=== PATIENT | female | born 1935 | race Caucasian/White ===

== ENCOUNTER → 2016-08-03 | Outpatient (CLI) | payer OTHER ==
[~2016-08-03] MED LIST: ACET-1256 PO; ALLO300T2 PO; ASCA500 PO; ASPI325T45 PO; ASPI81TA28 PO; ASPITAB71 PO; ATOR-22 PO; CALC500C3 PO; DTRSR4 PO; GLUC10007 PO; METO-649 PO; MULT-614 PO; OXYC-57 PO; PEDICHW34 PO; RXC5 PO; VALS160T58 PO; VITA400C15 PO
[2016-08-03 18:18] LABS: ALT/SGPT 23 U/L (12-78); AST/SGOT 13 U/L (15-37); BLOOD UREA NITROGEN 37 mg/dl (7-18); CALCIUM 10.3 mg/dl (8.5-10.1); CARBON DIOXIDE 24 mmol/L (21-32); CHLORIDE 107 mmol/L (98-107); GLUCOSE 139 mg/dl (70-99); POTASSIUM 4.5 mmol/L (3.5-5.1); SODIUM 139 mmol/L (136-145)
[2016-08-03 18:20] LABS: ALB/GLOB RATIO 1.1 (0.9-2); ALKALINE PHOSPHATASE 72 U/L (45-117)
== END ==
LOC: C.LABPVFM 14:33
PROVIDERS: ATTEND Nurse Practitioner
DX: N18.4 Chronic kidney disease, stage 4 (severe) (principal)

== ENCOUNTER → 2016-08-08 | Outpatient (CLI) | payer OTHER ==
[2016-08-08 13:04] LABS: ESTIMATED AVERAGE GLUCOSE 120 mg/dl; HA1C FLAG Normal (Normal)
== END | disposition home or self-care (01) ==
LOC: C.LABPVFM 10:42
PROVIDERS: ATTEND Nurse Practitioner
DX: R73.01 Impaired fasting glucose (principal); E83.52 Hypercalcemia

== ENCOUNTER → 2016-11-05 | Outpatient (CLI) | payer OTHER ==
[~2016-11-05] MED LIST changes: -ASPI325T45 PO; -ASPITAB71 PO; -DTRSR4 PO; -METO-649 PO; +METO1TAB71 PO; -PEDICHW34 PO; -RXC5 PO
[2016-11-05 12:56] LABS: BLOOD UREA NITROGEN 41 mg/dl (7-18); BUN/CREATININE RATIO 23.9 (10-20); CALCIUM 9.8 mg/dl (8.5-10.1); CARBON DIOXIDE 26 mmol/L (21-32); CHLORIDE 105 mmol/L (98-107); GLUCOSE 99 mg/dl (70-99); POTASSIUM 4.4 mmol/L (3.5-5.1); SODIUM 138 mmol/L (136-145)
== END | disposition home or self-care (01) ==
LOC: C.LABPVFM 10:40
PROVIDERS: ATTEND Nurse Practitioner
DX: N18.4 Chronic kidney disease, stage 4 (severe) (principal)

== ENCOUNTER 2016-11-09 08:20 | Day surgery (SDC) | payer OTHER ==
[2016-10-05 10:44] VITALS: BMI 33.0
--- NOTE | 2016-10-05 11:30 | PAT Medication Instructions ---
Service Date Oct 05, 2016. Current Home Medication List Ascorbic Acid (Vitamin C), 1 TAB PO QAM Aspirin (Aspirin Ec), 81 MG PO QAM Atorvastatin (Lipitor), 20 MG PO HS Calcium Carbonate (Tums), 1 TAB PO QAM Glucosamine Sulfate (Glucosamine), 1,000 MG PO AM Metoprolol Succinate (Toprolxl (Toprol-Xl), 200 MG PO QAM Multiple Vitamins W/ Minerals (Centrum Silver Ultra Wome), 1 TAB PO QAM Tocopheryl Acet,Dl-Alpha (Vitamin E), 400 INTER.UNIT PO QAM Valsartan/Hctz (Diovan Hct 160MG/12.5MG), 1 TAB PO QAM Medication Instructions For Your Scheduled Surgery - Check with surgeon/game farm helper for instructions: Aspirin (Aspirin Ec), 81 MG PO QAM - Hold the following medications 2 weeks prior to surgery: Tocopheryl Acet,Dl-Alpha (Vitamin E), 400 INTER.UNIT PO QAM Glucosamine Sulfate (Glucosamine), 1,000 MG PO AM - Hold the following medications the morning of surgery: Valsartan/Hctz (Diovan Hct 160MG/12.5MG), 1 TAB PO QAM Multiple Vitamins W/ Minerals (Centrum Silver Ultra Wome), 1 TAB PO QAM Calcium Carbonate (Tums), 1 TAB PO QAM Ascorbic Acid (Vitamin C), 1 TAB PO QAM - Take the following medications the morning of surgery with a sip of water: Metoprolol Succinate (Toprolxl (Toprol-Xl), 200 MG PO QAM - Take the following medications as scheduled the night before surgery: Atorvastatin (Lipitor), 20 MG PO HS If you have any questions please call us at [phone] or [phone] or [phone]
[2016-10-05 12:14] LABS: BASO % 0.4 %; BASO ABS # 0.03 K/uL (0-0.2); COMPLETE YES; EOS % 4.4 %; HEMATOCRIT 39.3 % (37-47); IG% 0.1 %; LYMPH % 22.7 %; LYMPH ABS # 1.55 K/uL (1.2-3.4); MEAN CELL VOLUME 100.5 fL (80-100); MEAN CORPUSCULAR HGB CONC 33.8 g/dl (32-36); MEAN PLATELET VOLUME 10.8 fL (7.4-10.4); MONO % 8.4 %; PLATELET COUNT 294 K/uL (130-400); RED BLOOD COUNT 3.91 M/uL (4.2-5.4); WHITE BLOOD COUNT 6.82 K/uL (4.8-10.8)
[2016-10-05 12:21] LABS: CREATININE 1.7 mg/dl (0.60-1.20); POTASSIUM 4.6 mmol/L (3.5-5.1)
--- NOTE | 2016-10-05 12:39 | DIAGNOSTIC IMAGING REPORT ---
TWO VIEW CHEST CLINICAL HISTORY: Preoperative examination. FINDINGS: PA and lateral chest radiographs are compared to study dated 09/26/2015. The heart is top normal for projection and there is atherosclerotic calcification of the thoracic aorta. Chronic residual thickening is similar to previous. The lungs and pleural spaces are clear. There is no pneumothorax. The skeletal structures are osteopenic. Advanced degenerative change is noted in the thoracic spine. Fusion hardware is partially visualized in the lumbar spine. IMPRESSION: No active disease in the chest. Electronically signed by: Arnel Arizmendi M.D. 10/05/2016 12:38 PM Dictated Date/Time: 10/05/2016 12:37 PM
[2016-10-08 18:09] LABS: URINE APPEARANCE CLEAR (CLEAR); URINE BILIRUBIN NEG (NEG); URINE COLOR YELLOW; URINE EPITHELIAL CELL AUTO 20-30 /lpf (0-5); URINE NITRITE NEG (NEG); URINE PH 6.5 (4.5-7.5); URINE SPECIFIC GRAVITY 1.011 (1.000-1.030); UROBILINOGEN NEG (NEG); ZZUR CULT IF INDIC CLEAN CATCH NO
[2016-10-08 18:15] LABS: MANUAL MICROSCOPIC REQUIRED? NO; REVIEW REQ? NO
[~2016-11-09] VITALS: Ht 154.9 cm; Wt 79.9 kg
[~2016-11-09 08:20] MED LIST changes: -ACET-1256 PO; -ALLO300T2 PO; +CEFAZOLIN 1000MG/55 ML D5W 55 ML IV SCH; -OXYC-57 PO; +SODIUM CHLORIDE 0.9% 1000ML 1,000 ML IV SCH
[2016-11-09] MEDS ORDERED: ALLO300T2 PO (08:57)
[2016-11-09] MEDS ORDERED: ACET-1256 PO (08:57)
[2016-11-09 09:06] VITALS: BP 197/101; PULSE 60; TEMP 36.4; O2SAT 98; Ht 154.9 cm; Wt 79.9 kg
[2016-11-09 09:43] LABS: BUN/CREATININE RATIO 25.2 (10-20); CREATININE 1.7 mg/dl (0.60-1.20); POTASSIUM 4.3 mmol/L (3.5-5.1)
[2016-11-09] MEDS ORDERED: HYDROmorphone INJ 2 MG/ML SYR/VIAL IV PRN (09:45)
[2016-11-09] MEDS ORDERED: LABETALOL HCL IV 5 MG/ML 20ML IV PRN (09:45)
[2016-11-09] MEDS ORDERED: ATROPINE SULFATE 0.1 MG/ML 5ML SYR IV PRN (09:45)
[2016-11-09] MEDS ORDERED: ONDANSETRON INJ 2 MG/ML 2 ML VIAL IV PRN (09:45)
[2016-11-09] MEDS ORDERED: FENTANYL CITRATE INJ 50 MCG/1 ML 2 ML VIAL ONE ×2 (09:54→11:03)
[2016-11-09] MEDS ORDERED: MIDAZOLAM HCL 1 MG/ML 2ML VIAL ONE (09:54)
--- NOTE | 2016-11-09 09:56 | History & Physical Bridge Note ---
H&P Re-Evaluation Bridge Note: I have examined the patient, reviewed the History & Physical and in the interval since the performance of the History & Physical I have noted the following changes of clinical significance: No changes noted
--- NOTE | 2016-11-09 09:57 | History and Physical ---
History & Physical Date Nov 09, 2016. 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 (6) Lumbar stenosis with neurogenic claudication Surgical Problems: (1) Hip Joint Replacement Status Additional History Hepatic Disease: No Endocrine Disorder: No Kidney Disease: No Hypertension: Yes Heart Disease: No Bleeding Tendencies: No Infectious Diseases: No Allergies Coded Allergies: Clopidogrel (Verified Allergy, Unknown, HIVES , 11/09/16) Adhesives (Verified Adverse Reaction, Unknown, RASH, 11/09/16) Codeine (Verified Adverse Reaction, Unknown, NAUSEA, 11/09/16) Home Medications Scheduled Allopurinol (Zyloprim), 1 TAB PO DAILY Ascorbic Acid (Vitamin C), 1 TAB PO QAM Aspirin (Aspirin Ec), 81 MG PO QAM Atorvastatin (Lipitor), 20 MG PO HS Calcium Carbonate (Tums), 1 TAB PO QAM Glucosamine Sulfate (Glucosamine), 1,000 MG PO AM Metoprolol Succinate (Toprolxl (Toprol-Xl), 200 MG PO QAM Multiple Vitamins W/ Minerals (Centrum Silver Ultra Wome), 1 TAB PO QAM Tocopheryl Acet,Dl-Alpha (Vitamin E), 400 INTER.UNIT PO QAM Valsartan/Hctz (Diovan Hct 160MG/12.5MG), 1 TAB PO QAM Scheduled PRN Acetaminophen (Tylenol), 2 TAB PO Q6 PRN for Pain Physical Examination Skin: warm/dry, no rash Eyes: normal inspection, EOMI, sclerae normal ENT: normal ENT inspection, pharynx normal Head: normocephalic, atraumatic Neck: supple, no adenopathy, trachea midline Respiratory/Chest: lungs clear, normal breath sounds, no respiratory distress Cardiovascular: regular rate, rhythm, no edema, no murmur Abdomen / GI: normal bowel sounds, non tender Back: normal inspection Extremities: normal inspection, normal range of motion Neurologic/Psych: no motor/sensory deficits, alert, normal reflexes, oriented x 3 Diagnosis Left sacroiliitis Plan of Treatment Left SI joint fusion
[2016-11-09] MEDS ORDERED: SODIUM CHL BACTERIOSTATIC 0.9% INJ 30 ML VIAL ONE (10:21)
[2016-11-09] MEDS ORDERED: BUPIVACAINE 0.5 % 5 MG/1 ML MPF 30ML VIAL ONE (10:27)
[2016-11-09] MEDS ORDERED: BACITRACIN 50000 UNIT VIAL ONE (10:27)
[2016-11-09] MEDS ORDERED: BUPIVACAINE/EPINEPHRINE 0.5% MPF 1:200,000 10 ML VIAL ONE (10:29)
[2016-11-09] MEDS ORDERED: HYDROmorphone INJ 2 MG/ML SYR/VIAL ONE (11:00)
[2016-11-09] MEDS ORDERED: OXYC-57 PO (11:40)
--- NOTE | 2016-11-09 11:41 | Discharge Instructions ---
Discharge Instructions Date of Service Nov 09, 2016. Admission Reason for Admission: Si Joint Dysfunction Discharge Discharge Diagnosis / Problem: left sacroiliitis Discharge Goals Goal(s): Improve function Activity Recommendations Activity Limitations: per Instructions/Follow-up section Shower/Bathe: may shower/bathe in 3 days Weightbearing Status: Left toe touch Toe-touch weightbearing left lower extremity. May shower postop day 2. . Current Hospital Diet Patient's current hospital diet: Discharge Diet Recommended Diet: Regular Diet Procedures Procedures Performed: Left Sacroiliac Joint Fusion Pending Studies Studies pending at discharge: no Medical Emergencies . Who to Call and When: Medical Emergencies: If at any time you feel your situation is an emergency, please call 911 immediately. . Non-Emergent Contact Non-Emergency issues call your: Primary Care Provider . "Provider Documentation" section prepared by Mathew Mohamud. . VTE Core Measure Inpt VTE Proph given/why not?: Curtis Kahn, SCD's
--- NOTE | 2016-11-09 11:46 | [facility] Operative Report ---
Operative Report Operative Date Nov 09, 2016. Pre-Operative Diagnosis Left sacroiliitis Post-Operative Diagnosis Left sacroiliitis Procedure(s) Performed Left SI joint fusion with instrumentation Surgeon Dr. Mohamud Manager Skilled Surgeon(s) Kody Mendoza PA-C Estimated Blood Loss 10 ml Findings None Specimens NONE Description of Procedure Patient was met with preoperatively case discussed all questions are dressed. After informed consent patient was taken to the operative suite and underwent intubation placed on the Robi table with chest pads and hip bolsters. Left upper buttock was prepped and draped nostril fashion. With fluoroscopy in AP lateral inlet outlet views we identified the left this SI joint. A 3 cm incision was placed along the posterior slope of the sacrum on the left side. Then placed a guidewire across the proximal portion of the left SI joint verified position and all fluoroscopic planes. He measured cannulas were placed measured a 45 mm screw to be appropriate length. The K wire was overdrilled. A 45 mm slotted DOLAN-coated screw was then placed across the joint. At excellent feel and fixation. Then using outrigger guide a placed second distal SI joint screw. Again it was drilled over guidewire and a 40 mm DOLAN- coated slotted screw filled with locally harvested morcellized autograft and Rae bone graft screwed in position. Again excellent fixation and purchase was noted. There is on the third screw. Subsequently all apparatus was removed. Incision was scoped irrigated. Was closed with subcutaneous pains Vicryl for Monocryl for final skin closure. Steri-Strips and sterile dressings placed. Patient was awakened taken to PACU in stable condition. Please note James flores was present throughout the entire procedure involved in patient positioning complex portions of the procedure and final skin closure. I attest to the content of the Intraoperative Record and any orders documented therein. Any exceptions are noted below.
--- NOTE | 2016-11-09 11:55 | DIAGNOSTIC IMAGING REPORT ---
Radiology PELVIS 1 OR 2 VIEWS ROUTINE CLINICAL HISTORY: 81 years-old Female presenting with LEFT SACROILIAC JOINT FUSION. TECHNIQUE: 3 fluoroscopic spot image(s) obtained as part of an intraoperative procedure. COMPARISON: None. FINDINGS/IMPRESSION: 2 screw fixation across the left sacroiliac joint noted. Posterior fusion of the lower lumbar spine with interbody spacers at L4-5 and L5-S1. Please see surgical report for further details. Fluoroscopy dosage (mGy): Not available. Fluoroscopy time: 1 minute 10 seconds. Number of fluoroscopic spot images: 3. Electronically signed by: Jaison Campos M.D. 11/09/2016 11:54 AM Dictated Date/Time: 11/09/2016 11:53 AM
--- NOTE | 2016-11-09 11:58 | Anesthesiology Progress Note ---
Anesthesia Post Op Note Date & Time Nov 09, 2016 at 11:58 Vital Signs Pain Intensity: 0 Vital Signs Past 12 Hours Date Time Temp Pulse Resp B/P (MAP) Pulse Ox O2 Delivery O2 Flow Rate FiO2 11/09/16 11:55 36.1 63 16 169/80 99 Room Air 11/09/16 11:45 57 16 170/87 100 Oxymask 10 11/09/16 11:35 57 16 168/73 100 Oxymask 10 11/09/16 11:29 36.3 69 16 174/74 99 Oxymask 10 11/09/16 09:06 36.4 60 20 197/101 98 Room Air Notes Mental Status: alert / awake / arousable, participated in evaluation Pt Amnestic to Procedure: Yes Nausea / Vomiting: adequately controlled Pain: adequately controlled Airway Patency, RR, SpO2: stable & adequate BP & HR: stable & adequate Hydration State: stable & adequate Anesthetic Complications: no major complications apparent
[2016-11-09 12:15] VITALS: BP 181/67; PULSE 78; TEMP 36.5; O2SAT 97
[2016-11-09] MEDS ORDERED: ACETAMINOPHEN 325 MG TAB ONE (12:38)
[2016-11-09] MEDS ORDERED: LIDOCAINE HCL 2% 2 ML VIAL (20MG/ML) ONE (12:41)
[2016-11-09] MEDS ORDERED: GLYCOPYRROLATE INJ 0.2 MG/ML VIAL ONE (12:41)
[2016-11-09] MEDS ORDERED: DEXAMETHASONE SOD INJ 4 MG/ML VIAL ONE (12:41)
[2016-11-09] MEDS ORDERED: ROCURONIUM BROMIDE 10 MG/ML 5 ML VIAL IV ONE (12:41)
[2016-11-09] MEDS ORDERED: ONDANSETRON INJ 2 MG/ML 2 ML VIAL ONE (12:41)
[2016-11-09] MEDS ORDERED: PROPOFOL IV EMULSION 10 MG/ML 20 ML VIAL IV ONE (12:41)
[2016-11-09] MEDS ORDERED: NEOSTIGMINE METHYLSULFATE 1 MG/ML 10ML VIAL ONE (12:41)
[2016-11-09] MEDS ORDERED: EpHEDrine SULFATE 50MG/5ML SYR ONE (12:41)
[2016-11-09 12:45] VITALS: BP 178/76; PULSE 80; O2SAT 98
[2016-11-09] MEDS ORDERED: NURSING VERBAL MED ORDER ONE (12:45)
[2016-11-09] MEDS ORDERED: ACETAMINOPHEN 325 MG TAB PO ONE (12:45)
[2016-11-09 13:15] VITALS: BP 170/70; PULSE 75; O2SAT 98
== END 2016-11-09 13:25 | disposition home or self-care (01) ==
LOC: C.ACU 08:20
PROVIDERS: ATTEND Orthopaedic Surgery Orthopaedic Surgery of the Spine
DX: M46.1 Sacroiliitis, not elsewhere classified (principal); I25.2 Old myocardial infarction; I12.9 Hypertensive chronic kidney disease with stage 1 through stage 4 chronic kidney disease, or unspecified chronic kidney disease; N18.9 Chronic kidney disease, unspecified; K21.9 Gastro-esophageal reflux disease without esophagitis; M99.4 Connective tissue stenosis of neural canal; I73.9 Peripheral vascular disease, unspecified; Z79.82 Long term (current) use of aspirin; Z79.899 Other long term (current) drug therapy

== ENCOUNTER 2018-08-15 19:46 | Inpatient (IN) ==
[2018-08-15] MEDS ORDERED: SODIUM CHLORIDE 0.9% 1000ML 1,000 ML IV ONE (20:16)
[2018-08-15 20:48] LABS: Basophils # (auto) 0.03 K/uL (0-0.2); Basophils % (auto) 0.3 %; Eosinophils # (auto) 0.14 K/uL (0-0.5); Eosinophils % (auto) 1.2 %; Hematocrit (blood only) 34.7 % (37-47); Hemoglobin 12.1 g/dL (12.0-16.0); Immature Granulocytes # (auto) 0.06 K/uL (0.00-0.02); Immature Granulocytes % (auto) 0.5 %; Lymphocytes % (auto) 9.5 %; Mean Corpuscular Hgb Conc 34.9 g/dL (32-36); Mean Corpuscular Volume 93.3 fL (80-100); Mean Platelet Volume 10.2 fL (7.4-10.4); Monocytes # (auto) 1.04 K/uL (0.11-0.59); Neutrophils # (auto) 9.25 K/uL (1.4-6.5); Neutrophils % (auto) 79.5 %; Platelet Count 289 K/uL (130-400); RDW Standard Deviation 47.7 fL (36.4-46.3); Red Blood Count 3.72 M/uL (4.2-5.4); White Blood Count 11.62 K/uL (4.8-10.8)
[2018-08-15 21:07] LABS: Albumin Level 2.7 gm/dl (3.4-5.0); BUN Creatinine Ratio 16.8 (10-20); Calcium 9.1 mg/dl (8.5-10.1); Creatinine Clr Calc Pharmacy 19.4 ml/min; Est GFR (African American) 22.8; Est GFR (Non-African American) 19.6
[2018-08-15 21:10] LABS: Albumin Globulin Ratio 0.8 (0.9-2); Bilirubin,Total 0.4 mg/dl (0.2-1); Globulin 3.5 gm/dl (2.5-4.0); Total Protein 6.2 gm/dl (6.4-8.2)
--- NOTE | 2018-08-15 22:58 | History & Physical Report ---
Date of Service August 15, 2018 Assessment & Plan (1) Diarrhea: Patient with profuse, watery diarrhea resulting in mild dehydration. ?infectious etiology. Abdomen flat, soft and nontender -Follow results of C. diff and stool culture -IVF and electrolyte repletion Present on Admission?: Yes (2) Dehydration: NISHI on CKD, Patient reports making adequate urine. -NSS at 80mL/hr x 2 liters -Monitor BUN, Cr, electroltyes and UOP -Repeat Chemistry in AM Present on Admission?: Yes (3) Hyponatremia: Bs=571 from previously normal baseline. Most likely secondary to hypovolemic hyponatremia from GI losses in setting of acute diarrhea. No neurological symptoms present. -IVF as above -Continue to monitor, BMP in AM Present on Admission?: Yes (4) Weakness: Patient with mild dehydration, most likely deconditioning from acute illness. Albumin has decreased from 3.9 to 2.7 since 06/30/18. ?Malnutrition, inflammatory state, protein losing enteropathy -Check Prealbumin with AM -Consider PT/OT evaluation Present on Admission?: Yes (5) Hypertension: Blood pressure presently 154/78 -Continue Clonidine 1 tablet po qHS -Hold Losartan in setting of NISHI -Continue toprol XL 200mg po daily -Hold Triamterene-HCTZ in setting of NISHI Present on Admission?: Yes (6) CAD (coronary artery disease): Chronic. Stable -Continue ASA 81mg po daily -Continue Simvastatin 40mg po daily -Continue Metoprolol Succinate 200mg po q daily Present on Admission?: Yes (7) Overactive bladder: Chronic. -Continue Darifenacin daily F/E/N - NSS at 80mL/hr x 2 liters, hyponatremia as above, BMP in AM, check Mg and PO4 x 1 and correct if needed, clear liquid diet as tolerated - patient states she is not hungry at all Ppx - Low risk for DVT Code - Full Dispo - Med Surge History of Present Illness Chief Complaint: Diarrhea Primary Care Provider: PAWAN Cotter Yokasta Margot is a pleasant 83yo C female with history of HTN, HLP, CKD, CAD s/p stents (last in 2005) presenting with diarrhea. Patient with 7 days of profuse, watery diarrhea, multiple episodes per day. Episodes are preceded by abdominal pain but not relieved by bowel movement. No association with meals. No melena/hematochezia. No nausea/vomiting. No recent travel, sick contacts, medication changes, recent antibiotics or recent hospitalizations. Patient has not been eating or drinking much over the last week. She has had progressive weakness and fatigue. Was unable to lift herself off the commode this evening and required assistance from her family. Family also notes that she has been more confused of late, slower to respond to questioning and slow s peech. No additional complaints at this time. ER Course: NSS 1L Allergies Allergy/AdvReac Type Severity Reaction Status Date / Time clopidogrel Allergy Unknown HIVES Verified 08/15/18 23:25 codeine Allergy Unknown NAUSEA Verified 08/15/18 23:25 adhesive AdvReac Unknown RASH Verified 08/15/18 23:25 Home Medications Home Medications Medication Instructions Recorded Confirmed Type Metoprolol Succinate (Toprolxl 200 mg PO QAM #0 12/27/08 History (Toprol-Xl) VALSARTAN/HCTZ (DIOVAN HCT 1 tab PO QAM #0 tab 09/26/15 History 160MG/12.5MG) ASPIRIN (ASPIRIN EC) 81 mg PO QAM #0 10/05/16 History Ascorbic Acid (Vitamin C) 1 tab PO QAM #0 10/05/16 History MULTIPLE VITAMINS W/ MINERALS 1 tab PO QAM #0 10/05/16 History (CENTRUM SILVER ULTRA WOME) ALLOPURINOL (ZYLOPRIM) 1 tab PO QPM 30 Days #0 tab 11/09/16 History Acetaminophen (Tylenol) 2 tab PO Q6 PRN 2 Days #20 tab 11/09/16 History Calcium/Vitamin D (Os-Gen 500 Plus 1 tab PO QAM #0 tab 06/25/17 History D) GLUCOSAMINE-CHONDROITIN (OSTEO 1 tab PO QAM #0 06/25/17 History BI-FLEX REGULAR STR) LOSARTAN POTASSIUM (COZAAR) 100 mg PO QAM #0 tab 06/25/17 History Simvastatin (Zocor) 40 mg PO QPM #0 tab 06/25/17 History VITAMIN E 1 tab PO QAM #0 06/25/17 History dicyclomine 10 mg capsule 10 mg PO TID PRN #15 cap 08/14/18 Rx Past Med/Surg History Medical History Hypertension CAD (coronary artery disease) s/p stent x 2 to proximal RCA and 1 to mid-LAD CKD (chronic kidney disease) Dyslipidemia Low back pain Surgical History Previous back surgery S/P knee surgery Status post hip surgery Family History Other Family history non-contributory Social History Preferred Language: Thai Feels Safe at Home: Yes Smoking Status: Former smoker Hx Alcohol Use: No Hx Substance Use: No Review of Systems Review of Systems: All systems reviewed & are unremarkable except as noted in HPI & below Physical Exam Physical Exam: General: patient resting comfortably, NAD, non-toxic in appearance, AA&O x 4 Skin: warm, dry, intact, no rashes or lesions HEENT: NC/AT, PERRL, EOMI, anicteric sclera, conjunctiva without injection, external ear normal to inspection and nontender, nares patent, dry mucus membranes, dentition intact, no oropharyngeal lesions, neck supple, trachea midline, no LAD, no thyromegaly, no JVD Heart: +S1/S2, regular, no m/r/g Lungs: equal air entry bilaterally, no rales/rhonchi/wheezes Abd: +BS, soft, NT/ND, no masses/organomegaly/ascites Ext: warm, 2+ pulses in UE/LE bilaterally, no clubbing/cyanosis or edema Neuro: nonfocal, patient AA&O x 4, speech intact, no facial droop, moving all extremities on command with equal strength 5/5 Results & Data Vital Signs (Past 12 Hours) Vital Signs Temp Pulse Resp BP Pulse Ox 08/15/18 21:30 75 23 154/78 H 96 08/15/18 21:00 72 22 95 08/15/18 20:30 72 20 96 08/15/18 20:17 70 20 97 08/15/18 20:00 37.3 C 73 25 H 146/88 H 95 08/15/18 19:52 80 19 98 08/15/18 19:51 76 25 H 146/88 H 97 Laboratory Results Lab Results 08/15/18 08/15/18 Range/Units 20:27 20:27 WBC 11.62 H (4.8-10.8) K/uL RBC 3.72 L (4.2-5.4) M/uL Hgb 12.1 (12.0-16.0) g/dL Hct 34.7 L (37-47) % MCV 93.3 (80-100) fL MCH 32.5 (25-34) pg MCHC 34.9 (32-36) g/dL RDW Std Deviation 47.7 H (36.4-46.3) fL RDW Coeff of Eleazar 14.0 (11.5-14.5) % Plt Count 289 (130-400) K/uL MPV 10.2 (7.4-10.4) fL Immature Gran % (Auto) 0.5 % Neut % (Auto) 79.5 % Lymph % (Auto) 9.5 % [place] % (Auto) 9.0 % Eos % (Auto) 1.2 % Baso % (Auto) 0.3 % Immature Gran # (Auto) 0.06 H (0.00-0.02) K/uL Neut # (Auto) 9.25 H (1.4-6.5) K/uL Lymph # (Auto) 1.10 L (1.2-3.4) K/uL [place] # (Auto) 1.04 H (0.11-0.59) K/uL Eos # (Auto) 0.14 (0-0.5) K/uL Baso # (Auto) 0.03 (0-0.2) K/uL Sodium 133 L (136-145) mmol/L Potassium 4.0 (3.5-5.1) mmol/L Chloride 103 (98-107) mmol/L Carbon Dioxide 21 (21-32) mmol/L Anion Gap 9.0 (3-11) BUN 38 H (7-18) mg/dl Creatinine 2.24 H (0.6-1.2) mg/dl Est Cr Clr Drug Dosing 19.4 ml/min Est GFR ( Amer) 22.8 Est GFR (Non-Af Amer) 19.6 BUN/Creatinine Ratio 16.8 (10-20) Glucose 103 H (70-99) mg/dl Calcium 9.1 (8.5-10.1) mg/dl Total Bilirubin 0.4 (0.2-1) mg/dl AST 18 (15-37) U/L ALT 15 (12-78) U/L Alkaline Phosphatase 68 (45-117) U/L Total Protein 6.2 L (6.4-8.2) gm/dl Albumin 2.7 L (3.4-5.0) gm/dl Globulin 3.5 (2.5-4.0) gm/dl Albumin/Globulin Ratio 0.8 L (0.9-2) Lipase 117 (73-393) U/L Code Status & VTE Plan Code Status FULL (1) Diarrhea Diarrhea type: unspecified type Qualified Code(s): R19.7 - Diarrhea, unspecified (2) Hypertension Hypertension type: essential hypertension Qualified Code(s): I10 - Essential (primary) hypertension (3) CAD (coronary artery disease) Coronary Disease-Associated Artery/Lesion type: [place] artery [place] vs. transplanted heart: [place] heart Associated angina: without angina Qualified Code(s): I25.10 - Atherosclerotic heart disease of [place] coronary artery without angina pectoris
[2018-08-16] MEDS ORDERED: ONDANSETRON INJ 2 MG/ML 2 ML VIAL IV PRN (00:21)
[2018-08-16] MEDS ORDERED: ACETAMINOPHEN 325 MG TAB PO PRN (00:21)
[2018-08-16] MEDS ORDERED: SODIUM CHLORIDE 0.9% 1000ML 1,000 ML IV SCH (00:21)
[2018-08-16 00:34] LABS: Cdiff Antigen Positive
[2018-08-16 00:41] LABS: Magnesium 1.8 mg/dl (1.8-2.4); Phosphorus 3.1 mg/dl (2.5-4.9)
[2018-08-16 00:43] LABS: Cdiff Toxin A+B Positive Cdiff Toxin (Negative)
--- NOTE | 2018-08-16 00:53 | Emergency Department Note ---
Entered by Lory Barrera acting as a scribe for Oswaldo Velasquez MD History of Present Illness General Chief complaint: Diarrhea Stated complaint: ILLNESS, DIARRHEA, WEAKNESS Time Seen by Provider: 08/15/18 20:09 Source: patient Mode of arrival: ambulatory Limitations: no limitations History of Present Illness Onset (ago): week(s) 1 Radiation: non-radiation Pain Consistency: + constant Maximum Pain Intensity: 7 Relieved By: + none Exacerbated By: + none Associated symptoms: + other (-abdominal pain, -hematochezia); no fever/chills and no nausea/vomiting Treatments prior to arrival: other (Doxycycline) The patient is an 83 year old female who presents to the ED with complaints of d iarrhea for the past 1 week. She states she was started on Doxycycline recently but it has provided no relief. There has been no blood in her stool. She denies any recent vomiting. She states she has experienced a low grade fever and chills. She denies any abdominal pain. She admits to a headache but denies any cough or chest pain. Home Medications Home Medications Medication Instructions Recorded Confirmed Type acetaminophen [Tylenol] 650 mg PO Q6H PRN 08/15/18 08/15/18 History allopurinol 300 mg PO QPM 08/15/18 08/15/18 History ascorbic acid (vitamin C) [Vitamin 500 mg PO DAILY 08/15/18 08/15/18 History C] calcium carbonate-vitamin D3 1 tab PO DAILY 08/15/18 08/15/18 History [Calcium 500 + D] dicyclomine 10 mg PO TID PRN 08/15/18 08/15/18 History glucos sul [id number] 1 cap PO QAM 08/15/18 08/15/18 History [Glucosamine Chondroitin] losartan [Cozaar] 100 mg PO DAILY 08/15/18 08/15/18 History metoprolol succinate 200 mg PO DAILY 08/15/18 08/15/18 History multivitamin 1 tab PO DAILY 08/15/18 08/15/18 History simvastatin 40 mg PO PM 08/15/18 08/15/18 History valsartan [Diovan] 160 mg PO DAILY 08/15/18 08/15/18 History vitamin E 400 unit PO DAILY 08/15/18 08/15/18 History Allergies Allergy/AdvReac Type Severity Reaction Status Date / Time clopidogrel Allergy Unknown HIVES Verified 08/15/18 23:29 codeine Allergy Unknown NAUSEA Verified 08/15/18 23:29 adhesive AdvReac Unknown RASH Verified 08/15/18 23:29 Past Med/Surg History Medical History Hypertension CAD (coronary artery disease) s/p stent x 2 to proximal RCA and 1 to mid-LAD CKD (chronic kidney disease) Dyslipidemia Low back pain Surgical History Previous back surgery S/P knee surgery Status post hip surgery Family History Other Family history non-contributory Social History Preferred Language: Mont[place] Feels Safe at Home: Yes Smoking Status: Former smoker Hx Alcohol Use: No Hx Substance Use: No Review of Systems See HPI for pertinent positives & negatives. and A total of 10 systems reviewed and were otherwise negative Physical Exam Vital Signs Vital Signs - 24 hr 08/15/18 19:51 08/15/18 19:52 08/15/18 20:00 Temperature 37.3 C Temperature Source Oral Sepsis Recent Fever Within 48 Hours No Sepsis New/Unexplained Change in Mental Status No Sepsis Action Taken by Nursing No Action Required Pulse Rate 76 80 73 Pulse Rate from SpO2 Sensor 76 80 72 Pulse Rhythm Respiratory Rate 25 H 19 25 H Respiratory Effort / Characteristics Non-Labored Respiratory Depth Normal Respiratory Pattern Regular Blood Pressure 146/88 H 146/88 H Blood Pressure Mean 107 107 Pulse Oximetry 97 98 95 Oxygen Delivery Method Room Air 08/15/18 20:17 08/15/18 20:30 08/15/18 21:00 Temperature Temperature Source Sepsis Recent Fever Within 48 Hours Sepsis New/Unexplained Change in Mental Status Sepsis Action Taken by Nursing Pulse Rate 70 72 72 Pulse Rate from SpO2 Sensor 72 72 Pulse Rhythm Regular Respiratory Rate 20 20 22 Respiratory Effort / Characteristics Respiratory Depth Respiratory Pattern Blood Pressure Blood Pressure Mean Pulse Oximetry 97 96 95 Oxygen Delivery Method Room Air 08/15/18 21:30 08/15/18 21:57 08/15/18 22:00 Temperature Temperature Source Sepsis Recent Fever Within 48 Hours Sepsis New/Unexplained Change in Mental Status Sepsis Action Taken by Nursing Pulse Rate 75 73 75 Pulse Rate from SpO2 Sensor 80 73 77 Pulse Rhythm Respiratory Rate 23 21 17 Respiratory Effort / Characteristics Respiratory Depth Respiratory Pattern Blood Pressure 154/78 H 154/78 H Blood Pressure Mean 103 103 Pulse Oximetry 96 96 96 Oxygen Delivery Method 08/15/18 22:01 08/15/18 22:30 08/15/18 22:31 Temperature Temperature Source Sepsis Recent Fever Within 48 Hours Sepsis New/Unexplained Change in Mental Status Sepsis Action Taken by Nursing Pulse Rate 83 73 75 Pulse Rate from SpO2 Sensor 84 74 74 Pulse Rhythm Respiratory Rate 18 18 22 Respiratory Effort / Characteristics Respiratory Depth Respiratory Pattern Blood Pressure 169/73 H 144/66 H Blood Pressure Mean 105 92 Pulse Oximetry 96 95 95 Oxygen Delivery Method General: Mildly ill-appearing older female, in no acute distress. HEENT: Normal cephalic atraumatic. Pupils are equal round and reactive to light. Extraocular movements are intact. Oropharynx is pink with moist mucous membranes. No swelling of the mouth lips or tongue. Neck: Supple with a midline trachea. No meningeal signs or stiffness, no JVD or bruits. No Stridor. Chest: Clear to auscultation bilaterally. No wheezes or rhonchi. No increased work of breathing. Heart: regular rate and rhythm. Abdomen: Soft nontender, nondistended without rebound guarding or rigidity. Rectal: Large hemorrhoids, skin is excoriated, no evidence of abscess seen. Extremities: No cyanosis clubbing or edema. No calf tenderness or asymmetry Spine/Back. Non tender to palpation. No CVA tenderness Skin: Good turgor without rashes. Neurologic exam: Cranial nerves two through 12 are intact. Motor and sensation are intact and symmetrical throughout. Course 2009: The patient was evaluated in room C7 and a complete history and physical were performed. 2048: I reevaluated the patient. She is resting comfortably. I discussed my recommendation she remain in the hospital for further evaluation and management and her and her family verbalized complete understanding and agreement. 2199: I discussed the patients case with Leyla Awad [facility] Hospitalist. The patient will be further evaluated. Consultations Consultation #1: I discussed the patients case with Leyla Awad [facility] Hospitalist. The patient will be further evaluated. Time: 22:00 Administered Medications Discontinued Medications Sodium Chloride (Nss 1000ml) 1,000 mls @ 999 mls/hr IV .Q1H1M ONE Stop: 08/15/18 21:16 Last Infusion: 08/15/18 21:36 Dose: 0 mls/hr Documented by: [id number] Admin: 08/15/18 20:37 Dose: 999 mls/hr Documented by: [id number] Medical Decision Making Differential Diagnosis The differential diagnoses considered include: diarrhea, C-Diff, dehydration, electrolyte or metabolic abnormality. Medical Records Attestation: I reviewed the patient's medical records. Home Medications Current Medication List: was personally reviewed by me Laboratory Data Attestation: I reviewed the patient's lab results. Result diagrams: 08/15/18 20:27 08/15/18 20:27 Lab Results 08/15/18 08/15/18 08/15/18 Range/Units 20:27 20:27 22:07 WBC 11.62 H (4.8-10.8) K/uL RBC 3.72 L (4.2-5.4) M/uL Hgb 12.1 (12.0-16.0) g/dL Hct 34.7 L (37-47) % MCV 93.3 (80-100) fL MCH 32.5 (25-34) pg MCHC 34.9 (32-36) g/dL RDW Std Deviation 47.7 H (36.4-46.3) fL RDW Coeff of Eleazar 14.0 (11.5-14.5) % Plt Count 289 (130-400) K/uL MPV 10.2 (7.4-10.4) fL Immature Gran % (Auto) 0.5 % Neut % (Auto) 79.5 % Lymph % (Auto) 9.5 % [place] % (Auto) 9.0 % Eos % (Auto) 1.2 % Baso % (Auto) 0.3 % Immature Gran # (Auto) 0.06 H (0.00-0.02) K/uL Neut # (Auto) 9.25 H (1.4-6.5) K/uL Lymph # (Auto) 1.10 L (1.2-3.4) K/uL [place] # (Auto) 1.04 H (0.11-0.59) K/uL Eos # (Auto) 0.14 (0-0.5) K/uL Baso # (Auto) 0.03 (0-0.2) K/uL Sodium 133 L (136-145) mmol/L Potassium 4.0 (3.5-5.1) mmol/L Chloride 103 (98-107) mmol/L Carbon Dioxide 21 (21-32) mmol/L Anion Gap 9.0 (3-11) BUN 38 H (7-18) mg/dl Creatinine 2.24 H (0.6-1.2) mg/dl Est Cr Clr Drug Dosing 19.4 ml/min Est GFR ( Amer) 22.8 Est GFR (Non-Af Amer) 19.6 BUN/Creatinine Ratio 16.8 (10-20) Glucose 103 H (70-99) mg/dl Calcium 9.1 (8.5-10.1) mg/dl Phosphorus 3.1 (2.5-4.9) mg/dl Magnesium 1.8 (1.8-2.4) mg/dl Total Bilirubin 0.4 (0.2-1) mg/dl AST 18 (15-37) U/L ALT 15 (12-78) U/L Alkaline Phosphatase 68 (45-117) U/L Total Protein 6.2 L (6.4-8.2) gm/dl Albumin 2.7 L (3.4-5.0) gm/dl Globulin 3.5 (2.5-4.0) gm/dl Albumin/Globulin Ratio 0.8 L (0.9-2) Lipase 117 (73-393) U/L Stl C. diff Tox B Gene Positive Cdiff Gene H (Neg) Stl C.difficile Tox A&B Positive Cdiff Toxin A* (Negative) Blood Pressure Blood Pressure Findings: Elevated blood pressure Blood Pressure Disposition: further management by hospitalist MDM Narrative This patient comes in as described above. She is had diarrhea for about a week. She has been very weak today that a hard time getting her off the toilet. she is complaining that she has pain in her rectal area from inflammation from the diarrhea. She Benjamin had no fever or vomiting or abdominal pain. IV access established was bolused with 1 L IV normal saline. She was feeling quite a bit better her BUN is elevated chronically however her creatinine is bumped compared to her baseline. Her creatinine is over 2 and her creatinine is up approximately 0.6 compared to her baseline. She has no fever or white count to suggest infection stool studies are pending. Given her weakness, I do think she needs to be admitted/observed overnight to the have IV hydration and further treatment and evaluation. The patient and her family are happy with this plan and she will be admitted/observed. I have consulted the [facility] hospitalist to see her. Impression & Plan Dehydration, Diarrhea, Weakness Discharge Plan Visit Data *Final* Discharge Date/Time: 08/15/18 23:26 Chief Complaint: Diarrhea Stated Complaint: ILLNESS, DIARRHEA, WEAKNESS ED Provider: Oswaldo Velasquez Discharge Problem: Dehydration, Diarrhea, Weakness Patient Disposition: Admitted As Inpatient Discharge Instructions Interventions: ED Discharge Assessment Last Done: 08/15/18 23:26 Discharge Problem: Diarrhea Qualifiers: Diarrhea type: unspecified type Qualified Code(s): R19.7 - Diarrhea, unspecified The scribe's documentation has been prepared under my direction and personally reviewed by me in its entirety. I confirm that the note above accurately reflects all work, treatment, procedures, and medical decision making performed by me.
[2018-08-16] MEDS: VANCOMYCIN HCL 125 MG/2.5ML SOLN PO SCH ×5 (02:00→23:46)
[2018-08-16] MEDS: RASPBERRY SYRUP 5 ML UDP PO SCH ×5 (02:00→23:46)
[2018-08-16 06:30] LABS: Hematocrit (blood only) 33.6 % (37-47); Hemoglobin 11.5 g/dL (12.0-16.0); Mean Corpuscular Hgb Conc 34.2 g/dL (32-36); Mean Corpuscular Volume 93.1 fL (80-100); Mean Platelet Volume 10.3 fL (7.4-10.4); Platelet Count 265 K/uL (130-400); RDW Standard Deviation 47.8 fL (36.4-46.3); Red Blood Count 3.61 M/uL (4.2-5.4); White Blood Count 8.47 K/uL (4.8-10.8)
[2018-08-16 07:15] LABS: BUN Creatinine Ratio 16.4 (10-20); Calcium 8.7 mg/dl (8.5-10.1); Creatinine Clr Calc Pharmacy 22.8 ml/min; Est GFR (African American) 28.3; Est GFR (Non-African American) 24.4; Potassium 3.2 mmol/L (3.5-5.1); Prealbumin 8.9 mg/dl (20-40)
[2018-08-16 07:24] LABS: Basophils # (auto) 0.02 K/uL (0-0.2); Basophils % (auto) 0.2 %; Echinocytes 1+; Eosinophils % (auto) 2.4 %; Immature Granulocytes # (auto) 0.05 K/uL (0.00-0.02); Immature Granulocytes % (auto) 0.6 %; Lymphocytes # (auto) 1.26 K/uL (1.2-3.4); Lymphocytes % (auto) 14.9 %; Monocytes # (auto) 0.84 K/uL (0.11-0.59); Monocytes % (auto) 9.9 %; Toxic Granulation 1+
[2018-08-16] MEDS: ASPIRIN 81 MG ECTAB PO SCH (08:42)
[2018-08-16] MEDS: METOPROLOL SUCC 50MG EXT REL TAB PO SCH (08:42)
[2018-08-16] MEDS: NSS + 20MEQ KCL 20 MEQ/1,000 ML BAG IV SCH ×2 (09:53→22:10)
[2018-08-16] MEDS: COLESTIPOL HCL 1 GM TAB PO SCH (10:05)
[2018-08-16] MEDS: POTASSIUM CHLORIDE 20 MEQ TABCR PO SCH ×3 (10:06→21:31)
[2018-08-16] MEDS: MICONAZOLE NITRATE POWDER 43 GM EXT PRN (15:40)
--- NOTE | 2018-08-16 18:51 | Hospitalist Progress Note ---
Date of Service August 16, 2018 Assessment & Plan (1) C. difficile colitis: Plan 14-day course of PO vancomycin 125mg qid. First episode of c. diff ever. No risk factors for contraction of c.diff except she had been vising her at [facility] in the last 2 weeks. Could have easily contracted this while at the hospital. Either way she has NISHI, dehydration, electrolyte disturbances from this. Cont clear liquids. Cont IVF. Repeat BMP/mag in am. Contact isolation. Add colestipol 1gm daily to bulk the stool. Need to certified credit counselor family about cleaning the home with chlorox, etc. Present on Admission?: Yes (2) Acute kidney injury: 2nd to dehydration from c. diff colitis. Slowly improving. Daily BMP. (3) Hyponatremia: 2nd to dehydration - Na level improved. Cont hydration - repeat BMP am. Present on Admission?: Yes (4) Hypertension: Cont beta brina but HOLD her ARB. Present on Admission?: Yes (5) CAD (coronary artery disease): No ischemic symptoms at this time. Cont asa, statin, and beta brina. Present on Admission?: Yes (6) Dehydration: Improving. Cont IV fluids. Cont clear liquid diet. BMP am. Present on Admission?: Yes (7) Weakness: 2nd to electrolyte disturbances and dehydration in setting of severe c diff infection. PT, OT evals. Replace lytes, Rx c.diff, etc. (8) Hypokalemia: Replace IV/PO - repeat BMP w/ mag in am. Present on Admission?: No (9) Chronic kidney disease, stage 3a: Baseline CrCl < 60. Now with superimposed NISHI. Repeat BMP am. (10) DVT prophylaxis: add heparin SC update family when able Subjective patient feels better today. diarrhea still quite frequent and liquid in calibre but no abd pain. no nausea/emesis. tolerating clears. patient reports her was just hospitalized in the last 2 weeks at [facility] and had coronary artery stents placed. she was visiting him frequently. she has not personally been hospitalized, placed in a SNF, or had antibiotics in the last few months. lives independently at home. Review of Systems Constitutional: + fatigue and + anorexia; no fever and no chills Respiratory: no cough and no dyspnea Cardiovascular: no chest pain Gastrointestinal: as per Subjective / HPI and + cramping Physical Exam Constitutional: no acute distress, + not appropriately hydrated and no altered mental status ENMT: Mouth: + dry oral mucous membranes Respiratory: normal respiratory effort, lungs clear to auscultation Cardiovascular: Rate/Rhythm: regular rate and regular rhythm Heart Sounds: normal S1 and normal S2; no murmur Vessels: posterior tibial pulses present and dorsalis pedis pulses present; no JVD Gastrointestinal (Abdomen): normal bowel sounds, soft, nontender, no hepatosplenomegaly Skin: poor skin turgor Psychiatric: A+Ox3, euthymic affect Results & Data Vital Signs (Past 12 Hours) Vital Signs Temp Pulse Resp BP Pulse Ox 08/16/18 16:11 36.3 C L 75 16 158/69 H 98 08/16/18 07:24 36.7 C 68 16 161/68 H 97 Laboratory Results Cr 1.8 K 3.2 CBC wnl (1) Hypertension Hypertension type: essential hypertension Qualified Code(s): I10 - Essential (primary) hypertension (2) CAD (coronary artery disease) Coronary Disease-Associated Artery/Lesion type: [place] artery [place] vs. transplanted heart: [place] heart Associated angina: without angina Qualified Code(s): I25.10 - Atherosclerotic heart disease of [place] coronary artery without angina pectoris
[2018-08-16] MEDS: SIMVASTATIN 40 MG TAB PO SCH (21:31)
[2018-08-16] MEDS: ALLOPURINOL 300 MG TAB PO SCH (21:31)
[2018-08-17] MEDS: VANCOMYCIN HCL 125 MG/2.5ML SOLN PO SCH ×4 (04:58→23:51)
[2018-08-17] MEDS: RASPBERRY SYRUP 5 ML UDP PO SCH ×4 (04:58→23:51)
[2018-08-17] MEDS: POTASSIUM CHLORIDE 20 MEQ TABCR PO SCH ×3 (07:56→20:23)
[2018-08-17] MEDS: METOPROLOL SUCC 50MG EXT REL TAB PO SCH (07:56)
[2018-08-17] MEDS: ASPIRIN 81 MG ECTAB PO SCH (07:56)
[2018-08-17 08:09] LABS: BUN Creatinine Ratio 14.5 (10-20); Calcium 8.2 mg/dl (8.5-10.1); Creatinine Clr Calc Pharmacy 32.3 ml/min; Est GFR (African American) 43.1; Est GFR (Non-African American) 37.2; Magnesium 1.5 mg/dl (1.8-2.4); Potassium 3.8 mmol/L (3.5-5.1)
[2018-08-17] MEDS: COLESTIPOL HCL 1 GM TAB PO SCH (10:40)
[2018-08-17] MEDS: MAGNESIUM SULFATE / D5W 1 GM/100 ML BAG IV SCH ×2 (11:19→12:45)
[2018-08-17] MEDS ORDERED: D5NSS + 20MEQ KCL 20 MEQ/1,000 ML BAG IV SCH (14:15)
[2018-08-17] MEDS: ALLOPURINOL 300 MG TAB PO SCH (20:22)
[2018-08-17] MEDS: SIMVASTATIN 40 MG TAB PO SCH (20:22)
--- NOTE | 2018-08-17 21:24 | Hospitalist Progress Note ---
Date of Service August 17, 2018 Assessment & Plan (1) C. difficile colitis: IMPROVING. Plan 14-day course of PO vancomycin 125mg qid. First episode of c. diff ever. day #2-3 today of 14. No risk factors for contraction of c.diff except she had been vising her at [facility] in the last 2 weeks. Could have easily contracted this while at the hospital. Advance diet to full liquids. 1 additional liter of IV fluids today then saline lock. Repeat BMP/mag am. Contact isolation. Continue colestipol 1gm daily to bulk the stool. Family EXTENSIVELY updated at bedside today; questions answered. Discussed chlorox bleach to clean her home, prevention practices, etc. (2) Dehydration: Resolving Nicely. 1 additional liter of fluid today then saline lock. Advance diet. (3) Hyponatremia: 2nd to dehydration - resolved. (4) Weakness: 2nd to electrolyte disturbances and dehydration in setting of severe c diff infection. PT, OT evals recommending rehab as of today. (5) Hypertension: Cont to hold Losartan in setting of NISHI. Continue toprol XL 200mg po daily. (6) CAD (coronary artery disease): No ischemic symptoms at this time. Cont asa, statin, and beta brina. (7) Acute kidney injury: resolving nicely with fluids and supportive care. BMP in am. baseline Cr seems to be, at most, 1.7 but suspect it is less. (8) Hypokalemia: Resolved. (9) Chronic kidney disease, stage 3a: Baseline CrCl < 60. Now with superimposed NISHI. Repeat BMP am. (10) Hypomagnesemia: Mag sulfate 2 grams IV x 1. Repeat level am. (11) DVT prophylaxis: heparin SC family extensively updated at bedside today all questions answered prevention of c diff transmission reviewed cont PT and OT may need rehab at discharge Subjective patient feels much better today. asks for advancement in diet. only 4 loose stools today; previously had 12+ each day. no abd pain, nausea, or emesis. no fevers or chills. was recently hosptialized at [facility] in [place] - has NOT contracted any c. diff or diarrhea illness. feels weak despite her improvement; worked with PT and rehab recommended. still thirsty. Review of Systems Constitutional: + fatigue; no fever, no chills and no anorexia Respiratory: no cough and no dyspnea Cardiovascular: no chest pain Gastrointestinal: + diarrhea/loose stools; no abdominal pain, no nausea, no vomiting and no blood in stools Physical Exam Constitutional: well developed and well nourished (hydration status improved today); no acute distress and no altered mental status ENMT: Mouth: + dry oral mucous membranes (but much better than yesterday) Respiratory: normal respiratory effort, lungs clear to auscultation Cardiovascular: Rate/Rhythm: regular rate and regular rhythm Heart Sounds: normal S1 and normal S2; no murmur Vessels: posterior tibial pulses present and dorsalis pedis pulses present; no JVD Gastrointestinal (Abdomen): normal bowel sounds, soft, nontender, no hepatosplenomegaly Skin: turgor still decreased Psychiatric: A+Ox3, euthymic affect Results & Data Vital Signs (Past 12 Hours) Vital Signs Temp Pulse Resp BP Pulse Ox 08/17/18 16:55 36.5 C 60 18 148/65 H 99 08/17/18 11:37 98 Laboratory Results Laboratory Results - last 24 hr 08/17/18 07:06 Sodium 136 Potassium 3.8 D Chloride 111 H Carbon Dioxide 18 L Anion Gap 7.0 BUN 19 H Creatinine 1.32 H D Est Cr Clr Drug Dosing 32.3 Est GFR ( Amer) 43.1 Est GFR (Non-Af Amer) 37.2 BUN/Creatinine Ratio 14.5 Glucose 99 Calcium 8.2 L Magnesium 1.5 L (1) CAD (coronary artery disease) Associated angina: without angina Coronary Disease-Associated Artery/Lesion type: [place] artery [place] vs. transplanted heart: [place] heart Qualified Code(s): I25.10 - Atherosclerotic heart disease of [place] coronary artery without angina pectoris (2) Hypertension Hypertension type: essential hypertension Qualified Code(s): I10 - Essential (primary) hypertension
[2018-08-18 00:26] LABS: INR 1.1 (0.9-1.1); Prothrombin Time 11.4 Seconds (9.0-12.0)
[2018-08-18] MEDS: RASPBERRY SYRUP 5 ML UDP PO SCH ×3 (05:55→17:17)
[2018-08-18] MEDS: VANCOMYCIN HCL 125 MG/2.5ML SOLN PO SCH ×3 (05:55→17:17)
[2018-08-18 08:02] LABS: BUN Creatinine Ratio 10.1 (10-20); Calcium 8.7 mg/dl (8.5-10.1); Creatinine Clr Calc Pharmacy 36.4 ml/min; Est GFR (African American) 49.9; Est GFR (Non-African American) 43.1
[2018-08-18] MEDS: HEPARIN SOD 5,000 UNIT/0.5 ML VIAL SQ SCH ×2 (08:46→20:50)
[2018-08-18] MEDS: METOPROLOL SUCC 50MG EXT REL TAB PO SCH (08:47)
[2018-08-18] MEDS: ASPIRIN 81 MG ECTAB PO SCH (08:47)
[2018-08-18] MEDS: MICONAZOLE NITRATE POWDER 43 GM EXT PRN (08:48)
[2018-08-18] MEDS: COLESTIPOL HCL 1 GM TAB PO SCH (10:44)
[2018-08-18] MEDS: CALCIUM CARBONATE 500 MG CHEWABLE TAB PO PRN ×2 (12:24→21:43)
--- NOTE | 2018-08-18 19:21 | Hospitalist Progress Note ---
Date of Service August 18, 2018 Assessment & Plan (1) C. difficile colitis: IMPROVING. Plan 14-day course of PO vancomycin 125mg qid. First episode of c. diff ever. day #4 today of 14. No risk factors for contraction of c.diff except she had been vising her at [facility] in the last 2 weeks. Could have easily contracted this while at the hospital. Advance diet to low fat diet Contact isolation. Continue colestipol 1gm daily to bulk the stool. (2) Dehydration: Resolved, eating and drinking well (3) Hyponatremia: Resolved (4) Weakness: 2nd to electrolyte disturbances and dehydration in setting of severe c diff infection. PT, OT evals recommending rehab (5) Hypertension: Restart Losartan for tomorrow Continue toprol XL 200mg po daily. (6) CAD (coronary artery disease): No ischemic symptoms at this time. Cont asa, statin, and beta brina. (7) Acute kidney injury: Resolved with IVF (8) Hypokalemia: Resolved. (9) Chronic kidney disease, stage 3a: Baseline CrCl < 60. avoid nephrotoxins where possible (10) Hypomagnesemia: resolved (11) DVT prophylaxis: DC to rehab tomorrow Subjective Ms. Frost is having some heartburn following eating her cream soup but otherwise has no complaints. She denies any sob or other discomforts. Stools have slowed, has had 2 today, no blood, still loose Review of Systems Review of Systems: All systems reviewed & are unremarkable except as noted in HPI & below Physical Exam Physical Exam: General: no distress Eyes: normal inspection, PERLL Respiratory: chest non tender, clear to auscultation, normal breath sounds, no respiratory distress, no accessory muscle use Cardiac: regular rate and rhythm, no rub or gallop, no murmur, no edema, no jvd GI/: active bowel sounds, no abd pain or tenderness, soft, non distended Extremities: normal range of motion, normal strength, non tender Neuro/Psych: alert and oriented x 3, normal mood and affect Skin: normal color, dry Results & Data Vital Signs (Past 12 Hours) Vital Signs Temp Pulse Resp BP Pulse Ox 08/18/18 15:07 36.4 C L 57 L 20 149/69 H 98 (1) Hypertension Hypertension type: essential hypertension Qualified Code(s): I10 - Essential (primary) hypertension (2) CAD (coronary artery disease) Coronary Disease-Associated Artery/Lesion type: [place] artery [place] vs. transplanted heart: [place] heart Associated angina: without angina Qualified Code(s): I25.10 - Atherosclerotic heart disease of [place] coronary artery without angina pectoris
[2018-08-18] MEDS: SIMVASTATIN 40 MG TAB PO SCH (20:52)
[2018-08-18] MEDS ORDERED: ALLOPURINOL 100 MG TAB PO SCH (21:00)
[2018-08-19] MEDS: RASPBERRY SYRUP 5 ML UDP PO SCH ×2 (00:05→06:05)
[2018-08-19] MEDS: VANCOMYCIN HCL 125 MG/2.5ML SOLN PO SCH ×2 (00:05→06:05)
[2018-08-19] MEDS: HEPARIN SOD 5,000 UNIT/0.5 ML VIAL SQ SCH (08:06)
[2018-08-19] MEDS: METOPROLOL SUCC 50MG EXT REL TAB PO SCH (08:08)
[2018-08-19] MEDS: ASPIRIN 81 MG ECTAB PO SCH (08:08)
[2018-08-19] MEDS ORDERED: LOSARTAN POTASSIUM 50 MG TAB PO SCH (09:00)
--- NOTE | 2018-08-19 09:37 | Discharge Summary ---
Date of Service August 19, 2018 Admission HPI Per Admitting Provider Yokasta Frost is a pleasant 83yo C female with history of HTN, HLP, CKD, CAD s/p stents (last in 2005) presenting with diarrhea. Patient with 7 days of profuse, watery diarrhea, multiple episodes per day. Episodes are preceded by abdominal pain but not relieved by bowel movement. No association with meals. No melena/hematochezia. No nausea/vomiting. No recent travel, sick contacts, medication changes, recent antibiotics or recent hospitalizations. Patient has not been eating or drinking much over the last week. She has had progressive weakness and fatigue. Was unable to lift herself off the commode this evening and required assistance from her family. Family also notes that she has been more confused of late, slower to respond to questioning and slow speech. No additional complaints at this time. ER Course: NSS 1L Principal Diagnosis C.diff Discharge Exam Constitutional WD/WN, vitals as above Respiratory normal respiratory effort, lungs clear to auscultation Cardiovascular RRR, no murmur, no edema Gastrointestinal (Abdomen) Inspection/Auscultation: abdomen normal to inspection and normal bowel sounds; abdomen not distended Percussion/Palpation: abdomen nontender Musculoskeletal no cyanosis or clubbing, extremities motor strength 5/5 Skin no rashes, warm and dry Neurologic patellar DTR's 2+ bilat, sensation intact Psychiatric A+Ox3, euthymic affect Discharge Data Allergies Allergy/AdvReac Type Severity Reaction Status Date / Time clopidogrel Allergy Unknown HIVES Verified 08/15/18 23:29 codeine Allergy Unknown NAUSEA Verified 08/15/18 23:29 adhesive AdvReac Unknown RASH Verified 08/15/18 23:29 Consultations 08/15/18 21:57 ED Decision to Admit Stat Hospital Course (1) C. difficile colitis: IMPROVING. Plan 14-day course of PO vancomycin 125mg qid, started 08/16. First episode of c. diff ever. No risk factors for contraction of c.diff except she had been vising her at [facility] in the last 2 weeks. Could have easily contracted this while at the hospital. Advance diet as tolerated Contact isolation. Provided colestipol 1gm daily to bulk the stool, stools now much slower - 2 yesterday, none today (2) Dehydration: Resolved, eating and drinking well (3) Hyponatremia: Resolved (4) Weakness: 2nd to electrolyte disturbances and dehydration in setting of severe c diff infection. PT, OT evals recommending rehab (5) Hypertension: BP elevated today, 200/74 this morning and then 174/90 on recheck. Patient is asymptomatic denying specifically any headache, visual changes, chest pain, sob, or epistaxis. Her Losartan has been on hold and restarted this morning. Would recommend she continue with daily bp checks and discuss with her doctor if she is continuing to be hypertensive but hopefully this will resolve with resuming usual antihypertensive regimen. Continue toprol XL 200mg po daily. (6) CAD (coronary artery disease): No ischemic symptoms at this time. Cont asa, statin, and beta brina. (7) Acute kidney injury: Resolved with IVF, resumed losartan today (8) Hypokalemia: Resolved. (9) Chronic kidney disease, stage 3a: Baseline CrCl < 60. avoid nephrotoxins where possible (10) Hypomagnesemia: resolved (11) DVT prophylaxis: received heparin subq while inpatient Dispo: to [facility] (12) GERD (gastroesophageal reflux disease): Patient reports heartburn yesterday was relieved with TUMs but she had been experiencing indigestion recurring frequently while here at the hospital. She normally takes Shona Ahmeek when this happens at home with relief. Will prescribe ranitidine, advised her to take an hour or so before eating to help relieve reflux. Relieved with antacids and no associated symptoms to indicate cardiac origin of pain. She has not experienced any indigestion or any other chest discomfort today. EKG showed SB Total Time Total Time Spent Total Time Spent (In Minutes): greater than 30 minutes Discharge Plan Discharge Items Patient Disposition: Transfer Inpatient Rehab Fac Reason For Visit: DIARRHEA, NISHI ON CKD Discharge Diagnosis: C. Diff Discharge Goals: Decrease discomfort and Improve disease control Activity: Resume your previous activity Non-emergency contact: Primary Care Provider Call non-emergency contact if: you have any medication questions, your symptoms worsen and you have a fever Follow-up/Referrals: China Limon CRNP [Primary Care Provider] - Diet: Heart Healthy Addtl Provider Instructions: Please monitor blood pressure daily. Your blood pressures were running a bit elevated but some of your antihypertensive medication was on hold due to your kidney function and has now been restarted. Continue taking your vancomycin four times per day for 11 more days. Prescriptions: New vancomycin 1,000 mg Recon Soln 125 mg PO Q6 11 Days Qty: 44 RF: 0 raspberry Syrup 5 ml PO Q6 Qty: 44 RF: 0 aspirin [Ecotrin Low Strength] 81 mg Tablet,Delayed Release (Dr/Ec) 81 mg PO DAILY Qty: 30 RF: 0 ranitidine HCl 150 mg capsule 150 mg PO BID PRN (Reason: heartburn) Qty: 30 RF: 0 Continued acetaminophen [Tylenol] 325 mg Tablet 650 mg PO Q6H PRN (Reason: pain/fever) RF: 0 allopurinol 300 mg Tablet 300 mg PO QPM RF: 0 ascorbic acid (vitamin C) [Vitamin C] 500 mg Tablet 500 mg PO DAILY RF: 0 calcium carbonate-vitamin D3 [Calcium 500 + D] 500 mg(1,250mg) -400 unit Tablet 1 tab PO DAILY RF: 0 dicyclomine 10 mg Capsule 10 mg PO TID PRN (Reason: Diarrhea) RF: 0 Glucosamine Chondroitin 550-30-1 mg Capsule 1 cap PO QAM RF: 0 losartan [Cozaar] 100 mg Tablet 100 mg PO DAILY RF: 0 metoprolol succinate 200 mg Tablet Extended Release 24 Hr 200 mg PO DAILY RF: 0 multivitamin Tablet 1 tab PO DAILY RF: 0 simvastatin 40 mg Tablet 40 mg PO PM RF: 0 vitamin E 400 unit Capsule 400 unit PO DAILY RF: 0 Discontinued valsartan [Diovan] 160 mg Tablet 160 mg PO DAILY RF: 0 Stand-Alone Forms: [facility] Discharge Orders: Discharge Order (Routine); Ordered 08/19/18 Ordered By: Taryn Schultz Skilled Items Patient informed of condition?: Yes DNR: No Discharge Level of Care: Acute rehab Communicable Disease: Yes Discharge Prognosis: Improving Admission Data Admit Date/Time: 08/15/18 22:48 Attending Provider: Luis Lofton Admit Provider: Dionne Lentz Primary Care Provider: China Limon. Other Providers: Dionne Lentz ; Juan Rose ; [facility] Service: Medical Other Interventions: Discharge Summary Assessment (RN) Last Done: 08/19/18 10:14
--- NOTE | 2018-08-19 10:59 | Ultrasound Report ---
US venous doppler LE RT CLINICAL HISTORY: 83 years-old Female presenting with right leg edema. TECHNIQUE: Real-time grayscale and color and spectral Doppler ultrasound imaging of the veins of the right lower extremity was performed. Compression and augmentation were also utilized. COMPARISON: None. FINDINGS: RIGHT: Common femoral vein: Patent. Greater saphenous vein (superficial): Patent. Deep femoral vein: Patent. Femoral vein: Patent. Popliteal vein: Patent. Calf veins: Patent. Other: None. IMPRESSION: No evidence of deep venous thrombosis. Electronically signed by: Jaison Campos M.D. 08/19/2018 10:58 AM
== END 2018-08-19 13:09 | DRG 372 ==
LOC: ED 19:46 → SUATTDRO 22:48 → 4W 22:48

== ENCOUNTER 2020-08-18 16:03 | Observation (INO) ==
[2020-08-18] MEDS ORDERED: SODIUM CHLORIDE 0.9% 1000ML 1,000 ML IV ONE (16:56)
--- NOTE | 2020-08-18 17:02 | Emergency Department Note ---
Impression & Plan NISHI (acute kidney injury), Hypercalcemia, Weakness ED Provider Note NAME: Ozzy BOYLE AGE: 85 SEX: F : 1935 ARRIVES VIA: Walk-In INFORMANT: Patient ED PROVIDER(S): Chay Dorsey DO CHIEF COMPLAINT: NISHI HPI: Patient is an 85-year-old female with a past medical history of GERD, stage IV kidney disease, hypertension and CAD that presents the ER for weakness and some dizziness yesterday. Daughter in law notes that she has been more confused over the past week. She denies any headache or change in vision. No chest pain or shortness of breath. She has some intermittent diarrhea. No nausea or vomiting. Denies any dysuria urgency or frequency. She notes that she has not been eating and drinking as she normally does. She denies all other complaints. She was sent in by PCP for further evaluation. ROS: See above HPI for pertinent positives & negatives. A total of 10 systems reviewed and were otherwise negative. PAST MEDICAL HISTORY:See Below PAST SURGICAL HISTORY:See Below FAMILY HISTORY:See Below SOCIAL HISTORY:See Below HOME MEDICATIONS:See Below ALLERGIES:See Below VITALS:See Below PHYSICAL EXAMINATION: GENERAL: Sitting up in bed, alert, well appearing, well nourished, no distress, non-toxic, extremely hard of hearing EYE EXAM: normal conjunctiva. PERRL and EOM's intact. OROPHARYNX: no exudate, no erythema, lips, buccal mucosa, and tongue normal and mucous membranes are moist NECK: supple, no nuchal rigidity, no adenopathy, non-tender LUNGS: Clear to auscultation. Normal chest wall mechanics HEART: no murmurs, S1 normal and S2 normal ABDOMEN: abdomen soft, non-tender, normo-active bowel sounds, no masses, no rebound or guarding. UPPER EXTREMITIES: upper extremities are grossly normal. LOWER EXTREMITIES: No pitting edema. NEURO EXAM: Normal sensorium, cranial nerves II-XII intact, normal speech, no weakness of arms, no weakness of legs. No drift. Finger to nose intact. Gross sensation intact. MEDICAL DECISION MAKING: Patient is an 85-year-old female who presents ER referred in for abnormal blood work. IV was established blood work was obtained. Labs show leukocytosis 12,000. Mild anemia 10. BMP with a creatinine of 4 up from baseline 1.7. Patient was given IV fluids. Calcium was elevated at 12. LFTs bilirubin and troponin was negative. CT head was unremarkable. Discussed with hospitalist patient was admitted for further work-up. Discussed with Pt concerning signs and symptoms to watch out for. Pt was instructed to follow up with their PCP and discussed with the patient their option to return to the ED at anytime for persistent or worsening symptoms. The appropriate anticipatory guidance and out- patient management, including indications for return to the emergency department, were explained at length to the patient and understood. Triage Nursing notes reviewed. Limited review of prior medical records performed Vital Signs: reviewed and remarkable for no significant abnormalities Differential diagnosis: Infection, dehydration, metabolic abnormality, hypo/hyperglycemia, electrolyte disturbance, anemia, hypoxia, cardiac sources, intracerebral event, toxicologic, neurologic, as well as other pathologies. ER treatment provided: See below Diagnostics interpreted by me: ECG: Suspect a cardiac rate of 58 Normal axis No PVCs QTC 408 Cardiac Monitoring: An order was placed for continuous cardiac monitoring. The monitor shows a rate of 60 with sinus rhythm. Laboratory studies: As stated above and show below. Imaging studies: CT head was unremarkable Consultation(s): Discussed with the hospitalist for further evaluation Procedures: none Critical Care: None Past Med/Surg History Medical History CAD (coronary artery disease) s/p stent x 2 to proximal RCA and 1 to mid-LAD Chronic low back pain CKD (chronic kidney disease) Dyslipidemia Dyslipidemia Impaired fasting glucose Incomplete emptying of bladder Low back pain Renal insufficiency, mild Stage 4 chronic kidney disease Vitamin D deficiency Surgical History History of fusion of lumbar spine History of hip replacement History of total knee arthroplasty Previous back surgery S/P knee surgery Status post hip surgery Family History Other Family history non-contributory Social History Smoking Status: Never smoker Second Hand Exposure: No; Hx Alcohol Use: No Hx Substance Use: No Preferred Language: Sudanese Communication Ability: Effective Circulation Sales Representative Required: No Beliefs That Will Affect Care: None marital status: Current Living Situation: Spouse current occupational status: retired Other Information That Helps Us Care for You: No Feels Safe at Home: Yes Dental Care, Regularly: No Seatbelt Use: always Sunscreen Use: No Assistive Devices: Denture - Upper, Denture - Lower, Glasses, Hearing Aid - Bilateral and Walker Allergies Allergies Allergy/AdvReac Type Severity Reaction Status Date / Time clopidogrel Allergy Unknown HIVES Verified 08/18/20 17:06 codeine Allergy Unknown NAUSEA Verified 08/18/20 17:06 adhesive AdvReac Unknown RASH Verified 08/18/20 17:06 amoxicillin AdvReac Unknown Unknown Verified 08/18/20 17:06 Home Meds Home Medications Medication Instructions Recorded Confirmed Glucosamine Chondroitin 1 cap PO QAM 08/15/18 08/18/20 multivitamin 1 tab PO DAILY 08/15/18 08/18/20 calcium carbonate 600 mg (1,500 1 tab PO BID tab 08/25/18 08/18/20 mg)-vitamin D3 400 unit tablet gabapentin 300 mg PO TID PRN 08/18/20 08/18/20 losartan 100 mg PO DAILY 08/18/20 08/18/20 metoprolol succinate 200 mg PO DAILY 08/18/20 08/18/20 simvastatin 40 mg PO QPM 08/18/20 08/18/20 tizanidine 4 mg PO UD 08/18/20 08/18/20 triamterene-hydrochlorothiazid 1 cap PO DAILY 08/18/20 08/18/20 Previous Rx's Medication Instructions Recorded aspirin [Ecotrin Low Strength] 81 mg PO DAILY #30 tab 08/19/18 acetaminophen 500 mg capsule 500 mg PO Q4H PRN #30 cap 08/26/18 allopurinol 300 mg tablet 300 mg PO DAILY #30 tab 08/26/18 ascorbic acid (vitamin C) 500 mg 500 mg PO DAILY #30 cap 08/26/18 capsule famotidine 20 mg tablet 20 mg PO DAILY #30 tab 08/11/20 Results & Data (ED) Vital Signs Vital Signs - 24 hr 08/18/20 16:16 08/18/20 16:42 08/18/20 16:45 Temperature 36.6 C Temperature Source Temporal Artery Scan Pulse Rate 61 59 L 55 L Pulse Rate from SpO2 Sensor 56 L Respiratory Rate 21 19 13 Respiratory Effort / Characteristics Non-Labored Respiratory Depth Normal Blood Pressure 100/48 L 128/48 L Blood Pressure Mean 65 74 Pulse Oximetry 97 98 Oxygen Delivery Method Room Air Sepsis Recent Fever Within 48 Hours No Sepsis New/Unexplained Change in Mental Status No Sepsis Action Taken by Nursing No Action Required 08/18/20 17:00 08/18/20 17:30 08/18/20 17:31 Temperature Temperature Source Pulse Rate 58 L 62 60 Pulse Rate from SpO2 Sensor 61 59 L Respiratory Rate 15 20 19 Respiratory Effort / Characteristics Respiratory Depth Blood Pressure 149/73 H Blood Pressure Mean 98 Pulse Oximetry 97 99 Oxygen Delivery Method Sepsis Recent Fever Within 48 Hours Sepsis New/Unexplained Change in Mental Status Sepsis Action Taken by Nursing 08/18/20 18:07 08/18/20 18:30 08/18/20 18:31 Temperature Temperature Source Pulse Rate 63 61 61 Pulse Rate from SpO2 Sensor 63 62 Respiratory Rate 14 19 20 Respiratory Effort / Characteristics Respiratory Depth Blood Pressure 153/71 H Blood Pressure Mean 98 Pulse Oximetry 100 100 Oxygen Delivery Method Sepsis Recent Fever Within 48 Hours Sepsis New/Unexplained Change in Mental Status Sepsis Action Taken by Nursing Laboratory Data Result diagrams: 08/18/20 17:19 08/18/20 17:19 Lab Results 08/18/20 08/18/20 08/18/20 Range/Units 17:18 17:18 17:19 WBC 12.17 H (4.8-10.8) K/uL RBC 3.31 L (4.2-5.4) M/uL Hgb 10.9 L (12.0-16.0) g/dL Hct 32.8 L (37-47) % MCV 99.1 (80-100) fL MCH 32.9 (25-34) pg MCHC 33.2 (32-36) g/dL RDW Std Deviation 51.5 H (36.4-46.3) fL RDW Coeff of Eleazar 14.5 (11.5-14.5) % Plt Count 311 (130-400) K/uL MPV 11.0 H (7.4-10.4) fL Immature Gran % (Auto) 0.2 % Neut % (Auto) 82.3 % Lymph % (Auto) 12.2 % [place] % (Auto) 4.4 % Eos % (Auto) 0.7 % Baso % (Auto) 0.2 % Neut # (Auto) 10.03 H (1.4-6.5) K/uL Lymph # (Auto) 1.48 (1.2-3.4) K/uL [place] # (Auto) 0.53 (0.11-0.59) K/uL Eos # (Auto) 0.09 (0-0.5) K/uL Baso # (Auto) 0.02 (0-0.2) K/uL Immature Gran # (Auto) 0.02 (0.00-0.02) K/uL Sodium (136-145) mmol/L Potassium (3.5-5.1) mmol/L Chloride (98-107) mmol/L Carbon Dioxide (21-32) mmol/L Anion Gap (3-11) BUN (7-18) mg/dl Creatinine (0.6-1.2) mg/dl Est Cr Clr Drug Dosing Est GFR ( Amer) ml/min Est GFR (Non-Af Amer) ml/min BUN/Creatinine Ratio (10-20) Glucose (70-99) mg/dl Calcium (8.5-10.1) mg/dl Magnesium (1.8-2.4) mg/dl Total Bilirubin (0.2-1) mg/dl AST (15-37) U/L ALT (12-78) U/L Alkaline Phosphatase (45-117) U/L Troponin I (0-0.045) ng/ml Total Protein (6.4-8.2) gm/dl Albumin (3.4-5.0) gm/dl Globulin (2.5-4.0) gm/dl Albumin/Globulin Ratio (0.9-2) Lipase (73-393) U/L COVID-19 Eval Order Covid19 at [facility] SARS-CoV-2 (PCR) NEGATIVE (Negative) 08/18/20 Range/Units 17:19 WBC (4.8-10.8) K/uL RBC (4.2-5.4) M/uL Hgb (12.0-16.0) g/dL Hct (37-47) % MCV (80-100) fL MCH (25-34) pg MCHC (32-36) g/dL RDW Std Deviation (36.4-46.3) fL RDW Coeff of Eleazar (11.5-14.5) % Plt Count (130-400) K/uL MPV (7.4-10.4) fL Immature Gran % (Auto) % Neut % (Auto) % Lymph % (Auto) % [place] % (Auto) % Eos % (Auto) % Baso % (Auto) % Neut # (Auto) (1.4-6.5) K/uL Lymph # (Auto) (1.2-3.4) K/uL [place] # (Auto) (0.11-0.59) K/uL Eos # (Auto) (0-0.5) K/uL Baso # (Auto) (0-0.2) K/uL Immature Gran # (Auto) (0.00-0.02) K/uL Sodium 136 (136-145) mmol/L Potassium 4.3 (3.5-5.1) mmol/L Chloride 104 (98-107) mmol/L Carbon Dioxide 24 (21-32) mmol/L Anion Gap 8.0 (3-11) BUN 73 H (7-18) mg/dl Creatinine 4.05 H (0.6-1.2) mg/dl Est Cr Clr Drug Dosing Not Reportable Est GFR ( Amer) 11.0 ml/min Est GFR (Non-Af Amer) 9.5 ml/min BUN/Creatinine Ratio 18.0 (10-20) Glucose 124 H (70-99) mg/dl Calcium 12.8 H* (8.5-10.1) mg/dl Magnesium 2.4 (1.8-2.4) mg/dl Total Bilirubin 0.4 (0.2-1) mg/dl AST 23 (15-37) U/L ALT 20 (12-78) U/L Alkaline Phosphatase 50 (45-117) U/L Troponin I < 0.015 (0-0.045) ng/ml Total Protein 7.6 (6.4-8.2) gm/dl Albumin 3.9 (3.4-5.0) gm/dl Globulin 3.7 (2.5-4.0) gm/dl Albumin/Globulin Ratio 1.1 (0.9-2) Lipase 166 (73-393) U/L COVID-19 Eval Order SARS-CoV-2 (PCR) (Negative) Administered Medications Heparin Sodium (Porcine) (Heparin Sod 5,000 Unit/0.5 Ml Vial) 5,000 units SQ Q12 PAT Stop: 09/17/20 21:05 Last Admin: 08/18/20 21:57 Dose: 5,000 units Documented by: [id number] Sodium Chloride (Nss 1000ml) 1,000 mls @ 125 mls/hr IV .Q8H PAT Stop: 09/17/20 21:05 Last Admin: 08/18/20 21:58 Dose: 125 mls/hr Documented by: [id number] Simvastatin (Simvastatin 40 Mg Tab) 40 mg PO QPM PAT Stop: 09/17/20 21:05 Last Admin: 08/18/20 21:56 Dose: 40 mg Documented by: [id number] Discontinued Medications Sodium Chloride (Nss 1000ml) 1,000 mls @ 999 mls/hr IV .Q1H1M ONE Stop: 08/18/20 17:56 Last Infusion: 08/18/20 18:24 Dose: 0 mls/hr Documented by: [id number] Admin: 08/18/20 17:22 Dose: 999 mls/hr Documented by: [id number] Imaging Data Radiologist's Impression: Head CT 08/18/20 16:56 CT head/brain wo con CLINICAL HISTORY: Dizziness COMPARISON STUDY: No previous studies for comparison. TECHNIQUE: Axial CT of the brain is performed from the vertex to the skull base. IV contrast was not administered for this examination. A dose lowering technique was utilized adhering to the principles of ALARA. CT DOSE: 729.78 mGycm FINDINGS: No intra or extra-axial mass lesions are visualized. There is no CT evidence of acute cortical infarction. There is no evidence of midline shift. There is no acute hemorrhage. No calvarial fractures are visualized. There are patchy white matter hypodensities likely on a small vessel basis. There is mild ventricular prominence, likely secondary to volume loss. There are distal vertebral artery calcifications. There are calcifications within the cavernous carotids. There is no evidence of acute sinusitis IMPRESSION: No acute intracranial findings ACT 112: Negative or not required by law. Electronically signed by: Sal Preston M.D. 08/18/2020 6:00 PM Discharge Plan Visit Data Chief Complaint: Abnormal Labs/Diagnostic Testing Stated Complaint: PCP SENT HER/ HIGH CALCIUM, DEHYDRATED ED Provider: Chay Dorsey Discharge Problem: NISHI (acute kidney injury), Hypercalcemia, Weakness Patient Disposition: Admitted As Inpatient Discharge Instructions Interventions: ED Discharge Assessment Last Done: 08/18/20 20:33
[2020-08-18 17:29] LABS: Basophils # (auto) 0.02 K/uL (0-0.2); Basophils % (auto) 0.2 %; Eosinophils # (auto) 0.09 K/uL (0-0.5); Eosinophils % (auto) 0.7 %; Hematocrit (blood only) 32.8 % (37-47); Hemoglobin 10.9 g/dL (12.0-16.0); Immature Granulocytes # (auto) 0.02 K/uL (0.00-0.02); Immature Granulocytes % (auto) 0.2 %; Lymphocytes # (auto) 1.48 K/uL (1.2-3.4); Lymphocytes % (auto) 12.2 %; Mean Corpuscular Hemoglobin 32.9 pg (25-34); Mean Corpuscular Hgb Conc 33.2 g/dL (32-36); Mean Corpuscular Volume 99.1 fL (80-100); Monocytes # (auto) 0.53 K/uL (0.11-0.59); Monocytes % (auto) 4.4 %; Neutrophils # (auto) 10.03 K/uL (1.4-6.5); Neutrophils % (auto) 82.3 %; Platelet Count 311 K/uL (130-400); RDW Coefficient of Variation 14.5 % (11.5-14.5); RDW Standard Deviation 51.5 fL (36.4-46.3); Red Blood Count 3.31 M/uL (4.2-5.4); White Blood Count 12.17 K/uL (4.8-10.8)
[2020-08-18 17:52] LABS: Alanine Aminotransferase 20 U/L (12-78); Albumin Level 3.9 gm/dl (3.4-5.0); Aspartate Aminotransferase 23 U/L (15-37); Blood Urea Nitrogen 73 mg/dl (7-18); Calcium 12.8 mg/dl (8.5-10.1); Carbon Dioxide 24 mmol/L (21-32); Chloride 104 mmol/L (98-107); Est GFR (Non-African American) 9.5 ml/min; Glucose 124 mg/dl (70-99); Lipase 166 U/L (73-393); Magnesium 2.4 mg/dl (1.8-2.4); Potassium 4.3 mmol/L (3.5-5.1); Sodium 136 mmol/L (136-145)
[2020-08-18 17:53] LABS: Albumin Globulin Ratio 1.1 (0.9-2); Alkaline Phosphatase 50 U/L (45-117); Bilirubin,Total 0.4 mg/dl (0.2-1); Globulin 3.7 gm/dl (2.5-4.0); Total Protein 7.6 gm/dl (6.4-8.2); Troponin I < 0.015 ng/ml (0-0.045)
--- NOTE | 2020-08-18 18:01 | CT Scan Report ---
CT head/brain wo con CLINICAL HISTORY: Dizziness COMPARISON STUDY: No previous studies for comparison. TECHNIQUE: Axial CT of the brain is performed from the vertex to the skull base. IV contrast was not administered for this examination. A dose lowering technique was utilized adhering to the principles of ALARA. CT DOSE: 729.78 mGycm FINDINGS: No intra or extra-axial mass lesions are visualized. There is no CT evidence of acute cortical infarc tion. There is no evidence of midline shift. There is no acute hemorrhage. No calvarial fractures ar e visualized. There are patchy white matter hypodensities likely on a small vessel basis. There is mild ventricular prominence, likely secondary to volume loss. There are distal vertebral artery calcifications. There are calcifications within the cavernous carot ids. There is no evidence of acute sinusitis IMPRESSION: No acute intracranial findings ACT 112: Negative or not required by law. Electronically signed by: Sal Preston M.D. 08/18/2020 6:00 PM
--- NOTE | 2020-08-18 18:35 | History & Physical Report ---
Date of Service August 18, 2020 Assessment & Plan (1) NISHI (acute kidney injury): Unclear etiology of acute renal failure, consider dehydration. Patient is asymptomatic Will hydrate aggressively with normal saline Hold losartan and hydrochlorothiazide Check renal ultrasound Recheck labs in 24 hours We will ask nephrology to evaluate for further recommendations (2) Hypercalcemia: May be secondary to acute renal failure from dehydration, consider milk- alkali syndrome versus possible occult neoplasm Check PTH Discontinue calcium supplementation Continue hydration as noted above Discontinue hydrochlorothiazide as noted Depending on results, may need further work-up including imaging and cancer screening (3) CAD (coronary artery disease): Continue low-dose aspirin (4) Hypertension: Triamterene/hydrochlorothiazide and losartan held Okay to continue Toprol-XL 200 mg daily with hold parameters Blood pressure currently only 100/40 with a pulse of 61 (5) Dyslipidemia: Continue simvastatin 40 mg or inpatient pharmacy equivalent History of Present Illness Chief Complaint: Abnormal lab work Primary Care Provider: PAWAN Cotter This is an 85-year-old female with past medical history of CAD, hypertension, lumbar stenosis that presents today with abnormal lab work. Patient is accompanied by her and son. She is a limited historian. Apparently both she and her just returned from [place]. They have family not helping them out at home. Patient went to her primary care provider for routine lab work. At that time she had no complaints. They were contacted today and told that the patient's lab work was grossly abnormal. They were concerned mostly about her calcium and told her to present to the emergency room for evaluation and treatment. Patient's BUN was 73 and creatinine was 4.05, both represent a significant elevation from her usual baseline with a BUN in the 20s and a creatinine of 1.82. Calcium with 13 with normal LFTs and albumin. Patient essentially denies all symptoms, does not want to stay in the hospital. Specifically, she denied any chest pain, shortness of breath, worsening back pain, dysuria or other urinary complaints, headaches, weakness, or cramping. She does not feel particularly dehydrated. The son did note that the patient takes a calcium/D3 supplement daily. Allergies Allergy/AdvReac Type Severity Reaction Status Date / Time clopidogrel Allergy Unknown HIVES Verified 08/18/20 17:06 codeine Allergy Unknown NAUSEA Verified 08/18/20 17:06 adhesive AdvReac Unknown RASH Verified 08/18/20 17:06 amoxicillin AdvReac Unknown Unknown Verified 08/18/20 17:06 Home Medications Medication Instructions Recorded Confirmed Type Glucosamine Chondroitin 1 cap PO QAM 08/15/18 08/18/20 History multivitamin 1 tab PO DAILY 08/15/18 08/18/20 History aspirin [Ecotrin Low Strength] 81 mg PO DAILY #30 tab 08/19/18 08/18/20 Rx calcium carbonate 600 mg (1,500 1 tab PO BID tab 08/25/18 08/18/20 History mg)-vitamin D3 400 unit tablet acetaminophen 500 mg capsule 500 mg PO Q4H PRN #30 cap 08/26/18 08/18/20 Rx allopurinol 300 mg tablet 300 mg PO DAILY #30 tab 08/26/18 08/18/20 Rx ascorbic acid (vitamin C) 500 mg 500 mg PO DAILY #30 cap 08/26/18 08/18/20 Rx capsule famotidine 20 mg tablet 20 mg PO DAILY #30 tab 08/11/20 08/18/20 Rx gabapentin 300 mg PO TID PRN 08/18/20 08/18/20 History losartan 100 mg PO DAILY 08/18/20 08/18/20 History metoprolol succinate 200 mg PO DAILY 08/18/20 08/18/20 History simvastatin 40 mg PO QPM 08/18/20 08/18/20 History tizanidine 4 mg PO UD 08/18/20 08/18/20 History triamterene-hydrochlorothiazid 1 cap PO DAILY 08/18/20 08/18/20 History Past Med/Surg History Medical History CAD (coronary artery disease) s/p stent x 2 to proximal RCA and 1 to mid-LAD Chronic low back pain CKD (chronic kidney disease) Dyslipidemia Dyslipidemia Impaired fasting glucose Incomplete emptying of bladder Low back pain Renal insufficiency, mild Stage 4 chronic kidney disease Vitamin D deficiency Surgical History History of fusion of lumbar spine History of hip replacement History of total knee arthroplasty Previous back surgery S/P knee surgery Status post hip surgery Family History Other Family history non-contributory Social History Smoking Status: Never smoker Second Hand Exposure: No; Hx Alcohol Use: No Hx Substance Use: No Preferred Language: French Communication Ability: Effective Immigration Consultant Required: No Beliefs That Will Affect Care: None marital status: Current Living Situation: Spouse current occupational status: retired Feels Safe at Home: Yes Dental Care, Regularly: No Seatbelt Use: always Sunscreen Use: No Assistive Devices: Denture - Upper, Glasses, Hearing Aid - Bilateral and Walker Review of Systems Constitutional: no fever, no chills, no weakness, no weight loss and no weight gain Eyes: as per Subjective / HPI Respiratory: no cough, no chest congestion, no dyspnea and no dyspnea on exertion Cardiovascular: no chest pain, no orthopnea, no palpitations, no lightheadedness and no edema Gastrointestinal: no abdominal pain, no nausea, no vomiting, no constipation and no diarrhea/loose stools Genitourinary: no dysuria, no difficulty urinating, no urinary frequency, no urinary hesitancy, no urinary urgency and no flank pain Musculoskeletal: no back pain, no neck pain, no joint pain, no stiffness and no myalgia Integumentary: no rash Neurologic: no gait abnormality, no unsteadiness, no falls and no generalized weakness Physical Exam Constitutional: cooperative; no acute distress Neck: trachea midline, no thyromegaly Respiratory: normal respiratory effort Auscultation: lungs clear to auscultation bilaterally; no crackles, no rales, no rhonchi and no wheezes Cardiovascular: Rate/Rhythm: regular rate and regular rhythm Heart Sounds: normal S1 and normal S2; no murmur Gastrointestinal (Abdomen): Inspection/Auscultation: abdomen normal to inspection Percussion/Palpation: abdomen soft; abdomen nontender, no guarding, abdomen not rigid and no hepatosplenomegaly Musculoskeletal: no cyanosis or clubbing, extremities motor strength 5/5 Skin: no rashes, warm and dry Results & Data Results & Data ([facility]) Vital Signs (Past 12 Hours) Vital Signs Temp Pulse Resp BP Pulse Ox 08/18/20 16:16 36.6 C 61 21 100/[address] head/brain wo con CLINICAL HISTORY: Dizziness COMPARISON STUDY: No previous studies for comparison. TECHNIQUE: Axial CT of the brain is performed from the vertex to the skull base. IV contrast was not administered for this examination. A dose lowering technique was utilized adhering to the principles of ALARA. CT DOSE: 729.78 mGycm FINDINGS: No intra or extra-axial mass lesions are visualized. There is no CT evidence of acute cortical infarction. There is no evidence of midline shift. There is no acute hemorrhage. No calvarial fractures are visualized. There are patchy white matter hypodensities likely on a small vessel basis. There is mild ventricular prominence, likely secondary to volume loss. There are distal vertebral artery calcifications. There are calcifications within the cavernous carotids. There is no evidence of acute sinusitis IMPRESSION: No acute intracranial findings PG Care Time/CCT Total # of Minutes Spent Total Time Spent with Patient: Total time spent is greater than 50% in coordination of care (as documented) at patient's floor/unit and/or counseling patient: Coding Level of Care Code 83673 OBS Care - Level 3 Diagnoses NISHI (acute kidney injury) N17.9 Hypercalcemia E83.52 CAD (coronary artery disease) I25.10 Coronary Disease-Associated Artery/Lesion type: [place] artery [place] vs. transplanted heart: [place] heart Associated angina: without angina Hypertension I10 Hypertension type: essential hypertension Dyslipidemia E78.5 (1) CAD (coronary artery disease) Coronary Disease-Associated Artery/Lesion type: [place] artery [place] vs. transplanted heart: [place] heart Associated angina: without angina Qualified Code(s): I25.10 - Atherosclerotic heart disease of [place] coronary artery without angina pectoris (2) Hypertension Hypertension type: essential hypertension Qualified Code(s): I10 - Essential (primary) hypertension
[2020-08-18] MEDS ORDERED: tiZANidine HCL 4 MG TABLET PO SCH (21:06)
[2020-08-18] MEDS ORDERED: ONDANSETRON INJ 2 MG/ML 2 ML VIAL IV PRN (21:06)
[2020-08-18] MEDS ORDERED: GABAPENTIN 300 MG CAP PO PRN (21:06)
[2020-08-18] MEDS ORDERED: ACETAMINOPHEN 325 MG TAB PO PRN (21:06)
[2020-08-18] MEDS ORDERED: GABAPENTIN 100 MG CAP PO PRN (21:41)
[2020-08-18] MEDS: SIMVASTATIN 40 MG TAB PO SCH (21:56)
[2020-08-18] MEDS: HEPARIN SOD 5,000 UNIT/0.5 ML VIAL SQ SCH (21:57)
[2020-08-18] MEDS: SODIUM CHLORIDE 0.9% 1000ML 1,000 ML IV SCH (21:58)
[2020-08-18 22:13] LABS: Appearance Urine Cloudy (Clear); Bilirubin Urine Negative (Negative); Blood Urine 1+ (Negative); Color Urine Yellow; Epithelial Cell Urine Auto >30 /lpf (0-5); Glucose Urine UA Negative (Negative); Ketones Urine Negative (Negative); Leukocyte Esterase Urine 3+ (Negative); Nitrite Urine Negative (Negative); Protein Urine Negative (Negative); Specific Gravity Urine 1.014 (1.000-1.030); Urobilinogen Urine Negative (Negative); WBC Urine Automated >30 /hpf (0-5)
[2020-08-18 22:31] LABS: Bacteria Urine Automated 1+ (Negative); RBC Urine Automated 0-4 /hpf (0-4)
[2020-08-19] MEDS: SODIUM CHLORIDE 0.9% 1000ML 1,000 ML IV SCH ×2 (05:55→15:34)
[2020-08-19 07:37] LABS: Basophils # (auto) 0.02 K/uL (0-0.2); Basophils % (auto) 0.2 %; Eosinophils # (auto) 0.49 K/uL (0-0.5); Eosinophils % (auto) 5.3 %; Hematocrit (blood only) 27.1 % (37-47); Hemoglobin 8.9 g/dL (12.0-16.0); Immature Granulocytes # (auto) 0.01 K/uL (0.00-0.02); Immature Granulocytes % (auto) 0.1 %; Lymphocytes # (auto) 2.08 K/uL (1.2-3.4); Lymphocytes % (auto) 22.6 %; Mean Corpuscular Hemoglobin 33.2 pg (25-34); Mean Corpuscular Hgb Conc 32.8 g/dL (32-36); Mean Corpuscular Volume 101.1 fL (80-100); Mean Platelet Volume 10.9 fL (7.4-10.4); Monocytes # (auto) 0.61 K/uL (0.11-0.59); Monocytes % (auto) 6.6 %; Neutrophils % (auto) 65.2 %; Platelet Count 277 K/uL (130-400); RDW Coefficient of Variation 14.4 % (11.5-14.5); RDW Standard Deviation 52.7 fL (36.4-46.3); Red Blood Count 2.68 M/uL (4.2-5.4); White Blood Count 9.21 K/uL (4.8-10.8)
[2020-08-19 07:56] LABS: BUN Creatinine Ratio 25.2 (10-20); Calcium 11.7 mg/dl (8.5-10.1); Creatinine Clr Calc Pharmacy 12.6 ml/min; Est GFR (Non-African American) 13.8 ml/min; Magnesium 1.9 mg/dl (1.8-2.4); Potassium 3.7 mmol/L (3.5-5.1)
[2020-08-19] MEDS: PANTOprazole 40 MG TAB PO SCH (08:01)
[2020-08-19] MEDS: HEPARIN SOD 5,000 UNIT/0.5 ML VIAL SQ SCH ×2 (08:01→20:54)
[2020-08-19] MEDS: ASCORBIC ACID 500 MG TAB PO SCH (08:01)
[2020-08-19] MEDS: ASPIRIN 81 MG ECTAB PO SCH (08:01)
[2020-08-19] MEDS: tiZANidine HCL 4 MG TABLET PO SCH (08:02)
--- NOTE | 2020-08-19 08:32 | Ultrasound Report ---
RENAL ULTRASOUND HISTORY: Acute renal failure. Chronic kidney disease. COMPARISON: Renal ultrasound 10/11/2014. FINDINGS: Right kidney: 8.8 cm. No hydronephrosis. Mild cortical thinning, likely age-related. There is increas ed cortical echogenicity. Left kidney: 9.4 cm. No hydronephrosis. Mild scarring within the lower pole of the left kidney, uncha nged. There is mild increased cortical echogenicity. Bladder: No bladder wall thickening. The ureteral jets are not identified. IMPRESSION: 1. No hydronephrosis. 2. Increased cortical echogenicity bilaterally suggestive of medical renal disease. ACT 112: Negative or not required by law. Electronically signed by: Junior Moore M.D. 08/19/2020 8:31 AM
[2020-08-19] MEDS ORDERED: NON-FORMULARY MEDICATION (Glucos Sul 2kcl-Msm-Chond-C-Mn [Glucosamine Chondroitin] 550-30- PO SCH (09:00)
[2020-08-19] MEDS ORDERED: allopurinoL 300 MG TAB PO SCH (09:00)
[2020-08-19] MEDS ORDERED: FAMOTIDINE 20 MG TAB PO SCH (09:00)
[2020-08-19] MEDS ORDERED: METOPROLOL SUCC 50MG EXT REL TAB PO SCH (09:00)
--- NOTE | 2020-08-19 11:17 | Nephrology Consultation ---
Date of Consultation August 19, 2020 Assessment & Plan (1) NISHI (acute kidney injury): * Suspect NISHI/CKD on the basis of hypercalcemia and clinical dehydration * Hold Losartan and Dyazide * Agree w/ hydration (0.9NS at 125 cc/hr) * 08/18/20 Renal US: R 8.8 cm w/ mild cortical thinning, L 9.4 cm w/ mild cortical scarring. No hydronephrosis * Urine microscopy negative for cellular casts * Monitor PRP (2) Stage 4 chronic kidney disease: * Baseline Cr 1.7. Renal US reveals bilateral cortical thinning/scarring and mild asymmetry (3) Hypercalcemia: * Will order PTH, PTHrp, vitamin D level, serum AI level, SEP and 24 hour UIEP * Stop Ca+vitamin D supplement History of Present Illness Reason for Consultation: NISHI/CKD, hypercalcemia Attending Physician: Augustine Sargent MD History of Present Illness Mrs. Frost is an 85 year old white female who is seen at the request of Dr. Sargent for evaluation of NISHI/CKD, hypercalcemia. Medical records in the EMR were reviewed today and are summarized as follows: Mrs. Frost has CKD w/ baseline Cr 1.7, ASCVD, HTN, and lumbar stenosis. She takes Ca+vitamin D on a regular basis. Recently Mrs. Frost was evaluated by her PCP. Laboratory studies revealed Cr 4.0, Ca 13. Admission was advised for IV hydration and evaluation of hypercalcemia. Mrs. Frost denies a h/o parathyroid d/o, granulomatous disease or malignancy. Allergies Allergy/AdvReac Type Severity Reaction Status Date / Time clopidogrel Allergy Unknown HIVES Verified 08/18/20 17:06 codeine Allergy Unknown NAUSEA Verified 08/18/20 17:06 adhesive AdvReac Unknown RASH Verified 08/18/20 17:06 amoxicillin AdvReac Unknown Unknown Verified 08/18/20 17:06 Home Medications Medication Instructions Recorded Confirmed Type Glucosamine Chondroitin 1 cap PO QAM 08/15/18 08/18/20 History multivitamin 1 tab PO DAILY 08/15/18 08/18/20 History aspirin [Ecotrin Low Strength] 81 mg PO DAILY #30 tab 08/19/18 08/18/20 Rx calcium carbonate 600 mg (1,500 1 tab PO BID tab 08/25/18 08/18/20 History mg)-vitamin D3 400 unit tablet acetaminophen 500 mg capsule 500 mg PO Q4H PRN #30 cap 08/26/18 08/18/20 Rx allopurinol 300 mg tablet 300 mg PO DAILY #30 tab 08/26/18 08/18/20 Rx ascorbic acid (vitamin C) 500 mg 500 mg PO DAILY #30 cap 08/26/18 08/18/20 Rx capsule famotidine 20 mg tablet 20 mg PO DAILY #30 tab 08/11/20 08/18/20 Rx gabapentin 300 mg PO TID PRN 08/18/20 08/18/20 History losartan 100 mg PO DAILY 08/18/20 08/18/20 History metoprolol succinate 200 mg PO DAILY 08/18/20 08/18/20 History simvastatin 40 mg PO QPM 08/18/20 08/18/20 History tizanidine 4 mg PO UD 08/18/20 08/18/20 History triamterene-hydrochlorothiazid 1 cap PO DAILY 08/18/20 08/18/20 History Patient History Medical History CAD (coronary artery disease) s/p stent x 2 to proximal RCA and 1 to mid-LAD Chronic low back pain CKD (chronic kidney disease) Dyslipidemia Dyslipidemia Impaired fasting glucose Incomplete emptying of bladder Low back pain Renal insufficiency, mild Stage 4 chronic kidney disease Vitamin D deficiency Surgical History History of fusion of lumbar spine History of hip replacement History of total knee arthroplasty Previous back surgery S/P knee surgery Status post hip surgery Family History Other Family history non-contributory Social History Smoking Status: Never smoker Second Hand Exposure: No; Hx Alcohol Use: No Hx Substance Use: No Preferred Language: Arabic Communication Ability: Effective [place] Gilder Required: No Beliefs That Will Affect Care: None marital status: Current Living Situation: Spouse current occupational status: retired Other Information That Helps Us Care for You: No Feels Safe at Home: Yes Dental Care, Regularly: No Seatbelt Use: always Sunscreen Use: No Assistive Devices: Denture - Upper, Denture - Lower, Glasses, Hearing Aid - Bilateral and Walker Review of Systems Constitutional: + weakness; no fever Eyes: no problem reported Ear, Nose, Mouth, Throat: no problem reported Respiratory: no dyspnea Cardiovascular: no chest pain, no palpitations and no edema Gastrointestinal: no abdominal pain, no nausea and no diarrhea/loose stools Genitourinary: no dysuria and no hematuria Musculoskeletal: no back pain Integumentary: no rash Neurologic: no confusion Physical Exam Constitutional: + frail appearing; not in distress Eyes: PERRL, conjunctivae normal, anicteric sclerae ENMT: external ear and nose normal, oropharynx normal Neck: trachea midline, no thyromegaly Respiratory: normal respiratory effort, lungs clear to auscultation Cardiovascular: RRR, no murmur, no edema Gastrointestinal (Abdomen): normal bowel sounds, soft, nontender, no hepatosplenomegaly Musculoskeletal: Extremities: no cyanosis Skin: no rashes, warm and dry Neurologic: awake; not confused Results & Data ([facility]) Vital Signs (Past 12 Hours) Vital Signs Temp Pulse Resp BP Pulse Ox 08/19/20 07:33 36.4 C L 61 16 147/65 H 97 08/19/20 04:00 36.3 C L 53 L 16 159/70 H 98 08/19/20 00:24 36.4 C L 52 L 18 143/60 H 99 Laboratory Tests 08/18/20 08/19/20 08/19/20 17:19 07:07 07:07 WBC 9.21 Hgb 8.9 L Hct 27.1 L Plt Count 277 Sodium 140 Potassium 3.7 Chloride 112 H Carbon Dioxide 20 L BUN 75 H Creatinine 2.96 H D Calcium 12.8 H* 11.7 H Albumin 3.9 Laboratory Tests 08/18/20 21:05 Urine Color Yellow Urine Appearance Cloudy A Urine pH 5.0 Ur Specific [place] 1.014 Urine Protein Negative Urine Glucose (UA) Negative Urine Blood 1+ H Urine Nitrite Negative Urine WBC (Auto) >30 H U Hyaline Cast (Auto) 10-30 H Urine Bacteria (Auto) 1+ H PG Care Time/CCT Total # of Minutes Spent Total Time Spent with Patient: Total time spent is greater than 50% in coordination of care (as documented) at patient's floor/unit and/or counseling patient: Coding Level of Care Code 74180 Inpt Consult Level 5 Diagnoses NISHI (acute kidney injury) N17.9 Stage 4 chronic kidney disease N18.4 Hypercalcemia E83.52
--- NOTE | 2020-08-19 13:43 | Hospitalist Progress Note ---
Date of Service August 19, 2020 Assessment & Plan (1) NISHI (acute kidney injury): Cr. up to 4.0 on admission. Baseline Cr appears to be ~1.8, though last lab was in 10/2019. Unclear etiology of acute renal failure, consider dehydration. Patient is asymptomatic. Renal u/s on 08/18 showed no hydro nephrosis and only medical renal disease. - Hold losartan and hydrochlorothiazide - Continue IV fluids - Nephrology consulted -> Ordering labs for hypercalcemia. - Improving today: Cr down to 2.96 today. (2) Hypercalcemia: May be secondary to acute renal failure from dehydration, consider milk- alkali syndrome versus possible occult neoplasm. - PTH was 13.5 (appropriately suppressed). Vit D 25-OH was 37. - Discontinue calcium supplementation - AI level and PTHrp both pending. (3) CAD (coronary artery disease): No chest pain; no indication of acute ischemia. Per prior notes, 2 stents to RCA and one to LAD. - Continue low-dose aspirin, beta-brina (see below), & statin (4) Hypertension: BP today is 100/55. - Hold HTN meds as above - Give Toprol-XL 200 mg on 08/19 with resulting HR down to the 30s. - Lowered dose to 50 mg PO daily (5) DVT prophylaxis: Admission and Anticipated Discharge Date Admission Date: August 18, 2020 Subjective Doing well today. Reports a loss of appetite about 1 month ago. Otherwise, normal PO intake. Reports no fevers/chills, chest pain, shortness of breath, abdominal pain, nausea, or vomiting. Physical Exam Constitutional: WD/WN, vitals as above Eyes: EOM intact bilaterally; no conjunctival abnormality ENMT: external ear and nose normal, oropharynx normal Neck: trachea midline, no thyromegaly normal visual inspection Respiratory: normal respiratory effort, lungs clear to auscultation no respiratory distress Cardiovascular: RRR, no murmur, no edema Gastrointestinal (Abdomen): Inspection/Auscultation: abdomen normal to inspection; abdomen not distended Musculoskeletal: no cyanosis or clubbing, extremities motor strength 5/5 Skin: no rashes, warm and dry Neurologic: moves all extremities and awake Psychiatric: Orientation: alert, oriented to person and cooperative Results & Data Results & Data ([facility]) Vital Signs (Past 12 Hours) Vital Signs Temp Pulse Pulse Resp BP Pulse Ox 08/19/20 11:35 36.6 C 50 L 17 100/55 L 97 08/19/20 08:00 51 L 08/19/20 07:33 36.4 C L 61 16 147/65 H 97 08/19/20 04:00 36.3 C L 53 L 16 159/70 H 98 PG Care Time/CCT Total # of Minutes Spent Total Time Spent with Patient: Total time spent is greater than 50% in coordination of care (as documented) at patient's floor/unit and/or counseling patient: Coding Level of Care Code 93780 Subseq Hosp Care Lvl 3 Diagnoses NISHI (acute kidney injury) N17.9 Hypercalcemia E83.52 CAD (coronary artery disease) I25.10 Coronary Disease-Associated Artery/Lesion type: [place] artery [place] vs. transplanted heart: [place] heart Associated angina: without angina Hypertension I10 Hypertension type: essential hypertension DVT prophylaxis Z29.9 (1) CAD (coronary artery disease) Coronary Disease-Associated Artery/Lesion type: [place] artery [place] vs. transplanted heart: [place] heart Associated angina: without angina Qualified Code(s): I25.10 - Atherosclerotic heart disease of [place] coronary artery without angina pectoris (2) Hypertension Hypertension type: essential hypertension Qualified Code(s): I10 - Essential (primary) hypertension
[2020-08-19 15:09] LABS: BUN Creatinine Ratio 26.3 (10-20); Calcium 10.7 mg/dl (8.5-10.1); Creatinine Clr Calc Pharmacy 14.1 ml/min; Est GFR (African American) 18.3 ml/min; Est GFR (Non-African American) 15.8 ml/min; Potassium 3.7 mmol/L (3.5-5.1)
[2020-08-19] MEDS ORDERED: LIDOCAINE 5% 1 PATCH TD SCH (18:45)
[2020-08-19] MEDS: SIMVASTATIN 40 MG TAB PO SCH (20:54)
[2020-08-20] MEDS: SODIUM CHLORIDE 0.9% 1000ML 1,000 ML IV SCH ×2 (00:12→08:58)
[2020-08-20 06:50] LABS: Hematocrit (blood only) 26.1 % (37-47); Hemoglobin 8.5 g/dL (12.0-16.0); Mean Corpuscular Hemoglobin 32.8 pg (25-34); Mean Corpuscular Hgb Conc 32.6 g/dL (32-36); Mean Corpuscular Volume 100.8 fL (80-100); Mean Platelet Volume 10.6 fL (7.4-10.4); Platelet Count 267 K/uL (130-400); RDW Coefficient of Variation 14.5 % (11.5-14.5); RDW Standard Deviation 52.9 fL (36.4-46.3); Red Blood Count 2.59 M/uL (4.2-5.4); White Blood Count 8.61 K/uL (4.8-10.8)
[2020-08-20 07:06] LABS: BUN Creatinine Ratio 22.8 (10-20); Calcium 10.1 mg/dl (8.5-10.1); Creatinine Clr Calc Pharmacy 17.2 ml/min; Est GFR (African American) 23.3 ml/min; Est GFR (Non-African American) 20.1 ml/min; Potassium 3.9 mmol/L (3.5-5.1)
--- NOTE | 2020-08-20 07:36 | Electrocardiogram Report ---
Test Reason : Blood Pressure : / mmHG Vent. Rate : 058 BPM Atrial Rate : 058 BPM P-R Int : 184 ms QRS Dur : 088 ms QT Int : 416 ms P-R-T Axes : 035 -02 015 degrees QTc Int : 408 ms Sinus bradycardia Cannot rule out Anterior infarct , age undetermined Abnormal ECG When compared with ECG of 19-AUG-2018 10:14, No significant change was found Confirmed by Stuart Ruff ([id number]) on 08/20/2020 7:36:16 AM Referred By: Kera Haro Confirmed By:Stuart Ruff
[2020-08-20] MEDS: PANTOprazole 40 MG TAB PO SCH (09:00)
[2020-08-20] MEDS: tiZANidine HCL 4 MG TABLET PO SCH (09:00)
[2020-08-20] MEDS: ASPIRIN 81 MG ECTAB PO SCH (09:00)
[2020-08-20] MEDS ORDERED: METOPROLOL SUCC 50MG EXT REL TAB PO SCH (09:00)
[2020-08-20] MEDS: ASCORBIC ACID 500 MG TAB PO SCH (09:00)
[2020-08-20] MEDS: HEPARIN SOD 5,000 UNIT/0.5 ML VIAL SQ SCH (09:01)
--- NOTE | 2020-08-20 10:47 | Nephrology Progress Note ---
Date of Service August 20, 2020 Assessment & Plan (1) Hypercalcemia: 85-year-old female with a past medical history of GERD, stage IV kidney disease, hypertension and CAD that presents the ER for weakness and some dizziness yesterday. Daughter in law notes that she has been more confused over the past week. She denies any headache or change in vision. No chest pain or shortness of breath. She has some intermittent diarrhea. No nausea or vomiting. Denies any dysuria urgency or frequency. She notes that she has not been eating and drinking as she normally does. She denies all other complaints. She was sent in by PCP for further evaluation. (2) NISHI (acute kidney injury): (3) Hypertension: (4) Stage 4 chronic kidney disease: Admission and Anticipated Discharge Date Admission Date: August 18, 2020 Zander Templeton was seen and evaluated this morning. Overall she has been feeling better, denies shortness of breath or chest pain. Decent po inatke. Has been having decent urine output. Renal function continues to improve creatinine down to 2.1, hypercalcemia resolving, truong 10.3. Volume status acceptable, blood pressure mildly elevated. Review of Systems Review of Systems: All systems reviewed & are unremarkable except as noted in Subjective Physical Exam Constitutional: well developed and well nourished; no acute distress Respiratory: normal respiratory effort, lungs clear to auscultation Cardiovascular: RRR, no murmur, no edema Neurologic: moves all extremities and awake; not confused Psychiatric: A+Ox3, euthymic affect Results & Data ([facility]) Vital Signs (Past 12 Hours) Vital Signs Temp Pulse Pulse Resp BP Pulse Ox 08/20/20 07:06 36.7 C 52 L 18 156/66 H 99 08/20/20 05:30 36.8 C 55 L 21 160/63 H 97 08/20/20 00:09 54 L 08/19/20 23:09 36.8 C 56 L 18 122/72 99 PG Care Time/CCT Total # of Minutes Spent Total Time Spent with Patient: Total time spent is greater than 50% in coordination of care (as documented) at patient's floor/unit and/or counseling patient: Coding Diagnoses Hypercalcemia E83.52 NISHI (acute kidney injury) N17.9 Hypertension I10 Hypertension type: essential hypertension Stage 4 chronic kidney disease N18.4 (1) Hypertension Hypertension type: essential hypertension Qualified Code(s): I10 - Essential (primary) hypertension
--- NOTE | 2020-08-20 10:54 | Nephrology Progress Note ---
Date of Service August 20, 2020 Assessment & Plan (1) Hypercalcemia: 85-year-old female with PMH of stage 4 CKD b/l cr 1.7,GERD, HTN and CAD admitted with NISHI and hypercalcemia after she had outpt lab done by PCP for some weakness and dizziness showing cr 4.1 and ca 13. She was treated with IV hydration with rapid improvement of Cr and ca. Overall she has been feeling better, po intake adequate. Cr down to 2.1 and ca 10.3. PTH low, vit D normal, other w/u pending. --OK to DC with close outpt lab monitor and f/u --suggest lab on Saturday, schedule f/u with Dr. Diaz. --avoid all ca/vit d, Thiazide diuretics Will follow while inpatient (2) NISHI (acute kidney injury): (3) Hypertension: (4) Stage 4 chronic kidney disease: Admission and Anticipated Discharge Date Admission Date: August 18, 2020 Results & Data ([facility]) Vital Signs (Past 12 Hours) Vital Signs Temp Pulse Pulse Resp BP Pulse Ox 08/20/20 07:06 36.7 C 52 L 18 156/66 H 99 08/20/20 05:30 36.8 C 55 L 21 160/63 H 97 08/20/20 00:09 54 L 08/19/20 23:09 36.8 C 56 L 18 122/72 99 PG Care Time/CCT Total # of Minutes Spent Total Time Spent with Patient: Total time spent is greater than 50% in coordination of care (as documented) at patient's floor/unit and/or counseling patient: Coding Level of Care Code 99111 Subseq Hosp Care Lvl 3 Diagnoses Hypercalcemia E83.52 NISHI (acute kidney injury) N17.9 Hypertension I10 Hypertension type: essential hypertension Stage 4 chronic kidney disease N18.4 (1) Hypertension Hypertension type: essential hypertension Qualified Code(s): I10 - Essential (primary) hypertension
--- NOTE | 2020-08-20 22:18 | Discharge Summary ---
Date of Service August 20, 2020 Admission HPI Per Admitting Provider This is an 85-year-old female with past medical history of CAD, hypertension, lumbar stenosis that presents today with abnormal lab work. Patient is accompanied by her and son. She is a limited historian. Apparently both she and her just returned from [place]. They have family not helping them out at home. Patient went to her primary care provider for routine lab work. At that time she had no complaints. They were contacted today and told that the patient's lab work was grossly abnormal. They were concerned mostly about her calcium and told her to present to the emergency room for evaluation and treatment. Patient's BUN was 73 and creatinine was 4.05, both represent a significant elevation from her usual baseline with a BUN in the 20s and a creatinine of 1.82. Calcium with 13 with normal LFTs and albumin. Patient essentially denies all symptoms, does not want to stay in the hospital. Specifically, she denied any chest pain, shortness of breath, worsening back pain, dysuria or other urinary complaints, headaches, weakness, or cramping. She does not feel particularly dehydrated. The son did note that the patient takes a calcium/D3 supplement daily. Principal Diagnosis Acute kidney injury Hypercalcemia Anemia Discharge Exam Constitutional WD/WN, vitals as above Eyes EOM intact bilaterally; no conjunctival abnormality ENMT external ear and nose normal, oropharynx normal Neck trachea midline, no thyromegaly normal visual inspection Respiratory normal respiratory effort, lungs clear to auscultation no respiratory distress Cardiovascular RRR, no murmur, no edema Gastrointestinal (Abdomen) Inspection/Auscultation: abdomen normal to inspection; abdomen not distended Musculoskeletal no cyanosis or clubbing, extremities motor strength 5/5 Skin no rashes, warm and dry Neurologic moves all extremities and awake Psychiatric Orientation: alert, oriented to person and cooperative Discharge Data Allergies Allergy/AdvReac Type Severity Reaction Status Date / Time clopidogrel Allergy Unknown HIVES Verified 08/18/20 17:06 codeine Allergy Unknown NAUSEA Verified 08/18/20 17:06 adhesive AdvReac Unknown RASH Verified 08/18/20 17:06 amoxicillin AdvReac Unknown Unknown Verified 08/18/20 17:06 Consultations 08/18/20 16:58 ED Decision to Admit Stat 08/18/20 21:06 Consult Nephrology Routine Ordered Studies 08/18/20 16:56 CT head/brain wo con Stat 08/18/20 21:06 US renal/blad retro comp Urgent Hospital Course (1) NISHI (acute kidney injury): Cr. up to 4.0 on admission. Baseline Cr appears to be ~1.8, though last lab was in 10/2019. Unclear etiology of acute renal failure, consider dehydration vs iatrogenic. Patient is asymptomatic. Renal u/s on 08/18 showed no hydronephrosis and only medical renal disease. - Held losartan and hydrochlorothiazide while inpatient. - Nephrology consulted -> Ordering labs for hypercalcemia. Pending: urine immunofixation, AI level, and PTHrp. - Improved today: Cr down to 2.17 today. - Discussed with nephrology. Cr and calcium both trending in the right direction and near normal/baseline. Presumably, a combination of de hydration/iatrogenic from HCTZ & losartan. Stopped HCTZ on discharge. Encouraged to take in good PO intake. She very much wanted to go home as her has dementia and was confused and agitated without her at home. Encouraged close follow up with nephrology and PCP. (2) Hypercalcemia: May be secondary to acute renal failure from dehydration, consider milk- alkali syndrome versus possible occult neoplasm. - PTH was 13.5 (appropriately suppressed). Vit D 25-OH was 37. - Discontinue calcium supplementation on discharge. - As above, urine immunofixation, AI level, and PTHrp pending. Also some concern for a multiple myeloma or other cancer cancer hypercalcemia. Will be sure to follow up with good cancer screenings with PCP if this doesn't resolve off her calcium supplement and HCTZ. (3) Bradycardia: Noted to be bradycardic to the 50s with dips to the 30s after getting Toprol 200 mg on 08/19 and even just getting Toprol XL 50 mg on 08/20. She was asymptomatic, and her HR came up with activity. - STOPPED beta-brina on discharge. - She will track her HR and blood pressure over the next few days and discuss with her PCP. May need eventual consideration of pacemaker if continues to run low or has any symptoms. (4) Anemia: Noted hgb fall from 10.5 on admission to 8.5 on discharge. No melena, hematochezia, hematemesis, or other signs/symptoms of bleeding. She did receive a lot of fluids for her NISHI, so dilutional might be the culprit. - Ordered CBC & anemia labs for Saturday and also asked her to watch for any of the bleeding issues. (5) CAD (coronary artery disease): No chest pain; no indication of acute ischemia. Per prior notes, 2 stents to RCA and one to LAD. - Continue low-dose aspirin, beta-brina (see below), & statin (6) Hypertension: BP today is 100/55. - Hold HTN meds as above - Give Toprol-XL 200 mg on 08/19 with resulting HR down to the 30s. - Lowered dose to 50 mg PO daily (7) DVT prophylaxis: Heparin 5,000 units SQ Q12h All-in-all, a complex discharge with several significant issues that will need to be followed up. As above, patient was very interested in discharge as she fe lt strongly she needed to be with her . I went back to the room at least 3 times on the day of discharge and discussed all the issues. These were all also outlined in her discharge paperwork. In the end, the patient was relieved to be going home. Total Time Total Time Spent Total Time Spent (In Minutes): 50 Discharge Plan Discharge Items Patient Disposition: Home - Self-Care Reason For Visit: HYPERCALCEMIA Discharge Diagnosis: Kidney injury, high calcium Activity: Resume your previous activity Non-emergency contact: Primary Care Provider and Food Runner Call non-emergency contact if: your symptoms worsen Follow-up/Referrals: China Limon CRNP [Primary Care Provider] - Pascual Diaz MD [Physician] - (Please call Dr. Diaz's office on Saturday to arrange a follow-up appointment.) Diet: Heart Healthy Ambulatory Orders: Basic Metabolic Panel (Routine) Timeframe: 3 Days Location: Determined by Patient Ordered By: Augustine Sargent Complete Blood Count no Diff (Routine) Timeframe: 3 Days Location: Determined by Patient Ordered By: Augustine Sargent Addtl Attending Provider Instructions: Ms. Frost, You were admitted to the hospital with high calcium and a kidney issue. Both of these got better with some fluids and holding some of your home medications. We are stopping one of your blood pressure medications and you should stop your vitamin D & calcium supplement. It is possible this was all some dehydration from traveling from [place], but that would seem pretty extreme for that. We have some other testing pending, but it won't be back for another few days (probably middle of next week). Please get your blood drawn on Saturday to be sure your kidney function and calcium are still returning to normal. The results will be sent to Dr. Diaz and Ms. Kaye. The order is in the computer, so you just have to come to the Main Entrance of the hospital on Saturday and tell them you have a lab order. Your heart rate was slow here. We stopped your metoprolol as it can slow your heart rate. Please check your blood pressure and heart rate at home with your home blood pressure cuff and take those results to your next doctor's appointment. Please call Dr. Diaz's office on Saturday to arrange a follow-up appointment to review the other lab tests and to talk about the next steps for your care. Please continue to stay hydrated. Your urine should be light-yellow to indicate you are hydrated appropriately. If your urine darkens, if you stop urinating, or if you have any other issues, please call your PCP or Dr. Diaz's office right away or come back to the hospital. Pending Studies at Discharge: Yes Studies:: Kidney tests Stand-Alone Forms: My LVL6, Smoking Cessation Medications and DC Order Prescriptions: Continued famotidine 20 mg tablet 20 mg PO DAILY Qty: 30 RF: 2 allopurinol 300 mg tablet 300 mg PO DAILY Qty: 30 RF: 2 ascorbic acid (vitamin C) 500 mg capsule 500 mg PO DAILY Qty: 30 RF: 0 acetaminophen 500 mg capsule 500 mg PO Q4H PRN (Reason: pain) Qty: 30 RF: 0 Glucosamine Chondroitin 550-30-1 mg Capsule 1 cap PO QAM RF: 0 aspirin [Ecotrin Low Strength] 81 mg Tablet,Delayed Release (Dr/Ec) 81 mg PO DAILY Qty: 30 RF: 0 gabapentin 300 mg capsule 300 mg PO TID PRN (Reason: Pain) RF: 0 simvastatin 40 mg tablet 40 mg PO QPM RF: 0 losartan 100 mg tablet 100 mg PO DAILY RF: 0 tizanidine 4 mg tablet 4 mg PO UD RF: 0 Discontinued calcium carbonate-vitamin D3 600 mg(1,500mg) -400 unit tablet 1 tab PO BID RF: 0 multivitamin Tablet 1 tab PO DAILY RF: 0 triamterene-hydrochlorothiazid 37.5-25 mg capsule 1 cap PO DAILY RF: 0 metoprolol succinate 200 mg tablet extended release 24 hr 200 mg PO DAILY RF: 0 Discharge Orders: Discharge Order (Routine); Ordered 08/20/20 Ordered By: Augustine Sargent Admission Data Admit Date/Time: 08/18/20 18:44 Attending Provider: Augustine Sargent Admit Provider: Brain Newell Primary Care Provider: China Limon Other Providers: Pascual Diaz ; Augustine Sargent Other Interventions: Discharge Summary Assessment (RN) Last Done: 08/20/20 11:52 Coding Level of Care Code 21351 OBS Care - Discharge Diagnoses NISHI (acute kidney injury) N17.9 Hypercalcemia E83.52 Bradycardia R00.1 Anemia D64.9 CAD (coronary artery disease) I25.10 Coronary Disease-Associated Artery/Lesion type: [place] artery [place] vs. transplanted heart: pam[place]key heart Associated angina: without angina Hypertension I10 Hypertension type: essential hypertension DVT prophylaxis Z29.9
[2020-08-23 23:07] LABS: Angiotensin Converting Enzyme 18 U/L (9-67); PTH Related Protein 13 pg/mL (14-27)
[2020-08-24 09:51] LABS: Abnormal Protein Band 1 DNR mg/24 h (NONE DETECTED); Abnormal Protein Band 2 DNR mg/24 h (NONE DETECTED); Abnormal Protein Band 3 DNR mg/24 h (NONE DETECTED); Creatinine, 24 hr Urine 0.83 g/24 h (0.50-2.15); Protein, Urine 24 Hour 188 mg/24 h (<150); Ur Protein/Creatinine Rat mg/g 227 mg/g creat (< OR = 114); Urine Protein/Creatinine Ratio 0.227 (< OR = 0.114)
== END 2020-08-20 12:26 | disposition home or self-care (01) ==
LOC: 2E 16:03 → ED 16:03 → SUATTDRO 18:44

== ENCOUNTER 2024-07-03 16:28 | Observation (INO) ==
[2024-07-03 17:16] LABS: Basophils # (auto) 0.05 K/uL (0.00-0.20); Basophils % (auto) 0.6 %; Eosinophils # (auto) 0.26 K/uL (0.00-0.50); Hematocrit (blood only) 37.2 % (37.0-47.0); Hemoglobin 12.4 g/dl (12.0-16.0); Immature Granulocytes # (auto) 0.01 K/uL (0.01-0.20); Immature Granulocytes % (auto) 0.1 %; Lymphocytes # (auto) 2.42 K/uL (1.20-3.40); Lymphocytes % (auto) 27.7 %; Mean Corpuscular Hemoglobin 32.8 pg (25.0-34.0); Mean Corpuscular Hgb Conc 33.3 g/dL (32.0-36.0); Mean Corpuscular Volume 98.4 fL (80.0-100.0); Mean Platelet Volume 10.1 fL (9.4-12.4); Monocytes # (auto) 0.63 K/uL (0.11-0.59); Monocytes % (auto) 7.2 %; Neutrophils # (auto) 5.36 K/uL (1.40-6.50); Neutrophils % (auto) 61.4 %; Platelet Count 301 K/uL (130-400); RDW Standard Deviation 51.3 fL (36.4-46.3); Red Blood Count 3.78 M/uL (4.20-5.40); White Blood Count 8.73 K/ul (4.8-10.8)
[2024-07-03 17:34] LABS: Alanine Aminotransferase 9 U/L (7-52); Albumin Globulin Ratio 1.5 (0.9-2); Albumin Level 4.3 gm/dl (3.4-5.0); Alkaline Phosphatase 58 U/L (34-104); Anion Gap 9 (3-11); Aspartate Aminotransferase 17 U/L (13-39); BUN Creatinine Ratio 20.4 (10-20); Bilirubin,Total 0.3 mg/dl (0.2-1.0); Blood Urea Nitrogen 32 mg/dl (6-23); Calcium 9.7 mg/dl (8.6-10.3); Carbon Dioxide 22 mmol/L (21-32); Chloride 108 mmol/L (98-107); Globulin 2.8 gm/dl (2.5-4.0); Glucose 84 mg/dl (70-99(Fasting)); Lipase 47 U/L (11-82); Potassium 4.3 mmol/L (3.5-5.1); Sodium 139 mmol/L (136-145); Total Protein 7.1 gm/dl (6.0-8.3)
[2024-07-03 17:43] LABS: Troponin I High Sensitivity 67.7 pg/ml (0-14)
[2024-07-03 18:18] LABS: Magnesium 1.9 mg/dl (1.7-2.4)
[2024-07-03 18:22] LABS: INR 0.9 (0.9-1.1); Prothrombin Time 10.1 Seconds (9.0-12.0)
--- NOTE | 2024-07-03 18:23 | Emergency Department Note ---
Impression & Plan Chest pain, Non-ST elevation ME (NSTEMI), Acute dyspnea, Acute exacerbation of CHF (congestive heart failure) ED Provider Note HISTORY OF PRESENT ILLNESS: Patient is an 89-year-old female presenting with chest pain and shortness of breath. Patient reports for the last week she has been having intermittent episodes in which she feels very short of breath and like her heart is racing. She states that she is also had intermittent episodes of substernal chest pain. She describes the chest pain as a tightness sensation. Reports the pain lasts anywhere from a few minutes to 30 minutes. Reports pain goes away on its own. She does not associate the pain with any sort of exertion, and states that she will get chest pain while she is sitting at the kitchen table. She denies any recent cough or fevers. Denies any sick contact exposures. She is on a baby aspirin daily. Denies any history of DVT or PE. She does report a history of 3 stents, but her last was in 2021. ROS: as above PHYSICAL EXAM: Constitutional: Patient appears in no acute distress. HENT: Head: Normocephalic and atraumatic. Eyes: EOMI, PERRL Mouth/Throat: Mucous membranes moist. Neck: Trachea midline. Neck supple. Cardiovascular: RRR, No murmurs, rubs or gallops. Intact distal pulses. Pulmonary/Chest: No respiratory distress. Breath sounds clear and equal bilaterally. No wheezes or rales. Abdominal: Abdomen soft, no tenderness, rebound or guarding. Musculoskeletal: No edema, tenderness or deformity noted. Skin: Warm and dry. No rash, erythema, pallor or cyanosis Psychiatric: Appropriate mood and affect for situation. Neurological: Alert and keenly responsive. CN II-XII grossly intact, moving all extremities equally and fully. MDM: - Vitals signs showed hypertension - History obtained via patient. History as above. - Chronic conditions affecting care: CAD (s/p PCI); HLD; GERD; CKD; HTN - Differential diagnoses include, but are not limited to: Acute coronary syndrome; pulmonary embolism; dissection; tension pneumothorax; esophageal rupture; pneumonia - Order placed for continuous cardiac monitoring. At this time, monitor showed rate of 67 bpm with normal sinus rhythm, per my interpretation. - External medical records reviewed. Wellness visit note dated 06/19/2024 was reviewed. Patient was seen for a wellness exam and plans for follow-up in 4 months for repeat laboratory workup. - EKG image interpreted by myself showed normal sinus rhythm. Rate 72 bpm. QT 384. No acute ischemic changes. - Laboratory workup interpreted by myself showed normal WBC; normal PT/INR; stable electrolytes; CKD (Cr 1.57 - about patient's baseline); elevated troponin (67.7); normal lipase; elevated BNP (484) - BNP added to workup - CXR image reviewed by myself negative for pneumonia, per my interpretation. Radiologist notes mild congestive changes similar to previous x-ray. - COVID/flu/RSV negative - Discussion was had with returned case inspector about patient's case and need for admission - Hospitalist, Dr. Lentz, consulted for admission - Patient admitted to [facility] service for further evaluation and management. ASSESSMENT AND PLAN: Diagnosis: Chest pain; NSTEMI; acute dyspnea; CHF exacerbation Plan: Admit Past Med/Surg History Problem List (Updated 07/03/24 @ 19:49 by Raysa Rosenberg MD) Acute exacerbation of CHF (congestive heart failure) (Acute) Acute dyspnea (Acute) Non-ST elevation ME (NSTEMI) (Acute) Chest pain (Acute) Hearing loss Unsteady gait when walking Peripheral edema Anemia (Acute) GERD (gastroesophageal reflux disease) (Acute) Stage 4 chronic kidney disease (Chronic) Incomplete emptying of bladder (Chronic) Dyslipidemia (Chronic) Chronic low back pain (Chronic) Impaired fasting glucose (Chronic) Hypertension (Chronic) CAD (coronary artery disease) (Chronic) Lumbar stenosis with neurogenic claudication (Chronic) Medical History Dislocation, hip Vitamin D deficiency Low back pain CAD (coronary artery disease) Surgical History History of fusion of lumbar spine History of total knee arthroplasty History of hip replacement Previous back surgery Status post hip surgery S/P knee surgery Family History Mother Myocardial infarction Brother Myocardial infarction Other Family history non-contributory Denies family history of Ovarian cancer Prostate cancer Breast cancer Colorectal cancer Social History (Updated 06/19/24 @ 14:09 by Monika Taylor LPN) Smoking Status: Never smoker Tobacco Type: Cigarettes Age Started Using Tobacco: 15; Age Quit Using Tobacco: 43; packs per day: 0.5; Second Hand Exposure: No; Do You Dip or Chew Tobacco: No; Hx Alcohol Use: No Hx Substance Use: No Preferred Language: Azerbaijani Communication Ability: Effective Visual Impairment: Limited Hearing Ability: Hard of Hearing Marketing Analytics Analyst Required: No Beliefs That Will Affect Care: None marital status: / Current Living Situation: Alone current occupational status: retired How many Children do You have: 4 Feels Safe at Home: Yes Childhood Exposure to Second-Hand Smoke: Yes Diet: regular caffeine: Yes during the past year weight has: remained stable Dental Care, Regularly: Yes Physical Activity Frequency: Does not Exercise Seatbelt Use: always Sunscreen Use: No Do you think of yourself as: straight/heterosexual Sexual Activity: has been sexually active, but not for at least 12 months Gender Identity: Female Assistive Devices: Cane, Denture - Upper, Denture - Lower, Glasses, Hearing Aid - Bilateral, Scooter/Electric Scooter and Walker Allergies Allergies Allergy/AdvReac Type Severity Reaction Status Date / Time clopidogrel Allergy Intermediate HIVES Verified 07/03/24 19:10 adhesive AdvReac Mild RASH Verified 07/03/24 19:10 codeine AdvReac Mild NAUSEA Verified 07/03/24 19:10 amoxicillin AdvReac Unknown CAN'T Verified 07/03/24 19:10 REMEMBER antihistamines Allergy Unknown CAN'T Uncoded 07/03/24 19:10 REMEMBER Home Meds Home Medications Medication Instructions Recorded Confirmed glucosamine sulf dipot 1 cap PO QAM 08/15/18 07/03/24 chlr,msm,chond 550 mg-C 30 mg-almaz 1 mg capsule (Glucosamine Chondroitin) omeprazole 20 mg capsule,delayed 20 mg PO QAM 08/26/20 07/03/24 release ascorbic acid (vitamin C) 500 mg 500 mg PO QAM 08/28/20 07/03/24 capsule aspirin 81 mg tablet,delayed 81 mg PO QAM 08/28/20 07/03/24 release (Ecotrin Low Strength) cholecalciferol (vitamin D3) 10 10 mcg PO DAILY 06/21/22 07/03/24 mcg (400 unit) capsule calcium 600 mg (as 1 cap PO DAILY 12/11/22 07/03/24 carbonate)-vitamin D3 12.5 mcg (500 unit) capsule (Calcium with Vit D3) furosemide 20 mg tablet 20 mg PO DAILY PRN FLUID 07/03/24 07/03/24 RETENTION/SWELLING gabapentin 300 mg capsule 300 mg PO DAILY PRN NEEDED PER 07/03/24 07/03/24 PT'S MED LIST ibuprofen 125 mg-acetaminophen 250 1 tab PO DIRECTED PRN Pain 07/03/24 07/03/24 mg tablet (Advil Dual Action) nystatin 100,000 unit/gram topical 1 applic topical BID PRN SKIN 07/03/24 07/03/24 powder IRRITATIONS vitamin E 268 mg (400 unit) capsule 268 mg PO DAILY 07/03/24 07/03/24 Previous Rx's Medication Instructions Recorded simvastatin 40 mg tablet 40 mg PO QPM #90 tabs 04/01/23 losartan 100 mg tablet 100 mg PO QAM #100 tabs 09/11/23 allopurinol 300 mg tablet 300 mg PO PM #90 tabs 12/13/23 Results & Data (ED) Vital Signs Vital Signs - 24 hr 07/03/24 16:44 07/03/24 17:59 07/03/24 18:00 Temperature 36.6 C Temperature Source Temporal Artery Scan Pulse Rate 76 76 66 Pulse Rate [Apical] Pulse Rate from SpO2 Sensor 66 Respiratory Rate 18 18 Respiratory Effort / Characteristics Non-Labored Spontaneous Respiratory Depth Normal Respiratory Pattern Regular Blood Pressure 156/86 H 174/90 H Blood Pressure [Left Arm] Blood Pressure Mean 109 118 Blood Pressure Mean [Left Arm] Pulse Oximetry 98 98 Oxygen Delivery Method Room Air Sepsis Recent Fever Within 48 Hours No Sepsis New/Unexplained Change in Mental Status N/A Sepsis Action Taken by Nursing No Action Required 07/03/24 18:02 07/03/24 18:02 07/03/24 18:30 Temperature Temperature Source Pulse Rate 66 Pulse Rate [Apical] Pulse Rate from SpO2 Sensor 66 Respiratory Rate 17 Respiratory Effort / Characteristics Respiratory Depth Respiratory Pattern Blood Pressure 132/72 Blood Pressure [Left Arm] Blood Pressure Mean 92 Blood Pressure Mean [Left Arm] Pulse Oximetry 94 100 Oxygen Delivery Method Room Air Room Air Sepsis Recent Fever Within 48 Hours Sepsis New/Unexplained Change in Mental Status Sepsis Action Taken by Nursing 07/03/24 19:07 Temperature Temperature Source Pulse Rate Pulse Rate [Apical] 68 Pulse Rate from SpO2 Sensor Respiratory Rate 17 Respiratory Effort / Characteristics Respiratory Depth Respiratory Pattern Blood Pressure Blood Pressure [Left Arm] 177/82 H Blood Pressure Mean Blood Pressure Mean [Left Arm] 113 Pulse Oximetry 96 Oxygen Delivery Method Sepsis Recent Fever Within 48 Hours Sepsis New/Unexplained Change in Mental Status Sepsis Action Taken by Nursing Laboratory Data 07/03/24 17:04 07/03/24 17:04 Lab Results 07/03/24 07/03/24 07/03/24 Range/Units 17:04 18:58 Unknown WBC 8.73 (4.8-10.8) K/ul RBC 3.78 L (4.20-5.40) M/uL Hgb 12.4 (12.0-16.0) g/dl Hct 37.2 (37.0-47.0) % MCV 98.4 (80.0-100.0) fL MCH 32.8 (25.0-34.0) pg MCHC 33.3 (32.0-36.0) g/dL RDW Std Deviation 51.3 H (36.4-46.3) fL RDW Coeff of Eleazar 14.0 (11.5-14.5) % Plt Count 301 (130-400) K/uL MPV 10.1 (9.4-12.4) fL Immature Gran % (Auto) 0.1 % Neut % (Auto) 61.4 % Lymph % (Auto) 27.7 % Rogers % (Auto) 7.2 % Eos % (Auto) 3.0 % Baso % (Auto) 0.6 % Neut # (Auto) 5.36 (1.40-6.50) K/uL Lymph # (Auto) 2.42 (1.20-3.40) K/uL Rogers # (Auto) 0.63 H (0.11-0.59) K/uL Eos # (Auto) 0.26 (0.00-0.50) K/uL Baso # (Auto) 0.05 (0.00-0.20) K/uL Immature Gran # (Auto) 0.01 (0.01-0.20) K/uL PT 10.1 (9.0-12.0) Seconds INR 0.9 (0.9-1.1) Sodium 139 (136-145) mmol/L Potassium 4.3 (3.5-5.1) mmol/L Chloride 108 H (98-107) mmol/L Carbon Dioxide 22 (21-32) mmol/L Anion Gap 9 (3-11) BUN 32 H (6-23) mg/dl Creatinine 1.57 H (0.6-1.2) mg/dl Est Cr Clr Drug Dosing Not Reportable eGFR 31.34 BUN/Creatinine Ratio 20.4 H (10-20) Glucose 84 (70-99(Fasting)) mg/dl Calcium 9.7 (8.6-10.3) mg/dl Magnesium 1.9 (1.7-2.4) mg/dl Total Bilirubin 0.3 (0.2-1.0) mg/dl AST 17 (13-39) U/L ALT 9 (7-52) U/L Alkaline Phosphatase 58 (34-104) U/L Troponin I High Sens 67.7 H* (0-14) pg/ml B-Natriuretic Peptide 482 H (0-100) pg/ml Total Protein 7.1 (6.0-8.3) gm/dl Albumin 4.3 (3.4-5.0) gm/dl Globulin 2.8 (2.5-4.0) gm/dl Albumin/Globulin Ratio 1.5 (0.9-2) Lipase 47 (11-82) U/L SARS-CoV-2 (PCR) NEGATIVE (Negative) Influenza Type A (PCR) Negative (Neg) Influenza Type B (PCR) Negative (Neg) RSV (RT-PCR) Negative (Neg) Imaging Data Radiologist's Impression: Chest X-Ray 07/03/24 16:48 EXAM: Portable AP chest radiograph TECHNIQUE: AP portable radiograph of the chest was obtained. INDICATION: Shortness of breath Comparison: Chest radiograph August 28, 2020. FINDINGS: LINES and TUBES: None CARDIOVASCULAR: Cardiac silhouette is stably and mildly enlarged. Small hiatal hernia suggested LUNGS/PLEURA: Mild pulmonary vascular congestion is similar to previous radiograph. No focal consolidation identified. No significant pleural fluid. No discernible pneumothorax. OSSEOUS/OTHER: No displaced acute osseous process identified. Lumbar spine hardware. Chronic appearing deformity in the left humeral head/surgical neck region IMPRESSION: Mild congestive changes of the cardiovascular system that are similar to the previous radiograph. Electronically signed by Nghia Saenz 07-03-2024 6:30 PM Discharge Plan Visit Data Chief Complaint: Shortness of Breath/Dyspnea Stated Complaint: SOB, HEART HX ED Provider: Raysa Rosenberg Discharge Problem: Chest pain, Non-ST elevation ME (NSTEMI), Acute dyspnea, Acute exacerbation of CHF (congestive heart failure) Forms Stand Alone Forms: My [facility] [employer] Prescriptions Prescriptions: No Action simvastatin 40 mg tablet 40 mg PO QPM Qty: 90 3RF losartan 100 mg tablet 100 mg PO QAM Qty: 100 3RF allopurinol 300 mg tablet 300 mg PO PM Qty: 90 3RF calcium carbonate-vitamin D3 [Calcium 600 with Vitamin D3] 600 mg-12.5 mcg (500 unit) capsule 1 cap PO DAILY omeprazole 20 mg capsule,delayed release(DR/EC) 20 mg PO QAM cholecalciferol (vitamin D3) 10 mcg (400 unit) capsule 10 mcg PO DAILY Glucosamine Chondroitin 550-30-1 mg Capsule 1 cap PO QAM aspirin [Ecotrin Low Strength] 81 mg tablet,delayed release (DR/EC) 81 mg PO QAM ascorbic acid (vitamin C) 500 mg capsule 500 mg PO QAM gabapentin 300 mg Capsule 300 mg PO DAILY PRN (Reason: NEEDED PER PT'S MED LIST) vitamin E 268 mg (400 unit) Capsule 268 mg PO DAILY ibuprofen-acetaminophen [Advil Dual Action] 125-250 mg Tablet 1 tab PO DIRECTED PRN (Reason: Pain) furosemide 20 mg tablet 20 mg PO DAILY PRN (Reason: FLUID RETENTION/SWELLING) Rx Instructions: 1 tab for no more than 3 days in a row PO daily; nystatin 100,000 unit/gram powder 1 applic topical BID PRN (Reason: SKIN IRRITATIONS) Referrals Referrals: China Limon CRNP [Primary Care Provider] -
--- NOTE | 2024-07-03 18:31 | XRay Report ---
EXAM: Portable AP chest radiograph TECHNIQUE: AP portable radiograph of the chest was obtained. INDICATION: Shortness of breath Comparison: Chest radiograph August 28, 2020. FINDINGS: LINES and TUBES: None CARDIOVASCULAR: Cardiac silhouette is stably and mildly enlarged. Small hiatal hernia suggested LUNGS/PLEURA: Mild pulmonary vascular congestion is similar to previous radiograph. No focal consolidation identified. No significant pleural fluid. No discernible pneumothorax. OSSEOUS/OTHER: No displaced acute osseous process identified. Lumbar spine hardware. Chronic appearing deformity in the left humeral head/surgical neck region IMPRESSION: Mild congestive changes of the cardiovascular system that are similar to the previous radiograph. Electronically signed by Nghia Saenz 07-03-2024 6:30 PM
--- NOTE | 2024-07-03 19:15 | History & Physical Report ---
Date of Service July 03, 2024 Assessment & Plan (1) Non-ST elevation CA (NSTEMI): (2) Hypertension: (3) CAD (coronary artery disease): Plan Patient is an 89-year-old female with past medical history of CAD s/p reportedly 3 stents most recently 2001, stage IV CKD, GERD, HLD, HTN. Patient presented due to intermittent achy chest pain/tightness that occurred at rest and dyspnea x 1 week. Episodes last a few minutes to 30 minutes and go away on their own. EKG showed no ischemic changes, NSR. Troponin elevated 67.7 -> 87.6 She is being admitted for cardiac workup. #NSTEMI - Currently chest pain free. RICHA risk score 4. EKG showed NSR, no ischemic changes. Troponin 67.7 -> 87.6. BNP elevated to 482, noted 1+ pitting edema to bilateral lower extremities. CXR showed mild congestive changes. Differential includes but not limited to NSTEMI, new onset CHF, demand ischemia in setting of stage 4 CKD. - ASA chew 325 mg ordered on admission; continue 81mg po daily - continue home simvastatin 40mg daily - SL NTG 0.4mg prn - Troponin q6hr x 3 - lipid panel and A1C with AM labs - monitor on telemetry - EKG with chest pain as needed - mag 1.9 - 1 g IV ordered for goal of > 2.0; trend mag - TEDs for LE edema #HTN - mildly elevated on admission - Continue losartan #GERD - stable, chest pain feels different than acid reflux. - Continue PPI #CKD stage IV Renal function at baseline. Stable. VTE ppx: SCDs + TEDs, low risk Dispo: Med/tele; obs - possible dc 07/04 after stress echo Admission and Anticipated Discharge Date Admission Date: 07/03/24 History of Present Illness Chief Complaint: dyspnea/cp Primary Care Provider: PAWAN Cotter Patient is an 89-year-old female with past medical history of CAD s/p reportedly 3 stents most recently 2001, stage IV CKD, GERD, HLD, HTN. Patient presented due to intermittent achy chest pain/tightness that occurred at rest and dyspnea x 1 week. Episodes last a few minutes to 30 minutes and go away on their own. EKG showed no ischemic changes, NSR. Original troponin 67.7, 2-hour repeat pending. She is being admitted for cardiac workup including stress echocardiogram. Patient seen at bedside with her son and [id number] present. She stated she has had intermittent chest pain and shortness of breath for the past week and the episodes are different every time. She stated the chest pain does feel similar to the past when she needed stents placed. The episodes occur both at rest and on exertion and occur for approximately a few minutes to 30 minutes and go away on their own. She has approximately 1 a day however did have 2 episodes yesterday. Most recent episode at lunchtime today. With episode today she did have radiation of pain into bilateral arms. The chest pain is substernal. She denies any other significant ROS, denies fevers, chills, lightheadedness, dizziness, sore throat, cough, congestion, abdominal pain, nausea, vomiting, diarrhea. She does have a history of GERD however this feels different. She denies nicotine or alcohol use. She got her morning medications including a daily baby aspirin. She has Lasix as needed however has not taken it since last summer. She has written DNR/DNI status. Allergies Allergy/AdvReac Type Severity Reaction Status Date / Time clopidogrel Allergy Intermediate HIVES Verified 07/03/24 19:10 adhesive AdvReac Mild RASH Verified 07/03/24 19:10 codeine AdvReac Mild NAUSEA Verified 07/03/24 19:10 amoxicillin AdvReac Unknown CAN'T Verified 07/03/24 19:10 REMEMBER antihistamines Allergy Unknown CAN'T Uncoded 07/03/24 19:10 REMEMBER Home Medications Medication Instructions Recorded Confirmed Type glucosamine sulf dipot 1 cap PO QAM 08/15/18 07/03/24 History chlr,msm,chond 550 mg-C 30 mg-almaz 1 mg capsule (Glucosamine Chondroitin) omeprazole 20 mg capsule,delayed 20 mg PO QAM 08/26/20 07/03/24 History release ascorbic acid (vitamin C) 500 mg 500 mg PO QAM 08/28/20 07/03/24 History capsule aspirin 81 mg tablet,delayed 81 mg PO QAM 08/28/20 07/03/24 History release (Ecotrin Low Strength) cholecalciferol (vitamin D3) 10 10 mcg PO DAILY 06/21/22 07/03/24 History mcg (400 unit) capsule calcium 600 mg (as 1 cap PO DAILY 12/11/22 07/03/24 History carbonate)-vitamin D3 12.5 mcg (500 unit) capsule (Calcium with Vit D3) simvastatin 40 mg tablet 40 mg PO QPM #90 tabs 04/01/23 07/03/24 Rx losartan 100 mg tablet 100 mg PO QAM #100 tabs 09/11/23 07/03/24 Rx allopurinol 300 mg tablet 300 mg PO PM #90 tabs 12/13/23 07/03/24 Rx furosemide 20 mg tablet 20 mg PO DAILY PRN FLUID 07/03/24 07/03/24 History RETENTION/SWELLING gabapentin 300 mg capsule 300 mg PO DAILY PRN NEEDED PER 07/03/24 07/03/24 History PT'S MED LIST ibuprofen 125 mg-acetaminophen 250 1 tab PO DIRECTED PRN Pain 07/03/24 07/03/24 History mg tablet (Advil Dual Action) nystatin 100,000 unit/gram topical 1 applic topical BID PRN SKIN 07/03/24 07/03/24 History powder IRRITATIONS vitamin E 268 mg (400 unit) capsule 268 mg PO DAILY 07/03/24 07/03/24 History Past Med/Surg History Problem List Acute exacerbation of CHF (congestive heart failure) (Acute) Acute dyspnea (Acute) Non-ST elevation CA (NSTEMI) (Acute) Chest pain (Acute) Hearing loss Unsteady gait when walking Peripheral edema Anemia (Acute) GERD (gastroesophageal reflux disease) (Acute) Stage 4 chronic kidney disease (Chronic) Incomplete emptying of bladder (Chronic) Dyslipidemia (Chronic) Chronic low back pain (Chronic) Impaired fasting glucose (Chronic) Hypertension (Chronic) CAD (coronary artery disease) (Chronic) Lumbar stenosis with neurogenic claudication (Chronic) Medical History Dislocation, hip Vitamin D deficiency Low back pain CAD (coronary artery disease) s/p stent x 2 to proximal RCA and 1 to mid-LAD Surgical History History of fusion of lumbar spine History of total knee arthroplasty History of hip replacement Previous back surgery Status post hip surgery S/P knee surgery Family History Mother Myocardial infarction Brother Myocardial infarction Other Family history non-contributory Denies family history of Ovarian cancer Prostate cancer Breast cancer Colorectal cancer Social History Smoking Status: Never smoker Tobacco Type: Cigarettes Age Started Using Tobacco: 15; Age Quit Using Tobacco: 43; packs per day: 0.5; Second Hand Exposure: No; Do You Dip or Chew Tobacco: No; Hx Alcohol Use: No Hx Substance Use: No Preferred Language: Albanian Communication Ability: Effective Visual Impairment: Limited Hearing Ability: Hard of Hearing After School Tutor Required: No Beliefs That Will Affect Care: None marital status: / Current Living Situation: Alone current occupational status: retired How many Children do You have: 4 Feels Safe at Home: Yes Childhood Exposure to Second-Hand Smoke: Yes Diet: regular caffeine: Yes during the past year weight has: remained stable Dental Care, Regularly: Yes Physical Activity Frequency: Does not Exercise Seatbelt Use: always Sunscreen Use: No Do you think of yourself as: straight/heterosexual Sexual Activity: has been sexually active, but not for at least 12 months Gender Identity: Female Assistive Devices: Cane, Denture - Upper, Denture - Lower, Glasses, Hearing Aid - Bilateral, Scooter/Electric Scooter and Walker Review of Systems Review of Systems: See HPI Physical Exam Physical Exam: The patient is awake, alert and oriented 3, well developed and well nourished, normocephalic and atraumatic, in no acute distress. Non-toxic appearing. HEENT- EOMI, mucous membranes dry. Hearing grossly intact. Heart-normal S1 and S2. No murmurs, rubs or gallops. Chest pain not reproducible by palpation. Lungs-clear bilaterally, no respiratory distress, no accessory muscle use. Abdomen-normal bowel sounds and soft. No ascites noted. Non-tender. Extremities- no clubbing, cyanosis. +1 pitting edema BL LE. Rheumatologic-normal range of motion. Psychiatric-normal affect. Results & Data Results & Data Vital Signs (Past 12 Hours) Vital Signs Temp Pulse Pulse Resp BP BP Pulse Ox 07/03/24 19:07 68 17 177/82 H 96 07/03/24 18:30 66 17 132/72 100 07/03/24 18:02 94 07/03/24 18:02 07/03/24 18:00 66 18 174/90 H 98 07/03/24 17:59 76 07/03/24 16:44 36.6 C 76 18 156/86 H 98 O2 Del Method 07/03/24 19:07 07/03/24 18:30 07/03/24 18:02 Room Air 07/03/24 18:02 Room Air 07/03/24 18:00 07/03/24 17:59 07/03/24 16:44 Room Air Laboratory Results Reviewed CBC, CMP, troponin, BNP, magnesium, COVID/flu/RSV swab Diagnostic Findings reviewed CXR Medications Administered EDnone [id number] IV magnesium ECG Additional Comments: NSR, no ischemic changes Rate 72 QTc 420 Code Status & VTE Plan Code Status full code VTE Prophylaxis Plan VTE Prophylaxis will be ordered: Yes Supervising Physician Co-Signing Physician Notes Patient seen and examined, chart reviewed, case discussed with RANJEET Ni and I agree with the assessment and plan as above. In brief, patient is an 89yo female with history of CAD s/p stent placement presenting with episodic chest pain. Patient reports pain occurs at rest, intermittently, radiates into her arms bilaterally. She denies exertional pain. Her episode today was at 14:00 lasting appx 20 minutes then stopped on its own. On exam she is resting comfortablyl, NAD Skin- no rash HEENT - MMM, Neck supple Heart - +S1/S2, regular, no m/r/g, no CW tenderness Lungs - CTA Abd - soft, NT/ND Ext - warm, well perfused, +edema Troponin=67.7b --> 87.6 ZTQ=901 EKG with some inferior TW abnormalities Assessment/Plan - 89yo female with history of CAD with stents in place presenting with episodic chest pain, elevated troponin, non-specific EKG findings NSTEMI -Admit to medical with telemetry -Trend troponin -Check 2D echo -If troponin continues to increase would consider heparin gtt -Keep NPO after midnight -Cardiology consultation appreciated -Continue ASA, Simvastatin, Losartan -Will give 20mg IV Lasix x 1 dose now -Remainder as above PG Care Time/CCT Total # of Minutes Spent Total Time Spent with Patient: Total time spent is greater than 50% in coordination of care (as documented) at patient's floor/unit and/or counseling patient: Coding Level of Care Code 42666 INT INP/OBS CARE MIN Diagnoses Non-ST elevation CA (NSTEMI) I21.4 Essential hypertension I10 Hypertension type: essential hypertension Coronary artery disease involving [place] coronary artery of [place] heart without angina pectoris I25.10 Associated angina: unspecified whether angina present Coronary Disease-Associated Artery/Lesion type: unspecified vessel or lesion type [place] vs. transplanted heart: unspecified whether [place] or transplanted heart (2) Hypertension Hypertension type: essential hypertension Qualified Code(s): I10 - Essential (primary) hypertension (3) CAD (coronary artery disease) Associated angina: unspecified whether angina present Coronary Disease- Associated Artery/Lesion type: unspecified vessel or lesion type [place] vs. transplanted heart: unspecified whether [place] or transplanted heart Qualified Code(s): I25.10 - Atherosclerotic heart disease of [place] coronary artery without angina pectoris
[2024-07-03 19:24] LABS: Influenza A virus by PCR Negative (Neg); Influenza B virus by PCR Negative (Neg); RSV by PCR Negative (Neg); SARS CoV2 RNA(COVID-19) Ceph NEGATIVE (Negative)
[2024-07-03] MEDS: MAGNESIUM SULFATE / D5W 1 GM/100 ML BAG IV ONE (20:00)
[2024-07-03] MEDS: ACETAMINOPHEN 1,000 MG/100 ML VIAL IV STA (20:01)
[2024-07-03] MEDS: ASPIRIN CHEW 324 MG PO STA (20:34)
[2024-07-03] MEDS ORDERED: ONDANSETRON INJ 2 MG/ML 2 ML VIAL IV PRN (21:53)
[2024-07-03] MEDS ORDERED: MELATONIN 3 MG TAB PO PRN (21:53)
[2024-07-03] MEDS ORDERED: NITROGLYCERIN SL 0.4 MG/TAB TAB SL PRN (21:53)
[2024-07-03] MEDS ORDERED: DOCUSATE SODIUM 100 MG CAP PO PRN (21:53)
[2024-07-03] MEDS ORDERED: GABAPENTIN 300 MG CAP PO PRN (21:53)
[2024-07-03] MEDS: FUROSEMIDE INJ 20 MG/2 ML VIAL IV ONE (22:12)
[2024-07-03] MEDS: SIMVASTATIN 40 MG TAB PO SCH (23:37)
[2024-07-03] MEDS: ACETAMINOPHEN 325 MG TAB PO PRN (23:38)
[2024-07-03] MEDS: allopurinoL 300 MG TAB PO SCH (23:38)
[2024-07-03] MEDS: hydrALAZINE HCL 20 MG/ML VIAL IV STA (23:38)
[2024-07-04 08:08] LABS: Basophils # (auto) 0.06 K/uL (0.00-0.20); Basophils % (auto) 0.7 %; Eosinophils # (auto) 0.27 K/uL (0.00-0.50); Eosinophils % (auto) 3.3 %; Hematocrit (blood only) 37.7 % (37.0-47.0); Hemoglobin 12.5 g/dl (12.0-16.0); Immature Granulocytes # (auto) 0.02 K/uL (0.01-0.20); Immature Granulocytes % (auto) 0.2 %; Lymphocytes % (auto) 22.9 %; Mean Corpuscular Hemoglobin 32.4 pg (25.0-34.0); Mean Corpuscular Hgb Conc 33.2 g/dL (32.0-36.0); Mean Corpuscular Volume 97.7 fL (80.0-100.0); Mean Platelet Volume 10.1 fL (9.4-12.4); Monocytes # (auto) 0.58 K/uL (0.11-0.59); Neutrophils # (auto) 5.47 K/uL (1.40-6.50); Neutrophils % (auto) 65.9 %; Platelet Count 310 K/uL (130-400); RDW Coefficient of Variation 13.9 % (11.5-14.5); RDW Standard Deviation 49.7 fL (36.4-46.3); Red Blood Count 3.86 M/uL (4.20-5.40)
[2024-07-04 08:31] LABS: BUN Creatinine Ratio 21.4 (10-20); Chol HDL Ratio 2.8 (0-5); Creatinine Clr Calc Pharmacy 22.6 ml/min; Potassium 3.8 mmol/L (3.5-5.1)
[2024-07-04] MEDS: ASPIRIN 81 MG ECTAB PO SCH (09:42)
[2024-07-04] MEDS: PANTOprazole 40 MG TAB PO SCH (09:42)
[2024-07-04] MEDS: LOSARTAN POTASSIUM 50 MG TAB PO SCH (09:42)
--- NOTE | 2024-07-04 09:45 | Cardiology Consultation ---
Date of Consultation July 04, 2024 Assessment & Plan (1) Acute dyspnea: (2) Chest pain: (3) CAD (coronary artery disease): Plan 1. Shortness of breath: Her intermittent shortness of breath is worrisome, it certainly could be "flash pulmonary edema" or symptoms related to sudden increases in pulmonary pressures due to ischemia. We do not have much evidence for it, her left ventricular function is good at rest and we can see how her shortness of breath responds to medical therapy for ischemia. Mild diuresis might be in order. 2. Chest pain: Given her known history of coronary artery disease the chest pain is worrisome and I suspect due to ischemia. Her cardiac enzyme trend does not suggest an acute coronary event but rather demand ischemia. She is not on much for ischemia, I agree with adding a beta-brina despite her history of bradycardia which we can watch for. I am going to add a nitrate preparation, hopefully she will not get a headache, but if we can treat her symptoms medically she would prefer that. I did not specifically discuss an invasive st rategy based on her wishes, however if conservative medical therapy does not work we should discuss it with her. 3. Coronary disease: She has known coronary disease with intervention in the past but it has been quite a few years since she had any evaluation or treatment. I am a little reluctant to consider invasive evaluation but we may be forced to do that. I agree with adding dual platelet inhibitors as she may have unstable angina due to platelet activity, if her symptoms continue and we are planning invasive evaluation I would start heparin. Since she is hoping that we do not have to do that I think continuing without anticoagulation is reasonable at this time. History of Present Illness Reason for Consultation: Shortness of breath, chest pain Attending Physician: Jaison Cardona MD History of Present Illness This is an 89-year-old woman who has a history of hypertension, dyslipidemia, chronic kidney disease and impaired glucose tolerance. We have not seen her since 2017, but she has coronary artery disease, reported to have had "3 heart attacks" with stent placement. When last seen in our office she was reported to have had 2 stents in the proximal right coronary artery and 1 stent in the mid LAD, that visit was for preop clearance. There is reference to a catheterization October 16, 2002 where she had a 90% LAD, stents in the right coronary artery and a distal right coronary artery stenosis which was not felt to be severe and she had PCI of the mid LAD. She had normal ejection fraction at that time. She did have a dobutamine stress echo September 20, 2015 showing no ischemia at 84% of her maximal predicted heart rate. I do not see record of an echocardiogram since. She also has a history of bradycardia in the past identified when she was on a beta-brina which prompted discontinuation of that. She presents to the emergency room on July 03, 2024 with acute shortness of breath, chest discomfort and elevated cardiac enzymes. She reports having episodes of shortness of breath and tachycardia over the last week as well as intermittent chest discomfort which is described as a chest tightness. The discomfort lasts from several minutes to 30 minutes and goes away on its own. It is probably exertional, resolving with rest. Her initial electrocardiogram shows sinus rhythm at 72 bpm, she does have T wave inversion in 3 and aVF but that looks consistent with her axis. No ST jai vation. Cardiac enzymes done 4 times between 1704 on July 03, 2024 and 741 on July 04, 2024 ranged from 67-90.7 with minimal trend. Her creatinine is moderately elevated at 1.45 this morning which is a little bit lower than prior recent measurements. Her chest x-ray done on presentation shows mild congestive changes but similar to prior chest x-rays. An echocardiogram done this morning shows normal left ventricular size and systolic function with an ejection fraction of 60 to 65% and slight inferoseptal and apical hypokinesis. Moderate concentric left ventricular hypertrophy and mild aortic stenosis with mild to moderate mitral regurgitation. Mild pulmonary hypertension. At the time of my evaluation she denies having any discomfort since presenting to the hospital. She has not been active, but does not have shortness of breath either. She is actually satisfied with the way she feels, she is probably not interested in invasive evaluation given her age and if she puts it she has placed her future "in God's hands". She is however willing to be treated here. Allergies Allergy/AdvReac Type Severity Reaction Status Date / Time clopidogrel Allergy Intermediate HIVES Verified 07/03/24 19:10 adhesive AdvReac Mild RASH Verified 07/03/24 19:10 codeine AdvReac Mild NAUSEA Verified 07/03/24 19:10 amoxicillin AdvReac Unknown CAN'T Verified 07/03/24 19:10 REMEMBER antihistamines Allergy Unknown CAN'T Uncoded 07/03/24 19:10 REMEMBER Home Medications Medication Instructions Recorded Confirmed Type glucosamine sulf dipot 1 cap PO QAM 08/15/18 07/03/24 History chlr,msm,chond 550 mg-C 30 mg-almaz 1 mg capsule (Glucosamine Chondroitin) omeprazole 20 mg capsule,delayed 20 mg PO QAM 08/26/20 07/03/24 History release ascorbic acid (vitamin C) 500 mg 500 mg PO QAM 08/28/20 07/03/24 History capsule aspirin 81 mg tablet,delayed 81 mg PO QAM 08/28/20 07/03/24 History release (Ecotrin Low Strength) cholecalciferol (vitamin D3) 10 10 mcg PO DAILY 06/21/22 07/03/24 History mcg (400 unit) capsule calcium 600 mg (as 1 cap PO DAILY 12/11/22 07/03/24 History carbonate)-vitamin D3 12.5 mcg (500 unit) capsule (Calcium with Vit D3) simvastatin 40 mg tablet 40 mg PO QPM #90 tabs 04/01/23 07/03/24 Rx losartan 100 mg tablet 100 mg PO QAM #100 tabs 09/11/23 07/03/24 Rx allopurinol 300 mg tablet 300 mg PO PM #90 tabs 12/13/23 07/03/24 Rx furosemide 20 mg tablet 20 mg PO DAILY PRN FLUID 07/03/24 07/03/24 History RETENTION/SWELLING gabapentin 300 mg capsule 300 mg PO DAILY PRN NEEDED PER 07/03/24 07/03/24 History PT'S MED LIST ibuprofen 125 mg-acetaminophen 250 1 tab PO DIRECTED PRN Pain 07/03/24 07/03/24 History mg tablet (Advil Dual Action) nystatin 100,000 unit/gram topical 1 applic topical BID PRN SKIN 07/03/24 07/03/24 History powder IRRITATIONS vitamin E 268 mg (400 unit) capsule 268 mg PO DAILY 07/03/24 07/03/24 History Patient History Medical History Dislocation, hip Vitamin D deficiency Low back pain CAD (coronary artery disease) s/p stent x 2 to proximal RCA and 1 to mid-LAD Surgical History History of fusion of lumbar spine History of total knee arthroplasty History of hip replacement Previous back surgery Status post hip surgery S/P knee surgery Family History Mother Myocardial infarction Brother Myocardial infarction Other Family history non-contributory Denies family history of Ovarian cancer Prostate cancer Breast cancer Colorectal cancer Social History Smoking Status: Former smoker Tobacco Type: Cigarettes Age Started Using Tobacco: 15; Age Quit Using Tobacco: 43; packs per day: 0.5; Second Hand Exposure: No; Do You Dip or Chew Tobacco: No; Hx Alcohol Use: No Hx Substance Use: No Preferred Language: Czech Communication Ability: Effective Visual Impairment: Limited Hearing Ability: Hard of Hearing Varnishing Unit Tool Setter Required: No Beliefs That Will Affect Care: Anglican Anglican Beliefs: Muslim marital status: / Current Living Situation: Alone current occupational status: retired How many Children do You have: 4 Feels Safe at Home: Yes Safety Concerns: Feels Safe At This Time Childhood Exposure to Second-Hand Smoke: Yes Diet: regular caffeine: Yes during the past year weight has: remained stable Dental Care, Regularly: Yes Physical Activity Frequency: Does not Exercise Seatbelt Use: always Sunscreen Use: No Do you think of yourself as: straight/heterosexual Sexual Activity: has been sexually active, but not for at least 12 months Gender Identity: Female Assistive Devices: Cane, Scooter/Electric Scooter and Walker Review of Systems Review of Systems: All systems reviewed & are unremarkable except as noted in HPI & below She did have a severe headache on presentation, that has resolved and she attributes that to her high blood pressure. She tells me that the blood pressure of 160-170 systolic is "normal" for her. Physical Exam Physical Exam: Constitutional: Alert, cooperative and in no distress. She is resting in bed. HEENT: Unremarkable Neck: No jugular venous distention, carotid pulses are normal and equal bilaterally without bruits. Pulmonary: Clear to auscultation bilaterally. Cardiac: Regular rhythm with a soft holosystolic murmur at the apex, no gallop or rub. Abdomen: Soft, nontender with normal bowel sounds. Extremities: No edema. Neurologic: No focal findings. Gait was not tested. Skin: No rash, ecchymoses or petechiae. Results & Data Vital Signs (Past 12 Hours) Vital Signs Temp Pulse Pulse Resp BP BP BP 07/04/24 08:17 36.4 C L 69 19 149/77 H 07/04/24 03:00 36.7 C 93 H 17 138/69 07/04/24 00:30 63 07/04/24 00:09 07/04/24 00:09 170/78 H 07/03/24 23:16 36.2 C L 71 16 207/104 H 07/03/24 22:41 62 16 185/95 H 07/03/24 22:13 61 07/03/24 21:55 36.7 C 62 18 171/84 H Pulse Ox O2 Del Method 07/04/24 08:17 96 Room Air 07/04/24 03:00 98 Room Air 07/04/24 00:30 07/04/24 00:09 Room Air 07/04/24 00:09 07/03/24 23:16 98 Room Air 07/03/24 22:41 98 Room Air 07/03/24 22:13 07/03/24 21:55 99 Room Air Laboratory Results Cardiac Enzymes 07/03/24 07/03/24 07/04/24 Range/Units 17:04 18:58 01:49 AST 17 (13-39) U/L Troponin I High Sens 67.7 H* 87.6 H* D 92.2 H* (0-14) pg/ml B-Natriuretic Peptide 482 H (0-100) pg/ml 07/04/24 Range/Units 07:41 AST (13-39) U/L Troponin I High Sens 90.7 H* (0-14) pg/ml B-Natriuretic Peptide (0-100) pg/ml Coagulation 07/03/24 07/03/24 Range/Units 17:04 18:58 PT 10.1 (9.0-12.0) Seconds B-Natriuretic Peptide 482 H (0-100) pg/ml Lipids 07/04/24 Range/Units 07:41 Triglycerides 161 H (0-150) mg/dl Cholesterol 150 (0-200) mg/dl HDL Cholesterol 53 mg/dl Cholesterol/HDL Ratio 2.8 (0-5) CBC 07/03/24 07/04/24 Range/Units 17:04 07:41 WBC 8.73 8.30 (4.8-10.8) K/ul RBC 3.78 L 3.86 L (4.20-5.40) M/uL Hgb 12.4 12.5 (12.0-16.0) g/dl Hct 37.2 37.7 (37.0-47.0) % Plt Count 301 310 (130-400) K/uL Neut # (Auto) 5.36 5.47 (1.40-6.50) K/uL Lymph # (Auto) 2.42 1.90 (1.20-3.40) K/uL Dupage # (Auto) 0.63 H 0.58 (0.11-0.59) K/uL Eos # (Auto) 0.26 0.27 (0.00-0.50) K/uL Baso # (Auto) 0.05 0.06 (0.00-0.20) K/uL Comprehensive Metabolic Panel 07/03/24 07/04/24 Range/Units 17:04 07:41 Sodium 139 137 (136-145) mmol/L Potassium 4.3 3.8 (3.5-5.1) mmol/L Chloride 108 H 106 (98-107) mmol/L Carbon Dioxide 22 22 (21-32) mmol/L BUN 32 H 31 H (6-23) mg/dl Creatinine 1.57 H 1.45 H (0.6-1.2) mg/dl Glucose 84 107 H (70-99(Fasting)) mg/dl Calcium 9.7 10.0 (8.6-10.3) mg/dl AST 17 (13-39) U/L ALT 9 (7-52) U/L Alkaline Phosphatase 58 (34-104) U/L Total Protein 7.1 (6.0-8.3) gm/dl Albumin 4.3 (3.4-5.0) gm/dl Intake and Output 07/03/24 07/04/24 07/04/24 22:59 06:59 14:59 Intake Total 100 / 400 300 / 400 Balance 100 / 400 300 / 400 Intake: IV 100 / 200 100 / 200 Acetaminophen 1,000 mg In 100 100 / 100 ml @ 400 mls/hr IV NOW STA Rx#: [id number] Magnesium Sulfate / D5w 1 gm In 100 / 100 100 ml @ 50 mls/hr IV ONE ONE Rx#:[id number] Oral 200 / 200 Other: # Unmeasured Voids 1 # Urine Diapers 1 Weight 71 kg 71 kg Weight [facility] PG Care Time/CCT Total # of Minutes Spent Total Time Spent with Patient: Total time spent is greater than 50% in coordination of care (as documented) at patient's floor/unit and/or counseling patient: Coding Level of Care Code 34672 INT INP/OBS CARE 3/75MIN Diagnoses Acute dyspnea R06.00 Chest pain R07.9 Coronary artery disease involving [place] coronary artery of [place] heart without angina pectoris I25.10 Associated angina: unspecified whether angina present Coronary Disease-Associated Artery/Lesion type: unspecified vessel or lesion type [place] vs. transplanted heart: unspecified whether [place] or transplanted heart (3) CAD (coronary artery disease) Associated angina: unspecified whether angina present Coronary Disease- Associated Artery/Lesion type: unspecified vessel or lesion type [place] vs. transplanted heart: unspecified whether [place] or transplanted heart Qualified Code(s): I25.10 - Atherosclerotic heart disease of [place] coronary artery without angina pectoris
[2024-07-04 10:00] LABS: Estimated Average Glucose 114 mg/dl; Hemoglobin A1C 5.6 % (4.5-5.6)
--- NOTE | 2024-07-04 11:10 | XCELERA ---
[id number] \\[email or web address]\[id number]
[2024-07-04] MEDS: CLOPIDOGREL BISULFATE 75 MG TAB PO SCH (11:41)
--- NOTE | 2024-07-04 12:12 | Hospitalist Progress Note ---
Date of Service July 04, 2024 Assessment & Plan (1) Non-ST elevation MT (NSTEMI): (2) Hypertension: (3) CAD (coronary artery disease): Plan Patient is an 89-year-old female with past medical history of CAD s/p reportedly 3 stents most recently 2001, stage IV CKD, GERD, HLD, HTN. Patient presented due to intermittent achy chest pain/tightness that occurred at rest and dyspnea x 1 week. Episodes last a few minutes to 30 minutes and go away on their own. EKG showed no ischemic changes, NSR. Troponin elevated 67.7 -> 87.6 She is admitted for cardiac workup. #NSTEMI, HFpEF, hypertension Patient with 2 episodes of chest pain on exertion lasting about 30 minutes and some episodes of chest pain while at rest in the preceding week EKG sinus rhythm without ischemic changes. Troponin peaked at 92, downtrending. Patient does not have any chest pain overnight following admission, or at time of next morning assessment Mildly hypertensive. Lipid panel with LDL 65/cholesterol 150. A1c normal. Switched from simvastatin to atorvastatin. Echo with EF 60 to 65%, small area of distal inferior septal/apical hypokinesis and moderate concentric LVH. RVSP 42. Mild . Normal RVSP. Patient is allergic to Plavix. Ticagrelor added. Continued on aspirin/Brilinta DAPT Cardiology consulted. If any further/recurrent chest pain heparinize low-dose normal gram with bolus. Currently CP free with downtrending trop Losartan continued, metoprolol added. If BP tolerating can add isosorbide Mild ankle edema, no oxygen requirement, BNP elevated at 482 with mild stable congestion on x-ray and without overt edema or oxygen requirement. Received 20 mg Lasix on admission with brisk diuresis, continue Lasix as needed. Healthy diet strict ins and outs #GERD - stable, chest pain feels different than acid reflux. - Continue PPI #CKD stage IV Renal function at baseline. Stable. BMP daily Dispo: M/T. Pending cath evaluation Admission and Anticipated Discharge Date Admission Date: July 03, 2024 Zander Templeton seen at the bedside with family present She reports that she has distant history of 3 coronary stents.She is to follow- up with cardiology but has not in several years. No longer takes a beta-brina due to her history of low heart rate She reports in the last week she has had several episodes of chest pain. Her typical max level of exertion is going up and down 5 steps to her mobile home and sometimes walking around stores. She had 2 episodes this week of chest pain with shortness of breath, palpitations and radiation to both shoulders. Did have a little bit of sweating with these episodes. These lasted approximately 30 minutes and resolved. Initially reported that her chest pain episode was at rest however on further history does report that this was actually pain that was worst after she sat down once after walking around [employer] and once after walking into her mobile home. She denies leg swelling, orthopnea. She has not had chest pain overnight, denies chest pain at time bedside visit. Does think she has had some episodes of her heart racing and a little bit of chest discomfort which passed after a short amount of time, denies any chest pain at rest in the last day Physical Exam Physical Exam: General: A&Ox3. NAD. Cooperative. HEENT: Atraumatic, normocephalic. Vision/hearing grossly intact. Pulm: CTAB A&P. -wheezes, -rales, -rhonchi. Symmetrical chest rise. No increase in work of breathing. No respiratory distress. Cardiac: RRR, systolic murmurs present radial pulses intact and symmetrical. Abdominal: Nontender, nondistended, soft. BS present. Extremities: Warm, dry. Mild/1+ bilateral lower extremity pitting edema. Results & Data Results & Data Vital Signs (Past 12 Hours) Vital Signs Temp Pulse Pulse Resp BP BP Pulse Ox 07/04/24 10:54 36.4 C L 75 19 169/75 H 96 07/04/24 08:17 36.4 C L 69 19 149/77 H 96 07/04/24 07:00 67 07/04/24 03:00 36.7 C 93 H 17 138/69 98 07/04/24 00:30 63 07/04/24 00:09 07/04/24 00:09 170/78 H O2 Del Method 07/04/24 10:54 Room Air 07/04/24 08:17 Room Air 07/04/24 07:00 07/04/24 03:00 Room Air 07/04/24 00:30 07/04/24 00:09 Room Air 07/04/24 00:09 PG Care Time/CCT Total # of Minutes Spent Total Time Spent with Patient: Total time spent is greater than 50% in coordination of care (as documented) at patient's floor/unit and/or counseling patient: Coding Level of Care Code 54378 SUB INP/OBS CARE 3/50MIN Diagnoses Non-ST elevation MT (NSTEMI) I21.4 Essential hypertension I10 Hypertension type: essential hypertension Coronary artery disease involving [place] coronary artery of [place] heart without angina pectoris I25.10 Coronary Disease-Associated Artery/Lesion type: unspecified vessel or lesion type [place] vs. transplanted heart: unspecified whether [place] or transplanted heart Associated angina: unspecified whether angina present (2) Hypertension Hypertension type: essential hypertension Qualified Code(s): I10 - Essential (primary) hypertension (3) CAD (coronary artery disease) Coronary Disease-Associated Artery/Lesion type: unspecified vessel or lesion type [place] vs. transplanted heart: unspecified whether [place] or transplanted heart Associated angina: unspecified whether angina present Qualified Code(s): I25.10 - Atherosclerotic heart disease of [place] coronary artery without angina pectoris
[2024-07-04] MEDS: TICAGRELOR 90 MG TAB PO SCH (12:34)
[2024-07-04] MEDS: METOPROLOL TARTRATE 25 MG TAB PO SCH (12:35)
[2024-07-04] MEDS: ISOSORBIDE MONO EXTENDED REL 30 MG TABCR PO ONE (14:58)
[2024-07-04] MEDS: ATORVASTATIN 40 MG TAB PO SCH (20:37)
[2024-07-04 23:01] LABS: BUN Creatinine Ratio 19.6 (10-20); Calcium 9.4 mg/dl (8.6-10.3); Creatinine Clr Calc Pharmacy 22.9 ml/min; Potassium 3.7 mmol/L (3.5-5.1)
[2024-07-05 06:48] LABS: Basophils # (auto) 0.05 K/uL (0.00-0.20); Basophils % (auto) 0.7 %; Eosinophils # (auto) 0.41 K/uL (0.00-0.50); Hematocrit (blood only) 34.2 % (37.0-47.0); Hemoglobin 11.4 g/dl (12.0-16.0); Immature Granulocytes # (auto) 0.02 K/uL (0.01-0.20); Immature Granulocytes % (auto) 0.3 %; Lymphocytes # (auto) 0.73 K/uL (1.20-3.40); Lymphocytes % (auto) 10.8 %; Mean Corpuscular Hemoglobin 33.3 pg (25.0-34.0); Mean Corpuscular Hgb Conc 33.3 g/dL (32.0-36.0); Mean Platelet Volume 10.5 fL (9.4-12.4); Monocytes # (auto) 0.47 K/uL (0.11-0.59); Monocytes % (auto) 6.9 %; Neutrophils % (auto) 75.3 %; Platelet Count 253 K/uL (130-400); RDW Standard Deviation 51.6 fL (36.4-46.3); Red Blood Count 3.42 M/uL (4.20-5.40); White Blood Count 6.78 K/ul (4.8-10.8)
[2024-07-05 07:13] LABS: BUN Creatinine Ratio 20.4 (10-20); Calcium 9.5 mg/dl (8.6-10.3); Creatinine Clr Calc Pharmacy 23.9 ml/min; Potassium 3.8 mmol/L (3.5-5.1)
--- NOTE | 2024-07-05 08:55 | Cardiology Progress Note ---
Date of Service July 05, 2024 Assessment & Plan (1) Acute dyspnea: (2) Chest pain: (3) CAD (coronary artery disease): Plan 1. Shortness of breath: Her intermittent shortness of breath is worrisome, it certainly could be "flash pulmonary edema" or symptoms related to sudden i ncreases in pulmonary pressures due to ischemia. We do not have much evidence for it, her left ventricular function is good at rest and we can see how her shortness of breath responds to medical therapy for ischemia. So far medical therapy has been working. 2. Chest pain: Given her known history of coronary artery disease the chest pain is worrisome and I suspect due to ischemia. Her cardiac enzyme trend does not suggest an acute coronary event but rather demand ischemia. She was not on much for ischemia at home, adding a beta-brina and a nitrate preparation has helped so far but she has only walked in the room. I have advised her to walk around the hallway today and we can see if she has exertional angina. If so we will probably need invasive evaluation. I would like to add amlodipine and low- dose for its anginal effect and for blood pressure. 3. Coronary disease: She has known coronary disease with intervention in the past but it has been quite a few years since she had any evaluation or treatment. I am a little reluctant to consider invasive evaluation but we may be forced to do that. She is now on dual platelet inhibitors with aspirin and Brilinta, she is also on atorvastatin for long-term treatment. She did tolerate low-dose beta-blockade (metoprolol tartrate 25 mg twice daily) and isosorbide mononitrate at low-dose. Her heart rate is lower than it was, it is acceptable but I am reluctant to go up on the beta-blockade. Her blood pressure however is quite labile, often fairly high, so I am going to add a low-dose of amlodipine which will help with and her blood pressure. If her symptoms continue and we are planning invasive evaluation I would start heparin. Since she is hoping that we do not have to do that I think continuing without anticoagulation is reasonable at this time. Her son has seen Dr. Campos and would like him to be involved, I will ask Dr. Campos to see her tomorrow and keep her n.p.o. in case we have to do invasive evaluation. Admission and Anticipated Discharge Date Admission Date: July 03, 2024 Physical Exam Physical Exam: Constitutional: Alert, cooperative and in no distress. She is resting in bed. HEENT: Unremarkable Neck: No jugular venous distention, carotid pulses are normal and equal bilaterally without bruits. Pulmonary: Clear to auscultation bilaterally. Cardiac: Regular rhythm with a soft holosystolic murmur at the apex, no gallop or rub. Abdomen: Soft, nontender with normal bowel sounds. Extremities: No edema. Neurologic: No focal findings. Gait was not tested. Skin: No rash, ecchymoses or petechiae. Results & Data Vital Signs (Past 12 Hours) Vital Signs Temp Pulse Pulse Resp BP Pulse Ox Pulse Ox 07/05/24 07:31 36.3 C L 63 19 167/69 H 98 07/05/24 05:45 59 L 07/05/24 03:07 36.7 C 63 17 168/77 H 96 07/05/24 01:53 58 L 07/04/24 22:56 36.7 C 53 L 16 106/79 96 07/04/24 22:34 07/04/24 21:53 96 O2 Del Method O2 Del Method 07/05/24 07:31 Room Air 07/05/24 05:45 07/05/24 03:07 Room Air 07/05/24 01:53 07/04/24 22:56 Room Air 07/04/24 22:34 Room Air 07/04/24 21:53 Room Air Laboratory Results Cardiac Enzymes 07/04/24 Range/Units 14:30 Troponin I High Sens 85.5 H* (0-14) pg/ml CBC 07/05/24 Range/Units 06:08 WBC 6.78 (4.8-10.8) K/ul RBC 3.42 L (4.20-5.40) M/uL Hgb 11.4 L (12.0-16.0) g/dl Hct 34.2 L (37.0-47.0) % Plt Count 253 (130-400) K/uL Neut # (Auto) 5.10 (1.40-6.50) K/uL Lymph # (Auto) 0.73 L (1.20-3.40) K/uL [place] # (Auto) 0.47 (0.11-0.59) K/uL Eos # (Auto) 0.41 (0.00-0.50) K/uL Baso # (Auto) 0.05 (0.00-0.20) K/uL Comprehensive Metabolic Panel 07/04/24 07/05/24 Range/Units 22:28 06:08 Sodium 137 139 (136-145) mmol/L Potassium 3.7 3.8 (3.5-5.1) mmol/L Chloride 108 H 108 H (98-107) mmol/L Carbon Dioxide 23 24 (21-32) mmol/L BUN 28 H 28 H (6-23) mg/dl Creatinine 1.43 H 1.37 H (0.6-1.2) mg/dl Glucose 102 H 102 H (70-99(Fasting)) mg/dl Calcium 9.4 9.5 (8.6-10.3) mg/dl Intake and Output 07/04/24 07/05/24 07/05/24 22:59 06:59 14:59 Intake Total 200 / 860 300 / 860 Output Total Balance 199 / 859 300 / 859 Intake: Oral 200 / 860 300 / 860 Output: # Bowel Movements Other: # Unmeasured Voids 1 2 Weight 71.4 kg Weight Measurement Method Built in [facility] PG Care Time/CCT Total # of Minutes Spent Total Time Spent with Patient: Total time spent is greater than 50% in coordination of care (as documented) at patient's floor/unit and/or counseling patient: Coding Level of Care Code 25191 SUB INP/OBS CARE 3/50MIN Diagnoses Acute dyspnea R06.00 Chest pain R07.9 Coronary artery disease involving [place] coronary artery of [place] heart without angina pectoris I25.10 Associated angina: unspecified whether angina present Coronary Disease-Associated Artery/Lesion type: unspecified vessel or lesion type [place] vs. transplanted heart: unspecified whether [place] or transplanted heart (3) CAD (coronary artery disease) Associated angina: unspecified whether angina present Coronary Disease- Associated Artery/Lesion type: unspecified vessel or lesion type [place] vs. transplanted heart: unspecified whether [place] or transplanted heart Qualified Code(s): I25.10 - Atherosclerotic heart disease of [place] coronary artery without angina pectoris
[2024-07-05] MEDS: ISOSORBIDE MONO EXTENDED REL 30 MG TABCR PO SCH (11:03)
[2024-07-05] MEDS: amLODIPine BESYLATE 5 MG TAB PO SCH (12:47)
--- NOTE | 2024-07-05 12:55 | Electrocardiogram Report ---
Test Reason : Blood Pressure : */* mmHG Vent. Rate : 72 BPM Atrial Rate : 72 BPM P-R Int : 162 ms QRS Dur : 76 ms QT Int : 384 ms P-R-T Axes : 57 -8 -4 degrees QTcB Int : 420 ms Normal sinus rhythm Normal ECG When compared with ECG of 28-Aug-2020 11:57, Questionable change in QRS axis ST no longer depressed in Anterior leads Inverted T waves have replaced nonspecific T wave abnormality in Inferior leads Confirmed by Obed Hines ([id number]) on 07/05/2024 12:55:28 PM Referred By: REFERRED SELF Confirmed By: Obed Hines
--- NOTE | 2024-07-05 15:32 | Hospitalist Progress Note ---
Date of Service July 05, 2024 Assessment & Plan (1) Non-ST elevation MA (NSTEMI): (2) Hypertension: (3) CAD (coronary artery disease): Plan Patient is an 89-year-old female with past medical history of CAD s/p reportedly 3 stents most recently 2001, stage IV CKD, GERD, HLD, HTN. Patient presented due to intermittent achy chest pain/tightness that occurred at rest and dyspnea x 1 week. Episodes last a few minutes to 30 minutes and go away on their own. EKG showed no ischemic changes, NSR. Troponin peaked at less than 100 and began downtrending. She has not had recurrent chest pain since admission and with the initiation of antihypertensive/antianginals. She was able to ambulate without recurrent chest pain however given high risk history is pending evaluation by interventional cardiology. She did have some septal abnormalities on her echo. #NSTEMI, HFpEF, hypertension Patient with 2 episodes of chest pain on exertion lasting about 30 minutes and some episodes of chest pain while at rest in the preceding week EKG sinus rhythm without ischemic changes. Troponin peaked at 92, downtrending. No recurrent chest pain following admission. Lipid panel with LDL 65/cholesterol 150. A1c normal. Switched from simvastatin to atorvastatin. Echo with EF 60 to 65%, small area of distal inferior septal/apical hypokinesis and moderate concentric LVH. RVSP 42. Mild . Normal RVSP. Patient is allergic to Plavix. Ticagrelor added. Continued on aspirin/Brilinta DAPT Cardiology consulted. If any further/recurrent chest pain heparinize low-dose normal gram with bolus. Currently CP free, troponins down trended Continue losartan, metoprolol, isosorbide. Suboptimal control with ARB/beta-brina/isosorbide. Beta-brina up titration limited by bradycardia. Amlodipine added. Normotensive on subsequent recheck No overt volume overload, Lasix as needed as needed Pending evaluation by interventional cardiology 07/06. She was able to ambulate 07/05 without recurrent anginal symptoms. N.p.o. midnight #GERD - Continue PPI #CKD stage IV Renal function at baseline. Stable. BMP daily Dispo: M/T. Pending cath evaluation Admission and Anticipated Discharge Date Admission Date: July 03, 2024 Subjective Seen at the bedside. Doing well continues to have no pain. She is doing well and has no chest pain after initiation of antianginals and improved blood pressure control. Despite this she also has had chest pain at rest in the past, elevated troponins and a concerning history. She is open to a cath if this is recommendedShe is open to a cath if this is recommended. Her son had a catheterization by DR. Campos passed to they would prefer to evaluate her if possible. She was able to ambulate around the unit without recurrent chest pain today Physical Exam Physical Exam: General: A&Ox3. NAD. Cooperative. HEENT: Atraumatic, normocephalic. Vision/hearing grossly intact. Pulm: CTAB A&P. -wheezes, -rales, -rhonchi. Symmetrical chest rise. No increase in work of breathing. No respiratory distress. Cardiac: RRR, +systolic murmur. present radial pulses intact and symmetrical. Abdominal: Nontender, nondistended, soft. BS present. Extremities: Warm, dry. Results & Data Results & Data Vital Signs (Past 12 Hours) Vital Signs Temp Pulse Pulse Resp BP Pulse Ox O2 Del Method 07/05/24 12:02 36.4 C L 68 19 133/75 95 Room Air 07/05/24 07:31 36.3 C L 63 19 167/69 H 98 Room Air 07/05/24 05:45 59 L PG Care Time/CCT Total # of Minutes Spent Total Time Spent with Patient: Total time spent is greater than 50% in coordination of care (as documented) at patient's floor/unit and/or counseling patient: Coding Level of Care Code 46148 SUB INP/OBS CARE 3/50MIN Diagnoses Non-ST elevation MA (NSTEMI) I21.4 Essential hypertension I10 Hypertension type: essential hypertension Coronary artery disease involving [place] coronary artery of [place] heart without angina pectoris I25.10 Coronary Disease-Associated Artery/Lesion type: unspecified vessel or lesion type [place] vs. transplanted heart: unspecified whether [place] or transplanted heart Associated angina: unspecified whether angina present (2) Hypertension Hypertension type: essential hypertension Qualified Code(s): I10 - Essential (primary) hypertension (3) CAD (coronary artery disease) Coronary Disease-Associated Artery/Lesion type: unspecified vessel or lesion type [place] vs. transplanted heart: unspecified whether [place] or transplanted heart Associated angina: unspecified whether angina present Qualified Code(s): I25.10 - Atherosclerotic heart disease of [place] coronary artery without angina pectoris
[2024-07-05] MEDS ORDERED: POLYETHYLENE (MIRALAX) 17 GM PACK PO PRN (16:15)
[2024-07-06 07:10] LABS: Basophils # (auto) 0.05 K/uL (0.00-0.20); Basophils % (auto) 0.8 %; Eosinophils # (auto) 0.36 K/uL (0.00-0.50); Eosinophils % (auto) 5.6 %; Hematocrit (blood only) 34.1 % (37.0-47.0); Hemoglobin 11.4 g/dl (12.0-16.0); Immature Granulocytes # (auto) 0.01 K/uL (0.01-0.20); Immature Granulocytes % (auto) 0.2 %; Lymphocytes % (auto) 17.1 %; Mean Corpuscular Hgb Conc 33.4 g/dL (32.0-36.0); Mean Corpuscular Volume 98.8 fL (80.0-100.0); Mean Platelet Volume 10.2 fL (9.4-12.4); Monocytes # (auto) 0.74 K/uL (0.11-0.59); Monocytes % (auto) 11.5 %; Neutrophils # (auto) 4.16 K/uL (1.40-6.50); Neutrophils % (auto) 64.8 %; Platelet Count 238 K/uL (130-400); RDW Coefficient of Variation 13.7 % (11.5-14.5); RDW Standard Deviation 49.6 fL (36.4-46.3); Red Blood Count 3.45 M/uL (4.20-5.40); White Blood Count 6.42 K/ul (4.8-10.8)
[2024-07-06 07:34] LABS: BUN Creatinine Ratio 15.8 (10-20); Calcium 9.6 mg/dl (8.6-10.3); Creatinine Clr Calc Pharmacy 19.2 ml/min
[2024-07-06 07:38] VITALS: RESP 19; TEMP 97.5
[2024-07-06] MEDS: LACTATED RINGER'S 1,000 ML IV SCH (08:41)
--- NOTE | 2024-07-06 09:36 | Cardiology Progress Note ---
Date of Service July 06, 2024 Assessment & Plan (1) Chest pain: (2) CAD (coronary artery disease): Plan Mrs. Frost offers no complaints today. She remains asymptomatic from a cardiac standpoint. She has been ambulating in the hallways and has not had any further chest pain of dyspnea. She is no longer experiencing exertional chest pain/angina pectoris with intensification of her anti-anginal regimen. Additionally her blood pressure has improved overall. Her troponin I levels are consistent with demand ischemia. Considering that she has been walking in the hallways without angina pectoris or limiting dyspnea, no further ischemic work-up is required. She has known CAD and appears to have benefitted by titrating her anti-anginal regimen. She is stable for discharge to home on her current regimen. Recommend the followin. Continue Lopressor 25 mg b.i.d.. 2. Continue Imdur ER 30 mg daily. 3. Continue Losartan 100 mg daily. 4. Continue Amlodipine 5 mg daily. 5. Continue Aspirin 81 mg daily. 6. Continue Atorvastatin 40 mg daily. 7. Continue Brilinta 90 mg b.i.d.. 8. Continue Lasix 20 mg daily as needed. 9. Continue physical activities as tolerated, report any changes in exertional tolerance or any limiting symptoms. Hospital Follow-up appt in coming weeks. Admission and Anticipated Discharge Date Admission Date: July 03, 2024 [address]ive Mrs. Frost offers no complaints today. She remains asymptomatic from a cardiac standpoint. She has been ambulating in the hallways and has not had any further chest pain of dyspnea. She specifically denies any exertional chest pain, heaviness, tightness, pressure, or discomfort. She denies any exertional neck, jaw, back, or arm pain. She denies shortness of breath at rest, unusual dyspnea on exertion, orthopnea, or PND. No palpitations, syncope, or near syncope. Blood pressure has improved overall. Review of Systems Review of Systems: -- As per HPI. Physical Exam Physical Exam: Blood pressure is 152/95, pulse 60 and regular. GENERAL: Patient in no acute distress. HEENT: Head is atraumatic, normocephalic. EOM's intact. Facies symmetric. No perioral cyanosis. NECK: No JVD. JVP is not elevated. Carotid upstrokes are + 2 bilaterally without bruits. CHEST/LUNGS: Clear to auscultation throughout all lung pat[place]. No wheezes, rales, or crackles. CVS: S1 and S2 are regular with a grade 2/6 basal systolic murmur. No diastolic murmurs. No gallops or rubs. PMI is nonpalpable. No lifts, heaves, or thrills. No abdominal aortic or renal bruits. ABDOMINAL EXAM: Bowel sounds are present. EXTREMITIES: No clubbing or cyanosis. No edema. NEUROLOGIC EXAM: Patient is awake, alert, and oriented. Pleasant and cooperative. Answers questions appropriately. Speech is clear. TELEMETRY: -- Sinus rhythm in the 60's. Results & Data Vital Signs (Past 12 Hours) Vital Signs Temp Pulse Pulse Resp BP Pulse Ox O2 Del Method 07/06/24 07:37 36.4 C L 66 19 152/95 H 98 Room Air 07/06/24 02:29 36.8 C 57 L 18 136/59 L 92 Room Air 07/06/24 02:03 64 07/05/24 22:51 36.6 C 57 L 16 131/74 93 Room Air Laboratory Results Laboratory Results - last 24 hr 07/06/24 06:36 WBC 6.42 RBC 3.45 L Hgb 11.4 L Hct 34.1 L MCV 98.8 MCH 33.0 MCHC 33.4 RDW Std Deviation 49.6 H RDW Coeff of Eleazar 13.7 Plt Count 238 MPV 10.2 Immature Gran % (Auto) 0.2 Neut % (Auto) 64.8 Lymph % (Auto) 17.1 [place] % (Auto) 11.5 Eos % (Auto) 5.6 Baso % (Auto) 0.8 Neut # (Auto) 4.16 Lymph # (Auto) 1.10 L [place] # (Auto) 0.74 H Eos # (Auto) 0.36 Baso # (Auto) 0.05 Immature Gran # (Auto) 0.01 Sodium 139 Potassium 4.0 Chloride 108 H Carbon Dioxide 24 Anion Gap 7 BUN 26 H Creatinine 1.65 H Est Cr Clr Drug Dosing 19.2 eGFR 29.53 BUN/Creatinine Ratio 15.8 Glucose 108 H Calcium 9.6 Medications Administered Medication List Acetaminophen (Acetaminophen 325 Mg Tab) 650 mg PO Q4H PRN PRN Reason: Pain or Fever Stop: 08/02/24 21:52 Last Admin: 07/05/24 08:42 Dose: 650 mg Documented By: Admin: 07/03/24 23:38 Dose: 650 mg Documented By: SMITH Allopurinol (Allopurinol 300 Mg Tab) 300 mg PO PM PAT Stop: 08/02/24 21:52 Last Admin: 07/05/24 20:57 Dose: 300 mg Documented By: Admin: 07/04/24 20:37 Dose: 300 mg Documented By: Admin: 07/03/24 23:38 Dose: 300 mg Documented By: SMITH Amlodipine Besylate (A[facility]ipine Besylate 5 Mg Tab) [facility]: 08/04/24 11:29 Last Admin: 07/06/24 08:17 Dose: 5 mg Documented By: Admin: 07/05/24 12:47 Dose: 5 mg Documented By: PRATIMA Aspirin (Aspirin 81 Mg Ectab) [facility] Stop: 08/03/24 08:59 Last Admin: 07/06/24 08:18 Dose: 81 mg Documented By: Admin: 07/05/24 08:42 Dose: 81 mg Documented By: Admin: 07/04/24 09:42 Dose: 81 mg Documented By: PRATIMA Atorvastatin Calcium (Atorvastatin 40 Mg Tab) 40 mg PO HS [facility] Stop: 08/03/24 20:59 Last Admin: 07/05/24 20:57 Dose: 40 mg Documented By: Admin: 07/04/24 20:37 Dose: 40 mg Documented By: SMITH Lactated Ringer's (Lr) 1,000 mls @ 80 mls/hr IV .[id number] [facility] Stop: 07/07/24 08:14 Last Admin: 07/06/24 08:41 Dose: 80 mls/hr Documented By: PRATMIA Isosorbide Mononitrate (Isosorbide [place] Extended Rel 30 Mg Tabcr) [facility] Stop: 08/04/24 08:59 Last Admin: 07/06/24 08:17 Dose: 30 mg Documented By: Admin: 07/05/24 11:03 Dose: 30 mg Documented By: PRATIMA Losartan Potassium (Losartan Potassium 50 Mg Tab) [facility] Stop: 08/03/24 08:59 Last Admin: 07/05/24 08:43 Dose: 100 mg Documented By: Admin: 07/04/24 09:42 Dose: 100 mg Documented By: PRATIMA Metoprolol Tartrate (Metoprolol Tartrate 25 Mg Tab) 25 mg PO BID PAT Stop: 08/03/24 11:29 Last Admin: 07/06/24 08:16 Dose: 25 mg Documented By: Admin: 07/05/24 20:57 Dose: 25 mg Documented By: Admin: 07/05/24 08:43 Dose: 25 mg Documented By: Admin: 07/04/24 20:37 Dose: 25 mg Documented By: Admin: 07/04/24 12:35 Dose: 25 mg Documented By: PRATIMA Pantoprazole Sodium (Pantoprazole 40 Mg Tab) 40 mg PO QAM [facility] Stop: 08/03/24 08:59 Last Admin: 07/06/24 08:16 Dose: 40 mg Documented By: Admin: 07/05/24 08:43 Dose: 40 mg Documented By: Admin: 07/04/24 09:42 Dose: 40 mg Documented By: PRATIMA Ticagrelor (Ticagrelor 90 Mg Tab) 90 mg PO BID PAT Stop: 08/03/24 11:59 Last Admin: 07/06/24 08:16 Dose: 90 mg Documented By: Admin: 07/05/24 20:57 Dose: 90 mg Documented By: Admin: 07/05/24 08:43 Dose: 90 mg Documented By: Admin: 07/04/24 20:37 Dose: 90 mg Documented By: Admin: 07/04/24 12:34 Dose: 90 mg Documented By: PRATIMA Discontinued Medications Aspirin (Aspirin Chew 324 Mg) 324 mg PO NOW STA Stop: 07/03/24 20:22 Last Admin: 07/03/24 20:34 Dose: 324 mg Documented By: BART Clopidogrel Bisulfate (Clopidogrel Bisulfate 75 Mg Tab) 75 mg PO QAM PAT Stop: 08/03/24 11:29 Last Admin: 07/04/24 11:41 Dose: Not Given Documented By: PRATIMA Furosemide (Furosemide Inj 20 Mg/2 Ml Vial) 20 mg IV ONE ONE Stop: 07/03/24 21:54 Last Admin: 07/03/24 22:12 Dose: 20 mg Documented By: TAHIRA Hydralazine HCl (Hydralazine Hcl 20 Mg/Ml Vial) 10 mg IV NOW STA Stop: 07/03/24 23:27 Last Admin: 07/03/24 23:38 Dose: 10 mg Documented By: SMITH Magnesium Sulfate/Dextrose (Magnesium Sulfate / D5w) 1 gm in 100 mls @ 50 mls/hr IV ONE ONE Stop: 07/03/24 21:37 Last Infusion: 07/03/24 23:14 Dose: Infused Documented By: Admin: 07/03/24 20:00 Dose: 50 mls/hr Documented By: BART Acetaminophen (Ofirmev) 1,000 mg in 100 mls @ 400 mls/hr IV NOW STA Stop: 07/03/24 20:06 Last Infusion: 07/03/24 20:37 Dose: Infused Documented By: leadership coach: 07/03/24 20:01 Dose: 400 mls/hr Documented By: MED Isosorbide Mononitrate (Isosorbide [place] Extended Rel 30 Mg Tabcr) 30 mg PO NOW ONE Stop: 07/04/24 13:56 Last Admin: 07/04/24 14:58 Dose: 30 mg Documented By: PRATIMA Simvastatin (Simvastatin 40 Mg Tab) 40 mg PO QPM PAT Stop: 08/02/24 21:52 Last Admin: 07/03/24 23:37 Dose: 40 mg Documented By: SMITH PG Care Time/CCT Total # of Minutes Spent Total Time Spent with Patient: Total time spent is greater than 50% in coordination of care (as documented) at patient's floor/unit and/or counseling patient:48 Coding [place] [address] SUB INP/OBS CARE 3/50MIN Patient Type Established History Detailed Exam Detailed Medical Decision Making High Complexity Diagnoses Chest pain, unspecified type R07.9 Chest pain type: unspecified Coronary artery disease involving [place] coronary artery of [place] heart without angina pectoris I25.10 Associated angina: unspecified whether angina present Coronary Disease-Associated Artery/Lesion type: unspecified vessel or lesion type [place] vs. transplanted heart: unspecified whether [place] or transplanted heart Time Spent (min) 54 (1) Chest pain Chest pain type: unspecified Qualified Code(s): R07.9 - Chest pain, unspecified (2) CAD (coronary artery disease) Associated angina: unspecified whether angina present Coronary Disease- Associated Artery/Lesion type: unspecified vessel or lesion type [place] vs. transplanted heart: unspecified whether [place] or transplanted heart Qualified Code(s): I25.10 - Atherosclerotic heart disease of [place] coronary artery without angina pectoris
[2024-07-06 11:38] VITALS: PULSE 54; O2SAT 97
--- NOTE | 2024-07-06 11:56 | Discharge Summary ---
Discharge Summary Date of Service July 06, 2024 Principal Dx & Hospital Course #1 = Principal Diagnosis (1) Non-ST elevation ME (NSTEMI): (2) Hypertension: (3) CAD (coronary artery disease): Plan Patient is an 89-year-old female with past medical history of CAD s/p reportedly 3 stents most recently 2001, stage IV CKD, GERD, HLD, HTN. Patient presented due to intermittent achy chest pain/tightness that occurred at rest and dyspnea x 1 week. Episodes last a few minutes to 30 minutes and go away on their own. EKG showed no ischemic changes, NSR. Troponin peaked at less than 100 and began downtrending. She has not had recurrent chest pain since admission and with the initiation of antihypertensive/antianginals. She was able to ambulate without recurrent chest pain however given high risk history is pending evaluation by interventional cardiology. She did have some septal abnormalities on her echo, unclear chronicity of these To do as outpatient: Continue metoprolol tartrate 25 mg p.o. twice daily. Adjust as needed based on blood pressure/heart rate trend and consolidate to succinate once stable Continue ticagrelor 90 mg p.o. twice daily, aspirin 81 mg daily DAPT Continue amlodipine 5 mg daily Continue losartan 100 mg every morning Continue isosorbide 30 mg p.o. every morning Follow-up with PCP for blood pressure check Routine follow-up with cardiology Continue atorvastatin 40 mg daily. This was substituted for her prior simvastatin which has been discontinued. Recommend repeat BMP follow-up due to multiple medication changes and upper limit of her normal creatinine at time of discharge Return precautions for any recurrent chest pain discussed with patient at time of discharge to which she is agreeable #NSTEMI, HFpEF, hypertension Patient with 2 episodes of chest pain on exertion lasting about 30 minutes. Initially reported episodes at rest later clarifies that she thinks most of these were resting after periods of exertion EKG sinus rhythm without ischemic changes. Troponin peaked at 92, downtrending. No recurrent chest pain following admission. Lipid panel with LDL 65/cholesterol 150. A1c normal. Switched from simvastatin to atorvastatin. Echo with EF 60 to 65%, small area of distal inferior septal/apical hypokinesis and moderate concentric LVH. RVSP 42. Mild . Normal RVSP. Patient is allergic to Plavix. Ticagrelor added. Continued on aspirin/Brilinta DAPT Cardiology consulted. Remain chest pain-free following addition of antihypertensive/antianginals Continue losartan, metoprolol, isosorbide. Suboptimal control with ARB/beta-brina/isosorbide. Beta-brina up titration limited by bradycardia. Amlodipine added. Normotensive on subsequent recheck No overt volume overload, Lasix as needed as needed Was able to ambulate independently around the unit with no worsened chest pain prior to admission Case was reviewed by cardiology at discharge, recommended ongoing medical management and continuing medication adjustments as noted. Cath was not recommended. Outpatient follow-up. #GERD - Continue PPI #CKD stage IV Baseline creatinine around 1.41.7 Patient renal function at baseline day of discharge Renal function at baseline. Stable. Admission HPI Per Admitting Provider Patient is an 89-year-old female with past medical history of CAD s/p reportedly 3 stents most recently 2001, stage IV CKD, GERD, HLD, HTN. Patient presented due to intermittent achy chest pain/tightness that occurred at rest and dyspnea x 1 week. Episodes last a few minutes to 30 minutes and go away on their own. EKG showed no ischemic changes, NSR. Original troponin 67.7, 2-hour repeat pending. She is being admitted for cardiac workup including stress echocardiogram. Patient seen at bedside with her son and [id number] present. She stated she has had intermittent chest pain and shortness of breath for the past week and the episodes are different every time. She stated the chest pain does feel similar to the past when she needed stents placed. The episodes occur both at rest and on exertion and occur for approximately a few minutes to 30 minutes and go away on their own. She has approximately 1 a day however did have 2 episodes yesterday. Most recent episode at lunchtime today. With episode today she did have radiation of pain into bilateral arms. The chest pain is substernal. She denies any other significant ROS, denies fevers, chills, lightheadedness, dizziness, sore throat, cough, congestion, abdominal pain, nausea, vomiting, diarrhea. She does have a history of GERD however this feels different. She denies nicotine or alcohol use. She got her morning medications including a daily baby aspirin. She has Lasix as needed however has not taken it since last summer. She has written DNR/DNI status. Discharge Exam General: A&Ox3. NAD. Cooperative. HEENT: Atraumatic, normocephalic. Vision/hearing grossly intact. Pulm: CTAB A&P. -wheezes, -rales, -rhonchi. Symmetrical chest rise. No increase in work of breathing. No respiratory distress. Cardiac: RRR, +systolic murmur. present radial pulses intact and symmetrical. Abdominal: Nontender, nondistended, soft. BS present. Extremities: Warm, dry. Discharge Plan Discharge Items Patient Disposition: Home - Self-Care Reason For Visit: NSTEMI Discharge Diagnosis: NSTEMI Activity: Resume your previous activity Non-emergency contact: Primary Care Provider and Customer Service Advocate Call non-emergency contact if: you have any medication questions and your symptoms worsen Follow-up/Referrals: China Limon CRNP [Primary Care Provider] - Diet: Heart Healthy Addtl Attending Provider Instructions: You are seen in the hospital for chest pain. You had very slightly elevated heart markers that downtrended and improved prior to discharge. You were hypertensive during admission. You had multiple medications for blood pressure control and control of chest pain added to your regimen as noted below. You did not have any recurrent chest pain, and were able to ambulate independently around the unit without exacerbation of chest pain. You were seen by cardiology and you were followed over the weekend. You did not have recurrent chest pain, cardiac catheterization was not recommended at this time. You have had several medications added for blood pressure and chest pain control. Please take cardiac medications as followed: Aspirin 81 mg by mouth once daily, this is an antiplatelet agent to help prevent heart attacks Take ticagrelor 90 mg by mouth twice daily. This is an antiplatelet agent to help prevent heart attacks Take losartan 100 mg by mouth once daily. This is a blood pressure medicine Please take isosorbide mononitrate 30 mg by mouth once daily in the morning. This is a blood pressure medicine that also helps prevent chest pain Please take atorvastatin 40 mg by mouth in the evening. This is a cholesterol medicine that helps prevent heart attacks Please take amlodipine 5 mg by mouth once daily. This is a blood pressure medicine to help control blood pressure. Some patients develop some lower extremity swelling while on this medication. If you notice lower extremity swelling please discuss this further with your health care aide. You have been prescribed metoprolol tartrate 25 mg by mouth twice daily. This is both a heart and a blood pressure medication that helps lower blood pressure, improve heart function, and reduce heart stress. If you tolerate this dose well this medication can be switched to a long-acting formulation called metoprolol succinate once daily at your follow-up appointment. If your blood pressure is low or your heart rate is low at follow-up adjustments to this medication may need to be made prior to switching to a once a day formulation. Your simvastatin has been discontinued. This is replaced by atorvastatin. Please stop taking simvastatin at this time. Your other home medications have been continued as noted below. A follow-up appointment with your primary care provider and cardiology are being scheduled for you. If you develop any new or worsening symptoms including fever, chills, sweats, chest pain, chest pressure, difficulty breathing, uncontrolled nausea/vomiting, rash, wheezing, passing out or nearly passing out, bleeding, black/bloody bowel movements, or other new or concerning symptoms please call your primary care physician, or call 911 for re-evaluation in the emergency department if you are very concerned. Pending Studies at Discharge: No Stand-Alone Forms: My [facility], Smoking Cessation Medications and DC Order Prescriptions: New atorvastatin 40 mg Tablet 40 mg PO HS Qty: 30 0RF isosorbide mononitrate 30 mg Tablet Extended Release 24 Hr 30 mg PO QAM Qty: 30 0RF amlodipine [Norvasc] 5 mg Tablet 5 mg PO QAM Qty: 30 0RF nitroglycerin [Nitrostat] 0.4 mg Tablet, Sublingual 0.4 mg sublingual Q5M PRN (Reason: chest pain) Qty: 30 0RF metoprolol tartrate 25 mg Tablet 25 mg PO BID Qty: 30 0RF Brilinta 90 mg Tablet 90 mg PO BID Qty: 60 0RF Continued losartan 100 mg tablet 100 mg PO QAM Qty: 100 3RF allopurinol 300 mg tablet 300 mg PO PM Qty: 90 3RF calcium carbonate-vitamin D3 [Calcium 600 with Vitamin D3] 600 mg-12.5 mcg (500 unit) capsule 1 cap PO DAILY omeprazole 20 mg capsule,delayed release(DR/EC) 20 mg PO QAM cholecalciferol (vitamin D3) 10 mcg (400 unit) capsule 10 mcg PO DAILY Glucosamine Chondroitin 550-30-1 mg Capsule 1 cap PO QAM aspirin [Ecotrin Low Strength] 81 mg tablet,delayed release (DR/EC) 81 mg PO QAM ascorbic acid (vitamin C) 500 mg capsule 500 mg PO QAM gabapentin 300 mg Capsule 300 mg PO DAILY PRN (Reason: NEEDED PER PT'S MED LIST) vitamin E 268 mg (400 unit) Capsule 268 mg PO DAILY ibuprofen-acetaminophen [Advil Dual Action] 125-250 mg Tablet 1 tab PO DIRECTED PRN (Reason: Pain) furosemide 20 mg tablet 20 mg PO DAILY PRN (Reason: FLUID RETENTION/SWELLING) Rx Instructions: 1 tab for no more than 3 days in a row PO daily; nystatin 100,000 unit/gram powder 1 applic topical BID PRN (Reason: SKIN IRRITATIONS) Discontinued simvastatin 40 mg tablet 40 mg PO QPM Qty: 90 3RF Discharge Orders: Discharge Order (Routine); Ordered 07/06/24 Ordered By: Jaison Cardona Admission Data Admit Date/Time: 07/03/24 19:42 Attending Provider: Jaison Cardona Admit Provider: Dionne Lentz Primary Care Provider: China Limon Other Providers: Obed Hines; Dionne Lentz Hospital Stay Data Consultations 07/03/24 19:09 ED Decision to Admit Stat 07/03/24 20:40 Consult Cardiology Routine Discharge Instructions Given to Patient (Per Discharging Provider) You are seen in the hospital for chest pain. You had very slightly elevated heart markers that downtrended and improved prior to discharge. You were hypertensive during admission. You had multiple medications for blood pressure control and control of chest pain added to your regimen as noted below. You did not have any recurrent chest pain, and were able to ambulate independently around the unit without exacerbation of chest pain. You were seen by cardiology and you were followed over the weekend. You did not have recurrent chest pain, cardiac catheterization was not recommended at this time. You have had several medications added for blood pressure and chest pain control. Please take cardiac medications as followed: Aspirin 81 mg by mouth once daily, this is an antiplatelet agent to help prevent heart attacks Take ticagrelor 90 mg by mouth twice daily. This is an antiplatelet agent to help prevent heart attacks Take losartan 100 mg by mouth once daily. This is a blood pressure medicine Please take isosorbide mononitrate 30 mg by mouth once daily in the morning. This is a blood pressure medicine that also helps prevent chest pain Please take atorvastatin 40 mg by mouth in the evening. This is a cholesterol medicine that helps prevent heart attacks Please take amlodipine 5 mg by mouth once daily. This is a blood pressure medicine to help control blood pressure. Some patients develop some lower extremity swelling while on this medication. If you notice lower extremity swelling please discuss this further with your health care aide. You have been prescribed metoprolol tartrate 25 mg by mouth twice daily. This is both a heart and a blood pressure medication that helps lower blood pressure, improve heart function, and reduce heart stress. If you tolerate this dose well this medication can be switched to a long-acting formulation called metoprolol succinate once daily at your follow-up appointment. If your blood pressure is low or your heart rate is low at follow-up adjustments to this medication may need to be made prior to switching to a once a day formulation. Your simvastatin has been discontinued. This is replaced by atorvastatin. Please stop taking simvastatin at this time. Your other home medications have been continued as noted below. A follow-up appointment with your primary care provider and cardiology are being scheduled for you. If you develop any new or worsening symptoms including fever, chills, sweats, chest pain, chest pressure, difficulty breathing, uncontrolled nausea/vomiting, rash, wheezing, passing out or nearly passing out, bleeding, black/bloody bowel movements, or other new or concerning symptoms please call your primary care physician, or call 911 for re-evaluation in the emergency department if you are very concerned. Total Time Total Time Spent Total Time Spent (In Minutes): Time spend day of discharge 35 minutes including direct patient care, documentation, review of labs and images, and coordination of care. Coding Level of Care Code 32442 INP/OBS DISCH >30 MIN Diagnoses Non-ST elevation ME (NSTEMI) I21.4 Essential hypertension I10 Hypertension type: essential hypertension Coronary artery disease involving [place] coronary artery of [place] heart without angina pectoris I25.10 Associated angina: unspecified whether angina present Coronary Disease-Associated Artery/Lesion type: unspecified vessel or lesion type [place] vs. transplanted heart: unspecified whether [place] or transplanted heart
[2024-07-06 12:15] VITALS: BP 170/78
== END 2024-07-06 13:08 | disposition home or self-care (01) ==
LOC: ED 16:28 → EDINP 16:28 → SUATTDRO 19:42 → 2E 22:41

== ENCOUNTER 2024-12-23 11:08 | Inpatient (IN) ==
--- NOTE | 2024-12-23 11:59 | XRay Report ---
XR chest 1V portable CLINICAL HISTORY: Chest pain, nonspecific COMPARISON STUDY: 11/08/2024 FINDINGS: There is stable cardiomegaly with pulmonary vascular congestion. There is interval hazy [place] in the lung bases with partial obscuration of the diaphragm. No pneumothorax. IMPRESSION: 1. CHF. 2. Mild hazy opacity in the lung bases could represent atelectasis, early pneumonia, or small pleural effusions. ACT 112: Negative or not required by law. Electronically signed by: Harsha Salter M.D. 12/23/2024 11:58 AM
[2024-12-23 12:03] LABS: Hematocrit (blood only) 22.3 % (37.0-47.0); Hemoglobin 7.0 g/dl (12.0-16.0); Immature Granulocytes # (auto) 0.05 K/uL (0.01-0.20); Immature Granulocytes % (auto) 0.5 %; Mean Corpuscular Hemoglobin 30.2 pg (25.0-34.0); Mean Corpuscular Volume 96.1 fL (80.0-100.0); Platelet Count 390 K/uL (130-400); RDW Standard Deviation 55.5 fL (36.4-46.3); Red Blood Count 2.32 M/uL (4.20-5.40); White Blood Count 10.82 K/ul (4.8-10.8)
[2024-12-23 12:19] LABS: Alanine Aminotransferase 16.0 U/L (7-52); Albumin Globulin Ratio 1.4 (0.9-2); Albumin Level 3.6 gm/dl (3.4-5.0); Alkaline Phosphatase 47.0 U/L (34-104); Anion Gap 12.0 (3-11); Bilirubin,Total 0.4 mg/dl (0.2-1.0); Blood Urea Nitrogen 71.0 mg/dl (6-23); Calcium 9.8 mg/dl (8.6-10.3); Carbon Dioxide 15.0 mmol/L (21-32); Chloride 106.0 mmol/L (98-107); Creatinine Clr Calc Pharmacy 15.1 ml/min; Globulin 2.6 gm/dl (2.5-4.0); Glucose 131.0 mg/dl (70-99(Fasting)); Potassium 4.7 mmol/L (3.5-5.1); Sodium 133.0 mmol/L (136-145); Total Protein 6.2 gm/dl (6.0-8.3)
[2024-12-23 12:28] LABS: INR 1.1 (0.9-1.1); Partial Thromboplastin Time 24 Seconds (21-31); Prothrombin Time 11.9 Seconds (9.0-12.0)
[2024-12-23 12:31] LABS: Hypochromasia Present; Ovalocytes 1+; Polychromasia 1+
[2024-12-23] MEDS ORDERED: SODIUM CHLORIDE 0.9% 100 ML IV PRN (14:46)
--- NOTE | 2024-12-23 15:15 | Emergency Department Note ---
Impression & Plan Symptomatic anemia, Elevated troponin, Upper gastrointestinal bleed, Iron deficiency, Acute on chronic renal insufficiency ED Provider Note NAME: Ozzy BOYLE AGE: 89 SEX: F : 1935 ARRIVES VIA: Ambulance INFORMANT: Patient ED PROVIDER(S): Paul Edwards MD CHIEF COMPLAINT: Shortness of breath PLAN: Disposition: Admit MEDICAL DECISION MAKING: The patient is a pleasant 89-year-old woman with a past medical history of CAD with history of NSTEMI with admission to this facility from 11/08-11/11, CHF, aortic stenosis, atrial fibrillation on Eliquis, hypertension, hyperlipidemia who presents to the emergency department via EMS and accompanied by family for evaluation of ongoing shortness of breath minimal exertion. Patient ports she had had increased swelling and had increase in her Lasix for weight gain. They feel the swelling in her legs has improved. Patient does report that she has had black stool for many weeks but denies red blood in her stool. Patient reports she did have episode of dry heaves a couple of days ago but otherwise denies vomiting. She denies fevers, chills, cough, congestion, urinary symptoms. She denies chest pain though reports shoulder pain. On evaluation the patient is no distress, afebrile with stable vital signs. O2 saturation is normal however she does appear to have dyspnea with minimal exertion. She appears euvolemic. EKG without overt acute ischemia. Chest x-ray demonstrates vascular congestion and likely atelectasis per my preliminary independent interpretation. WBC 10.8 K with neutrophilia but no left shift, nonspecific. H/H 7.0/22.3 decreased from 10.4/32.1 beginning of November. Platelets within normal limits. Chemistry chemistry with bicarbonate of 15, similar to prior values without significant anion gap elevation. Creatinine is 2.4, increased from patient's baseline range of 1.6-1.8. LFTs are unremarkable. Positivity troponin is 375, nonspecific and decreased from patient's recent admission last month for NSTEMI. BNP is 1900 in setting of the patient's known CHF but also in the setting of her worsening renal sufficiency. Procalcitonin is not elevated. Iron was low at 16. Given the patient's decline in her H/H over the past month with reported ongoing black stools suspect likely upper GI bleed contributing to the patient's anemia which is in turn is contributing to the patient's dyspnea with minimal exertion. Patient did consent for blood transfusion. 2 Units PRBCs ordered. IV Protonix ordered. Case was discussed with GERARDO West hospitalist, who will evaluate the patient for admission. Further management per admitting team. Triage Nursing notes reviewed and agree them. Prior/external medical records reviewed Vital Signs: reviewed Differential diagnosis: Reactive airway disease, pneumonia, pneumothorax, COPD, CHF, infections, cardiac ischemia, pulmonary embolism, musculoskeletal, gastrointestinal, as well as other pathologies. ER treatment provided: See below. Diagnostics interpreted by me: Cardiac Monitoring: An order for continuous cardiac monitoring was placed and demonstrated normal sinus rhythm, 85 bpm, no ectopy. Laboratory studies: See below Imaging studies: See below Consultation(s): Case was discussed with GERARDO [facility] hospitalist, who will evaluate the patient for admission. HPI: Per MDM. ROS: See above HPI for pertinent positives & negatives. A total of 10 systems reviewed and were otherwise negative. VITALS:See Below PHYSICAL EXAMINATION: GENERAL: Awake, alert, fatigued-appearing, in no distress HENT: Normocephalic, atraumatic. Oropharynx unremarkable. EYES: Normal conjunctiva. Sclera non-icteric. NECK: Supple. No nuchal rigidity. FROM. No JVD. RESPIRATORY: Clear to auscultation. Dyspneic with minimal exertion. CARDIAC: Regular rate, normal rhythm. Extremities warm and well perfused. Pulses equal. ABDOMEN: Soft, non-distended. No tenderness to palpation. No rebound or guarding. No masses. MUSCULOSKELETAL: Chest examination reveals no tenderness. The back is symmetrical on inspection without obvious abnormality. There is no CVA tenderness to palpation. No joint edema. LOWER EXTREMITIES: Calves are equal size bilaterally and non-tender. No edema. No discoloration. NEURO: Normal sensorium. No sensory or motor deficits noted. SKIN: Moderate pallor. No rash or jaundice noted. ED COURSE: Critical Care: I have personally spent greater than 35 minutes of critical care time in the direct management of this patient. This includes bedside care, interpretation of diagnostic studies, and testing, discussion with consultants, patient, and family members, and other required patient management activities. This 35 minutes is in excess of all separately billable procedures. Pual Edwards MD Past Med/Surg History Problem List Acute on chronic renal insufficiency (Acute) Iron deficiency (Acute) Upper gastrointestinal bleed (Acute) Elevated troponin (Acute) Symptomatic anemia (Acute) Anticoagulant long-term use Iron deficiency anemia Upper GI bleed Dyspnea on exertion CHF (congestive heart failure) Vitamin B12 deficiency Mitral regurgitation Pulmonary HTN Macrocytosis Aortic stenosis mod per echo Elevated troponin (Acute) New onset a-fib (Acute) Acute heart failure with preserved ejection fraction (HFpEF) Atrial fibrillation with RVR (Acute) Generalized weakness (Acute) Non-ST elevation VT (NSTEMI) (Acute) Chest pain (Acute) Hearing loss Unsteady gait when walking Peripheral edema Anemia (Acute) GERD (gastroesophageal reflux disease) (Acute) Stage 4 chronic kidney disease (Chronic) Incomplete emptying of bladder (Chronic) Dyslipidemia (Chronic) Chronic low back pain (Chronic) Impaired fasting glucose (Chronic) Hypertension (Chronic) CAD (coronary artery disease) (Chronic) Lumbar stenosis with neurogenic claudication (Chronic) Medical History Acute exacerbation of CHF (congestive heart failure) Dislocation, hip Vitamin D deficiency Low back pain CAD (coronary artery disease) s/p stent x 2 to proximal RCA and 1 to mid-LAD Surgical History History of fusion of lumbar spine History of total knee arthroplasty History of hip replacement Previous back surgery Status post hip surgery S/P knee surgery Family History Mother Myocardial infarction Brother Myocardial infarction Other Family history non-contributory Denies family history of Ovarian cancer Prostate cancer Breast cancer Colorectal cancer Social History Smoking Status: Former smoker Tobacco Type: Cigarettes Age Started Using Tobacco: 15; Age Quit Using Tobacco: 43; packs per day: 0.5; Cigarettes Per Day: 5-10; Second Hand Exposure: No; Do You Dip or Chew Tobacco: No; Hx Alcohol Use: No Hx Substance Use: No Preferred Language: Palauan Communication Ability: Effective Visual Impairment: Limited Hearing Ability: Use of Hearing Aid Trust Clerk Required: No Beliefs That Will Affect Care: None marital status: / Current Living Situation: Alone Current Living Situation Comment: pt lives in mobile home current occupational status: retired How many Children do You have: 4 Feels Safe at Home: Yes Safety Concerns: Feels Safe At This Time Childhood Exposure to Second-Hand Smoke: Yes Diet: regular caffeine: Yes during the past year weight has: remained stable Dental Care, Regularly: Yes Physical Activity Frequency: Does not Exercise Seatbelt Use: always Sunscreen Use: No Do you think of yourself as: straight/heterosexual Sexual Activity: has been sexually active, but not for at least 12 months Gender Identity: Female Assistive Devices: Cane and Walker Allergies Allergies Allergy/AdvReac Type Severity Reaction Status Date / Time clopidogrel Allergy Intermediate HIVES Verified 12/18/24 13:54 adhesive AdvReac Mild RASH Verified 12/18/24 13:54 codeine AdvReac Mild NAUSEA Verified 12/18/24 13:54 amoxicillin AdvReac Unknown CAN'T Verified 12/18/24 13:54 REMEMBER antihistamines Allergy Unknown CAN'T Uncoded 12/18/24 13:54 REMEMBER Home Meds Home Medications Medication Instructions Recorded Confirmed glucosamine sulf dipot 1 cap PO QAM 08/15/18 12/23/24 chlr,msm,chond 550 mg-C 30 mg-almaz 1 mg capsule (Glucosamine Chondroitin) omeprazole 20 mg capsule,delayed 20 mg PO QAM 08/26/20 12/23/24 release ascorbic acid (vitamin C) 500 mg 500 mg PO QAM 08/28/20 12/23/24 capsule aspirin 81 mg tablet,delayed 81 mg PO QAM 08/28/20 12/23/24 release (Ecotrin Low Strength) cholecalciferol (vitamin D3) 10 10 mcg PO DAILY 06/21/22 12/23/24 mcg (400 unit) capsule calcium 600 mg (as 1 cap PO DAILY 12/11/22 12/23/24 carbonate)-vitamin D3 12.5 mcg (500 unit) capsule (Calcium with Vit D3) gabapentin 300 mg capsule 300 mg PO DAILY PRN NEEDED PER 07/03/24 12/23/24 PT'S MED LIST nystatin 100,000 unit/gram topical 1 applic topical BID PRN SKIN 07/03/24 12/23/24 powder IRRITATIONS vitamin E 268 mg (400 unit) capsule 268 mg PO DAILY 07/03/24 12/23/24 acetaminophen 325 mg tablet 325 mg PO QID PRN PAIN/FEVER 07/13/24 12/23/24 (Tylenol) mecobalamin (vitamin B12) 1,000 1,000 mcg PO DAILY 12/02/24 12/23/24 mcg chewable tablet vitamin B complex 1 cap PO DAILY 12/02/24 12/23/24 Previous Rx's Medication Instructions Recorded allopurinol 300 mg tablet 300 mg PO PM #90 tabs 12/13/23 nitroglycerin 0.4 mg sublingual 0.4 mg sublingual Q5M PRN chest 07/06/24 tablet (Nitrostat) pain #30 tabs losartan 100 mg tablet 100 mg PO QAM #100 tabs 07/13/24 isosorbide mononitrate 30 mg 30 mg PO QAM #90 tabs 07/30/24 tablet,extended release 24 hr amlodipine 5 mg tablet (Norvasc) 5 mg PO QAM #100 tabs 08/10/24 atorvastatin 40 mg tablet 40 mg PO HS #100 tabs 08/10/24 metoprolol tartrate 25 mg tablet 25 mg PO BID 90 days #200 tabs 08/10/24 apixaban 2.5 mg tablet (Eliquis) 2.5 mg PO BID #60 tabs 11/10/24 cyanocobalamin (vitamin B-12) 500 1,000 mcg (2 x 500 mcg) PO QAM #30 11/11/24 mcg tablet tabs furosemide 20 mg tablet 10 mg (1/2 x 20 mg) PO DAILY PRN 12/18/24 FLUID RETENTION/SWELLING #30 tabs Results & Data (ED) Vital Signs Vital Signs - 24 hr 12/23/24 11:10 12/23/24 11:30 12/23/24 11:39 Temperature 36.4 C Temperature Source Axillary Pulse Rate 76 77 Pulse Rate from SpO2 Sensor Respiratory Rate 24 14 Respiratory Effort / Characteristics Non-Labored Spontaneous Respiratory Depth Normal Respiratory Pattern Regular Blood Pressure 113/79 113/79 Blood Pressure Mean 90 90 Pulse Oximetry 99 Oxygen Delivery Method Room Air Room Air Sepsis Recent Fever Within 48 Hours No Sepsis New/Unexplained Change in Mental Status No Sepsis Action Taken by Nursing No Action Required 12/23/24 11:39 12/23/24 11:42 12/23/24 12:00 Temperature Temperature Source Pulse Rate 75 Pulse Rate from SpO2 Sensor Respiratory Rate Respiratory Effort / Characteristics Respiratory Depth Respiratory Pattern Blood Pressure Blood Pressure Mean Pulse Oximetry Oxygen Delivery Method Room Air Room Air Sepsis Recent Fever Within 48 Hours Sepsis New/Unexplained Change in Mental Status Sepsis Action Taken by Nursing 12/23/24 12:00 12/23/24 12:35 12/23/24 13:30 Temperature Temperature Source Pulse Rate 70 72 Pulse Rate from SpO2 Sensor 72 71 Respiratory Rate 19 Respiratory Effort / Characteristics Non-Labored Spontaneous Respiratory Depth Respiratory Pattern Regular Blood Pressure 118/74 112/78 Blood Pressure Mean 95 89 Pulse Oximetry 97 92 Oxygen Delivery Method Room Air Room Air Room Air Sepsis Recent Fever Within 48 Hours Sepsis New/Unexplained Change in Mental Status Sepsis Action Taken by Nursing 12/23/24 14:00 12/23/24 14:30 12/23/24 15:06 Temperature Temperature Source Pulse Rate 75 82 81 Pulse Rate from SpO2 Sensor 80 77 80 Respiratory Rate 23 17 20 Respiratory Effort / Characteristics Respiratory Depth Respiratory Pattern Blood Pressure 113/82 112/73 97/71 L Blood Pressure Mean 92 97 79 Pulse Oximetry 91 96 93 Oxygen Delivery Method Room Air Room Air Sepsis Recent Fever Within 48 Hours Sepsis New/Unexplained Change in Mental Status Sepsis Action Taken by Nursing 12/23/24 15:30 12/23/24 15:50 12/23/24 16:00 Temperature Temperature Source Pulse Rate 70 85 87 Pulse Rate from SpO2 Sensor 76 Respiratory Rate 19 20 Respiratory Effort / Characteristics Respiratory Depth Respiratory Pattern Blood Pressure 104/71 104/75 Blood Pressure Mean 83 82 Pulse Oximetry 98 97 Oxygen Delivery Method Room Air Sepsis Recent Fever Within 48 Hours Sepsis New/Unexplained Change in Mental Status Sepsis Action Taken by Nursing Laboratory Data Attestation: I reviewed the patient's lab results. 12/24/24 06:36 12/24/24 08:06 Lab Results 12/23/24 12/23/24 Range/Units 11:25 15:15 WBC 10.82 H (4.8-10.8) K/ul RBC 2.32 L (4.20-5.40) M/uL Hgb 7.0 L (12.0-16.0) g/dl Hct 22.3 L (37.0-47.0) % MCV 96.1 (80.0-100.0) fL MCH 30.2 (25.0-34.0) pg MCHC 31.4 L (32.0-36.0) g/dL RDW Std Deviation 55.5 H (36.4-46.3) fL RDW Coeff of Eleazar 15.8 H (11.5-14.5) % Plt Count 390 (130-400) K/uL MPV 10.8 (9.4-12.4) fL Immature Gran % (Auto) 0.5 % Neut % (Auto) 81.8 % Lymph % (Auto) 12.3 % Imperial % (Auto) 4.7 % Eos % (Auto) 0.4 % Baso % (Auto) 0.3 % Reticulocyte % (Auto) 3.04 H (0.50-2.00) % Neut # (Auto) 8.86 H (1.40-6.50) K/uL Lymph # (Auto) 1.33 (1.20-3.40) K/uL Imperial # (Auto) 0.51 (0.11-0.59) K/uL Eos # (Auto) 0.04 (0.00-0.50) K/uL Baso # (Auto) 0.03 (0.00-0.20) K/uL Reticulocyte # 0.070 (0.020-0.100) 10^6/uL Immature Gran # (Auto) 0.05 (0.01-0.20) K/uL Absolute Nucleated RBC 0.07 (0.00-0.12) K/uL Nucleated RBC % (auto) 0.6 % Polychromasia 1+ Hypochromasia Present Ovalocytes 1+ PT 11.9 (9.0-12.0) Seconds INR 1.1 (0.9-1.1) APTT 24 (21-31) Seconds PTT Ratio 0.9 Sodium 133 L (136-145) mmol/L Potassium 4.7 (3.5-5.1) mmol/L Chloride 106 (98-107) mmol/L Carbon Dioxide 15 L (21-32) mmol/L Anion Gap 12 H (3-11) BUN 71 H (6-23) mg/dl Creatinine 2.40 H (0.6-1.2) mg/dl Est Cr Clr Drug Dosing 15.1 ml/min eGFR 18.83 BUN/Creatinine Ratio 29.6 H (10-20) Glucose 131 H (70-99(Fasting)) mg/dl Calcium 9.8 (8.6-10.3) mg/dl Iron 16 L (35-150) mcg/dl Transferrin 245 (200-360) mg/dl Ferritin 13.2 (8-388) ng/ml Total Bilirubin 0.4 (0.2-1.0) mg/dl AST 24 (13-39) U/L ALT 16 (7-52) U/L Alkaline Phosphatase 47 (34-104) U/L Troponin I High Sens 375.7 H* (0-14) pg/ml B-Natriuretic Peptide 1964 H (0-100) pg/ml Total Protein 6.2 (6.0-8.3) gm/dl Albumin 3.6 (3.4-5.0) gm/dl Globulin 2.6 (2.5-4.0) gm/dl Albumin/Globulin Ratio 1.4 (0.9-2) Vitamin B12 > 1500 H (180-914) pg/ml Folate 10.40 (>5.38) ng/ml Procalcitonin 0.10 (0-0.5) ng/ml Blood Type B Negative Antibody Screen NEGATIVE Crossmatch See Detail Administered Medications Lactated Ringer's (Lr) 1,000 mls @ 80 mls/hr IV .[id number] PAT Stop: 12/26/24 18:02 Last Admin: 12/24/24 08:57 Dose: 80 mls/hr Documented By: Infusion: 12/24/24 08:45 Dose: Infused Documented By: Admin: 12/23/24 20:15 Dose: 80 mls/hr Documented By: IRASEMA Pantoprazole Sodium 40 mg/ (Dextrose) 100 mls @ 20 mls/hr IV Q5H PAT Stop: 01/22/25 18:29 Last Admin: 12/24/24 08:57 Dose: 8 mg/hr, 20 mls/hr Documented By: Infusion: 12/24/24 08:57 Dose: Infused Documented By: Admin: 12/24/24 04:47 Dose: 8 mg/hr, 20 mls/hr Documented By: Infusion: 12/24/24 04:47 Dose: Infused Documented By: Admin: 12/24/24 01:12 Dose: 8 mg/hr, 20 mls/hr Documented By: Infusion: 12/24/24 01:12 Dose: Infused Documented By: Admin: 12/23/24 20:12 Dose: 8 mg/hr, 20 mls/hr Documented By: IRASEMA Discontinued Medications Pantoprazole Sodium (Protonix) 40 mg in 10 mls @ 5 mls/min IV NOW ONE Stop: 12/23/24 14:57 Last Admin: 12/23/24 16:38 Dose: 5 mls/min Documented By: RADHA Pantoprazole Sodium 80 mg/ (Dextrose) 120 mls @ 480 mls/hr IV NOW STA Stop: 12/23/24 18:20 Last Infusion: 12/23/24 20:13 Dose: Infused Documented By: Admin: 12/23/24 19:53 Dose: 480 mls/hr Documented By: IRASEMA Imaging Data Radiologist's Impression: Chest X-Ray 12/23/24 11:39 XR chest 1V portable CLINICAL HISTORY: Chest pain, nonspecific COMPARISON STUDY: 11/08/2024 FINDINGS: There is stable cardiomegaly with pulmonary vascular congestion. There is interval hazy [place] in the lung bases with partial obscuration of the diaphragm. No pneumothorax. IMPRESSION: 1. CHF. 2. Mild hazy opacity in the lung bases could represent atelectasis, early pneumonia, or small pleural effusions. ACT 112: Negative or not required by law. Electronically signed by: Harsha Salter M.D. 12/23/2024 11:58 AM Discharge Plan Visit Data Chief Complaint: Shortness of Breath/Dyspnea Stated Complaint: WEAKNESS, DIZZINESS, SOB ED Provider: Paul Edwards Discharge Problem: Symptomatic anemia, Elevated troponin, Upper gastrointestinal bleed, Iron deficiency, Acute on chronic renal insufficiency Patient Disposition: Admitted As Inpatient Condition: Serious Discharge Instructions Interventions: ED Discharge Assessment Last Done: 12/23/24 17:36
[2024-12-23 16:00] LABS: Reticulocytes # 0.070 10^6/uL (0.020-0.100)
--- NOTE | 2024-12-23 16:04 | History & Physical Report ---
Date of Service December 23, 2024 History of Present Illness Primary Care Provider: PAWAN Cotter Allergies Allergy/AdvReac Type Severity Reaction Status Date / Time clopidogrel Allergy Intermediate HIVES Verified 12/18/24 13:54 adhesive AdvReac Mild RASH Verified 12/18/24 13:54 codeine AdvReac Mild NAUSEA Verified 12/18/24 13:54 amoxicillin AdvReac Unknown CAN'T Verified 12/18/24 13:54 REMEMBER antihistamines Allergy Unknown CAN'T Uncoded 12/18/24 13:54 REMEMBER Home Medications Medication Instructions Recorded Confirmed Type glucosamine sulf dipot 1 cap PO QAM 08/15/18 12/23/24 History chlr,msm,chond 550 mg-C 30 mg-almaz 1 mg capsule (Glucosamine Chondroitin) omeprazole 20 mg capsule,delayed 20 mg PO QAM 08/26/20 12/23/24 History release ascorbic acid (vitamin C) 500 mg 500 mg PO QAM 08/28/20 12/23/24 History capsule aspirin 81 mg tablet,delayed 81 mg PO QAM 08/28/20 12/23/24 History release (Ecotrin Low Strength) cholecalciferol (vitamin D3) 10 10 mcg PO DAILY 06/21/22 12/23/24 History mcg (400 unit) capsule calcium 600 mg (as 1 cap PO DAILY 12/11/22 12/23/24 History carbonate)-vitamin D3 12.5 mcg (500 unit) capsule (Calcium with Vit D3) allopurinol 300 mg tablet 300 mg PO PM #90 tabs 12/13/23 12/23/24 Rx gabapentin 300 mg capsule 300 mg PO DAILY PRN NEEDED PER 07/03/24 12/23/24 History PT'S MED LIST nystatin 100,000 unit/gram topical 1 applic topical BID PRN SKIN 07/03/24 12/23/24 History powder IRRITATIONS vitamin E 268 mg (400 unit) capsule 268 mg PO DAILY 07/03/24 12/23/24 History nitroglycerin 0.4 mg sublingual 0.4 mg sublingual Q5M PRN chest 07/06/24 12/23/24 Rx tablet (Nitrostat) pain #30 tabs acetaminophen 325 mg tablet 325 mg PO QID PRN PAIN/FEVER 07/13/24 12/23/24 History (Tylenol) losartan 100 mg tablet 100 mg PO QAM #100 tabs 07/13/24 12/23/24 Rx isosorbide mononitrate 30 mg 30 mg PO QAM #90 tabs 07/30/24 12/23/24 Rx tablet,extended release 24 hr amlodipine 5 mg tablet (Norvasc) 5 mg PO QAM #100 tabs 08/10/24 12/23/24 Rx atorvastatin 40 mg tablet 40 mg PO HS #100 tabs 08/10/24 12/23/24 Rx metoprolol tartrate 25 mg tablet 25 mg PO BID 90 days #200 tabs 08/10/24 12/23/24 Rx apixaban 2.5 mg tablet (Eliquis) 2.5 mg PO BID #60 tabs 11/10/24 12/23/24 Rx cyanocobalamin (vitamin B-12) 500 1,000 mcg (2 x 500 mcg) PO QAM #30 11/11/24 12/23/24 Rx mcg tablet tabs mecobalamin (vitamin B12) 1,000 1,000 mcg PO DAILY 12/02/24 12/23/24 History mcg chewable tablet vitamin B complex 1 cap PO DAILY 12/02/24 12/23/24 History furosemide 20 mg tablet 10 mg (1/2 x 20 mg) PO DAILY PRN 12/18/24 12/23/24 Rx FLUID RETENTION/SWELLING #30 tabs Past Med/Surg History Problem List Dyspnea on exertion CHF (congestive heart failure) Vitamin B12 deficiency Mitral regurgitation Pulmonary HTN Macrocytosis Aortic stenosis mod per echo Elevated troponin (Acute) New onset a-fib (Acute) Acute heart failure with preserved ejection fraction (HFpEF) Atrial fibrillation with RVR (Acute) Generalized weakness (Acute) Non-ST elevation SC (NSTEMI) (Acute) Chest pain (Acute) Hearing loss Unsteady gait when walking Peripheral edema Anemia (Acute) GERD (gastroesophageal reflux disease) (Acute) Stage 4 chronic kidney disease (Chronic) Incomplete emptying of bladder (Chronic) Dyslipidemia (Chronic) Chronic low back pain (Chronic) Impaired fasting glucose (Chronic) Hypertension (Chronic) CAD (coronary artery disease) (Chronic) Lumbar stenosis with neurogenic claudication (Chronic) Medical History Acute exacerbation of CHF (congestive heart failure) Dislocation, hip Vitamin D deficiency Low back pain CAD (coronary artery disease) Surgical History History of fusion of lumbar spine History of total knee arthroplasty History of hip replacement Previous back surgery Status post hip surgery S/P knee surgery Family History Mother Myocardial infarction Brother Myocardial infarction Other Family history non-contributory Denies family history of Ovarian cancer Prostate cancer Breast cancer Colorectal cancer Social History Smoking Status: Never smoker Tobacco Type: Cigarettes Age Started Using Tobacco: 15; Age Quit Using Tobacco: 43; packs per day: 0.5; Cigarettes Per Day: 5-10; Second Hand Exposure: No; Do You Dip or Chew Tobacco: No; Hx Alcohol Use: No Hx Substance Use: No Preferred Language: Gibraltarian Communication Ability: Effective Visual Impairment: Limited Hearing Ability: Use of Hearing Aid Applications Project Manager Required: No Beliefs That Will Affect Care: None marital status: / Current Living Situation: Alone Current Living Situation Comment: pt lives in mobile home current occupational status: retired How many Children do You have: 4 Feels Safe at Home: Yes Childhood Exposure to Second-Hand Smoke: Yes Diet: regular caffeine: Yes during the past year weight has: remained stable Dental Care, Regularly: Yes Physical Activity Frequency: Does not Exercise Seatbelt Use: always Sunscreen Use: No Do you think of yourself as: straight/heterosexual Sexual Activity: has been sexually active, but not for at least 12 months Gender Identity: Female Assistive Devices: Cane and Walker Results & Data Results & Data Vital Signs (Past 12 Hours) Vital Signs Temp Pulse Resp BP Pulse Ox O2 Del Method 12/23/24 15:50 85 12/23/24 15:06 81 20 97/71 L 93 Room Air 12/23/24 14:30 82 17 112/73 96 12/23/24 14:00 75 23 113/82 91 Room Air 12/23/24 13:30 72 19 112/78 92 Room Air 12/23/24 12:35 Room Air 12/23/24 12:00 70 118/74 97 Room Air 12/23/24 12:00 Room Air 12/23/24 11:42 75 12/23/24 11:39 Room Air 12/23/24 11:39 Room Air 12/23/24 11:30 77 14 113/79 12/23/24 11:10 36.4 C 76 24 113/79 99 Room Air PG Care Time/CCT Total # of Minutes Spent Total Time Spent with Patient: Total time spent is greater than 50% in coordination of care (as documented) at patient's floor/unit and/or counseling patient: Coding
--- NOTE | 2024-12-23 16:05 | History & Physical Report ---
Date of Service December 23, 2024 Assessment & Plan (1) Upper GI bleed: (2) Dyspnea on exertion: (3) CHF (congestive heart failure): (4) Mitral regurgitation: (5) Aortic stenosis: (6) Elevated troponin: (7) Atrial fibrillation with RVR: (8) Non-ST elevation CO (NSTEMI): (9) GERD (gastroesophageal reflux disease): (10) Dyslipidemia: (11) Hypertension: Plan #upper GI bleed #blood loss anemia - subacute, progressive, on Eliquis and aspirin for coronary disease as below. Recent NSTEMI - vitally stable at this time, Protonix loading dose given in the ER, 2 units packed red blood cells with type and screen ordered - hold aspirin and Plavix, reviewed with cardiology no indication for heparin at this time given increased risk - admit telemetry, hemoglobin every 6 hours once transfusion is complete, orthostatics at the time of admission - IV team for ultrasound-guided PIV as access has been difficult - consulted gastroenterology through the emergency department, evaluate for possible endoscopy if she decompensates in any way #NSTEMI #underlying coronary disease #elevated troponin - hold aspirin and Plavix as above, aspirin likely to be in her system several days - supportive measures with transfusion, target transfusion greater than 9/10 - trend troponin every 6 hours #high output Failure # HFpEF/ischemic cardiomyopathy #history of aortic scleosis/mitral regurg - Lasix as needed, at this time no outward signs of failure, elevated BNP in the setting of bleed as above - minimal edema at this time, Lasix after transfusion on an as-needed basis - monitor telemetry #hypertension - borderline blood pressures, holding antihypertensives at this time, resume as vitals allow #atrial fibrillation - hold metoprolol in the short-term, resume soon as possible, IV doses of metoprolol on as-needed basis for significant tachycardia - again hold Eliquis as above #CKD 4 - stable at this time, BMP in the morning #prediabetes/ elevated blood sugar - we will continue to monitor, not on any antihyperglycemic #GERD - Protonix load and post load drip as above #FEN - n.p.o. at this time, LR at 80 cc/h after the transfusion is complete #CODE STATUS - DNR/DNI per her wishes at this time discussed with patient and family at the bedside at time of admission History of Present Illness Chief Complaint: Shortness of breath Primary Care Provider: PAWAN Cotter 89-year-old female history of aortic stenosis, recent NSTEMI with conservative management in November 2024 stage IV chronic kidney disease hyperlipidemia hypertension presents with a 2-3-week history of dark and melanotic stools, increasing shortness of breath. No dizziness or orthostasis. He came into the emergency department with progressive shortness of breath. Initial evaluation there indicated hemoglobin of 7 on a baseline of 10. Dark melanotic stools consistent with upper GI bleed. her NSTEMI was managed conservatively without catheterization on the echocardiogram. She has been on aspirin and Plavix since then. Denies any chest pain at this time. No specific shortness of breath. Has been on Lasix for the last couple days through the primary clinic for the initial shortness of breath. She was given Protonix loading dose in the emergency department, ordered for 2 units of transfusion. Referred for admission for close telemetry monitoring, serial hemoglobin, GI and cardiology consultation Allergies Allergy/AdvReac Type Severity Reaction Status Date / Time clopidogrel Allergy Intermediate HIVES Verified 12/18/24 13:54 adhesive AdvReac Mild RASH Verified 12/18/24 13:54 codeine AdvReac Mild NAUSEA Verified 12/18/24 13:54 amoxicillin AdvReac Unknown CAN'T Verified 12/18/24 13:54 REMEMBER antihistamines Allergy Unknown CAN'T Uncoded 12/18/24 13:54 REMEMBER Home Medications Medication Instructions Recorded Confirmed Type glucosamine sulf dipot 1 cap PO QAM 08/15/18 12/23/24 History chlr,msm,chond 550 mg-C 30 mg-almaz 1 mg capsule (Glucosamine Chondroitin) omeprazole 20 mg capsule,delayed 20 mg PO QAM 08/26/20 12/23/24 History release ascorbic acid (vitamin C) 500 mg 500 mg PO QAM 08/28/20 12/23/24 History capsule aspirin 81 mg tablet,delayed 81 mg PO QAM 08/28/20 12/23/24 History release (Ecotrin Low Strength) cholecalciferol (vitamin D3) 10 10 mcg PO DAILY 06/21/22 12/23/24 History mcg (400 unit) capsule calcium 600 mg (as 1 cap PO DAILY 12/11/22 12/23/24 History carbonate)-vitamin D3 12.5 mcg (500 unit) capsule (Calcium with Vit D3) allopurinol 300 mg tablet 300 mg PO PM #90 tabs 12/13/23 12/23/24 Rx gabapentin 300 mg capsule 300 mg PO DAILY PRN NEEDED PER 07/03/24 12/23/24 History PT'S MED LIST nystatin 100,000 unit/gram topical 1 applic topical BID PRN SKIN 07/03/24 12/23/24 History powder IRRITATIONS vitamin E 268 mg (400 unit) capsule 268 mg PO DAILY 07/03/24 12/23/24 History nitroglycerin 0.4 mg sublingual 0.4 mg sublingual Q5M PRN chest 07/06/24 12/23/24 Rx tablet (Nitrostat) pain #30 tabs acetaminophen 325 mg tablet 325 mg PO QID PRN PAIN/FEVER 07/13/24 12/23/24 History (Tylenol) losartan 100 mg tablet 100 mg PO QAM #100 tabs 07/13/24 12/23/24 Rx isosorbide mononitrate 30 mg 30 mg PO QAM #90 tabs 07/30/24 12/23/24 Rx tablet,extended release 24 hr amlodipine 5 mg tablet (Norvasc) 5 mg PO QAM #100 tabs 08/10/24 12/23/24 Rx atorvastatin 40 mg tablet 40 mg PO HS #100 tabs 08/10/24 12/23/24 Rx metoprolol tartrate 25 mg tablet 25 mg PO BID 90 days #200 tabs 08/10/24 12/23/24 Rx apixaban 2.5 mg tablet (Eliquis) 2.5 mg PO BID #60 tabs 11/10/24 12/23/24 Rx cyanocobalamin (vitamin B-12) 500 1,000 mcg (2 x 500 mcg) PO QAM #30 11/11/24 12/23/24 Rx mcg tablet tabs mecobalamin (vitamin B12) 1,000 1,000 mcg PO DAILY 12/02/24 12/23/24 History mcg chewable tablet vitamin B complex 1 cap PO DAILY 12/02/24 12/23/24 History furosemide 20 mg tablet 10 mg (1/2 x 20 mg) PO DAILY PRN 12/18/24 12/23/24 Rx FLUID RETENTION/SWELLING #30 tabs Past Med/Surg History Problem List (Updated 12/23/24 @ 16:38 by Dami Capone MD) Upper GI bleed Dyspnea on exertion CHF (congestive heart failure) Vitamin B12 deficiency Mitral regurgitation Pulmonary HTN Macrocytosis Aortic stenosis mod per echo Elevated troponin (Acute) New onset a-fib (Acute) Acute heart failure with preserved ejection fraction (HFpEF) Atrial fibrillation with RVR (Acute) Generalized weakness (Acute) Non-ST elevation CO (NSTEMI) (Acute) Chest pain (Acute) Hearing loss Unsteady gait when walking Peripheral edema Anemia (Acute) GERD (gastroesophageal reflux disease) (Acute) Stage 4 chronic kidney disease (Chronic) Incomplete emptying of bladder (Chronic) Dyslipidemia (Chronic) Chronic low back pain (Chronic) Impaired fasting glucose (Chronic) Hypertension (Chronic) CAD (coronary artery disease) (Chronic) Lumbar stenosis with neurogenic claudication (Chronic) Medical History Acute exacerbation of CHF (congestive heart failure) Dislocation, hip Vitamin D deficiency Low back pain CAD (coronary artery disease) Surgical History History of fusion of lumbar spine History of total knee arthroplasty History of hip replacement Previous back surgery Status post hip surgery S/P knee surgery Family History Mother Myocardial infarction Brother Myocardial infarction Other Family history non-contributory Denies family history of Ovarian cancer Prostate cancer Breast cancer Colorectal cancer Social History Smoking Status: Never smoker Tobacco Type: Cigarettes Age Started Using Tobacco: 15; Age Quit Using Tobacco: 43; packs per day: 0.5; Cigarettes Per Day: 5-10; Second Hand Exposure: No; Do You Dip or Chew Tobacco: No; Hx Alcohol Use: No Hx Substance Use: No Preferred Language: Tanzanian Communication Ability: Effective Visual Impairment: Limited Hearing Ability: Use of Hearing Aid Stave Block Roller Required: No Beliefs That Will Affect Care: None marital status: / Current Living Situation: Alone Current Living Situation Comment: pt lives in mobile home current occupational status: retired How many Children do You have: 4 Feels Safe at Home: Yes Childhood Exposure to Second-Hand Smoke: Yes Diet: regular caffeine: Yes during the past year weight has: remained stable Dental Care, Regularly: Yes Physical Activity Frequency: Does not Exercise Seatbelt Use: always Sunscreen Use: No Do you think of yourself as: straight/heterosexual Sexual Activity: has been sexually active, but not for at least 12 months Gender Identity: Female Assistive Devices: Cane and Walker Review of Systems Review of Systems: see HPI otherwise full 10 point review of systems negative Physical Exam Constitutional: WD/WN, vitals as above Eyes: PERRL, conjunctivae normal, anicteric sclerae ENMT: mucous membranes are dry Neck: no jugular venous pulse distention Respiratory: fine crackles at the bases otherwise clear with good air movement Cardiovascular: 2/6 systolic ejection murmur heard loudest at the left sternal border, no peripheral edema Gastrointestinal (Abdomen): mild dyspepsia but no localized tenderness distention or mass Skin: marked pallor on presentation per family however this is improved, no other rash or discoloration Neurologic: alert and oriented x 3, no focal deficits Results & Data Results & Data Vital Signs (Past 12 Hours) Vital Signs Temp Pulse Resp BP Pulse Ox O2 Del Method 12/23/24 15:50 85 12/23/24 15:06 81 20 97/71 L 93 Room Air 12/23/24 14:30 82 17 112/73 96 12/23/24 14:00 75 23 113/82 91 Room Air 12/23/24 13:30 72 19 112/78 92 Room Air 12/23/24 12:35 Room Air 12/23/24 12:00 70 118/74 97 Room Air 12/23/24 12:00 Room Air 12/23/24 11:42 75 12/23/24 11:39 Room Air 12/23/24 11:39 Room Air 12/23/24 11:30 77 14 113/79 12/23/24 11:10 36.4 C 76 24 113/79 99 Room Air Laboratory Results 12/23/24 12/23/24 12/23/24 Unknown 15:15 11:25 WBC 10.82 H RBC 2.32 L Hgb 7.0 L Hct 22.3 L MCV 96.1 MCH 30.2 MCHC 31.4 L RDW Std Deviation 55.5 H RDW Coeff of Eleazar 15.8 H Plt Count 390 MPV 10.8 Immature Gran % (Auto) 0.5 Neut % (Auto) 81.8 Lymph % (Auto) 12.3 [place] % (Auto) 4.7 Eos % (Auto) 0.4 Baso % (Auto) 0.3 Reticulocyte % (Auto) 3.04 H Neut # (Auto) 8.86 H Lymph # (Auto) 1.33 [place] # (Auto) 0.51 Eos # (Auto) 0.04 Baso # (Auto) 0.03 Reticulocyte # 0.070 Immature Gran # (Auto) 0.05 Absolute Nucleated RBC 0.07 Nucleated RBC % (auto) 0.6 Polychromasia 1+ Hypochromasia Present Ovalocytes 1+ PT 11.9 INR 1.1 APTT 24 PTT Ratio 0.9 Sodium 133 L Potassium 4.7 Chloride 106 Carbon Dioxide 15 L Anion Gap 12 H BUN 71 H Creatinine 2.40 H Est Cr Clr Drug Dosing 15.1 eGFR 18.83 BUN/Creatinine Ratio 29.6 H Glucose 131 H Calcium 9.8 Total Bilirubin 0.4 AST 24 ALT 16 Alkaline Phosphatase 47 Troponin I High Sens 356.8 H* 375.7 H* B-Natriuretic Peptide 1964 H Total Protein 6.2 Albumin 3.6 Globulin 2.6 Albumin/Globulin Ratio 1.4 Procalcitonin 0.10 Crossmatch See Detail Diagnostic Findings Chest X-Ray 12/23/24 11:39 XR chest 1V portable CLINICAL HISTORY: Chest pain, nonspecific COMPARISON STUDY: 11/08/2024 FINDINGS: There is stable cardiomegaly with pulmonary vascular congestion. There is interval hazy [place] in the lung bases with partial obscuration of the diaphragm. No pneumothorax. IMPRESSION: 1. CHF. 2. Mild hazy opacity in the lung bases could represent atelectasis, early pneumonia, or small pleural effusions. ACT 112: Negative or not required by law. Electronically signed by: Harsha Salter M.D. 12/23/2024 11:58 AM PG Care Time/CCT Total # of Minutes Spent Total Time Spent with Patient: Total time spent is greater than 50% in coordination of care (as documented) at patient's floor/unit and/or counseling patient: Coding Level of Care Code 32113 INT INP/OBS CARE 3/75MIN Diagnoses Upper GI bleed K92.2 Dyspnea on exertion R06.09 Chronic congestive heart failure, unspecified heart failure type I50.9 Heart failure type: unspecified Heart failure chronicity: chronic Mitral regurgitation I34.0 Aortic stenosis I35.0 Elevated troponin R79.89 Atrial fibrillation with RVR I48.91 Non-ST elevation CO (NSTEMI) I21.4 GERD (gastroesophageal reflux disease) K21.9 Esophagitis presence: esophagitis presence not specified Dyslipidemia E78.5 Essential hypertension I10 Hypertension type: essential hypertension (3) CHF (congestive heart failure) Heart failure type: unspecified Heart failure chronicity: chronic Qualified Code(s): I50.9 - Heart failure, unspecified (9) GERD (gastroesophageal reflux disease) Esophagitis presence: esophagitis presence not specified Qualified Code(s): K21.9 - Gastro-esophageal reflux disease without esophagitis (11) Hypertension Hypertension type: essential hypertension Qualified Code(s): I10 - Essential (primary) hypertension
[2024-12-23 16:38] LABS: Ferritin 13.2 ng/ml (8-388); Transferrin 245.0 mg/dl (200-360)
[2024-12-23] MEDS: PANTOprazole 40 MG/10 ML SYR IV ONE (16:38)
[2024-12-23 16:48] LABS: Folate (Folic Acid),Ser orPlas 10.40 ng/ml (>5.38)
[2024-12-23 17:12] LABS: Iron 16.0 mcg/dl (35-150)
[2024-12-23] MEDS ORDERED: PANTOPRAZOLE BOLUS/DRIP IV STA (18:03)
[2024-12-23] MEDS ORDERED: MELATONIN 3 MG TAB PO PRN (18:03)
--- NOTE | 2024-12-23 18:55 | Gastrointestinal Consultation ---
Date of Consultation December 23, 2024 Assessment & Plan (1) Upper GI bleed: Dark stools potentially aggravated by iron use. Gradual decrease in hemoglobin over months. Iron indices are consistent with iron deficiency anemia. Dark stools seem to occurred after introduction of Eliquis. At 89 I suspect this patient probably has AVMs of the upper GI tract. Peptic ulcer disease not excluded with the use of aspirin though she is on a PPI. Transfuse may benefit some from IV iron. Discussed symptomatic treatment versus endoscopy. Patient sounds like she wishes to go ahead with her endoscopy daughter was at the bedside. Patient is a DNR she would temporarily need suspend this for upper endoscopy they are aware. EGD tomorrow. Hold Eliquis and aspirin. PPI at this time (2) Dyspnea on exertion: (3) Iron deficiency anemia: (4) Anticoagulant long-term use: History of Present Illness Reason for Consultation: Melena anemia Attending Physician: Dami Capone MD History of Present Illness 89-year-old female admitted through the emergency room with dark stools. Patient states she has had dark stools since her heart attack at which time she was placed on Eliquis. She is also on aspirin 81 mg/day. Do note she is also on omeprazole 20 mg/day. Daughter states she takes acetaminophen for pain. Has heartburn indigestion or dyspepsia. States she came in because of weakness dizziness and shortness of breath. Hemoglobin 7. Review of chart shows steady decline in her hemoglobin dating back to June. Iron consistent with iron deficiency. Allergies Allergy/AdvReac Type Severity Reaction Status Date / Time clopidogrel Allergy Intermediate HIVES Verified 12/18/24 13:54 adhesive AdvReac Mild RASH Verified 12/18/24 13:54 codeine AdvReac Mild NAUSEA Verified 12/18/24 13:54 amoxicillin AdvReac Unknown CAN'T Verified 12/18/24 13:54 REMEMBER antihistamines Allergy Unknown CAN'T Uncoded 12/18/24 13:54 REMEMBER Home Medications Medication Instructions Recorded Confirmed Type glucosamine sulf dipot 1 cap PO QAM 08/15/18 12/23/24 History chlr,msm,chond 550 mg-C 30 mg-almaz 1 mg capsule (Glucosamine Chondroitin) omeprazole 20 mg capsule,delayed 20 mg PO QAM 08/26/20 12/23/24 History release ascorbic acid (vitamin C) 500 mg 500 mg PO QAM 08/28/20 12/23/24 History capsule aspirin 81 mg tablet,delayed 81 mg PO QAM 08/28/20 12/23/24 History release (Ecotrin Low Strength) cholecalciferol (vitamin D3) 10 10 mcg PO DAILY 06/21/22 12/23/24 History mcg (400 unit) capsule calcium 600 mg (as 1 cap PO DAILY 12/11/22 12/23/24 History carbonate)-vitamin D3 12.5 mcg (500 unit) capsule (Calcium with Vit D3) allopurinol 300 mg tablet 300 mg PO PM #90 tabs 12/13/23 12/23/24 Rx gabapentin 300 mg capsule 300 mg PO DAILY PRN NEEDED PER 07/03/24 12/23/24 History PT'S MED LIST nystatin 100,000 unit/gram topical 1 applic topical BID PRN SKIN 07/03/24 12/23/24 History powder IRRITATIONS vitamin E 268 mg (400 unit) capsule 268 mg PO DAILY 07/03/24 12/23/24 History nitroglycerin 0.4 mg sublingual 0.4 mg sublingual Q5M PRN chest 07/06/24 12/23/24 Rx tablet (Nitrostat) pain #30 tabs acetaminophen 325 mg tablet 325 mg PO QID PRN PAIN/FEVER 07/13/24 12/23/24 History (Tylenol) losartan 100 mg tablet 100 mg PO QAM #100 tabs 07/13/24 12/23/24 Rx isosorbide mononitrate 30 mg 30 mg PO QAM #90 tabs 07/30/24 12/23/24 Rx tablet,extended release 24 hr amlodipine 5 mg tablet (Norvasc) 5 mg PO QAM #100 tabs 08/10/24 12/23/24 Rx atorvastatin 40 mg tablet 40 mg PO HS #100 tabs 08/10/24 12/23/24 Rx metoprolol tartrate 25 mg tablet 25 mg PO BID 90 days #200 tabs 08/10/24 12/23/24 Rx apixaban 2.5 mg tablet (Eliquis) 2.5 mg PO BID #60 tabs 11/10/24 12/23/24 Rx cyanocobalamin (vitamin B-12) 500 1,000 mcg (2 x 500 mcg) PO QAM #30 11/11/24 12/23/24 Rx mcg tablet tabs mecobalamin (vitamin B12) 1,000 1,000 mcg PO DAILY 12/02/24 12/23/24 History mcg chewable tablet vitamin B complex 1 cap PO DAILY 12/02/24 12/23/24 History furosemide 20 mg tablet 10 mg (1/2 x 20 mg) PO DAILY PRN 12/18/24 12/23/24 Rx FLUID RETENTION/SWELLING #30 tabs Patient History Medical History Acute exacerbation of CHF (congestive heart failure) Dislocation, hip Vitamin D deficiency Low back pain CAD (coronary artery disease) Surgical History History of fusion of lumbar spine History of total knee arthroplasty History of hip replacement Previous back surgery Status post hip surgery S/P knee surgery Family History Mother Myocardial infarction Brother Myocardial infarction Other Family history non-contributory Denies family history of Ovarian cancer Prostate cancer Breast cancer Colorectal cancer Social History Smoking Status: Never smoker Tobacco Type: Cigarettes Age Started Using Tobacco: 15; Age Quit Using Tobacco: 43; packs per day: 0.5; Cigarettes Per Day: 5-10; Second Hand Exposure: No; Do You Dip or Chew Tobacco: No; Hx Alcohol Use: No Hx Substance Use: No Preferred Language: Slovak Communication Ability: Effective Visual Impairment: Limited Hearing Ability: Use of Hearing Aid Medical Imaging Technologist Required: No Beliefs That Will Affect Care: None marital status: / Current Living Situation: Alone Current Living Situation Comment: pt lives in mobile home current occupational status: retired How many Children do You have: 4 Feels Safe at Home: Yes Childhood Exposure to Second-Hand Smoke: Yes Diet: regular caffeine: Yes during the past year weight has: remained stable Dental Care, Regularly: Yes Physical Activity Frequency: Does not Exercise Seatbelt Use: always Sunscreen Use: No Do you think of yourself as: straight/heterosexual Sexual Activity: has been sexually active, but not for at least 12 months Gender Identity: Female Assistive Devices: Cane and Walker Review of Systems Review of Systems: Complains of weakness dizziness, orthostasis. Abdominal pain. Review systems otherwise as per emergency records without change. Physical Exam Physical Exam: Pale lady examined at the bedside. Blood not yet hanging. Patient hard of hearing. Vital stable afebrile Abdomen benign. Physical examination otherwise physical examination otherwise is per admitting H&P without change Results & Data Vital Signs (Past 12 Hours) Vital Signs Temp Pulse Resp BP Pulse Ox O2 Del Method 12/23/24 17:15 75 18 114/71 94 Room Air 12/23/24 16:30 77 20 105/68 97 Room Air 12/23/24 16:00 87 20 104/75 97 Room Air 12/23/24 15:50 85 12/23/24 15:30 70 19 104/71 98 12/23/24 15:06 81 20 97/71 L 93 Room Air 12/23/24 14:30 82 17 112/73 96 12/23/24 14:00 75 23 113/82 91 Room Air 12/23/24 13:30 72 19 112/78 92 Room Air 12/23/24 12:35 Room Air 12/23/24 12:00 70 118/74 97 Room Air 12/23/24 12:00 Room Air 12/23/24 11:42 75 12/23/24 11:39 Room Air 12/23/24 11:39 Room Air 12/23/24 11:30 77 14 113/79 12/23/24 11:10 36.4 C 76 24 113/79 99 Room Air PG Care Time/CCT Total # of Minutes Spent Total Time Spent with Patient: Total time spent is greater than 50% in coordination of care (as documented) at patient's floor/unit and/or counseling patient: Coding Level of Care Code 69094 INT INP/OBS CARE 1/40MIN Diagnoses Upper GI bleed K92.2 Dyspnea on exertion R06.09 Iron deficiency anemia D50.9 Anticoagulant long-term use Z79.01
[2024-12-23 19:00] LABS: Vitamin B12 > 1500 pg/ml (180-914)
[2024-12-23] MEDS: PANTOprazole 40 MG in DEXTROSE 5% MINI-B 100 ML IV SCH (20:12)
[2024-12-23] MEDS: LACTATED RINGER'S 1,000 ML IV SCH (20:15)
[2024-12-23 20:35] LABS: Hematocrit (blood only) 21.2 % (37.0-47.0); Hemoglobin 6.7 g/dl (12.0-16.0)
[2024-12-24 00:54] LABS: Hematocrit (blood only) 23.9 % (37.0-47.0); Hemoglobin 7.8 g/dl (12.0-16.0)
[2024-12-24 06:58] LABS: Hematocrit (blood only) 26.6 % (37.0-47.0); Hemoglobin 8.7 g/dl (12.0-16.0)
[2024-12-24 07:28] LABS: INR 1.1 (0.9-1.1); Partial Thromboplastin Time 25 Seconds (21-31); Prothrombin Time 12.0 Seconds (9.0-12.0)
[2024-12-24 08:46] LABS: Alanine Aminotransferase 15.0 U/L (7-52); Albumin Globulin Ratio 1.4 (0.9-2); Albumin Level 3.4 gm/dl (3.4-5.0); Alkaline Phosphatase 43.0 U/L (34-104); Anion Gap 13.0 (3-11); Bilirubin,Total 1.0 mg/dl (0.2-1.0); Blood Urea Nitrogen 65.0 mg/dl (6-23); Calcium 9.7 mg/dl (8.6-10.3); Carbon Dioxide 16.0 mmol/L (21-32); Chloride 107.0 mmol/L (98-107); Creatinine Clr Calc Pharmacy 16.6 ml/min; Globulin 2.4 gm/dl (2.5-4.0); Glucose 117.0 mg/dl (70-99(Fasting)); Potassium 4.0 mmol/L (3.5-5.1); Sodium 136.0 mmol/L (136-145); Total Protein 5.8 gm/dl (6.0-8.3)
--- NOTE | 2024-12-24 10:07 | Gastroenterology Progress Note ---
Date of Service December 24, 2024 Assessment & Plan (1) Symptomatic anemia: Plan: 89 year old female w/ history of aortic stenosis, recent NSTEMI with conservative management in October/November 2024, CKD stage IV, hyperlipidemia, HTN and others below admitted through the ED w/ report of dark stools for 2-3-weeks Appreciate cardiology consultation. Appears ASA and Eliquis are on hold. Maintain NPO status for tentative EGD today. Trend HGB. Monitor and document GI output. Transfuse PRN per primary service. We appreciate assistance in the management of any serological abnormality and corrections to include: hemoglobin >7, INR <2, platelets >50,000, potassium levels >3.5 but <5.3, and sodium levels within 5 points of the reference range prior to endoscopic evaluation. Thank you for allowing us to participate in the care of this patient. Please call with any acute changes, questions or concerns. Please see addendum below with additional recommendation from my supervising physician. Admission and Anticipated Discharge Date Admission Date: December 23, 2024 Supervising Physician Co-Signing Physician Notes Patient with gastrointestinal bleeding dark stools. Reviewed with cardiology and anesthesia as patient probably has acute coronary syndrome. Elevated troponins. Previous history. High risk for endoscopic evaluation. Recommend conservative management PPI transfuse as needed. Hold anticoagulation. Decision re: anticoagulation will depend on need. If remains stable for 48 to 72 hours and anticoagulation felt to be essential i.e. Eliquis trial of reintroduction at that time. Subjective NPO for EGD this AM. Offers no concerns this AM. Denies black/bloody stools overnight. Review of Systems Review of Systems: All other findings negative except as noted in HPI. Physical Exam Constitutional: WD/WN, vitals as above Respiratory: normal respiratory effort, lungs clear to auscultation Cardiovascular: Rate/Rhythm: regular rate Gastrointestinal (Abdomen): normal bowel sounds, soft, nontender, no hepatosplenomegaly Skin: no rashes, warm and dry Results & Data Results & Data Vital Signs (Past 12 Hours) Vital Signs Temp Pulse Pulse Resp BP BP Pulse Ox 12/24/24 07:49 97.5 F L 82 18 137/80 97 12/24/24 04:41 97.5 F L 73 18 112/77 96 12/24/24 04:33 97.3 F L 76 18 103/67 96 12/24/24 03:33 97.3 F L 81 20 114/66 95 12/24/24 03:03 97.5 F L 75 20 127/77 95 12/24/24 02:48 96.8 F L 73 20 101/60 96 12/24/24 02:27 97.2 F L 73 18 115/81 96 12/24/24 02:25 97.5 F L 78 18 113/69 95 12/23/24 22:52 85 12/23/24 22:41 97.2 F L 85 20 111/77 93 12/23/24 22:11 97.5 F L 75 20 98/63 L 95 O2 Del Method O2 Flow Rate 12/24/24 07:49 Room Air 12/24/24 04:41 0 12/24/24 04:33 0 12/24/24 03:33 0 12/24/24 03:03 0 12/24/24 02:48 0 12/24/24 02:27 0 12/24/24 02:25 Room Air 12/23/24 22:52 12/23/24 22:41 0 12/23/24 22:11 0 Laboratory Results 12/24/24 12/24/24 12/24/24 Range/Units 08:06 06:36 00:21 WBC (4.8-10.8) K/ul RBC (4.20-5.40) M/uL Hgb 8.7 L 7.8 L (12.0-16.0) g/dl Hct 26.6 L 23.9 L (37.0-47.0) % MCV (80.0-100.0) fL MCH (25.0-34.0) pg MCHC (32.0-36.0) g/dL RDW Std Deviation (36.4-46.3) fL RDW Coeff of Eleazar (11.5-14.5) % Plt Count (130-400) K/uL MPV (9.4-12.4) fL Immature Gran % (Auto) % Neut % (Auto) % Lymph % (Auto) % [place] % (Auto) % Eos % (Auto) % Baso % (Auto) % Reticulocyte % (Auto) (0.50-2.00) % Neut # (Auto) (1.40-6.50) K/uL Lymph # (Auto) (1.20-3.40) K/uL [place] # (Auto) (0.11-0.59) K/uL Eos # (Auto) (0.00-0.50) K/uL Baso # (Auto) (0.00-0.20) K/uL Reticulocyte # (0.020-0.100) 10^6/uL Immature Gran # (Auto) (0.01-0.20) K/uL Absolute Nucleated RBC (0.00-0.12) K/uL Nucleated RBC % (auto) % Polychromasia Hypochromasia Ovalocytes PT 12.0 (9.0-12.0) Seconds INR 1.1 (0.9-1.1) APTT 25 (21-31) Seconds PTT Ratio 0.9 Sodium 136 (136-145) mmol/L Potassium 4.0 (3.5-5.1) mmol/L Chloride 107 (98-107) mmol/L Carbon Dioxide 16 L (21-32) mmol/L Anion Gap 13 H (3-11) BUN 65 H (6-23) mg/dl Creatinine 2.19 H (0.6-1.2) mg/dl Est Cr Clr Drug Dosing 16.6 ml/min eGFR 21.02 BUN/Creatinine Ratio 29.7 H (10-20) Glucose 117 H (70-99(Fasting)) mg/dl Calcium 9.7 (8.6-10.3) mg/dl Iron (35-150) mcg/dl Transferrin (200-360) mg/dl Ferritin (8-388) ng/ml Total Bilirubin 1.0 D (0.2-1.0) mg/dl AST 21 (13-39) U/L ALT 15 (7-52) U/L Alkaline Phosphatase 43 (34-104) U/L Troponin I High Sens 1830.7 H* D (0-14) pg/ml B-Natriuretic Peptide (0-100) pg/ml Total Protein 5.8 L (6.0-8.3) gm/dl Albumin 3.4 (3.4-5.0) gm/dl Globulin 2.4 L (2.5-4.0) gm/dl Albumin/Globulin Ratio 1.4 (0.9-2) Vitamin B12 (180-914) pg/ml Folate (>5.38) ng/ml Procalcitonin (0-0.5) ng/ml Blood Type Antibody Screen Crossmatch 12/23/24 12/23/24 12/23/24 Range/Units Unknown 21:41 18:46 WBC (4.8-10.8) K/ul RBC (4.20-5.40) M/uL Hgb 6.7 L* (12.0-16.0) g/dl Hct 21.2 L (37.0-47.0) % MCV (80.0-100.0) fL MCH (25.0-34.0) pg MCHC (32.0-36.0) g/dL RDW Std Deviation (36.4-46.3) fL RDW Coeff of Eleazar (11.5-14.5) % Plt Count (130-400) K/uL MPV (9.4-12.4) fL Immature Gran % (Auto) % Neut % (Auto) % Lymph % (Auto) % [place] % (Auto) % Eos % (Auto) % Baso % (Auto) % Reticulocyte % (Auto) (0.50-2.00) % Neut # (Auto) (1.40-6.50) K/uL Lymph # (Auto) (1.20-3.40) K/uL [place] # (Auto) (0.11-0.59) K/uL Eos # (Auto) (0.00-0.50) K/uL Baso # (Auto) (0.00-0.20) K/uL Reticulocyte # (0.020-0.100) 10^6/uL Immature Gran # (Auto) (0.01-0.20) K/uL Absolute Nucleated RBC (0.00-0.12) K/uL Nucleated RBC % (auto) % Polychromasia Hypochromasia Ovalocytes PT (9.0-12.0) Seconds INR (0.9-1.1) APTT (21-31) Seconds PTT Ratio Sodium (136-145) mmol/L Potassium (3.5-5.1) mmol/L Chloride (98-107) mmol/L Carbon Dioxide (21-32) mmol/L Anion Gap (3-11) BUN (6-23) mg/dl Creatinine (0.6-1.2) mg/dl Est Cr Clr Drug Dosing ml/min eGFR BUN/Creatinine Ratio (10-20) Glucose (70-99(Fasting)) mg/dl Calcium (8.6-10.3) mg/dl Iron (35-150) mcg/dl Transferrin (200-360) mg/dl Ferritin (8-388) ng/ml Total Bilirubin (0.2-1.0) mg/dl AST (13-39) U/L ALT (7-52) U/L Alkaline Phosphatase (34-104) U/L Troponin I High Sens 356.8 H* 456.3 H* D (0-14) pg/ml B-Natriuretic Peptide (0-100) pg/ml Total Protein (6.0-8.3) gm/dl Albumin (3.4-5.0) gm/dl Globulin (2.5-4.0) gm/dl Albumin/Globulin Ratio (0.9-2) Vitamin B12 (180-914) pg/ml Folate (>5.38) ng/ml Procalcitonin (0-0.5) ng/ml Blood Type Antibody Screen Crossmatch 12/23/24 12/23/24 Range/Units 15:15 11:25 WBC 10.82 H (4.8-10.8) K/ul RBC 2.32 L (4.20-5.40) M/uL Hgb 7.0 L (12.0-16.0) g/dl Hct 22.3 L (37.0-47.0) % MCV 96.1 (80.0-100.0) fL MCH 30.2 (25.0-34.0) pg MCHC 31.4 L (32.0-36.0) g/dL RDW Std Deviation 55.5 H (36.4-46.3) fL RDW Coeff of Eleazar 15.8 H (11.5-14.5) % Plt Count 390 (130-400) K/uL MPV 10.8 (9.4-12.4) fL Immature Gran % (Auto) 0.5 % Neut % (Auto) 81.8 % Lymph % (Auto) 12.3 % [place] % (Auto) 4.7 % Eos % (Auto) 0.4 % Baso % (Auto) 0.3 % Reticulocyte % (Auto) 3.04 H (0.50-2.00) % Neut # (Auto) 8.86 H (1.40-6.50) K/uL Lymph # (Auto) 1.33 (1.20-3.40) K/uL [place] # (Auto) 0.51 (0.11-0.59) K/uL Eos # (Auto) 0.04 (0.00-0.50) K/uL Baso # (Auto) 0.03 (0.00-0.20) K/uL Reticulocyte # 0.070 (0.020-0.100) 10^6/uL Immature Gran # (Auto) 0.05 (0.01-0.20) K/uL Absolute Nucleated RBC 0.07 (0.00-0.12) K/uL Nucleated RBC % (auto) 0.6 % Polychromasia 1+ Hypochromasia Present Ovalocytes 1+ PT 11.9 (9.0-12.0) Seconds INR 1.1 (0.9-1.1) APTT 24 (21-31) Seconds PTT Ratio 0.9 Sodium 133 L (136-145) mmol/L Potassium 4.7 (3.5-5.1) mmol/L Chloride 106 (98-107) mmol/L Carbon Dioxide 15 L (21-32) mmol/L Anion Gap 12 H (3-11) BUN 71 H (6-23) mg/dl Creatinine 2.40 H (0.6-1.2) mg/dl Est Cr Clr Drug Dosing 15.1 ml/min eGFR 18.83 BUN/Creatinine Ratio 29.6 H (10-20) Glucose 131 H (70-99(Fasting)) mg/dl Calcium 9.8 (8.6-10.3) mg/dl Iron 16 L (35-150) mcg/dl Transferrin 245 (200-360) mg/dl Ferritin 13.2 (8-388) ng/ml Total Bilirubin 0.4 (0.2-1.0) mg/dl AST 24 (13-39) U/L ALT 16 (7-52) U/L Alkaline Phosphatase 47 (34-104) U/L Troponin I High Sens 375.7 H* (0-14) pg/ml B-Natriuretic Peptide 1964 H (0-100) pg/ml Total Protein 6.2 (6.0-8.3) gm/dl Albumin 3.6 (3.4-5.0) gm/dl Globulin 2.6 (2.5-4.0) gm/dl Albumin/Globulin Ratio 1.4 (0.9-2) Vitamin B12 > 1500 H (180-914) pg/ml Folate 10.40 (>5.38) ng/ml Procalcitonin 0.10 (0-0.5) ng/ml Blood Type B Negative Antibody Screen NEGATIVE Crossmatch See Detail PG Care Time/CCT Total # of Minutes Spent Total Time Spent with Patient: Total time spent is greater than 50% in coordination of care (as documented) at patient's floor/unit and/or counseling patient: Coding Level of Care Code None Diagnoses Symptomatic anemia D64.9
--- NOTE | 2024-12-24 12:28 | Cardiology Consultation ---
Date of Consultation December 24, 2024 Assessment & Plan (1) Non-ST elevation SD (NSTEMI): (2) Elevated troponin: (3) Paroxysmal atrial fibrillation: (4) CAD (coronary artery disease): (5) Aortic stenosis: Plan NSTEMI Elevated troponin - There is marked elevation in her cardiac biomarkers. Given her reported symptoms and suspicion for ACS during her last hospitalization, it is likely that ACS again is a component. This topic was reviewed with the patient along with risk vs benefit of invasive strategy. Currently, the patient wishes to continue with conservative and not under a cardiac catheterization. Medical therapy will be further discussed after her EGD is completed. Paroxysmal A-fib - She has remained in NSR so far throughout this hospitalization. Eliquis is on hold given underlying GI bleed. She is not on any antiarrhythmic or rate control medications. Her atrial fibrillation burden is unknown. It may be reasonable to monitor her cardiac rhythm after this hospitalization to assess her afib burden to aide in medical management. A WATCHMAN could be a possibility, though the patient would need to remain on anticogulation for so long prior to having this procedure completed. HFpEF - Slight exacerbation possible, though patient does not appear to be overloaded. Would monitor I/O along with daily weight. Diuretic may be used on a prn basis with regard to renal function CAD - Known to have significant coronary artery disease. Previous percutaneous intervention to the RCA and LAD quite remotely. LDL at goal (65) when measured earlier this year. Aortic stenosis - Mostly sclerosis on her most recent echocardiogram. No significant gradient. Mitral regurgitation - Moderate to severe in nature. Preserved LV systolic function. Not currently a candidate for intervention. Supervising Physician Co-Signing Physician Notes Patient was seen along with Sully Vinson, the case was discussed and recommendations were formulated together. I discussed options with the patient in detail, she is opposed to having invasive procedures and I am in agreement. She recognizes that her age is a contributing factor and does not want any heroic measures. I do not know her atrial fibrillation burden, but we need to stop her anticoagulation now and she is in sinus rhythm. We could assess her burden with a loop recorder, if she has recurrent atrial fibrillation we could potentially treat it with antiarrhythmic therapy and minimize the risk of stroke that way rather than with an anticoagulant. At this point I would simply stop the anticoagulation and watch for recurrent atrial fibrillation during this hospitalization. Before discharge we will have to make further determinations. She has known coronary artery disease and does have significant troponin elevation, we are going to get an echocardiogram to look for wall motion abnormalities. Certainly some of the troponin elevation would be due to her significant anemia, it is not clear that she has had significant myocardial damage. She prefers not to have a catheterization and I am in agreement, there is little that we could do with intervention during the presence of an acute GI bleed and the inability to use platelet inhibitors or anticoagulants. She is not having clear symptoms related to ischemia and this could all be due to demand ischemia from the anemia. I will review the echocardiogram to see if there has been observable damage to her left ventricular function. History of Present Illness Attending Physician: Dami Capone MD History of Present Illness Yokasta is an 89 year old woman with a pmh of CAD s/p PCI to RCA and LAD , HTN, HLD, paroxysmal afib on Eliquis, HFpEF, , recent hospitalization for NSTEMI with decision to proceed with conservative management who was admitted on 12/23/24 for shortness of breath and GI bleed. On the morning of admission, the patient was attempting to get out of bed when she began to develop significant neck pain described as, "squeezing." This was accompanied by pain in between her shoulder blades that radiated to both arms along with shortness of breath and dizziness. This episode lasted for 10-15 minutes on their own while sitting. After these symptoms resolved, she called her family and then proceeded to the ER. In the ER, in addition to above, she admitted to several weeks of dark melanotic stools. Her hemoglobin was 7 and she received 2 rounds of PRBCs. Her HS troponin was elevated at 376, followed by 456. This did trend down to 357, but has since increased with the most recent value being 2351. Renal function was somewhat worse than her baseline though this has since improved. Her vital signs have been stable. CXR reflected mild CHF with possible effusions. I am unable to locate a EKG from this hospitalization at this time. Per review of telemetry, she remains in NSR with rates ranging from 70s- 90s. Today, the patient reports no complaints. She denies any dizziness, chest, back or arm discomfort. She denies palpitations or shortness of breath. Shared decision making was had with the patient in regards to her afib and anticoagulation. She is already on the lower dose of Eliquis at 2.5mg BID. Her [id number] is 6 giving her a 9.7% risk of CVA per year. HAS-BLED score is 5. She is to under go an EGD today to determine the source of bleeding. Risk versus benefits were reviewed. For now, the patient will remain off her Eliquis. We will review this topic again after the EGD is completed. Further shared decision making was had in regards to her elevated cardiac enzymes and known CAD, the patient wishes to continue with conservative management rather than undergo a cardiac catheterization at this time. Allergies Allergy/AdvReac Type Severity Reaction Status Date / Time clopidogrel Allergy Intermediate HIVES Verified 12/18/24 13:54 adhesive AdvReac Mild RASH Verified 12/18/24 13:54 codeine AdvReac Mild NAUSEA Verified 12/18/24 13:54 amoxicillin AdvReac Unknown CAN'T Verified 12/18/24 13:54 REMEMBER antihistamines Allergy Unknown CAN'T Uncoded 12/18/24 13:54 REMEMBER Home Medications Medication Instructions Recorded Confirmed Type glucosamine sulf dipot 1 cap PO QAM 08/15/18 12/23/24 History chlr,msm,chond 550 mg-C 30 mg-almaz 1 mg capsule (Glucosamine Chondroitin) omeprazole 20 mg capsule,delayed 20 mg PO QAM 08/26/20 12/23/24 History release ascorbic acid (vitamin C) 500 mg 500 mg PO QAM 08/28/20 12/23/24 History capsule aspirin 81 mg tablet,delayed 81 mg PO QAM 08/28/20 12/23/24 History release (Ecotrin Low Strength) cholecalciferol (vitamin D3) 10 10 mcg PO DAILY 06/21/22 12/23/24 History mcg (400 unit) capsule calcium 600 mg (as 1 cap PO DAILY 12/11/22 12/23/24 History carbonate)-vitamin D3 12.5 mcg (500 unit) capsule (Calcium with Vit D3) allopurinol 300 mg tablet 300 mg PO PM #90 tabs 12/13/23 12/23/24 Rx gabapentin 300 mg capsule 300 mg PO DAILY PRN NEEDED PER 07/03/24 12/23/24 History PT'S MED LIST nystatin 100,000 unit/gram topical 1 applic topical BID PRN SKIN 07/03/24 12/23/24 History powder IRRITATIONS vitamin E 268 mg (400 unit) capsule 268 mg PO DAILY 07/03/24 12/23/24 History nitroglycerin 0.4 mg sublingual 0.4 mg sublingual Q5M PRN chest 07/06/24 12/23/24 Rx tablet (Nitrostat) pain #30 tabs acetaminophen 325 mg tablet 325 mg PO QID PRN PAIN/FEVER 07/13/24 12/23/24 History (Tylenol) losartan 100 mg tablet 100 mg PO QAM #100 tabs 07/13/24 12/23/24 Rx isosorbide mononitrate 30 mg 30 mg PO QAM #90 tabs 07/30/24 12/23/24 Rx tablet,extended release 24 hr amlodipine 5 mg tablet (Norvasc) 5 mg PO QAM #100 tabs 08/10/24 12/23/24 Rx atorvastatin 40 mg tablet 40 mg PO HS #100 tabs 08/10/24 12/23/24 Rx metoprolol tartrate 25 mg tablet 25 mg PO BID 90 days #200 tabs 08/10/24 12/23/24 Rx apixaban 2.5 mg tablet (Eliquis) 2.5 mg PO BID #60 tabs 11/10/24 12/23/24 Rx cyanocobalamin (vitamin B-12) 500 1,000 mcg (2 x 500 mcg) PO QAM #30 11/11/24 12/23/24 Rx mcg tablet tabs mecobalamin (vitamin B12) 1,000 1,000 mcg PO DAILY 12/02/24 12/23/24 History mcg chewable tablet vitamin B complex 1 cap PO DAILY 12/02/24 12/23/24 History furosemide 20 mg tablet 10 mg (1/2 x 20 mg) PO DAILY PRN 12/18/24 12/23/24 Rx FLUID RETENTION/SWELLING #30 tabs Patient History Medical History Acute exacerbation of CHF (congestive heart failure) Dislocation, hip Vitamin D deficiency Low back pain CAD (coronary artery disease) s/p stent x 2 to proximal RCA and 1 to mid-LAD Surgical History History of fusion of lumbar spine History of total knee arthroplasty History of hip replacement Previous back surgery Status post hip surgery S/P knee surgery Family History Mother Myocardial infarction Brother Myocardial infarction Other Family history non-contributory Denies family history of Ovarian cancer Prostate cancer Breast cancer Colorectal cancer Social History Smoking Status: Former smoker Tobacco Type: Cigarettes Age Started Using Tobacco: 15; Age Quit Using Tobacco: 43; packs per day: 0.5; Cigarettes Per Day: 5-10; Second Hand Exposure: No; Do You Dip or Chew Tobacco: No; Hx Alcohol Use: No Hx Substance Use: No Preferred Language: Italian Communication Ability: Impaired Visual Impairment: Limited Hearing Ability: Use of Hearing Aid Mud Worker Required: No Beliefs That Will Affect Care: None marital status: / Current Living Situation: Alone Current Living Situation Comment: pt lives in mobile home current occupational status: retired How many Children do You have: 4 Feels Safe at Home: Yes Safety Concerns: Feels Safe At This Time Childhood Exposure to Second-Hand Smoke: Yes Diet: regular caffeine: Yes during the past year weight has: remained stable Dental Care, Regularly: Yes Physical Activity Frequency: Does not Exercise Seatbelt Use: always Sunscreen Use: No Do you think of yourself as: straight/heterosexual Sexual Activity: has been sexually active, but not for at least 12 months Gender Identity: Female Assistive Devices: Cane and Walker Review of Systems Review of Systems: per hpi Physical Exam Physical Exam: Physical Exam: AOx3. Mood affect appear normal. All questions appropriately. HEENT: Sclerae are anicteric. Pupils are equal and reactive to light and accommodation. Extraocular movements were intact. Neuro: Cranial nerves intact Lungs: Lungs are clear to auscultation bilaterally. There are no rales wheezes or rhonchi. Normal respiratory effort without use of accessory muscles. Cardiac: The rhythm was regular. S1 and S2 were normal. There are no murmurs on examination. The PMI was not markedly displaced on palpation. Extremities: Patient has bilateral radial pulses that are equal in intensity. There is no evidence cyanosis or clubbing. Trace edema present to the bilateral ankles Skin: There are no rashes noted on examination today. Results & Data Vital Signs (Past 12 Hours) Vital Signs Temp Pulse Pulse Resp BP BP Pulse Ox 12/24/24 07:49 36.4 C L 82 18 137/80 97 12/24/24 04:41 36.4 C L 73 18 112/77 96 12/24/24 04:33 36.3 C L 76 18 103/67 96 12/24/24 03:33 36.3 C L 81 20 114/66 95 12/24/24 03:03 36.4 C L 75 20 127/77 95 12/24/24 02:48 36.0 C L 73 20 101/60 96 12/24/24 02:27 36.2 C L 73 18 115/81 96 12/24/24 02:25 36.4 C L 78 18 113/69 95 O2 Del Method O2 Flow Rate 12/24/24 07:49 Room Air 12/24/24 04:41 0 12/24/24 04:33 0 12/24/24 03:33 0 12/24/24 03:03 0 12/24/24 02:48 0 12/24/24 02:27 0 12/24/24 02:25 Room Air PG Care Time/CCT Total # of Minutes Spent Total Time Spent with Patient: Total time spent is greater than 50% in coordination of care (as documented) at patient's floor/unit and/or counseling patient: [place] [address] IN/OBS CONSULT LVL 3,45M Patient Type Established Diagnoses Non-ST elevation SD (NSTEMI) I21.4 Elevated troponin R79.89 Paroxysmal atrial fibrillation I48.0 Coronary artery disease involving [place] coronary artery of [place] heart without angina pectoris I25.10 Associated angina: unspecified whether angina present Coronary Disease-Associated Artery/Lesion type: unspecified vessel or lesion type [place] vs. transplanted heart: unspecified whether [place] or transplanted heart Aortic valve stenosis, etiology of cardiac valve disease unspecified I35.0 Cardiac valve disease etiology: etiology unspecified (4) CAD (coronary artery disease) Associated angina: unspecified whether angina present Coronary Disease- Associated Artery/Lesion type: unspecified vessel or lesion type [place] vs. transplanted heart: unspecified whether [place] or transplanted heart Qualified Code(s): I25.10 - Atherosclerotic heart disease of [place] coronary artery with out angina pectoris (5) Aortic stenosis Cardiac valve disease etiology: etiology unspecified Qualified Code(s): I35.0 - Nonrheumatic aortic (valve) stenosis
[2024-12-24 12:55] LABS: Hematocrit (blood only) 28.0 % (37.0-47.0); Hemoglobin 9.0 g/dl (12.0-16.0)
--- NOTE | 2024-12-24 13:35 | Hospitalist Progress Note ---
Date of Service December 24, 2024 Assessment & Plan (1) Upper GI bleed: (2) Dyspnea on exertion: (3) CHF (congestive heart failure): (4) Mitral regurgitation: (5) Aortic stenosis: (6) Elevated troponin: (7) Atrial fibrillation with RVR: (8) Non-ST elevation MN (NSTEMI): (9) GERD (gastroesophageal reflux disease): (10) Dyslipidemia: (11) Hypertension: Plan #upper GI bleed #blood loss anemia - subacute, progressive, on Eliquis and aspirin for coronary disease as below. Recent NSTEMI - vitally stable at this time, Protonix loading dose given in the ER, 2 units packed red blood cells with type and screen ordered - hold aspirin and Plavix, reviewed with cardiology no indication for heparin at this time given increased risk - continue to trend hemoglobin this evening and then likely tomorrow morning after endoscopy - appreciate gastroenterology recommendations, likely endoscopy later today, stable hemoglobin over this morning #NSTEMI #underlying coronary disease #elevated troponin - hold aspirin and Plavix as above, aspirin likely to be in her system several days - supportive measures with transfusion, target transfusion greater than 9/10 - marked increase in troponin this morning continues to trend upward. No signs of angina. See cardiology notes, appreciate recommendation and additional management. Ongoing medical management, target transfusion to minimize symptoms #high output Failure # HFpEF/ischemic cardiomyopathy #history of aortic scleosis/mitral regurg - Lasix as needed, at this time no outward signs of failure, elevated BNP in the setting of bleed as above - minimal edema at this time, Lasix after transfusion on an as-needed basis - monitor telemetry, no signs of high-output failure at this time, see cardiology notes #hypertension - borderline blood pressures, holding antihypertensives at this time, resume as vitals allow - Stable, resume BP meds after endoscopy #atrial fibrillation - hold metoprolol in the short-term, resume soon as possible, IV doses of metoprolol on as-needed basis for significant tachycardia - again hold Eliquis as above #CKD 4 - stable at this time, BMP in the morning #prediabetes/ elevated blood sugar - we will continue to monitor, not on any antihyperglycemic #GERD - Protonix load and post load drip as above #FEN - n.p.o. at this time, LR at 80 cc/h after the transfusion is complete #CODE STATUS - DNR/DNI per her wishes at this time discussed with patient and family at the bedside at time of admission Admission and Anticipated Discharge Date Admission Date: December 23, 2024 Subjective Feeling much better this morning. No shortness of breath, no lower extremity edema. No chest pain or palpitations. Troponin has trended up with this morning. Will continue with checks for the day until we see a decline. Hemoglobin has been stable. Her color and constitutional symptoms have improved. Current plan is endoscopy likely this afternoon. no new concerns per patient or nursing staff. No problem with bowel or bladder function. denies nausea vomiting or hematochezia Physical Exam Constitutional: WD/WN, vitals as above Eyes: PERRL, conjunctivae normal, anicteric sclerae ENMT: mucous membranes are dry Neck: no jugular venous pulse distention Respiratory: fine crackles at the bases otherwise clear with good air movement Cardiovascular: 2/6 systolic ejection murmur heard loudest at the left sternal border, no peripheral edema Gastrointestinal (Abdomen): mild dyspepsia but no localized tenderness distention or mass Skin: marked pallor on presentation per family however this is improved, no other rash or discoloration Neurologic: alert and oriented x 3, no focal deficits Results & Data Results & Data Vital Signs (Past 12 Hours) Vital Signs Temp Pulse Pulse Resp BP BP Pulse Ox 12/24/24 07:49 36.4 C L 82 18 137/80 97 12/24/24 04:41 36.4 C L 73 18 112/77 96 12/24/24 04:33 36.3 C L 76 18 103/67 96 12/24/24 03:33 36.3 C L 81 20 114/66 95 12/24/24 03:03 36.4 C L 75 20 127/77 95 12/24/24 02:48 36.0 C L 73 20 101/60 96 12/24/24 02:27 36.2 C L 73 18 115/81 96 12/24/24 02:25 36.4 C L 78 18 113/69 95 O2 Del Method O2 Flow Rate 12/24/24 07:49 Room Air 12/24/24 04:41 0 12/24/24 04:33 0 12/24/24 03:33 0 12/24/24 03:03 0 12/24/24 02:48 0 12/24/24 02:27 0 12/24/24 02:25 Room Air Laboratory Results 12/24/24 12/24/24 12/24/24 12:18 10:42 08:06 Hgb 9.0 L Hct 28.0 L Reticulocyte % (Auto) Reticulocyte # PT INR APTT PTT Ratio Sodium 136 Potassium 4.0 Chloride 107 Carbon Dioxide 16 L Anion Gap 13 H BUN 65 H Creatinine 2.19 H Est Cr Clr Drug Dosing 16.6 eGFR 21.02 BUN/Creatinine Ratio 29.7 H Glucose 117 H Calcium 9.7 Iron Transferrin Ferritin Total Bilirubin 1.0 D AST 21 ALT 15 Alkaline Phosphatase 43 Troponin I High Sens 2351.3 H* D B-Natriuretic Peptide Total Protein 5.8 L Albumin 3.4 Globulin 2.4 L Albumin/Globulin Ratio 1.4 Vitamin B12 Folate Procalcitonin Blood Type Antibody Screen Crossmatch 12/24/24 12/24/24 12/23/24 06:36 00:21 Unknown Hgb 8.7 L 7.8 L Hct 26.6 L 23.9 L Reticulocyte % (Auto) Reticulocyte # PT 12.0 INR 1.1 APTT 25 PTT Ratio 0.9 Sodium Potassium Chloride Carbon Dioxide Anion Gap BUN Creatinine Est Cr Clr Drug Dosing eGFR BUN/Creatinine Ratio Glucose Calcium Iron Transferrin Ferritin Total Bilirubin AST ALT Alkaline Phosphatase Troponin I High Sens 1830.7 H* D 356.8 H* B-Natriuretic Peptide Total Protein Albumin Globulin Albumin/Globulin Ratio Vitamin B12 Folate Procalcitonin Blood Type Antibody Screen Crossmatch 12/23/24 12/23/24 12/23/24 21:41 18:46 15:15 Hgb 6.7 L* Hct 21.2 L Reticulocyte % (Auto) 3.04 H Reticulocyte # 0.070 PT INR APTT PTT Ratio Sodium Potassium Chloride Carbon Dioxide Anion Gap BUN Creatinine Est Cr Clr Drug Dosing eGFR BUN/Creatinine Ratio Glucose Calcium Iron 16 L Transferrin 245 Ferritin 13.2 Total Bilirubin AST ALT Alkaline Phosphatase Troponin I High Sens 456.3 H* D B-Natriuretic Peptide Total Protein Albumin Globulin Albumin/Globulin Ratio Vitamin B12 > 1500 H Folate 10.40 Procalcitonin Blood Type B Negative Antibody Screen NEGATIVE Crossmatch See Detail 12/23/24 11:25 Hgb Hct Reticulocyte % (Auto) Reticulocyte # PT INR APTT PTT Ratio Sodium Potassium Chloride Carbon Dioxide Anion Gap BUN Creatinine Est Cr Clr Drug Dosing eGFR BUN/Creatinine Ratio Glucose Calcium Iron Transferrin Ferritin Total Bilirubin AST ALT Alkaline Phosphatase Troponin I High Sens B-Natriuretic Peptide 1964 H Total Protein Albumin Globulin Albumin/Globulin Ratio Vitamin B12 Folate Procalcitonin 0.10 Blood Type Antibody Screen Crossmatch PG Care Time/CCT Total # of Minutes Spent Total Time Spent with Patient: Total time spent is greater than 50% in coordination of care (as documented) at patient's floor/unit and/or counseling patient: Coding Level of Care Code 50727 SUB INP/OBS CARE 3/50MIN Diagnoses Upper GI bleed K92.2 Dyspnea on exertion R06.09 Chronic congestive heart failure, unspecified heart failure type I50.9 Heart failure type: unspecified Heart failure chronicity: chronic Mitral regurgitation I34.0 Aortic stenosis I35.0 Elevated troponin R79.89 Atrial fibrillation with RVR I48.91 Non-ST elevation MN (NSTEMI) I21.4 GERD (gastroesophageal reflux disease) K21.9 Esophagitis presence: esophagitis presence not specified Dyslipidemia E78.5 Essential hypertension I10 Hypertension type: essential hypertension (3) CHF (congestive heart failure) Heart failure type: unspecified Heart failure chronicity: chronic Qualified Code(s): I50.9 - Heart failure, unspecified (9) GERD (gastroesophageal reflux disease) Esophagitis presence: esophagitis presence not specified Qualified Code(s): K21.9 - Gastro-esophageal reflux disease without esophagitis (11) Hypertension Hypertension type: essential hypertension Qualified Code(s): I10 - Essential (primary) hypertension
--- NOTE | 2024-12-24 15:20 | Anesthesiology Consultation ---
Date of Service December 24, 2024 Assessment & Plan Chart Review Chart Review: Pending: Refer to Additional Notes / Consult section and Patient NOT seen in Pre Admission Testing Consults Requested cardiac Given that patient has elevated trop and concern for ACS recommned further cardiology workup before proceeding with EGD. W/u can include LHC, case discussed with cardiology team ASA ASA4 History Surgery Operation Date: 12/24/24 17:10 Proposed Procedures p Esophagogastroduodenoscopy Dr. Valentin Hanson MD Height/Weight Height: 5 ft 3 in Weight: 72.3 kg Allergies Allergy/AdvReac Type Severity Reaction Status Date / Time clopidogrel Allergy Intermediate HIVES Verified 12/18/24 13:54 adhesive AdvReac Mild RASH Verified 12/18/24 13:54 codeine AdvReac Mild NAUSEA Verified 12/18/24 13:54 amoxicillin AdvReac Unknown CAN'T Verified 12/18/24 13:54 REMEMBER antihistamines Allergy Unknown CAN'T Uncoded 12/18/24 13:54 REMEMBER Medications Home Medications Medication Instructions Recorded Confirmed Last Taken glucosamine sulf dipot 1 cap PO QAM 08/15/18 12/23/24 11/08/24 chlr,msm,chond 550 mg-C 30 mg-almaz 1 mg capsule (Glucosamine Chondroitin) omeprazole 20 mg capsule,delayed 20 mg PO QAM 08/26/20 12/23/24 11/08/24 release ascorbic acid (vitamin C) 500 mg 500 mg PO QAM 08/28/20 12/23/24 11/08/24 capsule aspirin 81 mg tablet,delayed 81 mg PO QAM 08/28/20 12/23/24 11/08/24 release (Ecotrin Low Strength) cholecalciferol (vitamin D3) 10 10 mcg PO DAILY 06/21/22 12/23/24 11/08/24 mcg (400 unit) capsule calcium 600 mg (as 1 cap PO DAILY 12/11/22 12/23/24 11/08/24 carbonate)-vitamin D3 12.5 mcg (500 unit) capsule (Calcium with Vit D3) allopurinol 300 mg tablet 300 mg PO PM #90 tabs 12/13/23 12/23/24 11/07/24 gabapentin 300 mg capsule 300 mg PO DAILY PRN NEEDED PER 07/03/24 12/23/24 Unknown PT'S MED LIST nystatin 100,000 unit/gram topical 1 applic topical BID PRN SKIN 07/03/24 12/23/24 Unknown powder IRRITATIONS vitamin E 268 mg (400 unit) capsule 268 mg PO DAILY 07/03/24 12/23/24 11/08/24 nitroglycerin 0.4 mg sublingual 0.4 mg sublingual Q5M PRN chest 07/06/24 12/23/24 Unknown tablet (Nitrostat) pain #30 tabs acetaminophen 325 mg tablet 325 mg PO QID PRN PAIN/FEVER 07/13/24 12/23/24 Unknown (Tylenol) losartan 100 mg tablet 100 mg PO QAM #100 tabs 07/13/24 12/23/24 11/08/24 isosorbide mononitrate 30 mg 30 mg PO QAM #90 tabs 07/30/24 12/23/24 11/08/24 tablet,extended release 24 hr amlodipine 5 mg tablet (Norvasc) 5 mg PO QAM #100 tabs 08/10/24 12/23/24 11/08/24 atorvastatin 40 mg tablet 40 mg PO HS #100 tabs 08/10/24 12/23/24 11/07/24 metoprolol tartrate 25 mg tablet 25 mg PO BID 90 days #200 tabs 08/10/24 12/23/24 11/08/24 08:00 apixaban 2.5 mg tablet (Eliquis) 2.5 mg PO BID #60 tabs 11/10/24 12/23/24 Unknown cyanocobalamin (vitamin B-12) 500 1,000 mcg (2 x 500 mcg) PO QAM #30 11/11/24 12/23/24 Unknown mcg tablet tabs mecobalamin (vitamin B12) 1,000 1,000 mcg PO DAILY 12/02/24 12/23/24 Unknown mcg chewable tablet vitamin B complex 1 cap PO DAILY 12/02/24 12/23/24 Unknown furosemide 20 mg tablet 10 mg (1/2 x 20 mg) PO DAILY PRN 12/18/24 12/23/24 Unknown FLUID RETENTION/SWELLING #30 tabs Active Medications Generic Name Dose Route Start Last Admin Trade Name Freq PRN Reason Stop Dose Admin Lactated Ringer's 1,000 mls @ 80 mls/hr 12/23/24 18:03 12/24/24 08:57 Lr IV 12/26/24 18:02 80 mls/hr .[id number] PAT Administration Pantoprazole Sodium 40 mg/ 100 mls @ 20 mls/hr 12/23/24 18:30 12/24/24 14:30 Dextrose IV 01/22/25 18:29 Infused Q5H PAT Infusion 8 MG/HR Past Medical History Medical History Acute exacerbation of CHF (congestive heart failure) Dislocation, hip Vitamin D deficiency Low back pain CAD (coronary artery disease) s/p stent x 2 to proximal RCA and 1 to mid-LAD Past Family History Family History Mother Myocardial infarction Brother Myocardial infarction Other Family history non-contributory Denies family history of Ovarian cancer Prostate cancer Breast cancer Colorectal cancer Past Surgical History Surgical History History of fusion of lumbar spine History of total knee arthroplasty History of hip replacement Previous back surgery Status post hip surgery S/P knee surgery Social History Smoking Status: Former smoker Smoking cigarettes per day: 5-10 Do You Dip or Chew Tobacco: No Hx Alcohol Use: No Hx Substance Use: No substance use type: does not use Physical Exam Vital Signs Last Vital Signs Temp 36.4 C L 12/24/24 07:49 Pulse 82 12/24/24 07:49 Resp 18 12/24/24 07:49 BP 137/80 12/24/24 07:49 Pulse Ox 97 12/24/24 07:49 O2 Del Method Room Air 12/24/24 07:49 O2 Flow Rate 0 12/24/24 04:41 Testing Laboratory Results 12/24/24 12:18 12/24/24 08:06 PT 12.0 Seconds (9.0-12.0) 12/24/24 06:36 INR 1.1 (0.9-1.1) 12/24/24 06:36 APTT 25 Seconds (21-31) 12/24/24 06:36 Blood Type B Negative 12/23/24 15:15 Antibody Screen NEGATIVE 12/23/24 15:15
--- NOTE | 2024-12-24 17:56 | XCELERA ---
[id number]
[2024-12-24 18:51] LABS: Hematocrit (blood only) 28.4 % (37.0-47.0); Hemoglobin 9.3 g/dl (12.0-16.0)
[2024-12-25] MEDS: MAGNESIUM SULFATE / D5W 1 GM/100 ML BAG IV ONE (04:15)
[2024-12-25] MEDS ORDERED: STAT IV Infusion **Titration per Protocol STA (05:38)
[2024-12-25] MEDS ORDERED: AMIODARONE IV BOLUS & DRIP IV STA (05:38)
[2024-12-25] MEDS ORDERED: 0.2 MICRON FILTER SET 1 EACH IV STA (05:38)
[2024-12-25] MEDS: AMIODARONE / D5W 150 MG/100 ML BAG IV STA (05:54)
[2024-12-25] MEDS: AMIODARONE / D5W 360 MG/200 ML BAG IV ONE (06:09)
[2024-12-25 07:00] LABS: Hematocrit (blood only) 27.5 % (37.0-47.0); Hemoglobin 9.0 g/dl (12.0-16.0); Immature Granulocytes # (auto) 0.05 K/uL (0.01-0.20); Immature Granulocytes % (auto) 0.5 %; Mean Corpuscular Hemoglobin 30.0 pg (25.0-34.0); Mean Corpuscular Volume 91.7 fL (80.0-100.0); Platelet Count 329 K/uL (130-400); RDW Standard Deviation 56.5 fL (36.4-46.3); Red Blood Count 3.00 M/uL (4.20-5.40); White Blood Count 10.32 K/ul (4.8-10.8)
[2024-12-25 07:25] LABS: Alanine Aminotransferase 17.0 U/L (7-52); Albumin Globulin Ratio 1.4 (0.9-2); Albumin Level 3.3 gm/dl (3.4-5.0); Alkaline Phosphatase 46.0 U/L (34-104); Anion Gap 14.0 (3-11); Bilirubin,Total 0.9 mg/dl (0.2-1.0); Blood Urea Nitrogen 52.0 mg/dl (6-23); Calcium 9.6 mg/dl (8.6-10.3); Carbon Dioxide 14.0 mmol/L (21-32); Chloride 107.0 mmol/L (98-107); Creatinine Clr Calc Pharmacy 18.7 ml/min; Globulin 2.4 gm/dl (2.5-4.0); Glucose 169.0 mg/dl (70-99(Fasting)); Magnesium 2.3 mg/dl (1.7-2.4); Potassium 3.8 mmol/L (3.5-5.1); Sodium 135.0 mmol/L (136-145); Total Protein 5.7 gm/dl (6.0-8.3)
--- NOTE | 2024-12-25 08:47 | Gastroenterology Progress Note ---
Date of Service December 25, 2024 Assessment & Plan (1) Symptomatic anemia: Plan: 89 year old female w/ history of aortic stenosis, recent NSTEMI with conservative management in November 2024, CKD stage IV, hyperlipidemia, HTN and others below admitted through the ED w/ report of dark stools for 2-3-weeks EGD on 12/24 canceled due to ACS. Follow cardiology recommendations. No acute indication for EGD. Appears ASA and Eliquis are on hold. Trend HGB. Monitor and document GI output. Transfuse PRN per primary service. I spent a total of 40 minutes on the date of service in review of patient's record, and previously obtained information in person and appropriate medical visit, discussion and education of plan, with patient and/or caregiver, placing orders for tests/referral/procedures as medically necessary and documentation of pertinent clinical information in patient's medical records for their visit today. Admission and Anticipated Discharge Date Admission Date: December 23, 2024 Subjective EGD canceled given concern for ACS. HGB remained stable overnight at 9.0. No bowel movement overnight. She notes some shortness of breath overnight, improving w/ oxygen. Review of Systems Review of Systems: All other findings negative except as noted in HPI. Physical Exam Constitutional: WD/WN, vitals as above Respiratory: normal respiratory effort, lungs clear to auscultation Cardiovascular: Rate/Rhythm: regular rate Gastrointestinal (Abdomen): normal bowel sounds, soft, nontender, no hepatosplenomegaly Skin: no rashes, warm and dry Results & Data Results & Data Vital Signs (Past 12 Hours) Vital Signs Temp Pulse Pulse Resp BP Pulse Ox O2 Del Method 12/25/24 07:22 97.9 F 100 H 19 110/71 95 Oxymask 12/25/24 03:49 97.3 F L 113 H 20 105/65 92 Room Air 12/24/24 23:09 97.5 F L 83 17 107/62 93 Room Air 12/24/24 22:00 69 O2 Flow Rate 12/25/24 07:22 2 12/25/24 03:49 12/24/24 23:09 12/24/24 22:00 Laboratory Results 12/25/24 12/24/24 12/24/24 Range/Units 06:28 18:27 12:18 WBC 10.32 (4.8-10.8) K/ul RBC 3.00 L (4.20-5.40) M/uL Hgb 9.0 L 9.3 L 9.0 L (12.0-16.0) g/dl Hct 27.5 L 28.4 L 28.0 L (37.0-47.0) % MCV 91.7 (80.0-100.0) fL MCH 30.0 (25.0-34.0) pg MCHC 32.7 (32.0-36.0) g/dL RDW Std Deviation 56.5 H (36.4-46.3) fL RDW Coeff of Eleazar 16.9 H (11.5-14.5) % Plt Count 329 (130-400) K/uL MPV 10.3 (9.4-12.4) fL Immature Gran % (Auto) 0.5 % Neut % (Auto) 85.9 % Lymph % (Auto) 7.3 % [place] % (Auto) 5.0 % Eos % (Auto) 1.1 % Baso % (Auto) 0.2 % Neut # (Auto) 8.87 H (1.40-6.50) K/uL Lymph # (Auto) 0.75 L (1.20-3.40) K/uL [place] # (Auto) 0.52 (0.11-0.59) K/uL Eos # (Auto) 0.11 (0.00-0.50) K/uL Baso # (Auto) 0.02 (0.00-0.20) K/uL Immature Gran # (Auto) 0.05 (0.01-0.20) K/uL Absolute Nucleated RBC 0.08 (0.00-0.12) K/uL Nucleated RBC % (auto) 0.8 % Sodium 135 L (136-145) mmol/L Potassium 3.8 (3.5-5.1) mmol/L Chloride 107 (98-107) mmol/L Carbon Dioxide 14 L (21-32) mmol/L Anion Gap 14 H (3-11) BUN 52 H (6-23) mg/dl Creatinine 1.91 H (0.6-1.2) mg/dl Est Cr Clr Drug Dosing 18.7 ml/min eGFR 24.77 BUN/Creatinine Ratio 27.2 H (10-20) Glucose 169 H (70-99(Fasting)) mg/dl Calcium 9.6 (8.6-10.3) mg/dl Magnesium 2.3 (1.7-2.4) mg/dl Total Bilirubin 0.9 (0.2-1.0) mg/dl AST 21 (13-39) U/L ALT 17 (7-52) U/L Alkaline Phosphatase 46 (34-104) U/L Troponin I High Sens Pending (0-14) pg/ml C-Reactive Protein Pending Total Protein 5.7 L (6.0-8.3) gm/dl Albumin 3.3 L (3.4-5.0) gm/dl Globulin 2.4 L (2.5-4.0) gm/dl Albumin/Globulin Ratio 1.4 (0.9-2) 10/16/ Range/Units 10:42 WBC (4.8-10.8) K/ul RBC (4.20-5.40) M/uL Hgb (12.0-16.0) g/dl Hct (37.0-47.0) % MCV (80.0-100.0) fL MCH (25.0-34.0) pg MCHC (32.0-36.0) g/dL RDW Std Deviation (36.4-46.3) fL RDW Coeff of Eleazar (11.5-14.5) % Plt Count (130-400) K/uL MPV (9.4-12.4) fL Immature Gran % (Auto) % Neut % (Auto) % Lymph % (Auto) % [place] % (Auto) % Eos % (Auto) % Baso % (Auto) % Neut # (Auto) (1.40-6.50) K/uL Lymph # (Auto) (1.20-3.40) K/uL [place] # (Auto) (0.11-0.59) K/uL Eos # (Auto) (0.00-0.50) K/uL Baso # (Auto) (0.00-0.20) K/uL Immature Gran # (Auto) (0.01-0.20) K/uL Absolute Nucleated RBC (0.00-0.12) K/uL Nucleated RBC % (auto) % Sodium (136-145) mmol/L Potassium (3.5-5.1) mmol/L Chloride (98-107) mmol/L Carbon Dioxide (21-32) mmol/L Anion Gap (3-11) BUN (6-23) mg/dl Creatinine (0.6-1.2) mg/dl Est Cr Clr Drug Dosing ml/min eGFR BUN/Creatinine Ratio (10-20) Glucose (70-99(Fasting)) mg/dl Calcium (8.6-10.3) mg/dl Magnesium (1.7-2.4) mg/dl Total Bilirubin (0.2-1.0) mg/dl AST (13-39) U/L ALT (7-52) U/L Alkaline Phosphatase (34-104) U/L Troponin I High Sens 2351.3 H* D (0-14) pg/ml C-Reactive Protein Total Protein (6.0-8.3) gm/dl Albumin (3.4-5.0) gm/dl Globulin (2.5-4.0) gm/dl Albumin/Globulin Ratio (0.9-2) PG Care Time/CCT Total # of Minutes Spent Total Time Spent with Patient: Total time spent is greater than 50% in coordination of care (as documented) at patient's floor/unit and/or counseling patient: Coding Level of Care Code 42345 SUB INP/OBS CARE 2/35MIN Diagnoses Symptomatic anemia D64.9
[2024-12-25 10:15] LABS: Hematocrit (blood only) 28.0 % (37.0-47.0); Hemoglobin 9.5 g/dl (12.0-16.0); Immature Granulocytes # (auto) 0.04 K/uL (0.01-0.20); Immature Granulocytes % (auto) 0.4 %; Mean Corpuscular Hemoglobin 30.9 pg (25.0-34.0); Mean Corpuscular Volume 91.2 fL (80.0-100.0); Platelet Count 354 K/uL (130-400); RDW Standard Deviation 55.0 fL (36.4-46.3); Red Blood Count 3.07 M/uL (4.20-5.40); White Blood Count 10.65 K/ul (4.8-10.8)
--- NOTE | 2024-12-25 10:17 | XRay Report ---
XR chest 1V portable CLINICAL HISTORY: Shortness of breath/CHF/Transfusion COMPARISON STUDY: 12/23/2024 FINDINGS: Stable cardiomegaly with increased pulmonary vascular congestion. There is hazy opacity in the lung bases with blunting of the costophrenic angles. No pneumothorax. IMPRESSION: 1. CHF. 2. Mild lung base opacity could represent atelectasis, consolidation, or small pleural effusions. ACT 112: Negative or not required by law. Electronically signed by: Harsha Salter M.D. 12/25/2024 10:16 AM
--- NOTE | 2024-12-25 11:00 | Hospitalist Progress Note ---
Date of Service December 25, 2024 Assessment & Plan (1) Upper GI bleed: (2) Dyspnea on exertion: (3) CHF (congestive heart failure): (4) Mitral regurgitation: (5) Aortic stenosis: (6) Elevated troponin: (7) Atrial fibrillation with RVR: (8) Non-ST elevation MD (NSTEMI): (9) GERD (gastroesophageal reflux disease): (10) Dyslipidemia: (11) Hypertension: Plan #upper GI bleed #blood loss anemia - subacute, progressive, on Eliquis and aspirin for coronary disease as below. Recent NSTEMI - vitally stable at this time, Protonix loading dose given in the ER, 2 units packed red blood cells with type and screen ordered - hold aspirin and Plavix, reviewed with cardiology no indication for heparin at this time given increased risk - continue to trend hemoglobin this evening and then likely tomorrow morning after endoscopy - appreciate gastroenterology recommendations, Hemoglobin has stabilized, defer EGD at this time given stability of the bleed. Underlying cardiac risks. - Continue to monitor clinically #atrial fibrillation with RVR #clinical decompensation/hypoxemia - fairly abrupt onset last night, responding well to amiodarone with rate control. Chest x-ray this morning does show persistent right lower lobe atelectasis versus consolidation. No indication of pneumonia at this time. Suspect volume overload secondary to transfusions and IV product administration - metoprolol has been on hold. Will resume as she diuresis a bit. - will review with cardiology, initiate Lasix twice daily 17, remove a couple of liters hopefully this helps her reserve #NSTEMI #underlying coronary disease #elevated troponin - hold aspirin and Plavix as above, aspirin likely to be in her system several days - supportive measures with transfusion, target transfusion greater than 9/10 - marked increase in troponin this morning continues to trend upward. No signs of angina. See cardiology notes, appreciate recommendation and additional management. Ongoing medical management, target transfusion to minimize symptoms - troponin still elevated, events through the night uncertain whether this is just decompensation secondary to rate change, will discuss with cardiology. Diuresis as above. Supportive cares as patient is deferred catheterization during her recent hospital stay #high output Failure # HFpEF/ischemic cardiomyopathy #history of aortic scleosis/mitral regurg - Lasix as needed, at this time no outward signs of failure, elevated BNP in the setting of bleed as above - minimal edema at this time, Lasix after transfusion on an as-needed basis - monitor telemetry, diuresis as above #hypertension - borderline blood pressures, holding antihypertensives at this time, resume as vitals allow - Stable, okay to resume blood pressure medications #CKD 4 - stable at this time, BMP in the morning #prediabetes/ elevated blood sugar - we will continue to monitor, not on any antihyperglycemic #GERD - Protonix load and post load drip as above #FEN - n.p.o. at this time, LR at 80 cc/h after the transfusion is complete #CODE STATUS - DNR/DNI per her wishes at this time discussed with patient and family at the bedside at time of admission Admission and Anticipated Discharge Date Admission Date: December 23, 2024 Subjective rapid decompensation this morning early a.m. around 6. [place] "like it was the end". States she developed some chest pain and pressure. Heart rate sustained in the 140s to 150s. Noted to be A-fib with RVR per nursing staff on telemetry. She has had this in the past specifically during her cardiac hospitalization. She was initiated on amiodarone drip and as her heart rate was more well- controlled her symptoms gradually improved. She has been maintained on low-flow oxygen. Doing well this morning. Still has mild symptoms but significantly improved compared to overnight. EGD deferred secondary to ACS and cardiac risk. Hemoglobin has been stable. Reviewed this with the patient and family at the bedside. Reaffirmed goals of care with patient and family. In the difficult circumstances of active coronary disease and active GI bleed. We are thus far managing to balance risks within patient goals. Physical Exam Constitutional: WD/WN, vitals as above Eyes: PERRL, conjunctivae normal, anicteric sclerae ENMT: mucous membranes are dry, oxymask in place Neck: no jugular venous pulse distention Respiratory: fine crackles at the bases otherwise clear with good air movement Cardiovascular: 2/6 systolic ejection murmur heard loudest at the left sternal border, no peripheral edema Gastrointestinal (Abdomen): mild dyspepsia but no localized tenderness distention or mass Skin: marked pallor on presentation per family however this is improved, no other rash or discoloration Neurologic: alert and oriented x 3, no focal deficits Results & Data Results & Data Vital Signs (Past 12 Hours) Vital Signs Temp Pulse Pulse Resp BP Pulse Ox O2 Del Method 12/25/24 08:49 127 H 12/25/24 08:49 Oxymask 12/25/24 07:22 36.6 C 100 H 19 110/71 95 Oxymask 12/25/24 03:49 36.3 C L 113 H 20 105/65 92 Room Air 12/24/24 23:09 36.4 C L 83 17 107/62 93 Room Air O2 Flow Rate 12/25/24 08:49 12/25/24 08:49 2 12/25/24 07:22 2 12/25/24 03:49 12/24/24 23:09 Laboratory Results 12/25/24 12/25/24 12/24/24 09:45 06:28 18:27 WBC 10.65 10.32 RBC 3.07 L 3.00 L Hgb 9.5 L 9.0 L 9.3 L Hct 28.0 L 27.5 L 28.4 L MCV 91.2 91.7 MCH 30.9 30.0 MCHC 33.9 32.7 RDW Std Deviation 55.0 H 56.5 H RDW Coeff of [place]azar 16.6 H 16.9 H Plt Count 354 329 MPV 10.1 10.3 Immature Gran % (Auto) 0.4 0.5 Neut % (Auto) 86.1 85.9 Lymph % (Auto) 7.4 7.3 [place] % (Auto) 5.1 5.0 Eos % (Auto) 0.7 1.1 Baso % (Auto) 0.3 0.2 Neut # (Auto) 9.18 H 8.87 H Lymph # (Auto) 0.79 L 0.75 L [place] # (Auto) 0.54 0.52 Eos # (Auto) 0.07 0.11 Baso # (Auto) 0.03 0.02 Immature Gran # (Auto) 0.04 0.05 Absolute Nucleated RBC 0.08 0.08 Nucleated RBC % (auto) 0.8 0.8 Sodium 135 L Potassium 3.8 Chloride 107 Carbon Dioxide 14 L Anion Gap 14 H BUN 52 H Creatinine 1.91 H Est Cr Clr Drug Dosing 18.7 eGFR 24.77 BUN/Creatinine Ratio 27.2 H Glucose 169 H Calcium 9.6 Magnesium 2.3 Total Bilirubin 0.9 AST 21 ALT 17 Alkaline Phosphatase 46 Troponin I High Sens 1266.5 H* D C-Reactive Protein 1.31 H Total Protein 5.7 L Albumin 3.3 L Globulin 2.4 L Albumin/Globulin Ratio 1.4 12/24/24 12/24/24 12:18 10:42 WBC RBC Hgb 9.0 L Hct 28.0 L MCV MCH MCHC RDW Std Deviation RDW Coeff of Eleazar Plt Count MPV Immature Gran % (Auto) Neut % (Auto) Lymph % (Auto) [place] % (Auto) Eos % (Auto) Baso % (Auto) Neut # (Auto) Lymph # (Auto) [place] # (Auto) Eos # (Auto) Baso # (Auto) Immature Gran # (Auto) Absolute Nucleated RBC Nucleated RBC % (auto) Sodium Potassium Chloride Carbon Dioxide Anion Gap BUN Creatinine Est Cr Clr Drug Dosing eGFR BUN/Creatinine Ratio Glucose Calcium Magnesium Total Bilirubin AST ALT Alkaline Phosphatase Troponin I High Sens 2351.3 H* D C-Reactive Protein Total Protein Albumin Globulin Albumin/Globulin Ratio Diagnostic Findings Chest X-Ray 12/25/24 09:34 XR chest 1V portable CLINICAL HISTORY: Shortness of breath/CHF/Transfusion COMPARISON STUDY: 12/23/2024 FINDINGS: Stable cardiomegaly with increased pulmonary vascular congestion. There is hazy opacity in the lung bases with blunting of the costophrenic angles. No pneumothorax. IMPRESSION: 1. CHF. 2. Mild lung base opacity could represent atelectasis, consolidation, or small pleural effusions. ACT 112: Negative or not required by law. Electronically signed by: Harsha Salter M.D. 12/25/2024 10:16 AM PG Care Time/CCT Total # of Minutes Spent Total Time Spent with Patient: Total time spent is greater than 50% in coordination of care (as documented) at patient's floor/unit and/or counseling patient: Coding Level of Care Code 79109 SUB INP/OBS CARE 3/50MIN Diagnoses Upper GI bleed K92.2 Dyspnea on exertion R06.09 Chronic congestive heart failure, unspecified heart failure type I50.9 Heart failure type: unspecified Heart failure chronicity: chronic Mitral regurgitation I34.0 Aortic valve stenosis, etiology of cardiac valve disease unspecified I35.0 Cardiac valve disease etiology: etiology unspecified Elevated troponin R79.89 Atrial fibrillation with RVR I48.91 Non-ST elevation MD (NSTEMI) I21.4 GERD (gastroesophageal reflux disease) K21.9 Esophagitis presence: esophagitis presence not specified Dyslipidemia E78.5 Essential hypertension I10 Hypertension type: essential hypertension (3) CHF (congestive heart failure) Heart failure type: unspecified Heart failure chronicity: chronic Qualified Code(s): I50.9 - Heart failure, unspecified (5) Aortic stenosis Cardiac valve disease etiology: etiology unspecified Qualified Code(s): I35.0 - Nonrheumatic aortic (valve) stenosis (9) GERD (gastroesophageal reflux disease) Esophagitis presence: esophagitis presence not specified Qualified Code(s): K21.9 - Gastro-esophageal reflux disease without esophagitis (11) Hypertension Hypertension type: essential hypertension Qualified Code(s): I10 - Essential (primary) hypertension
--- NOTE | 2024-12-25 11:22 | Cardiology Progress Note ---
Date of Service December 25, 2024 Assessment & Plan (1) Non-ST elevation CT (NSTEMI): (2) Elevated troponin: (3) Paroxysmal atrial fibrillation: (4) CAD (coronary artery disease): (5) Aortic stenosis: Plan NSTEMI Elevated troponin - There is marked elevation in her cardiac biomarkers. Given her reported symptoms and suspicion for ACS during her last hospitalization, it is likely that ACS again is a component. This topic was reviewed with the patient along with her family again today. The patient wishes to continue with conservative and not under go a cardiac catheterization. Systolic and diastolic failure - Systolic failure is new when compared to her echo last month, consider ischemic cause. Echo from 12/24/24 showing an EF of 25%, multiple areas of wall motion abnormalities are present with varying severity. She would benefit from heart failure directed medications once she is able to take PO medications. Would start with a beta blockade such as metoprolol succinate. Paroxysmal A-fib w/ RVR - patient went into afib with rvr around 0330 this morning. Amiodarone drip was initiated around 0600 with conversion to NSR around 0830. She remains on the drip. While oral amiodarone does take longer than other medications to build up in the body, this may be the best option for her giving her underlying comorbidities. She remains off anticoagulation given her underlying GI bleed. Anticoagulation risk vs benefits will need to be further discussed once her bleed is stabilized. She is certainly at risk for further bleeding with a HAS-BLED score of 5. Her [id number] is 6 giving her a 9.7% risk of CVA per year CAD - Known to have significant coronary artery disease. Previous percutaneous intervention to the RCA and LAD quite remotely. LDL at goal (65) when measured earlier this year. Aortic stenosis - Mostly sclerosis on her most recent echocardiogram. No significant gradient. Mitral regurgitation - Moderate to severe in nature. Preserved LV systolic function. Not currently a candidate for intervention. Admission and Anticipated Discharge Date Admission Date: December 23, 2024 Supervising Physician Co-Signing Physician Notes Patient was seen and examined along with Bekah Vinson. She had an episode of atrial fibrillation overnight, somewhat prolonged but we cannot start anticoagulant therapy. She was started on amiodarone which is probably not a bad idea, we should try to transition this to oral although there will be a gap in efficacy since it takes a long time to reach steady state with oral loading. Subjective Patient seen and evaluated at [facility], chart reviewed. Around 0330 this morning, the patient went into atrial fibrillation with RVR with an initial rate in the 130s. The patient began to decompensate around 0600 complaining of shortness of breath and chest pressure as her heart rate roxane into the 150s. Amiodarone drip was started at that point. The patient converted into normal sinus rhythm around 830 this morning. She is currently using an Oxymask. Review of Systems Review of Systems: per hpi Physical Exam Physical Exam: Physical Exam: AOx3. Mood affect appear normal. All questions appropriately. HEENT: Sclerae are anicteric. Pupils are equal and reactive to light and accommodation. Extraocular movements were intact. Neuro: Cranial nerves intact Lungs: Lungs are clear to auscultation bilaterally. There are no rales wheezes or rhonchi. Normal respiratory effort without use of accessory muscles. Cardiac: The rhythm was regular. S1 and S2 were normal. There are no murmurs on examination. The PMI was not markedly displaced on palpation. Extremities: Patient has bilateral radial pulses that are equal in intensity. There is no evidence cyanosis or clubbing. Trace edema present to the bilateral ankles Skin: There are no rashes noted on examination today. Results & Data Vital Signs (Past 12 Hours) Vital Signs Temp Pulse Pulse Resp BP Pulse Ox O2 Del Method 12/25/24 08:49 127 H 12/25/24 08:49 Oxymask 12/25/24 07:22 36.6 C 100 H 19 110/71 95 Oxymask 12/25/24 03:49 36.3 C L 113 H 20 105/65 92 Room Air O2 Flow Rate 12/25/24 08:49 12/25/24 08:49 2 12/25/24 07:22 2 12/25/24 03:49 PG Care Time/CCT Total # of Minutes Spent Total Time Spent with Patient: Total time spent is greater than 50% in coordination of care (as documented) at patient's floor/unit and/or counseling patient: Coding [place] [id number] SUB INP/OBS CARE 3/50MIN Patient Type Established Medical Decision Making High Complexity Diagnoses Non-ST elevation CT (NSTEMI) I21.4 Elevated troponin R79.89 Paroxysmal atrial fibrillation I48.0 Coronary artery disease involving [place] coronary artery of [place] heart without angina pectoris I25.10 Associated angina: unspecified whether angina present Coronary Disease-Associated Artery/Lesion type: unspecified vessel or lesion type [place] vs. transplanted heart: unspecified whether [place] or transplanted heart Aortic valve stenosis, etiology of cardiac valve disease unspecified I35.0 Cardiac valve disease etiology: etiology unspecified (4) CAD (coronary artery disease) Associated angina: unspecified whether angina present Coronary Disease- Associated Artery/Lesion type: unspecified vessel or lesion type [place] vs. transplanted heart: unspecified whether [place] or transplanted heart Qualified Code(s): I25.10 - Atherosclerotic heart disease of [place] coronary artery without angina pectoris (5) Aortic stenosis Cardiac valve disease etiology: etiology unspecified Qualified Code(s): I35.0 - Nonrheumatic aortic (valve) stenosis
[2024-12-25] MEDS: AMIODARONE / D5W 360 MG/200 ML BAG IV SCH (11:24)
[2024-12-25 17:23] LABS: Hematocrit (blood only) 29.5 % (37.0-47.0); Hemoglobin 9.6 g/dl (12.0-16.0)
[2024-12-26 06:28] LABS: Hematocrit (blood only) 28.5 % (37.0-47.0); Hemoglobin 9.1 g/dl (12.0-16.0); Immature Granulocytes # (auto) 0.04 K/uL (0.01-0.20); Immature Granulocytes % (auto) 0.4 %; Mean Corpuscular Hemoglobin 29.4 pg (25.0-34.0); Mean Corpuscular Volume 92.2 fL (80.0-100.0); Platelet Count 327 K/uL (130-400); RDW Standard Deviation 57.3 fL (36.4-46.3); Red Blood Count 3.09 M/uL (4.20-5.40); White Blood Count 8.98 K/ul (4.8-10.8)
[2024-12-26 06:56] LABS: Alanine Aminotransferase 15.0 U/L (7-52); Albumin Globulin Ratio 1.5 (0.9-2); Albumin Level 3.4 gm/dl (3.4-5.0); Alkaline Phosphatase 46.0 U/L (34-104); Anion Gap 12.0 (3-11); Bilirubin,Total 0.5 mg/dl (0.2-1.0); Blood Urea Nitrogen 43.0 mg/dl (6-23); Calcium 9.6 mg/dl (8.6-10.3); Carbon Dioxide 16.0 mmol/L (21-32); Chloride 106.0 mmol/L (98-107); Creatinine Clr Calc Pharmacy 20.0 ml/min; Globulin 2.3 gm/dl (2.5-4.0); Glucose 163.0 mg/dl (70-99(Fasting)); Magnesium 2.1 mg/dl (1.7-2.4); Potassium 3.7 mmol/L (3.5-5.1); Sodium 134.0 mmol/L (136-145); Total Protein 5.7 gm/dl (6.0-8.3)
--- NOTE | 2024-12-26 12:05 | Hospitalist Progress Note ---
Date of Service December 26, 2024 Assessment & Plan (1) Upper GI bleed: (2) Dyspnea on exertion: (3) CHF (congestive heart failure): (4) Mitral regurgitation: (5) Aortic stenosis: (6) Elevated troponin: (7) Atrial fibrillation with RVR: (8) Non-ST elevation PR (NSTEMI): (9) GERD (gastroesophageal reflux disease): (10) Dyslipidemia: (11) Hypertension: Plan #upper GI bleed #blood loss anemia - subacute, progressive, on Eliquis and aspirin for coronary disease as below. Recent NSTEMI - vitally stable at this time, Protonix loading dose given in the ER, 2 units packed red blood cells with type and screen ordered - hold aspirin and Plavix, reviewed with cardiology no indication for heparin at this time given increased risk - continue to trend hemoglobin this evening and then likely tomorrow morning after endoscopy - appreciate gastroenterology recommendations, Hemoglobin has stabilized, defer EGD at this time given stability of the bleed. Underlying cardiac risks. - stable hemoglobin levels, 9.1 today. Okay to continue with daily checks for the short-term #atrial fibrillation with RVR #clinical decompensation/hypoxemia - fairly abrupt onset last night, responding well to amiodarone with rate control. Chest x-ray this morning does show persistent right lower lobe atelectasis versus consolidation. No indication of pneumonia at this time. Suspect volume overload secondary to transfusions and IV product administration - metoprolol has been on hold. Will resume as she diuresis a bit. - will review with cardiology, initiate Lasix twice daily 17, remove a couple of liters hopefully this helps her reserve - variable weights last couple days, will switch to strict intake output, stable symptoms last 24 hours #NSTEMI #underlying coronary disease #elevated troponin - hold aspirin and Plavix as above, aspirin likely to be in her system several days - supportive measures with transfusion, target transfusion greater than 9/10 - marked increase in troponin this morning continues to trend upward. No signs of angina. See cardiology notes, appreciate recommendation and additional management. Ongoing medical management, target transfusion to minimize symptoms - troponin troponin trending downward, moderate persistent symptoms likely related to her underlying cardiac status/cardiomyopathy/ACS. continued conservative management. Daily weights and strict APPLE, clinically euvolemic may benefit from some additional diuresis. #high output Failure # HFpEF/ischemic cardiomyopathy #history of aortic scleosis/mitral regurg - Lasix as needed, at this time no outward signs of failure, elevated BNP in the setting of bleed as above - minimal edema at this time, Lasix after transfusion on an as-needed basis - monitor telemetry, daily weight and closer 1/o monitoring, diuresis as above #hypertension - borderline blood pressures, holding antihypertensives at this time, resume as vitals allow - Stable, okay to resume blood pressure medications #CKD 4 - stable at this time, BMP in the morning #prediabetes/ elevated blood sugar - we will continue to monitor, not on any antihyperglycemic #GERD - Protonix load and post load drip as above #FEN - n.p.o. at this time, LR at 80 cc/h after the transfusion is complete #CODE STATUS - DNR/DNI per her wishes at this time discussed with patient and family at the bedside at time of admission Admission and Anticipated Discharge Date Admission Date: December 23, 2024 Subjective had an okay night. Slept aside from when staff came in to wake her up for cares. No new chest pain. Breathing is not improved much but she has not had any this severe episodes as she had the previous night. Has not had much of an appetite. No other problems with eliminations. Feels short of breath even at rest lying in the bed. We discussed different positions. She is going to try and sit up a little bit more today to see if that is helpful.. Lengthy discussion with patient and family present in the room in regards to ongoing and emergent cardiac status with competing factors in managing with GI bleed. They are very understanding. She wishes to continues with the conservative measures as we have been doing. We discussed the possible clinical course for the coming days Physical Exam Constitutional: WD/WN, vitals as above Eyes: PERRL, conjunctivae normal, anicteric sclerae ENMT: mucous membranes are dry, oxymask in place Neck: no jugular venous pulse distention Respiratory: fine crackles at the bases otherwise clear with good air movement Cardiovascular: 2/6 systolic ejection murmur heard loudest at the left sternal border, no peripheral edema Gastrointestinal (Abdomen): mild dyspepsia but no localized tenderness distention or mass Skin: marked pallor on presentation per family however this is improved, no other rash or discoloration Neurologic: alert and oriented x 3, no focal deficits Results & Data Results & Data Vital Signs (Past 12 Hours) Vital Signs Temp Pulse Resp BP Pulse Ox O2 Del Method O2 Flow Rate 12/26/24 10:55 Oxymask 3 12/26/24 08:01 36.2 C L 85 23 114/74 93 Oxymask 2 12/26/24 02:52 36.3 C L 87 20 112/73 91 Oxymask 2 Laboratory Results 12/26/24 12/25/24 12/25/24 05:45 16:44 11:10 WBC 8.98 RBC 3.09 L Hgb 9.1 L 9.6 L Hct 28.5 L 29.5 L MCV 92.2 MCH 29.4 MCHC 31.9 L RDW Std Deviation 57.3 H RDW Coeff of [place]azar 17.1 H Plt Count 327 MPV 10.2 Immature Gran % (Auto) 0.4 Neut % (Auto) 80.7 Lymph % (Auto) 9.4 [place] % (Auto) 7.6 Eos % (Auto) 1.7 Baso % (Auto) 0.2 Neut # (Auto) 7.25 H Lymph # (Auto) 0.84 L [place] # (Auto) 0.68 H Eos # (Auto) 0.15 Baso # (Auto) 0.02 Immature Gran # (Auto) 0.04 Absolute Nucleated RBC 0.06 Nucleated RBC % (auto) 0.7 Sodium 134 L Potassium 3.7 Chloride 106 Carbon Dioxide 16 L Anion Gap 12 H BUN 43 H Creatinine 1.82 H Est Cr Clr Drug Dosing 20.0 eGFR 26.25 BUN/Creatinine Ratio 23.6 H Glucose 163 H Calcium 9.6 Magnesium 2.1 Total Bilirubin 0.5 AST 18 ALT 15 Alkaline Phosphatase 46 Troponin I High Sens 1243.3 H* 1510.2 H* D 1161.2 H* C-Reactive Protein 2.87 H Total Protein 5.7 L Albumin 3.4 Globulin 2.3 L Albumin/Globulin Ratio 1.5 Procalcitonin 0.07 PG Care Time/CCT Total # of Minutes Spent Total Time Spent with Patient: Total time spent is greater than 50% in coordination of care (as documented) at patient's floor/unit and/or counseling patient: Coding Level of Care Code 82214 SUB INP/OBS CARE 2/35MIN Diagnoses Upper GI bleed K92.2 Dyspnea on exertion R06.09 Chronic congestive heart failure, unspecified heart failure type I50.9 Heart failure chronicity: chronic Heart failure type: unspecified Mitral regurgitation I34.0 Aortic valve stenosis, etiology of cardiac valve disease unspecified I35.0 Cardiac valve disease etiology: etiology unspecified Elevated troponin R79.89 Atrial fibrillation with RVR I48.91 Non-ST elevation PR (NSTEMI) I21.4 GERD (gastroesophageal reflux disease) K21.9 Esophagitis presence: esophagitis presence not specified Dyslipidemia E78.5 Essential hypertension I10 Hypertension type: essential hypertension (3) CHF (congestive heart failure) Heart failure chronicity: chronic Heart failure type: unspecified Qualified Code(s): I50.9 - Heart failure, unspecified (5) Aortic stenosis Cardiac valve disease etiology: etiology unspecified Qualified Code(s): I35.0 - Nonrheumatic aortic (valve) stenosis (9) GERD (gastroesophageal reflux disease) Esophagitis presence: esophagitis presence not specified Qualified Code(s): K21.9 - Gastro-esophageal reflux disease without esophagitis (11) Hypertension Hypertension type: essential hypertension Qualified Code(s): I10 - Essential (primary) hypertension
[2024-12-27 09:13] LABS: Hematocrit (blood only) 29.5 % (37.0-47.0); Hemoglobin 9.4 g/dl (12.0-16.0); Immature Granulocytes # (auto) 0.05 K/uL (0.01-0.20); Immature Granulocytes % (auto) 0.5 %; Mean Corpuscular Hemoglobin 29.3 pg (25.0-34.0); Mean Corpuscular Volume 91.9 fL (80.0-100.0); Platelet Count 359 K/uL (130-400); RDW Standard Deviation 57.1 fL (36.4-46.3); Red Blood Count 3.21 M/uL (4.20-5.40); White Blood Count 9.45 K/ul (4.8-10.8)
[2024-12-27 09:32] LABS: Anion Gap 12.0 (3-11); Blood Urea Nitrogen 41.0 mg/dl (6-23); Calcium 9.7 mg/dl (8.6-10.3); Carbon Dioxide 16.0 mmol/L (21-32); Chloride 105.0 mmol/L (98-107); Creatinine Clr Calc Pharmacy 19.9 ml/min; Glucose 139.0 mg/dl (70-99(Fasting)); Magnesium 2.0 mg/dl (1.7-2.4); Potassium 3.7 mmol/L (3.5-5.1); Sodium 133.0 mmol/L (136-145)
--- NOTE | 2024-12-27 10:26 | Hospitalist Progress Note ---
Date of Service December 27, 2024 Assessment & Plan (1) Upper GI bleed: (2) Dyspnea on exertion: (3) CHF (congestive heart failure): (4) Mitral regurgitation: (5) Aortic stenosis: (6) Elevated troponin: (7) Atrial fibrillation with RVR: (8) Non-ST elevation [place] (NSTEMI): (9) GERD (gastroesophageal reflux disease): (10) Dyslipidemia: (11) Hypertension: Plan #upper GI bleed #blood loss anemia - subacute, progressive, on Eliquis and aspirin for coronary disease as below. Recent NSTEMI - vitally stable at this time, Protonix loading dose given in the ER, 2 units packed red blood cells with type and screen ordered - hold aspirin and Plavix, reviewed with cardiology no indication for heparin at this time given increased risk - continue to trend hemoglobin this evening and then likely tomorrow morning after endoscopy - appreciate gastroenterology recommendations, Hemoglobin has stabilized, defer EGD at this time given stability of the bleed. Underlying cardiac risks. - stable hemoglobin levels, Stable, no evidence of rebleed. continue with daily checks for the short-term #atrial fibrillation with RVR #clinical decompensation/hypoxemia #Colume overload state - fairly abrupt onset last night, responding well to amiodarone with rate control. Chest x-ray this morning does show persistent right lower lobe atelectasis versus consolidation. No indication of pneumonia at this time. Suspect volume overload secondary to transfusions and IV product administration - metoprolol has been on hold. Will resume as she diuresis a bit. - will review with cardiology, initiate Lasix twice daily 17, remove a couple of liters hopefully this helps her reserve - Start lasix 20mg IV BIDD, strict i/o encinas if needed, may benefit from Bipap over the short term. See cardiology consult/notes, appreciate recs #NSTEMI #underlying coronary disease #elevated troponin - hold aspirin and Plavix as above, aspirin likely to be in her system several days - supportive measures with transfusion, target transfusion greater than 9/10 - marked increase in troponin this morning continues to trend upward. No signs of angina. See cardiology notes, appreciate recommendation and additional management. Ongoing medical management, target transfusion to minimize symptoms - troponin troponin trending downward, moderate persistent symptoms likely related to her underlying cardiac status/cardiomyopathy/ACS. continued conservative management. Daily weights and strict APPLE, clinically euvolemic may benefit from some additional diuresis as above #high output Failure # HFpEF/ischemic cardiomyopathy #history of aortic scleosis/mitral regurg - Lasix as needed, at this time no outward signs of failure, elevated BNP in the setting of bleed as above - minimal edema at this time, Lasix after transfusion on an as-needed basis - monitor telemetry, daily weight and closer I&O monitoring, diuresis as above #hypertension - borderline blood pressures, holding antihypertensives at this time, resume as vitals allow - Stable, okay to resume blood pressure medications as needed #CKD 4 - stable at this time, BMP in the morning, monitor during diuresis #prediabetes/ elevated blood sugar - we will continue to monitor, not on any antihyperglycemic #GERD - Protonix load and post load drip as above #FEN - n.p.o. at this time, LR at 80 cc/h after the transfusion is complete #CODE STATUS - DNR/DNI per her wishes at this time discussed with patient and family at the bedside at time of admission Admission and Anticipated Discharge Date Admission Date: December 23, 2024 Subjective breathing remains much more labored. Still requiring oxygen. Feels as though it is even more difficult for her to lie flat. Feels as though she wants to sit up at the bedside but has not been able to do so secondary to nursing availability. Reviewed her labs today briefly significant elevation of BNP. Fluids during initial resuscitation and a likely component of fluid overload to her current cardiac status. Overall no new or different symptoms. No events or acute concerns per nursing staff. She is noticing some edema in the lower extremities this morning as well. Physical Exam Constitutional: WD/WN, vitals as above Eyes: PERRL, conjunctivae normal, anicteric sclerae ENMT: mucous membranes are dry, oxymask in place Neck: 23-cm venous pulse distention Respiratory: fine crackles at the bases otherwise clear with good air movement Cardiovascular: 2/6 systolic ejection murmur heard loudest at the left sternal border, no peripheral edema Gastrointestinal (Abdomen): mild dyspepsia but no localized tenderness distention or mass Musculoskeletal: 1+ edema, L>R new on exam today Skin: marked pallor on presentation per family however this is improved, no other rash or discoloration Neurologic: alert and oriented x 3, no focal deficits Results & Data Results & Data Vital Signs (Past 12 Hours) Vital Signs Temp Pulse Pulse Resp BP Pulse Ox O2 Del Method 12/27/24 07:44 36.2 C L 85 22 114/71 95 Oxymask 12/27/24 04:22 78 12/27/24 02:55 36.3 C L 80 20 122/83 92 Oxymask 12/26/24 23:35 78 12/26/24 23:05 Oxymask 12/26/24 22:37 36.3 C L 73 18 108/71 92 Oxymask O2 Flow Rate 12/27/24 07:44 2 12/27/24 04:22 12/27/24 02:55 2 12/26/24 23:35 12/26/24 23:05 3 12/26/24 22:37 2 Laboratory Results 12/27/24 12/26/24 08:39 05:45 WBC 9.45 RBC 3.21 L Hgb 9.4 L Hct 29.5 L MCV 91.9 MCH 29.3 MCHC 31.9 L RDW Std Deviation 57.1 H RDW Coeff of Eleazar 17.0 H Plt Count 359 MPV 10.4 Immature Gran % (Auto) 0.5 Neut % (Auto) 84.2 Lymph % (Auto) 6.9 Hubbard % (Auto) 6.9 Eos % (Auto) 1.3 Baso % (Auto) 0.2 Neut # (Auto) 7.96 H Lymph # (Auto) 0.65 L [place] # (Auto) 0.65 H Eos # (Auto) 0.12 Baso # (Auto) 0.02 Immature Gran # (Auto) 0.05 Absolute Nucleated RBC 0.07 Nucleated RBC % (auto) 0.7 Sodium 133 L Potassium 3.7 Chloride 105 Carbon Dioxide 16 L Anion Gap 12 H BUN 41 H Creatinine 1.84 H Est Cr Clr Drug Dosing 19.9 eGFR 25.91 BUN/Creatinine Ratio 22.3 H Glucose 139 H Calcium 9.7 Magnesium 2.0 C-Reactive Protein 6.34 H B-Natriuretic Peptide > 4700 H Procalcitonin 0.07 PG Care Time/CCT Total # of Minutes Spent Total Time Spent with Patient: Total time spent is greater than 50% in coordination of care (as documented) at patient's floor/unit and/or counseling patient: Coding Level of Care Code 41919 SUB INP/OBS CARE MIN Diagnoses Upper GI bleed K92.2 Dyspnea on exertion R06.09 Chronic congestive heart failure, unspecified heart failure type I50.9 Heart failure type: unspecified Heart failure chronicity: chronic Mitral regurgitation I34.0 Aortic valve stenosis, etiology of cardiac valve disease unspecified I35.0 Cardiac valve disease etiology: etiology unspecified Elevated troponin R79.89 Atrial fibrillation with RVR I48.91 Non-ST elevation [place] (NSTEMI) I21.4 GERD (gastroesophageal reflux disease) K21.9 Esophagitis presence: esophagitis presence not specified Dyslipidemia E78.5 Essential hypertension I10 Hypertension type: essential hypertension (3) CHF (congestive heart failure) Heart failure type: unspecified Heart failure chronicity: chronic Qualified Code(s): I50.9 - Heart failure, unspecified (5) Aortic stenosis Cardiac valve disease etiology: etiology unspecified Qualified Code(s): I35.0 - Nonrheumatic aortic (valve) stenosis (9) GERD (gastroesophageal reflux disease) Esophagitis presence: esophagitis presence not specified Qualified Code(s): K21.9 - Gastro-esophageal reflux disease without esophagitis (11) Hypertension Hypertension type: essential hypertension Qualified Code(s): I10 - Essential (primary) hypertension
--- NOTE | 2024-12-27 10:38 | Cardiology Progress Note ---
Date of Service December 27, 2024 Assessment & Plan (1) Non-ST elevation [place] (NSTEMI): (2) Elevated troponin: (3) Paroxysmal atrial fibrillation: (4) CAD (coronary artery disease): (5) Aortic stenosis: Plan NSTEMI Elevated troponin - There is marked elevation in her cardiac biomarkers. Given her reported symptoms and suspicion for ACS during her last hospitalization, it is likely that ACS again is a component. This topic was reviewed with the patient along with her family again today. The patient wishes to continue with conservative and not under go a cardiac catheterization. Systolic and diastolic failure - Systolic failure is new when compared to her echo last month, consider ischemic cause. Echo from 12/24/24 showing an EF of 25%, multiple areas of wall motion abnormalities are present with varying severity. She would benefit from heart failure directed medications once she is able to take PO medications. She is on low-dose metoprolol succinate. Paroxysmal A-fib w/ RVR - patient went into afib with rvr around 0330 yesterday morning. Amiodarone drip was initiated around 0600 with conversion to NSR around 0830. She remains on the drip. While oral amiodarone does take longer than other medications to build up in the body, this may be the best option for her giving her underlying comorbidities. We should transition to oral amiodarone, I usually like to overlap by 24 hours. She remains off anticoagulation given her underlying GI bleed. Anticoagulation risk vs benefits will need to be further discussed once her bleed is stabilized. She is certainly at risk for further bleeding with a HAS-BLED score of 5. Her [id number] is 6 giving her a 9.7% risk of CVA per year CAD - Known to have significant coronary artery disease. Previous percutaneous intervention to the RCA and LAD quite remotely. LDL at goal (65) when measured earlier this year. Aortic stenosis - Mostly sclerosis on her most recent echocardiogram. No significant gradient. Mitral regurgitation - Moderate to severe in nature. Preserved LV systolic function. Not currently a candidate for intervention. Admission and Anticipated Discharge Date Admission Date: December 23, 2024 Subjective She is a little more short of breath today, she is on an oxygen mask. She is not having chest discomfort. Physical Exam Physical Exam: Constitutional: Alert, cooperative and in no distress. HEENT: Unremarkable, she is wearing an oxygen mask. Neck: No jugular venous distention, carotid pulses are normal and equal bilaterally without bruits. Pulmonary: Bilateral crackles on auscultation bilaterally. Cardiac: Regular rhythm with a grade 2 or 6 crescendo decrescendo murmur at the base, a grade 2/6 holosystolic murmur at the apex, no gallop or rub. Abdomen: Soft, nontender with normal bowel sounds. Extremities: +1 bilateral pretibial edema. Neurologic: No focal findings. Skin: No rash, ecchymoses or petechiae. Results & Data Vital Signs (Past 12 Hours) Vital Signs Temp Pulse Pulse Resp BP Pulse Ox O2 Del Method 12/27/24 07:44 36.2 C L 85 22 114/71 95 Oxymask 12/27/24 04:22 78 12/27/24 02:55 36.3 C L 80 20 122/83 92 Oxymask 12/26/24 23:35 78 12/26/24 23:05 Oxymask 12/26/24 22:37 36.3 C L 73 18 108/71 92 Oxymask O2 Flow Rate 12/27/24 07:44 2 12/27/24 04:22 12/27/24 02:55 2 12/26/24 23:35 12/26/24 23:05 3 12/26/24 22:37 2 Laboratory Results Cardiac Enzymes 12/27/24 Range/Units 08:39 B-Natriuretic Peptide > 4700 H (0-100) pg/ml Coagulation 12/27/24 Range/Units 08:39 B-Natriuretic Peptide > 4700 H (0-100) pg/ml CBC 12/27/24 Range/Units 08:39 WBC 9.45 (4.8-10.8) K/ul RBC 3.21 L (4.20-5.40) M/uL Hgb 9.4 L (12.0-16.0) g/dl Hct 29.5 L (37.0-47.0) % Plt Count 359 (130-400) K/uL Neut # (Auto) 7.96 H (1.40-6.50) K/uL Lymph # (Auto) 0.65 L (1.20-3.40) K/uL Hill # (Auto) 0.65 H (0.11-0.59) K/uL Eos # (Auto) 0.12 (0.00-0.50) K/uL Baso # (Auto) 0.02 (0.00-0.20) K/uL Comprehensive Metabolic Panel 12/27/24 Range/Units 08:39 Sodium 133 L (136-145) mmol/L Potassium 3.7 (3.5-5.1) mmol/L Chloride 105 (98-107) mmol/L Carbon Dioxide 16 L (21-32) mmol/L BUN 41 H (6-23) mg/dl Creatinine 1.84 H (0.6-1.2) mg/dl Glucose 139 H (70-99(Fasting)) mg/dl Calcium 9.7 (8.6-10.3) mg/dl Intake and Output 12/26/24 12/27/24 12/27/24 22:59 06:59 14:59 Intake Total 1450 / 2947.333 100 / 2947.333 100 / 100 Balance 1450 / 2947.333 100 / 2947.333 100 / 100 Intake: IV 1400 / 2897.333 100 / 2897.333 100 / 100 Amiodarone / D5w 360 mg In 200 200 / 400 ml @ 0.5 MG/MIN 16.667 mls/hr IV .Q12H PAT Rx#:[id number] Lactated Ringer's 1,000 ml @ 80 1000 / 2000 mls/hr IV .[id number] PAT Rx#: [id number] PANTOprazole 40 mg In Dextrose 200 / 497.333 100 / 497.333 100 / 100 5% Mini-B 100 ml @ 8 MG/HR 20 mls/hr IV Q5H PAT Rx#:[id number] Oral 50 / 50 Other: # Unmeasured Voids 2 2 Weight 73.2 kg Weight Measurement Method Built in [facility] Diagnostic Findings Telemetry: Sinus rhythm 70 to 100 bpm PG Care Time/CCT Total # of Minutes Spent Total Time Spent with Patient: Total time spent is greater than 50% in coordination of care (as documented) at patient's floor/unit and/or counseling patient: Coding Level of Care Code 58672 SUB INP/OBS CARE 2/35MIN Diagnoses Non-ST elevation [place] (NSTEMI) I21.4 Elevated troponin R79.89 Paroxysmal atrial fibrillation I48.0 Coronary artery disease involving [place] coronary artery of [place] heart without angina pectoris I25.10 Coronary Disease-Associated Artery/Lesion type: unspecified vessel or lesion type [place] vs. transplanted heart: unspecified whether [place] or transplanted heart Associated angina: unspecified whether angina present Aortic valve stenosis, etiology of cardiac valve disease unspecified I35.0 Cardiac valve disease etiology: etiology unspecified (4) CAD (coronary artery disease) Coronary Disease-Associated Artery/Lesion type: unspecified vessel or lesion type [place] vs. transplanted heart: unspecified whether [place] or transplanted heart Associated angina: unspecified whether angina present Qualified Code(s): I25.10 - Atherosclerotic heart disease of [place] coronary artery without angina pectoris (5) Aortic stenosis Cardiac valve disease etiology: etiology unspecified Qualified Code(s): I35.0 - Nonrheumatic aortic (valve) stenosis
[2024-12-27] MEDS: AMIODARONE 200 MG TAB PO SCH (11:27)
[2024-12-27] MEDS: FUROSEMIDE INJ 20 MG/2 ML VIAL IV SCH (16:17)
[2024-12-27] MEDS: PANTOprazole 40 MG/10 ML SYR IV SCH (21:08)
--- NOTE | 2024-12-27 23:31 | Electrocardiogram Report ---
Test Reason : Blood Pressure : */* mmHG Vent. Rate : 120 BPM Atrial Rate : * BPM P-R Int : * ms QRS Dur : 100 ms QT Int : 262 ms P-R-T Axes : * 78 184 degrees QTcB Int : 370 ms Atrial fibrillation with rapid ventricular response Low voltage QRS Anteroseptal infarct (cited on or before 24-Dec-2024) Abnormal ECG When compared with ECG of 24-Dec-2024 15:50, (unconfirmed) Atrial fibrillation has replaced Sinus rhythm Vent. rate has increased by 51 bpm Confirmed by Obed Hines ([id number]) on 12/27/2024 11:30:51 PM Referred By: REFERRED SELF Confirmed By: Obed Hines
--- NOTE | 2024-12-28 00:26 | Electrocardiogram Report ---
Test Reason : Blood Pressure : */* mmHG Vent. Rate : 69 BPM Atrial Rate : 69 BPM P-R Int : 164 ms QRS Dur : 94 ms QT Int : 372 ms P-R-T Axes : 75 72 137 degrees QTcB Int : 398 ms Normal sinus rhythm Low voltage QRS Anterolateral infarct , age undetermined Abnormal ECG When compared with ECG of 11-Nov-2024 08:00, Anterolateral infarct is now Present ST no longer depressed in Lateral leads Confirmed by Obed Hines ([id number]) on 12/28/2024 12:26:33 AM Referred By: REFERRED SELF Confirmed By: Obed Hines
[2024-12-28] MEDS: FUROSEMIDE INJ 20 MG/2 ML VIAL IV ONE (02:54)
[2024-12-28] MEDS: POTASSIUM CHLORIDE 20 MEQ/15 ML UDC PO STA (02:54)
[2024-12-28] MEDS: POTASSIUM CHLORIDE CRTAB 20 MEQ TABCR PO STA (02:54)
--- NOTE | 2024-12-28 05:54 | Electrocardiogram Report ---
Test Reason : Blood Pressure : */* mmHG Vent. Rate : 77 BPM Atrial Rate : 78 BPM P-R Int : 180 ms QRS Dur : 96 ms QT Int : 360 ms P-R-T Axes : 78 79 148 degrees QTcB Int : 407 ms Normal sinus rhythm Septal infarct , age undetermined Possible Lateral infarct , age undetermined Abnormal ECG When compared with ECG of 11-Nov-2024 08:00, Septal infarct is now Present Borderline criteria for Inferior infarct are no longer Present Nonspecific T wave abnormality has replaced inverted T waves in Inferior leads Nonspecific T wave abnormality, worse in Lateral leads Confirmed by Obed Hines ([id number]) on 12/28/2024 5:54:14 AM Referred By: REFERRED SELF Confirmed By: Obed Hines
--- NOTE | 2024-12-28 13:21 | Hospitalist Progress Note ---
Date of Service December 28, 2024 Assessment & Plan (1) Upper GI bleed: Plan: Acute blood loss anemia is attributed to an acute upper GI bleed of unclear etiology as patient has not undergone EGD, and who prefers to avoid EGD or any other procedure (including cardiac catheterization) at this time, given her advanced age of 89 years, and given her acute exacerbation of chronic systolic (and diastolic) CHF with now reduced LVEF 25% and mildly reduced RV systolic function (as noted on 12/24/2024, 2:48pm TTE, CARDS Dr. Mekhi Campos), which in turn, is due to acute type I NSTEMI, which in turn, is due to acute blood loss anemia. Patient reports to me that while she has no mucosal bleeding (e.g., hematemesis, hematochezia, melena, hemoptysis, epistaxis, hematuria) on 12/28/2024, and that her Hb levels are holding steady, as shown below, that "I feel only 10% better in terms of still feeling weak and still feeling short of breath today (12/28/2024) than when I came into this hospital on 12/23/2024. Even so, I would like to go back to my own home, and to have the Case Manger arrange for a physical therapist and an occupational [place] 60 [place]. I do not want to go to a [place] [facility] [place] facility or a rehab place. No." cf., Hb 7.0, MCV 96.1, MCHC 31.4 (12/23/2024, 11:25am). cf., Hb 6.7 (12/23/2024, 6:46pm), followed by 2 units packed RBC transfusion (12/23/2024, 7:40pm; 12/24/2024, 2:16am: volume 310 mL x 2 bags) cf., Hb 7.8 (12/24/2024, 12:21am). cf., Hb 8.7 (12/24/2024, 6:36am). cf., Hb 9.0 (12/24/2024, 12:18pm). cf., Hb 9.3 (12/24/2024, 6:27pm). cf., Hb 9.0, MCV 91.7, MCHC 32.7 (12/25/2024, 6:28am). cf., Hb 9.5, MCV 91.2, MCHC 33.9 (12/25/2024, 9:45am). cf., Hb 9.6 (12/25/2024, 4:44pm). cf., Hb 9.1, MCV 92.2, MCHC 31.9 (12/26/2024, 5:45am). cf., Hb 9.4, MCV 91.9, MCHC 31.9 (12/27/2024, 8:39am). Subsequently, patient continues to receive protonix 40mg IV bid (start date/time, 12/27/2024, 9:08pm) and I will check repeat Hb level in the am. (2) Dyspnea on exertion: Plan: Etiology of dyspnea on exertion is most probably due to: 1. Acute exacerbation of chronic systolic (and diastolic) CHF with now reduced LVEF 25% and mildly reduced RV systolic function (as noted on 12/24/2024, 2:48pm TTE, CARDS Dr. Mekhi Campos), which in turn, is due to acute type I NSTEMI, which in turn, is due to acute blood loss anemia. 2. Acute fluid overload due to patient having received 2 units packed RBC transfusion (12/23/2024, 7:40pm; 12/24/2024, 2:16am: volume 310 mL x 2 bags) to treat admission Hb 6.7 g/dL (12/23/2024, 6:46pm). 3. Paroxysmal atrial fibrillation with RVR (12/25/2024, 3:30am). Hence, patient continues to receive lasix 20mg IV bid x 2 doses thus far (12/27/2024, 4:17pm; 12/28/2024, 9:21am), followed by lasix 20mg IV x 2 dose (12/28/2024, 2:54am) to treat #1 and #2 above. Hence, patient received amiodarone 150mg IV x 1 dose (12/25/2024, 5:54am), followed by amiodarone infusion @ 1mg/min (12/25/2024, 6:09am) with conversion to NSR (12/25/2024, 8:30am), followed by amiodarone infusion @ 0.5mg/min (12/25/2024, 11:24am to 12/28/2024, 9:36am, and ongoing now as of 12/28/2024, 5:08pm), along with amiodarone 200mg PO bid x 3 doses (12/27/2024, 11:27am, 4:16pm; 12/28/2024 9:21am) to treat #3 above. (3) CHF (congestive heart failure): Plan: Acute exacerbation of chronic systolic (and diastolic) CHF with now reduced LVEF 25% and mildly reduced RV systolic function (as noted on 12/24/2024, 2:48pm TTE, CARDS Dr. Mekhi Campos), which in turn, is due to acute type I NSTEMI, which in turn, is due to acute blood loss anemia. cf., TTE (12/24/2024, 2:48pm): 1. LVEF 25%. Mild concentric LVH. Multiple wall motion abnormalities of valentin kirk severity. 2. Borderline RV enlargement. RV systolic function mildly reduced. 3. LA/RA sizes normal. 4. Calcified aortic valve. AV opens well. 5. Calcified mitral apparatus. MV leaflets appear thickened, but open well. 6. Calcified tricuspid valve, but open well. (as per CARDS Dr. Mekhi Campos). cf., TTE (11/09/2024, 7:03am): 1. LVEF 50-55%. Mild concentric LVH. Grade III diastolic dysfunction. Regional wall motion abnormalities; [id number] inferior and apical hypokinesis. 2. RV normal size and normal systolic function. 3. Borderline LA enlargement. RA size normal. 4. No significant or AR. 5. PV not well seen, but grossly normal. Trace WI. 6. Moderate-severe MR. No MS. 7. Mild TR. RVSP 50-60 mm Hg. 8. Aortic root normal size. Normal IVC diameter and respiratory variation suggests normal CVP. 9. No pericardial effusion. (as per CARDS Dr. Db Garg). Given the significant interval decline in biventricular systolic function (and diastolic function) as noted in the two TTE reports above, the risk of sudden from ventricular tachycardia degenerating into ventricular fibrillation remains very high in this 89 years old patient. Patient concedes this point and states that she would like to be discharged back to her home with home PT/OT Services as soon as her shortness of breath at rest and dyspnea on exertion improve a little bit more, as patient reports: "I still feel weak and a little less short of breath today (12/28/2024) than yesterday (12/27/2024). The doc gave me a water pill yesterday, and I feel about 10% better today (12/28/2024) in terms of breathing, but I am still on oxygen today (12/28/2024). Normally, I don't use any oxygen at my home at all. I've been coughing for the past 5 days since I came into this hospital 5 days ago (12/23/2024), but nothing came up in terms of mucous or phlegm. Today, I can feel that it's getting loose in my throat, so maybe I will be able to cough something up tomorrow. No sore throat. No fevers or chills. No chest pain when I breathe in or out." Etiology of dyspnea on exertion is most probably due to: 1. Acute exacerbation of chronic systolic (and diastolic) CHF with now reduced LVEF 25% and mildly reduced RV systolic function (as noted on 12/24/2024, 2:48pm TTE, CARDS Dr. Mekhi Campos), which in turn, is due to acute type I NSTEMI, which in turn, is due to acute blood loss anemia. 2. Acute fluid overload due to patient having received 2 units packed RBC transfusion (12/23/2024, 7:40pm; 12/24/2024, 2:16am: volume 310 mL x 2 bags) to treat admission Hb 6.7 g/dL (12/23/2024, 6:46pm). 3. Paroxysmal atrial fibrillation with RVR (12/25/2024, 3:30am). Hence, patient continues to receive lasix 20mg IV bid x 2 doses thus far (12/27/2024, 4:17pm; 12/28/2024, 9:21am), followed by lasix 20mg IV x 2 dose (12/28/2024, 2:54am) to treat #1 and #2 above. (4) Mitral regurgitation: Plan: Mitral regurgitation is not reported on 12/24/2024, 2:48pm TTE, but was present on 11/09/2024, 7:03am TTE, as shown below: cf., TTE (12/24/2024, 2:48pm): 1. LVEF 25%. Mild concentric LVH. Multiple wall motion abnormalities of varying severity. 2. Borderline RV enlargement. RV systolic function mildly reduced. 3. LA/RA sizes normal. 4. Calcified aortic valve. AV opens well. 5. Calcified mitral apparatus. MV leaflets appear thickened, but open well. 6. Calcified tricuspid valve, but open well. (as per CARDS Dr. Mekhi Campos). cf., TTE (11/09/2024, 7:03am): 1. LVEF 50-55%. Mild concentric LVH. Grade III diastolic dysfunction. Regional wall motion abnormalities; [id number] inferior and apical hypokinesis. 2. RV normal size and normal systolic function. 3. Borderline LA enlargement. RA size normal. 4. No significant or AR. 5. PV not well seen, but grossly normal. Trace WI. 6. Moderate-severe MR. No MS. 7. Mild TR. RVSP 50-60 mm Hg. 8. Aortic root normal size. Normal IVC diameter and respiratory variation suggests normal CVP. 9. No pericardial effusion. (as per CARDS Dr. Db Garg). (5) Aortic stenosis: Plan: Aortic stenosis is NOT reported on either 12/24/2024, 2:48pm TTE or 11/09/2024, 7:03am TTE, as shown below: cf., TTE (12/24/2024, 2:48pm): 1. LVEF 25%. Mild concentric LVH. Multiple wall motion abnormalities of varying severity. 2. Borderline RV enlargement. RV systolic function mildly reduced. 3. LA/RA sizes normal. 4. Calcified aortic valve. AV opens well. 5. Calcified mitral apparatus. MV leaflets appear thickened, but open well. 6. Calcified tricuspid valve, but open well. (as per CARDS Dr. Mekhi Campos). cf., TTE (11/09/2024, 7:03am): 1. LVEF 50-55%. Mild concentric LVH. Grade III diastolic dysfunction. Regional wall motion abnormalities; [id number] inferior and apical hypokinesis. 2. RV normal size and normal systolic function. 3. Borderline LA enlargement. RA size normal. 4. No significant or AR. 5. PV not well seen, but grossly normal. Trace WI. 6. Moderate-severe MR. No MS. 7. Mild TR. RVSP 50-60 mm Hg. 8. Aortic root normal size. Normal IVC diameter and respiratory variation suggests normal CVP. 9. No pericardial effusion. (as per CARDS Dr. Db Garg). (6) Elevated troponin: Plan: See bullets #1, #2, and #3 above. (7) Atrial fibrillation with RVR: Plan: See bullets #1, #2, and #3 above. (8) Non-ST elevation [place] (NSTEMI): Plan: See bullets #1, #2, and #3 above. (9) GERD (gastroesophageal reflux disease): Plan: Asymptomatic on protonix 40mg IV bid (start date/time, 12/27/2024, 9:08pm). (10) Dyslipidemia: Plan: Not on lipid lowering agent(s), for unclear reason(s). (11) Hypertension: Plan: Normotensive with BP 107/67 (12/28/2024, 4:06pm) not on any anti-HTN agents, except lasix 20mg IV bid x 2 doses thus far (12/27/2024, 4:17pm; 12/28/2024, 9:21am), followed by lasix 20mg IV x 2 dose (12/28/2024, 2:54am) to treat: 1. Acute exacerbation of chronic systolic (and diastolic) CHF with now reduced LVEF 25% and mildly reduced RV systolic function (as noted on 12/24/2024, 2:48pm TTE, CARDS Dr. Mekhi Campos), which in turn, is due to acute type I NSTEMI, which in turn, is due to acute blood loss anemia. 2. Acute fluid overload due to patient having received 2 units packed RBC transfusion (12/23/2024, 7:40pm; 12/24/2024, 2:16am: volume 310 mL x 2 bags) to treat admission Hb 6.7 g/dL (12/23/2024, 6:46pm). Plan #upper GI bleed #blood loss anemia - subacute, progressive, on Eliquis and aspirin for coronary disease as below. Recent NSTEMI - vitally stable at this time, Protonix loading dose given in the ER, 2 units packed red blood cells with type and screen ordered - hold aspirin and Plavix, reviewed with cardiology no indication for heparin at this time given increased risk - continue to trend hemoglobin this evening and then likely tomorrow morning after endoscopy - appreciate gastroenterology recommendations, Hemoglobin has stabilized, defer EGD at this time given stability of the bleed. Underlying cardiac risks. - stable hemoglobin levels, Stable, no evidence of rebleed. continue with daily checks for the short-term #atrial fibrillation with RVR #clinical decompensation/hypoxemia #Colume overload state - fairly abrupt onset last night, responding well to amiodarone with rate control. Chest x-ray this morning does show persistent right lower lobe atelectasis versus consolidation. No indication of pneumonia at this time. Suspect volume overload secondary to transfusions and IV product administration - metoprolol has been on hold. Will resume as she diuresis a bit. - will review with cardiology, initiate Lasix twice daily 17, remove a couple of liters hopefully this helps her reserve - Start lasix 20mg IV BIDD, strict i/o encinas if needed, may benefit from Bipap over the short term. See cardiology consult/notes, appreciate recs #NSTEMI #underlying coronary disease #elevated troponin - hold aspirin and Plavix as above, aspirin likely to be in her system several days - supportive measures with transfusion, target transfusion greater than 9/10 - marked increase in troponin this morning continues to trend upward. No signs of angina. See cardiology notes, appreciate recommendation and additional management. Ongoing medical management, target transfusion to minimize symptoms - troponin troponin trending downward, moderate persistent symptoms likely related to her underlying cardiac status/cardiomyopathy/ACS. continued conservative management. Daily weights and strict APPLE, clinically euvolemic may benefit from some additional diuresis as above #high output Failure # HFpEF/ischemic cardiomyopathy #history of aortic scleosis/mitral regurg - Lasix as needed, at this time no outward signs of failure, elevated BNP in the setting of bleed as above - minimal edema at this time, Lasix after transfusion on an as-needed basis - monitor telemetry, daily weight and closer I&O monitoring, diuresis as above #hypertension - borderline blood pressures, holding antihypertensives at this time, resume as vitals allow - Stable, okay to resume blood pressure medications as needed #CKD 4 - stable at this time, BMP in the morning, monitor during diuresis #prediabetes/ elevated blood sugar - we will continue to monitor, not on any antihyperglycemic #GERD - Protonix load and post load drip as above #FEN - n.p.o. at this time, LR at 80 cc/h after the transfusion is complete #CODE STATUS - DNR/DNI per her wishes at this time discussed with patient and family at the bedside at time of admission Admission and Anticipated Discharge Date Admission Date: December 23, 2024 Subjective "I still feel weak and a little less short of breath today (12/28/2024) than yesterday (12/27/2024). The doc gave me a water pill yesterday, and I feel about 10% better today (12/28/2024) in terms of breathing, but I am still on oxygen today (12/28/2024). Normally, I don't use any oxygen at my home at all. I've been coughing for the past 5 days since I came into this hospital 5 days ago (12/23/2024), but nothing came up in terms of mucous or phlegm. Today, I can feel that it's getting loose in my throat, so maybe I will be able to cough something up tomorrow. No sore throat. No fevers or chills. No chest pain when I breathe in or out." Review of Systems Constitutional: Negative for antecedent/coincident fevers, chills, diaphoresis, wheeze, sore throat, hemoptysis, chest pains, palpitations, pleurisy, nausea, vomiting, diarrhea, abdominal pain, pelvic pain, hematemesis, hematochezia, melena, hematuria, dysuria, frequency, urgency, flank pain, headaches, dizziness, lightheadedness, visual changes, hearing changes, weakness, falls, syncope, trauma, travel history, sick contacts, or food/drug ingestions novel or new. All other review of systems are reported as negative by the patient on 12/28/2024. Physical Exam Constitutional: General: Uncomfortable with slight dyspnea at rest and intermittent dry coughing while utilizing oxymask with O2 saturation of 95% (12/28/2024, 7:20am), yet very cooperative and coherent. Wide awake and alert. Not confused, lethargic, or obtunded. Patient speaks in complete, fluent, and articulate sentences, pausing intermittently to clear her throat or cough without mucous production. HEENT: NC/AT. EOMI. PERRL. No nystagmus, gaze paresis, anisocoria, miosis, mydriasis, chemosis, hyphema, scleral injection, conjunctivitis, or pterygium. No otorrhea. No rhinorrhea. Neck: Supple, no stridor, bruit, or goiter. Jugular venous pressure 5cm above the sternal angle of Indra, which is typically 5 cm above the right atrium. Lymph: No anterior/posterior cervical lymphadenopathy, supraclavicular/infraclavicular lymphadenopathy, axilla/epitrochlear/inguinal lymphadenopathy. Chest: Symmetric rise and fall with respirations. Non-tender to palpation. Heart: RRR, S1 and S2. No S3 or S4 summation gallop. No tripartite friction rub. No murmur. Lungs: Clear to auscultation and percussion. No audible expiratory wheeze, egophony, pectoriloquy, increase in tactile fremitus, or flatness/dullness to percussion at the bases. Abd: Soft, non-tender, non-distended. Bowel sounds auscultated in all 4 quadrants. No rebound, guarding, Saxena's sign, or organomegaly. Ext: No clubbing, cyanosis, or edema. 2+ pedal pulses bilaterally. Skin: No decubitus ulcer or enanthem or exanthem. Neuro: No tremors, tics, or myoclonus. DTR+. Urology: + encinas catheter with 80 cc of clear yellow urine on 12/28/2024. No urethral discharge. Results & Data Results & Data Vital Signs (Past 12 Hours) Vital Signs Temp Pulse Resp BP Pulse Ox O2 Del Method O2 Flow Rate 12/28/24 12:15 36.2 C L 78 23 115/72 94 Nasal Cannula 3 12/28/24 08:00 Oxymask 3 12/28/24 07:20 36.2 C L 80 23 125/69 95 Oxymask 3 12/28/24 03:22 36.2 C L 77 20 114/68 95 Oxymask 5 Laboratory Results WBC 10.82, N82 M12 M5, Hb 7.0, MCV 96.1, MCHC 31.4, platelet 390 (12/23/2024, 11:25am). Hb 6.7 (12/23/2024, 6:46pm), followed by 2 units packed RBC transfusion (12/23/2024, 7:40pm; 12/24/2024, 2:16am: volume 310 mL x 2 bags) Hb 7.8 (12/24/2024, 12:21am). Hb 8.7 (12/24/2024, 6:36am). Hb 9.0 (12/24/2024, 12:18pm). Hb 9.3 (12/24/2024, 6:27pm). WBC 10.32, N86 L7 M5 E1, Hb 9.0, MCV 91.7, MCHC 32.7, platelet 329 (12/25/2024, 6:28am). WBC 10.65, Hb 9.5, MCV 91.2, MCHC 33.9, platelet 354 (12/25/2024, 9:45am). Hb 9.6 (12/25/2024, 4:44pm). WBC 8.98, N81 L9 M8 E2, Hb 9.1, MCV 92.2, MCHC 31.9, platelet 327 (12/26/2024, 5:45am). WBC 9.45, N84 L7 M7 E1, Hb 9.4, MCV 91.9, MCHC 31.9, platelet 359 (12/27/2024, 8:39am). Fe 16 ug/dL, ferritin 13.2 ng/mL (12/23/2024, 3:15pm). Na 133, K 4.7, glucose 131, CO2 15, anion gap 12, BUN 71, creatinine 2.40, GFR 18.83, Ca 9.8, AST 24, ALT 16, ALK PHOS 47, total bili 0.4 (12/23/2024, 11:25am). Na 136, K 4.0, glucose 117, CO2 16, anion gap 13, BUN 65, creatinine 2.19, GFR 21.02, Ca 9.7, AST 21, ALT 15, ALK PHOS 43, total bili 1.0 (12/24/2024, 8:06am). Na 135, K 3.8, glucose 169, CO2 14, anion gap 14, BUN 52, creatinine 1.91, GFR 24.77, Ca 9.6, Mg 2.3, AST 21, ALT 17, ALK PHOS 46, total bili 0.9 (12/25/2024, 6:28am). Na 134, K 3.7, glucose 163, CO2 16, anion gap 12, BUN 43, creatinine 1.82, GFR 26.25, Ca 9.6, Mg 2.1, AST 18, ALT 15, ALK PHOS 46, total bili 0.5 (12/26/2024, 5:45am). Na 133, K 3.7, glucose 139, CO2 16, anion gap 12, BUN 41, creatinine 1.84, GFR 25.91, Ca 9.7, Mg 2.0 (12/27/2024, 8:39am). Troponin-I #1 375.7 pg/mL (12/23/2024, 11:25am). Troponin-I #2 456.3 pg/mL (12/23/2024, 9:41pm). Troponin-I #3 358.6 pg/mL (12/23/2024, time ?) Troponin-I #4 1,830.7 pg/mL (12/24/2024, 6:36am). Troponin-I #5 2,351.3 pg/mL (12/24/2024, 10:42am). Troponin-I #6 1,266.5 pg/mL (12/25/2024, 6:28am). Troponin-I #7 1,161.2 pg/mL (12/25/2024, 11:10am). Troponin-I #1 1,510.2 pg/mL (12/25/2024, 4:44pm). Troponin-I #2 1,243.3 pg/mL (12/26/2024, 5:45am). BNP 482 pg/mL (07/03/2024, 6:58pm). BNP 1,186 pg/mL (11/08/2024, 2:02pm). BNP 1,964 pg/mL (12/23/2024, 11:25am). BNP > 4,700 pg/mL (12/27/2024, 8:39am). CRP #1 1.31 mg/dL (12/25/2024, 6:28am). CRP #2 2.87 mg/dL (12/26/2024, 5:45am). CRP #3 6.34 mg/dL (12/27/2024, 8:39am). Procalcitonin #1 0.07 ng/mL (12/26/2024, 5:45am). Diagnostic Findings Portable CXR (12/23/2024, 11:39am): 1. CHF. 2. Mild hazy opacity in the lung bases could represent atelectasis, early pneumonia, or small pleural effusions. Portable CXR (12/25/2024, 9:34am): 1. CHF. 2. Mild lung base opacity could represent atelectasis, consolidation, or small pleural effusions. ECG Additional Comments: EKG #1 (12/23/2024, 11:23am): NSR @ 77, WI 180, QTC 407, TWI in II, III, aVF, V6, no acute ST depressions/elevations (by my review). EKG #2 (12/24/2024, 3:50pm): NSR @ 69, WI 164, QTC 398, TWI in III, aVF, V6, no acute ST depressions/elevations (by my review). EKG #3 (12/25/2024, 3:35am): AFIB @ 120, QTC 370, TWI in II, III, aVF, V6, no acute ST depressions/elevations (by my review). EKG old (11/11/2024, 8:00am): NSR @ 63, WI 162, QTC 446, TWI in II, III, aVF, V6, no acute ST depressions/elevations (by my review). TTE (12/24/2024, 2:48pm): 1. LVEF 25%. Mild concentric LVH. Multiple wall motion abnormalities of varying severity. 2. Borderline RV enlargement. RV systolic function mildly reduced. 3. LA/RA sizes normal. 4. Calcified aortic valve. AV opens well. 5. Calcified mitral apparatus. MV leaflets appear thickened, but open well. 6. Calcified tricuspid valve, but open well. (as per CARDS Dr. Mekhi Campos). TTE (11/09/2024, 7:03am): 1. LVEF 50-55%. Mild concentric LVH. Grade III diastolic dysfunction. Regional wall motion abnormalities; [id number] inferior and apical hypokinesis. 2. RV normal size and normal systolic function. 3. Borderline LA enlargement. RA size normal. 4. No significant or AR. 5. PV not well seen, but grossly normal. Trace WI. 6. Moderate-severe MR. No MS. 7. Mild TR. RVSP 50-60 mm Hg. 8. Aortic root normal size. Normal IVC diameter and respiratory variation suggests normal CVP. 9. No pericardial effusion. (as per CARDS Dr. Db Garg). PG Care Time/CCT Total # of Minutes Spent Total Time Spent with Patient: Total time spent is greater than 50% in coordination of care (as documented) at patient's floor/unit and/or counseling patient: Coding Level of Care Code 33819 SUB INP/OBS CARE 3/50MIN Diagnoses Upper GI bleed K92.2 Dyspnea on exertion R06.09 Chronic congestive heart failure, unspecified heart failure type I50.9 Heart failure chronicity: chronic Heart failure type: unspecified Mitral regurgitation I34.0 Aortic valve stenosis, etiology of cardiac valve disease unspecified I35.0 Cardiac valve disease etiology: etiology unspecified Elevated troponin R79.89 Atrial fibrillation with RVR I48.91 Non-ST elevation [place] (NSTEMI) I21.4 GERD (gastroesophageal reflux disease) K21.9 Esophagitis presence: esophagitis presence not specified Dyslipidemia E78.5 Essential hypertension I10 Hypertension type: essential hypertension (3) CHF (congestive heart failure) Heart failure chronicity: chronic Heart failure type: unspecified Qualified Code(s): I50.9 - Heart failure, unspecified (5) Aortic stenosis Cardiac valve disease etiology: etiology unspecified Qualified Code(s): I35.0 - Nonrheumatic aortic (valve) stenosis (9) GERD (gastroesophageal reflux disease) Esophagitis presence: esophagitis presence not specified Qualified Code(s): K21.9 - Gastro-esophageal reflux disease without esophagitis (11) Hypertension Hypertension type: essential hypertension Qualified Code(s): I10 - Essential (primary) hypertension
[2024-12-28] MEDS: ACETAMINOPHEN 325 MG TAB PO ONE (16:05)
[2024-12-28] MEDS: ACETAMINOPHEN 325 MG TAB PO PRN (22:58)
[2024-12-29] MEDS: FUROSEMIDE INJ 20 MG/2 ML VIAL IV ONE (04:20)
[2024-12-29] MEDS: POTASSIUM CHLORIDE CRTAB 20 MEQ TABCR PO STA (04:35)
--- NOTE | 2024-12-29 04:56 | XRay Report ---
EXAM: XR chest 1V portable CLINICAL HISTORY: increasing supp O2 req, ?fluid overload TECHNIQUE: An X-ray image of the chest was obtained in the AP projection. COMPARISON: 12/25/2024. FINDINGS: Pulmonary Parenchyma: The right middle and lower lung zones show faint haziness. Bilateral hilar congestion is seen. There is no evidence of collapse. No pulmonary nodules are identified. Mild obliteration of both costophrenic recesses is present, suggesting minimal pleural effusion or pleural thickening. Heart and Mediastinum: Cardiomegaly is noted. Calcifications of the aortic knuckle are seen. No mediastinal widening or masses are present. No hilar or mediastinal lymphadenopathy is identified. 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 The left humeral head is deformed, with non-visualization of the greater tuberosity, likely post-traumatic versus operative. The bony thorax appears intact without fractures or deformities. Soft Tissues: Mild soft tissue lucencies are seen at the right lateral chest wall, likely representing soft tissue overlap shadow. Gastric gases are not visualized (correlation with prior CT 11/08/2024). IMPRESSION: 1. Cardiomegaly with bilateral hilar congestion, suggestive of possible fluid overload or early pulmonary edema (stable). 2. Faint haziness in the right middle and lower lung zones may reflect interstitial congestion or subsegmental atelectasis (more prominent than in the prior study). 3. Reduced right-sided pleural effusion with minimal residual blunting of the costophrenic angle. 4. Minimal left-sided pleural effusion or pleural thickening (stable). Electronically signed by Kedar August 12-29-2024 04:56 AM
[2024-12-29] MEDS: MoRPHine SULFATE 4 MG/ML 1 ML CARP\\VIAL IV STA (06:15)
[2024-12-29 07:22] LABS: Hematocrit (blood only) 31.0 % (37.0-47.0); Hemoglobin 9.9 g/dl (12.0-16.0); Mean Corpuscular Hemoglobin 29.4 pg (25.0-34.0); Mean Corpuscular Volume 92.0 fL (80.0-100.0); Platelet Count 393 K/uL (130-400); RDW Standard Deviation 57.7 fL (36.4-46.3); Red Blood Count 3.37 M/uL (4.20-5.40); White Blood Count 10.41 K/ul (4.8-10.8)
[2024-12-29 07:43] LABS: Anion Gap 14.0 (3-11); Blood Urea Nitrogen 47.0 mg/dl (6-23); Calcium 9.7 mg/dl (8.6-10.3); Carbon Dioxide 15.0 mmol/L (21-32); Chloride 103.0 mmol/L (98-107); Creatinine Clr Calc Pharmacy 14.5 ml/min; Glucose 124.0 mg/dl (70-99(Fasting)); Potassium 4.2 mmol/L (3.5-5.1); Sodium 132.0 mmol/L (136-145)
[2024-12-29 11:46] VITALS: TEMP 98.1
[2024-12-29] MEDS ORDERED: COUGH DROP (SUGAR FREE) LOZ 24 LOZ/1 BOX BUCCAL PRN (13:28)
[2024-12-29 15:35] VITALS: BP 124/75; PULSE 78; RESP 32; O2SAT 91
--- NOTE | 2024-12-29 16:27 | Palliative Care Consultation ---
Date of Consultation December 29, 2024 Assessment & Plan (1) Dyspnea and respiratory abnormalities: MS 2mg IV q1h prn dyspnea or pain (2) Generalized weakness: (3) Advanced care planning/counseling discussion: A 60 min face to face ACPmeeting was held at bedside with Yokasta, dtr x1 in person, son x1 in person, his on phone/speaker, another dtr on speaker and granddaughter Yanna Greenfield [facility] RN. Yokasta told me she knows she does not have long and she is "looking forward to reuniting with my of 68yr when I get to [facility], he 2 years ago and I miss him. I am ready." She and family are in agreement to transition to [facility] [employer] [employer] [facility] and has the goal of getting home with hospice/ excellent family support. Orders written. Will seek input on the amiodarone/?optimal dosing regimen for comfort care +/- ?relief by adding a second diuretic which I suspect is likely not possible given her progressive MSOF. Yokasta would like to go home and family supports this, but she has a very high dyspnea burden and we need to spend 1-2 days optimizing her severe symptoms to better comfort then can aim for dc home with hospice. they have no agency preference. They would like hospice eval tomorrow for GIP and asked hospice contact her son to discuss time to meet with family at bedside tomorrow. I have written [employer] [facility] rx and dc monitors/invasive testing etc. We discussed prognostically she is in a window of days to a week or so. She wants focus on symptom mgt paul relief of dyspnea and anxiety. No dietary restrictions- PO for comfort/pleasure. I will follow up tomorrow and Radha VILLALTA from my team will see her Th/Fri as I will be out of office. (4) Palliative care by specialist: Introduced Palliative Medicine and explained our role in patient's care. Patient and/or family were receptive to palliative services for goals of care discussions. Reviewed we are different from hospice, a home health nurse visiting service. Plan As above Thank you for allowing us to participate in the ongoing care of this patient. Please page with any additional concerns. Sarika Hicks DNP Director, Palliative Medicine History of Present Illness Reason for Consultation: family request Attending Physician: Gerard Koch MD, PhD History of Present Illness Yokasta is an 89 year old woman with a pmh of CAD s/p PCI to RCA and LAD , HTN, HLD, paroxysmal afib on Eliquis, HFpEF, , recent hospitalization for NSTEMI with decision to proceed with conservative management who was admitted on 12/23/24 for shortness of breath and GI bleed. She is seen with her family present - son, dtr, granddaughter [facility] RN Yokasta c/o signif dyspnea and air hunger. She is exhausted by conversation and minimal effort. She cannot tolerate any position but upright She was given IV lasix with minimal OP She is more gurgly, coughing, and says her chest feels heavy and she is tired from working so hard to breathe Allergies Allergy/AdvReac Type Severity Reaction Status Date / Time clopidogrel Allergy Intermediate HIVES Verified 12/18/24 13:54 Antihistamines - Alkylamine Allergy Unknown CAN'T Verified 12/25/24 04:09 REMEMBER adhesive AdvReac Mild RASH Verified 12/18/24 13:54 codeine AdvReac Mild NAUSEA Verified 12/18/24 13:54 amoxicillin AdvReac Unknown CAN'T Verified 12/18/24 13:54 REMEMBER Home Medications Medication Instructions Recorded Confirmed Type glucosamine sulf dipot 1 cap PO QAM 08/15/18 12/23/24 History chlr,msm,chond 550 mg-C 30 mg-almaz 1 mg capsule (Glucosamine Chondroitin) omeprazole 20 mg capsule,delayed 20 mg PO QAM 08/26/20 12/23/24 History release ascorbic acid (vitamin C) 500 mg 500 mg PO QAM 08/28/20 12/23/24 History capsule aspirin 81 mg tablet,delayed 81 mg PO QAM 08/28/20 12/23/24 History release (Ecotrin Low Strength) cholecalciferol (vitamin D3) 10 10 mcg PO DAILY 06/21/22 12/23/24 History mcg (400 unit) capsule calcium 600 mg (as 1 cap PO DAILY 12/11/22 12/23/24 History carbonate)-vitamin D3 12.5 mcg (500 unit) capsule (Calcium with Vit D3) allopurinol 300 mg tablet 300 mg PO PM #90 tabs 12/13/23 12/23/24 Rx gabapentin 300 mg capsule 300 mg PO DAILY PRN NEEDED PER 07/03/24 12/23/24 History PT'S MED LIST nystatin 100,000 unit/gram topical 1 applic topical BID PRN SKIN 07/03/24 History powder IRRITATIONS vitamin E 268 mg (400 unit) capsule 268 mg PO DAILY 07/03/24 12/23/24 History nitroglycerin 0.4 mg sublingual 0.4 mg sublingual Q5M PRN chest 07/06/24 5 Rx tablet (Nitrostat) pain #30 tabs acetaminophen 325 mg tablet 325 mg PO QID PRN PAIN/FEVER 07/13/24 12/23/24 History (Tylenol) losartan 100 mg tablet 100 mg PO QAM #100 tabs 07/13/24 12/23/24 Rx isosorbide mononitrate 30 mg 30 mg PO QAM #90 tabs 07/30/24 12/23/24 Rx tablet,extended release 24 hr amlodipine 5 mg tablet (Norvasc) 5 mg PO QAM #100 tabs 08/10/24 12/23/24 Rx atorvastatin 40 mg tablet 40 mg PO HS #100 tabs 08/10/24 12/23/24 Rx metoprolol tartrate 25 mg tablet 25 mg PO BID 90 days #200 tabs 08/10/24 12/23/24 Rx apixaban 2.5 mg tablet (Eliquis) 2.5 mg PO BID #60 tabs 11/10/24 12/23/24 Rx cyanocobalamin (vitamin B-12) 500 1,000 mcg (2 x 500 mcg) PO QAM #30 11/11/24 12/23/24 Rx mcg tablet tabs mecobalamin (vitamin B12) 1,000 1,000 mcg PO DAILY 12/02/24 12/23/24 History mcg chewable tablet vitamin B complex 1 cap PO DAILY 12/02/24 12/23/24 History furosemide 20 mg tablet 10 mg (1/2 x 20 mg) PO DAILY PRN 12/18/24 12/23/24 Rx FLUID RETENTION/SWELLING #30 tabs Patient History Medical History Acute exacerbation of CHF (congestive heart failure) Dislocation, hip Vitamin D deficiency Low back pain CAD (coronary artery disease) s/p stent x 2 to proximal RCA and 1 to mid-LAD Surgical History History of fusion of lumbar spine History of total knee arthroplasty History of hip replacement Previous back surgery Status post hip surgery S/P knee surgery Family History Mother Myocardial infarction Brother Myocardial infarction Other Family history non-contributory Denies family history of Ovarian cancer Prostate cancer Breast cancer Colorectal cancer Social History Smoking Status: Former smoker Tobacco Type: Cigarettes Age Started Using Tobacco: 15; Age Quit Using Tobacco: 43; packs per day: 0.5; Cigarettes Per Day: 5-10; Second Hand Exposure: No; Do You Dip or Chew Tobacco: No; Hx Alcohol Use: No Hx Substance Use: No Preferred Language: Lithuanian Communication Ability: Impaired Visual Impairment: Limited Hearing Ability: Use of Hearing Aid Ground Systems Engineer Required: No Beliefs That Will Affect Care: None marital status: / Current Living Situation: Alone Current Living Situation Comment: pt lives in mobile home current occupational status: retired How many Children do You have: 4 Feels Safe at Home: Yes Safety Concerns: Feels Safe At This Time Childhood Exposure to Second-Hand Smoke: Yes Diet: regular caffeine: Yes during the past year weight has: remained stable Dental Care, Regularly: Yes Physical Activity Frequency: Does not Exercise Seatbelt Use: always Sunscreen Use: No Do you think of yourself as: straight/heterosexual Sexual Activity: has been sexually active, but not for at least 12 months Gender Identity: Female Assistive Devices: Cane and Walker Physical Exam Constitutional: + acute distress, + ill appearing, + fra il appearing, cooperative and + underweight Eyes: PERRL, conjunctivae normal, anicteric sclerae ENMT: external ear and nose normal, oropharynx normal Neck: trachea midline, no thyromegaly Respiratory: + respiratory distress, + labored breath ing, + uses accessory muscles, + cough (gurgling cough), + tachypneic and symmetric chest movement Auscultation: + diminished lung sounds, + crackles and + rhonchi Cardiovascular: Rate/Rhythm: + tachycardic (Apical impulse +forceful/bounding) Gastrointestinal (Abdomen): Inspection/Auscultation: normal bowel sounds Percussion/Palpation: abdomen soft Musculoskeletal: Head/Neck/Chest: head atraumatic gen weakness, BLE 2+ pitting edema to pre tibial Skin: + turgor decreased and + pallor Neurologic: awake Psychiatric: Orientation: alert and oriented x 3 Eye Contact: good eye contact Results & Data Vital Signs (Past 12 Hours) Vital Signs Temp Pulse Pulse Resp BP Pulse Ox Pulse Ox 12/29/24 15:33 36.7 C 78 32 H 124/75 91 12/29/24 14:51 85 12/29/24 14:41 92 12/29/24 11:44 36.7 C 84 26 H 129/67 94 12/29/24 09:45 72 12/29/24 09:45 12/29/24 07:41 36.8 C 79 18 136/57 L 93 12/29/24 05:12 80 26 H 96 12/29/24 04:32 77 O2 Del Method O2 Flow Rate O2 Flow Rate FiO2 12/29/24 15:33 Nasal Cannula 7.0 12/29/24 14:51 12/29/24 14:41 6 12/29/24 11:44 Nasal Cannula 6.0 12/29/24 09:45 12/29/24 09:45 Nasal Cannula 6 12/29/24 07:41 Nasal Cannula 7.0 12/29/24 05:12 35 12/29/24 04:32 Laboratory Results 12/29/24 12/27/24 12/26/24 Range/Units 06:40 08:39 05:45 WBC 10.41 9.45 8.98 (4.8-10.8) K/ul RBC 3.37 L 3.21 L 3.09 L (4.20-5.40) M/uL Hgb 9.9 L 9.4 L 9.1 L (12.0-16.0) g/dl Hct 31.0 L 29.5 L 28.5 L (37.0-47.0) % MCV 92.0 91.9 92.2 (80.0-100.0) fL MCH 29.4 29.3 29.4 (25.0-34.0) pg MCHC 31.9 L 31.9 L 31.9 L (32.0-36.0) g/dL RDW Std Deviation 57.7 H 57.1 H 57.3 H (36.4-46.3) fL RDW Coeff of Eleazar 17.3 H 17.0 H 17.1 H (11.5-14.5) % Plt Count 393 359 327 (130-400) K/uL MPV 10.5 10.4 10.2 (9.4-12.4) fL Immature Gran % (Auto) 0.5 0.4 % Neut % (Auto) 84.2 80.7 % Lymph % (Auto) 6.9 9.4 % [place] % (Auto) 6.9 7.6 % Eos % (Auto) 1.3 1.7 % Baso % (Auto) 0.2 0.2 % Reticulocyte % (Auto) (0.50-2.00) % Neut # (Auto) 7.96 H 7.25 H (1.40-6.50) K/uL Lymph # (Auto) 0.65 L 0.84 L (1.20-3.40) K/uL [place] # (Auto) 0.65 H 0.68 H (0.11-0.59) K/uL Eos # (Auto) 0.12 0.15 (0.00-0.50) K/uL Baso # (Auto) 0.02 0.02 (0.00-0.20) K/uL Reticulocyte # (0.020-0.100) 10^6/uL Immature Gran # (Auto) 0.05 0.04 (0.01-0.20) K/uL Absolute Nucleated RBC 0.07 0.07 0.06 (0.00-0.12) K/uL Nucleated RBC % (auto) 0.7 0.7 0.7 % Polychromasia Hypochromasia Ovalocytes PT (9.0-12.0) Seconds INR (0.9-1.1) APTT (21-31) Seconds PTT Ratio Sodium 132 L 133 L 134 L (136-145) mmol/L Potassium 4.2 3.7 3.7 (3.5-5.1) mmol/L Chloride 103 105 106 (98-107) mmol/L Carbon Dioxide 15 L 16 L 16 L (21-32) mmol/L Anion Gap 14 H 12 H 12 H (3-11) BUN 47 H 41 H 43 H (6-23) mg/dl Creatinine 2.55 H D 1.84 H 1.82 H (0.6-1.2) mg/dl Est Cr Clr Drug Dosing 14.5 19.9 20.0 ml/min eGFR 17.51 25.91 26.25 BUN/Creatinine Ratio 18.4 22.3 H 23.6 H (10-20) Glucose 124 H 139 H 163 H (70-99(Fasting)) mg/dl Calcium 9.7 9.7 9.6 (8.6-10.3) mg/dl Magnesium 2.0 2.1 (1.7-2.4) mg/dl Iron (35-150) mcg/dl Transferrin (200-360) mg/dl Ferritin (8-388) ng/ml Total Bilirubin 0.5 (0.2-1.0) mg/dl AST 18 (13-39) U/L ALT 15 (7-52) U/L Alkaline Phosphatase 46 (34-104) U/L Troponin I High Sens 1243.3 H* (0-14) pg/ml C-Reactive Protein 6.34 H 2.87 H (0-0.5) mg/dl B-Natriuretic Peptide > 4700 H (0-100) pg/ml Total Protein 5.7 L (6.0-8.3) gm/dl Albumin 3.4 (3.4-5.0) gm/dl Globulin 2.3 L (2.5-4.0) gm/dl Albumin/Globulin Ratio 1.5 (0.9-2) Vitamin B12 (180-914) pg/ml Folate (>5.38) ng/ml Procalcitonin 0.07 (0-0.5) ng/ml Blood Type Antibody Screen Crossmatch 12/25/24 12/25/24 12/25/24 Range/Units 16:44 11:10 09:45 WBC 10.65 (4.8-10.8) K/ul RBC 3.07 L (4.20-5.40) M/uL Hgb 9.6 L 9.5 L (12.0-16.0) g/dl Hct 29.5 L 28.0 L (37.0-47.0) % MCV 91.2 (80.0-100.0) fL MCH 30.9 (25.0-34.0) pg MCHC 33.9 (32.0-36.0) g/dL RDW Std Deviation 55.0 H (36.4-46.3) fL RDW Coeff of Eleazar 16.6 H (11.5-14.5) % Plt Count 354 (130-400) K/uL MPV 10.1 (9.4-12.4) fL Immature Gran % (Auto) 0.4 % Neut % (Auto) 86.1 % Lymph % (Auto) 7.4 % [place] % (Auto) 5.1 % Eos % (Auto) 0.7 % Baso % (Auto) 0.3 % Reticulocyte % (Auto) (0.50-2.00) % Neut # (Auto) 9.18 H (1.40-6.50) K/uL Lymph # (Auto) 0.79 L (1.20-3.40) K/uL [place] # (Auto) 0.54 (0.11-0.59) K/uL Eos # (Auto) 0.07 (0.00-0.50) K/uL Baso # (Auto) 0.03 (0.00-0.20) K/uL Reticulocyte # (0.020-0.100) 10^6/uL Immature Gran # (Auto) 0.04 (0.01-0.20) K/uL Absolute Nucleated RBC 0.08 (0.00-0.12) K/uL Nucleated RBC % (auto) 0.8 % Polychromasia Hypochromasia Ovalocytes PT (9.0-12.0) Seconds INR (0.9-1.1) APTT (21-31) Seconds PTT Ratio Sodium (136-145) mmol/L Potassium (3.5-5.1) mmol/L Chloride (98-107) mmol/L Carbon Dioxide (21-32) mmol/L Anion Gap (3-11) BUN (6-23) mg/dl Creatinine (0.6-1.2) mg/dl Est Cr Clr Drug Dosing ml/min eGFR BUN/Creatinine Ratio (10-20) Glucose (70-99(Fasting)) mg/dl Calcium (8.6-10.3) mg/dl Magnesium (1.7-2.4) mg/dl Iron (35-150) mcg/dl Transferrin (200-360) mg/dl Ferritin (8-388) ng/ml Total Bilirubin (0.2-1.0) mg/dl AST (13-39) U/L ALT (7-52) U/L Alkaline Phosphatase (34-104) U/L Troponin I High Sens 1510.2 H* D 1161.2 H* (0-14) pg/ml C-Reactive Protein (0-0.5) mg/dl B-Natriuretic Peptide (0-100) pg/ml Total Protein (6.0-8.3) gm/dl Albumin (3.4-5.0) gm/dl Globulin (2.5-4.0) gm/dl Albumin/Globulin Ratio (0.9-2) Vitamin B12 (180-914) pg/ml Folate (>5.38) ng/ml Procalcitonin (0-0.5) ng/ml Blood Type Antibody Screen Crossmatch 12/25/24 12/24/24 12/24/24 Range/Units 06:28 18:27 12:18 WBC 10.32 (4.8-10.8) K/ul RBC 3.00 L (4.20-5.40) M/uL Hgb 9.0 L 9.3 L 9.0 L (12.0-16.0) g/dl Hct 27.5 L 28.4 L 28.0 L (37.0-47.0) % MCV 91.7 (80.0-100.0) fL MCH 30.0 (25.0-34.0) pg MCHC 32.7 (32.0-36.0) g/dL RDW Std Deviation 56.5 H (36.4-46.3) fL RDW Coeff of Eleazar 16.9 H (11.5-14.5) % Plt Count 329 (130-400) K/uL MPV 10.3 (9.4-12.4) fL Immature Gran % (Auto) 0.5 % Neut % (Auto) 85.9 % Lymph % (Auto) 7.3 % [place] % (Auto) 5.0 % Eos % (Auto) 1.1 % Baso % (Auto) 0.2 % Reticulocyte % (Auto) (0.50-2.00) % Neut # (Auto) 8.87 H (1.40-6.50) K/uL Lymph # (Auto) 0.75 L (1.20-3.40) K/uL [place] # (Auto) 0.52 (0.11-0.59) K/uL Eos # (Auto) 0.11 (0.00-0.50) K/uL Baso # (Auto) 0.02 (0.00-0.20) K/uL Reticulocyte # (0.020-0.100) 10^6/uL Immature Gran # (Auto) 0.05 (0.01-0.20) K/uL Absolute Nucleated RBC 0.08 (0.00-0.12) K/uL Nucleated RBC % (auto) 0.8 % Polychromasia Hypochromasia Ovalocytes PT (9.0-12.0) Seconds INR (0.9-1.1) APTT (21-31) Seconds PTT Ratio Sodium 135 L (136-145) mmol/L Potassium 3.8 (3.5-5.1) mmol/L Chloride 107 (98-107) mmol/L Carbon Dioxide 14 L (21-32) mmol/L Anion Gap 14 H (3-11) BUN 52 H (6-23) mg/dl Creatinine 1.91 H (0.6-1.2) mg/dl Est Cr Clr Drug Dosing 18.7 ml/min eGFR 24.77 BUN/Creatinine Ratio 27.2 H (10-20) Glucose 169 H (70-99(Fasting)) mg/dl Calcium 9.6 (8.6-10.3) mg/dl Magnesium 2.3 (1.7-2.4) mg/dl Iron (35-150) mcg/dl Transferrin (200-360) mg/dl Ferritin (8-388) ng/ml Total Bilirubin 0.9 (0.2-1.0) mg/dl AST 21 (13-39) U/L ALT 17 (7-52) U/L Alkaline Phosphatase 46 (34-104) U/L Troponin I High Sens 1266.5 H* D (0-14) pg/ml C-Reactive Protein 1.31 H (0-0.5) mg/dl B-Natriuretic Peptide (0-100) pg/ml Total Protein 5.7 L (6.0-8.3) gm/dl Albumin 3.3 L (3.4-5.0) gm/dl Globulin 2.4 L (2.5-4.0) gm/dl Albumin/Globulin Ratio 1.4 (0.9-2) Vitamin B12 (180-914) pg/ml Folate (>5.38) ng/ml Procalcitonin (0-0.5) ng/ml Blood Type Antibody Screen Crossmatch 12/24/24 12/24/24 12/24/24 Range/Units 10:42 08:06 06:36 WBC (4.8-10.8) K/ul RBC (4.20-5.40) M/uL Hgb 8.7 L (12.0-16.0) g/dl Hct 26.6 L (37.0-47.0) % MCV (80.0-100.0) fL MCH (25.0-34.0) pg MCHC (32.0-36.0) g/dL RDW Std Deviation (36.4-46.3) fL RDW Coeff of Eleazar (11.5-14.5) % Plt Count (130-400) K/uL MPV (9.4-12.4) fL Immature Gran % (Auto) % Neut % (Auto) % Lymph % (Auto) % [place] % (Auto) % Eos % (Auto) % Baso % (Auto) % Reticulocyte % (Auto) (0.50-2.00) % Neut # (Auto) (1.40-6.50) K/uL Lymph # (Auto) (1.20-3.40) K/uL [place] # (Auto) (0.11-0.59) K/uL Eos # (Auto) (0.00-0.50) K/uL Baso # (Auto) (0.00-0.20) K/uL Reticulocyte # (0.020-0.100) 10^6/uL Immature Gran # (Auto) (0.01-0.20) K/uL Absolute Nucleated RBC (0.00-0.12) K/uL Nucleated RBC % (auto) % Polychromasia Hypochromasia Ovalocytes PT 12.0 (9.0-12.0) Seconds INR 1.1 (0.9-1.1) APTT 25 (21-31) Seconds PTT Ratio 0.9 Sodium 136 (136-145) mmol/L Potassium 4.0 (3.5-5.1) mmol/L Chloride 107 (98-107) mmol/L Carbon Dioxide 16 L (21-32) mmol/L Anion Gap 13 H (3-11) BUN 65 H (6-23) mg/dl Creatinine 2.19 H (0.6-1.2) mg/dl Est Cr Clr Drug Dosing 16.6 ml/min eGFR 21.02 BUN/Creatinine Ratio 29.7 H (10-20) Glucose 117 H (70-99(Fasting)) mg/dl Calcium 9.7 (8.6-10.3) mg/dl Magnesium (1.7-2.4) mg/dl Iron (35-150) mcg/dl Transferrin (200-360) mg/dl Ferritin (8-388) ng/ml Total Bilirubin 1.0 D (0.2-1.0) mg/dl AST 21 (13-39) U/L ALT 15 (7-52) U/L Alkaline Phosphatase 43 (34-104) U/L Troponin I High Sens 2351.3 H* D 1830.7 H* D (0-14) pg/ml C-Reactive Protein (0-0.5) mg/dl B-Natriuretic Peptide (0-100) pg/ml Total Protein 5.8 L (6.0-8.3) gm/dl Albumin 3.4 (3.4-5.0) gm/dl Globulin 2.4 L (2.5-4.0) gm/dl Albumin/Globulin Ratio 1.4 (0.9-2) Vitamin B12 (180-914) pg/ml Folate (>5.38) ng/ml Procalcitonin (0-0.5) ng/ml Blood Type Antibody Screen Crossmatch 12/24/24 12/23/24 12/23/24 Range/Units 00:21 Unknown 21:41 WBC (4.8-10.8) K/ul RBC (4.20-5.40) M/uL Hgb 7.8 L (12.0-16.0) g/dl Hct 23.9 L (37.0-47.0) % MCV (80.0-100.0) fL MCH (25.0-34.0) pg MCHC (32.0-36.0) g/dL RDW Std Deviation (36.4-46.3) fL RDW Coeff of Eleazar (11.5-14.5) % Plt Count (130-400) K/uL MPV (9.4-12.4) fL Immature Gran % (Auto) % Neut % (Auto) % Lymph % (Auto) % [place] % (Auto) % Eos % (Auto) % Baso % (Auto) % Reticulocyte % (Auto) (0.50-2.00) % Neut # (Auto) (1.40-6.50) K/uL Lymph # (Auto) (1.20-3.40) K/uL [place] # (Auto) (0.11-0.59) K/uL Eos # (Auto) (0.00-0.50) K/uL Baso # (Auto) (0.00-0.20) K/uL Reticulocyte # (0.020-0.100) 10^6/uL Immature Gran # (Auto) (0.01-0.20) K/uL Absolute Nucleated RBC (0.00-0.12) K/uL Nucleated RBC % (auto) % Polychromasia Hypochromasia Ovalocytes PT (9.0-12.0) Seconds INR (0.9-1.1) APTT (21-31) Seconds PTT Ratio Sodium (136-145) mmol/L Potassium (3.5-5.1) mmol/L Chloride (98-107) mmol/L Carbon Dioxide (21-32) mmol/L Anion Gap (3-11) BUN (6-23) mg/dl Creatinine (0.6-1.2) mg/dl Est Cr Clr Drug Dosing ml/min eGFR BUN/Creatinine Ratio (10-20) Glucose (70-99(Fasting)) mg/dl Calcium (8.6-10.3) mg/dl Magnesium (1.7-2.4) mg/dl Iron (35-150) mcg/dl Transferrin (200-360) mg/dl Ferritin (8-388) ng/ml Total Bilirubin (0.2-1.0) mg/dl AST (13-39) U/L ALT (7-52) U/L Alkaline Phosphatase (34-104) U/L Troponin I High Sens 356.8 H* 456.3 H* D (0-14) pg/ml C-Reactive Protein (0-0.5) mg/dl B-Natriuretic Peptide (0-100) pg/ml Total Protein (6.0-8.3) gm/dl Albumin (3.4-5.0) gm/dl Globulin (2.5-4.0) gm/dl Albumin/Globulin Ratio (0.9-2) Vitamin B12 (180-914) pg/ml Folate (>5.38) ng/ml Procalcitonin (0-0.5) ng/ml Blood Type Antibody Screen Crossmatch 12/23/24 12/23/24 12/23/24 Range/Units 18:46 15:15 11:25 WBC 10.82 H (4.8-10.8) K/ul RBC 2.32 L (4.20-5.40) M/uL Hgb 6.7 L* 7.0 L (12.0-16.0) g/dl Hct 21.2 L 22.3 L (37.0-47.0) % MCV 96.1 (80.0-100.0) fL MCH 30.2 (25.0-34.0) pg MCHC 31.4 L (32.0-36.0) g/dL RDW Std Deviation 55.5 H (36.4-46.3) fL RDW Coeff of Eleazar 15.8 H (11.5-14.5) % Plt Count 390 (130-400) K/uL MPV 10.8 (9.4-12.4) fL Immature Gran % (Auto) 0.5 % Neut % (Auto) 81.8 % Lymph % (Auto) 12.3 % [place] % (Auto) 4.7 % Eos % (Auto) 0.4 % Baso % (Auto) 0.3 % Reticulocyte % (Auto) 3.04 H (0.50-2.00) % Neut # (Auto) 8.86 H (1.40-6.50) K/uL Lymph # (Auto) 1.33 (1.20-3.40) K/uL [place] # (Auto) 0.51 (0.11-0.59) K/uL Eos # (Auto) 0.04 (0.00-0.50) K/uL Baso # (Auto) 0.03 (0.00-0.20) K/uL Reticulocyte # 0.070 (0.020-0.100) 10^6/uL Immature Gran # (Auto) 0.05 (0.01-0.20) K/uL Absolute Nucleated RBC 0.07 (0.00-0.12) K/uL Nucleated RBC % (auto) 0.6 % Polychromasia 1+ Hypochromasia Present Ovalocytes 1+ PT 11.9 (9.0-12.0) Seconds INR 1.1 (0.9-1.1) APTT 24 (21-31) Seconds PTT Ratio 0.9 Sodium 133 L (136-145) mmol/L Potassium 4.7 (3.5-5.1) mmol/L Chloride 106 (98-107) mmol/L Carbon Dioxide 15 L (21-32) mmol/L Anion Gap 12 H (3-11) BUN 71 H (6-23) mg/dl Creatinine 2.40 H (0.6-1.2) mg/dl Est Cr Clr Drug Dosing 15.1 ml/min eGFR 18.83 BUN/Creatinine Ratio 29.6 H (10-20) Glucose 131 H (70-99(Fasting)) mg/dl Calcium 9.8 (8.6-10.3) mg/dl Magnesium (1.7-2.4) mg/dl Iron 16 L (35-150) mcg/dl Transferrin 245 (200-360) mg/dl Ferritin 13.2 (8-388) ng/ml Total Bilirubin 0.4 (0.2-1.0) mg/dl AST 24 (13-39) U/L ALT 16 (7-52) U/L Alkaline Phosphatase 47 (34-104) U/L Troponin I High Sens 375.7 H* (0-14) pg/ml C-Reactive Protein (0-0.5) mg/dl B-Natriuretic Peptide 1964 H (0-100) pg/ml Total Protein 6.2 (6.0-8.3) gm/dl Albumin 3.6 (3.4-5.0) gm/dl Globulin 2.6 (2.5-4.0) gm/dl Albumin/Globulin Ratio 1.4 (0.9-2) Vitamin B12 > 1500 H (180-914) pg/ml Folate 10.40 (>5.38) ng/ml Procalcitonin 0.10 (0-0.5) ng/ml Blood Type B Negative Antibody Screen NEGATIVE Crossmatch See Detail Diagnostic Findings Chest X-Ray 12/23/24 11:39 XR chest 1V portable CLINICAL HISTORY: Chest pain, nonspecific COMPARISON STUDY: 11/08/2024 FINDINGS: There is stable cardiomegaly with pulmonary vascular congestion. There is interval hazy [place] in the lung bases with partial obscuration of the diaphragm. No pneumothorax. IMPRESSION: 1. CHF. 2. Mild hazy opacity in the lung bases could represent atelectasis, early pneumonia, or small pleural effusions. ACT 112: Negative or not required by law. Electronically signed by: Harsha Salter M.D. 12/23/2024 11:58 AM Chest X-Ray 12/25/24 09:34 XR chest 1V portable CLINICAL HISTORY: Shortness of breath/CHF/Transfusion COMPARISON STUDY: 12/23/2024 FINDINGS: Stable cardiomegaly with increased pulmonary vascular congestion. There is hazy opacity in the lung bases with blunting of the costophrenic angles. No pneumothorax. IMPRESSION: 1. CHF. 2. Mild lung base opacity could represent atelectasis, consolidation, or small pleural effusions. ACT 112: Negative or not required by law. Electronically signed by: Harsha Salter M.D. 12/25/2024 10:16 AM Chest X-Ray 12/29/24 03:34 EXAM: XR chest 1V portable CLINICAL HISTORY: increasing supp O2 req, ?fluid overload TECHNIQUE: An X-ray image of the chest was obtained in the AP projection. COMPARISON: 12/25/2024. FINDINGS: Pulmonary Parenchyma: The right middle and lower lung zones show faint haziness. Bilateral hilar congestion is seen. There is no evidence of collapse. No pulmonary nodules are identified. Mild obliteration of both costophrenic recesses is present, suggesting minimal pleural effusion or pleural thickening. Heart and Mediastinum: Cardiomegaly is noted. Calcifications of the aortic knuckle are seen. No mediastinal widening or masses are present. No hilar or mediastinal lymphadenopathy is identified. 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 The left humeral head is deformed, with non-visualization of the greater tuberosity, likely post-traumatic versus operative. The bony thorax appears intact without fractures or deformities. Soft Tissues: Mild soft tissue lucencies are seen at the right lateral chest wall, likely representing soft tissue overlap shadow. Gastric gases are not visualized (correlation with prior CT 11/08/2024). IMPRESSION: 1. Cardiomegaly with bilateral hilar congestion, suggestive of possible fluid overload or early pulmonary edema (stable). 2. Faint haziness in the right middle and lower lung zones may reflect interstitial congestion or subsegmental atelectasis (more prominent than in the prior study). 3. Reduced right-sided pleural effusion with minimal residual blunting of the costophrenic angle. 4. Minimal left-sided pleural effusion or pleural thickening (stable). Electronically signed by Kedar August 12-29-2024 04:56 AM PG Care Time/CCT Total # of Minutes Spent Total Time Spent with Patient: Total time spent is greater than 50% in coordination of care (as documented) at patient's floor/unit and/or counseling patient: I spent 130 minutes overall addressing this case: 15 min in medical data review/discussion with referring provider(s) and/or preparation for the visit 15 min in direct interaction with the patient/exam 60 min in Advance Care Planning/Goals of Care discussions as detailed above in note (must be >16min) 20 min in subsequent review and synthesis of assessment and plan 20 min communicating with other providers regarding the patient's case: nursing, primary team, cardiology, care mgt Advanced Care Planning [id number] Advanced Care Planning 30 [place] [id number] Advanced Care Planning Additional 30 Min [place] [address] IN/OBS CONSULT LVL 5,80M (25 - SIGNIFICANT, SEPARATELY IDENTIFIABLE ) Patient Type New Medical Decision Making High Complexity Diagnoses Dyspnea and respiratory abnormalities R06.00; R06.89 Generalized weakness R53.1 Advanced care planning/counseling discussion Z71.89 Palliative care by specialist Z51.5 Additional Codes Advanced Care Planning - 91232 Advanced Care Planning 30 Min: 72146 Advanced Care Planning 30 Min ([id number]) Advanced Care Planning - 29669 Advanced Care Planning Additional 30 Min: 92319 Advanced Care Planning Additional 30 Min ([id number]) Comment [id number]
[2024-12-29] MEDS: GLYCOPYRROLATE 0.2 MG/ML VIAL IV PRN (19:57)
[2024-12-29] MEDS: MoRPHine SULFATE 4 MG/ML 1 ML CARP\\VIAL IV PRN (19:57)
[2024-12-29] MEDS: ONDANSETRON INJ 2 MG/ML 2 ML VIAL IV PRN (21:43)
--- NOTE | 2024-12-29 22:04 | Hospitalist Progress Note ---
Date of Service December 29, 2024 Assessment & Plan (1) Upper GI bleed: Plan: Acute blood loss anemia is attributed to an acute upper GI bleed of unclear etiology as patient has not undergone EGD, and who prefers to avoid EGD or any other procedure (including cardiac catheterization) at this time, given her advanced age of 89 years, and given her acute exacerbation of chronic systolic (and diastolic) CHF with now reduced LVEF 25% and mildly reduced RV systolic function (as noted on 12/24/2024, 2:48pm TTE, CARDS Dr. Mekhi Campos), which in turn, is due to acute type I NSTEMI, which in turn, is due to acute blood loss anemia. Patient reports to me that while she has no mucosal bleeding (e.g., hematemesis, hematochezia, melena, hemoptysis, epistaxis, hematuria) on 12/28/2024, and that her Hb levels are holding steady, as shown below, that "I feel only 10% better in terms of still feeling weak and still feeling short of breath today (12/28/2024) than when I came into this hospital on 12/23/2024. Even so, I would like to go back to my own home, and to have the Case Manger arrange for a physical therapist and an occupational [place]. I do not want to go to a fci or a rehab place. No." cf., Hb 7.0, MCV 96.1, MCHC 31.4 (12/23/2024, 11:25am). cf., Hb 6.7 (12/23/2024, 6:46pm), followed by 2 units packed RBC transfusion (12/23/2024, 7:40pm; 12/24/2024, 2:16am: volume 310 mL x 2 bags) cf., Hb 7.8 (12/24/2024, 12:21am). cf., Hb 8.7 (12/24/2024, 6:36am). cf., Hb 9.0 (12/24/2024, 12:18pm). cf., Hb 9.3 (12/24/2024, 6:27pm). cf., Hb 9.0, MCV 91.7, MCHC 32.7 (12/25/2024, 6:28am). cf., Hb 9.5, MCV 91.2, MCHC 33.9 (12/25/2024, 9:45am). cf., Hb 9.6 (12/25/2024, 4:44pm). cf., Hb 9.1, MCV 92.2, MCHC 31.9 (12/26/2024, 5:45am). cf., Hb 9.4, MCV 91.9, MCHC 31.9 (12/27/2024, 8:39am). Subsequently, patient continues to receive protonix 40mg IV bid (start date/time, 12/27/2024, 9:08pm) and I will check repeat Hb level in the am. (2) Dyspnea on exertion: Plan: Etiology of dyspnea on exertion is most probably due to: 1. Acute exacerbation of chronic systolic (and diastolic) CHF with now reduced LVEF 25% and mildly reduced RV systolic function (as noted on 12/24/2024, 2:48pm TTE, CARDS Dr. Mekhi Campos), which in turn, is due to acute type I NSTEMI, which in turn, is due to acute blood loss anemia. 2. Acute fluid overload due to patient having received 2 units packed RBC transfusion (12/23/2024, 7:40pm; 12/24/2024, 2:16am: volume 310 mL x 2 bags) to treat admission Hb 6.7 g/dL (12/23/2024, 6:46pm). 3. Paroxysmal atrial fibrillation with RVR (12/25/2024, 3:30am). Hence, patient continues to receive lasix 20mg IV bid x 2 doses thus far (12/27/2024, 4:17pm; 12/28/2024, 9:21am), followed by lasix 20mg IV x 2 dose (12/28/2024, 2:54am) to treat #1 and #2 above. Hence, patient received amiodarone 150mg IV x 1 dose (12/25/2024, 5:54am), followed by amiodarone infusion @ 1mg/min (12/25/2024, 6:09am) with conversion to NSR (12/25/2024, 8:30am), followed by amiodarone infusion @ 0.5mg/min (12/25/2024, 11:24am to 12/28/2024, 9:36am, and ongoing now as of 12/28/2024, 5:08pm), along with amiodarone 200mg PO bid x 3 doses (12/27/2024, 11:27am, 4:16pm; 12/28/2024 9:21am) to treat #3 above. (3) CHF (congestive heart failure): Plan: Acute exacerbation of chronic systolic (and diastolic) CHF with now reduced LVEF 25% and mildly reduced RV systolic function (as noted on 12/24/2024, 2:48pm TTE, CARDS Dr. Mekhi Campos), which in turn, is due to acute type I NSTEMI, which in turn, is due to acute blood loss anemia. cf., TTE (12/24/2024, 2:48pm): 1. LVEF 25%. Mild concentric LVH. Multiple wall motion abnormalities of valentin kirk severity. 2. Borderline RV enlargement. RV systolic function mildly reduced. 3. LA/RA sizes normal. 4. Calcified aortic valve. AV opens well. 5. Calcified mitral apparatus. MV leaflets appear thickened, but open well. 6. Calcified tricuspid valve, but open well. (as per CARDS Dr. Mekhi Campos). cf., TTE (11/09/2024, 7:03am): 1. LVEF 50-55%. Mild concentric LVH. Grade III diastolic dysfunction. Regional wall motion abnormalities; cly-sl-kjmhlc inferior and apical hypokinesis. 2. RV normal size and normal systolic function. 3. Borderline LA enlargement. RA size normal. 4. No significant or AR. 5. PV not well seen, but grossly normal. Trace AK. 6. Moderate-severe MR. No MS. 7. Mild TR. RVSP 50-60 mm Hg. 8. Aortic root normal size. Normal IVC diameter and respiratory variation suggests normal CVP. 9. No pericardial effusion. (as per CARDS Dr. Db Garg). Given the significant interval decline in biventricular systolic function (and diastolic function) as noted in the two TTE reports above, the risk of sudden from ventricular tachycardia degenerating into ventricular fibrillation remains very high in this 89 years old patient. Patient concedes this point and states that she would like to be discharged back to her home with home PT/OT Services as soon as her shortness of breath at rest and dyspnea on exertion improve a little bit more, as patient reports: "I still feel weak and a little less short of breath today (12/28/2024) than yesterday (12/27/2024). The doc gave me a water pill yesterday, and I feel about 10% better today (12/28/2024) in terms of breathing, but I am still on oxygen today (12/28/2024). Normally, I don't use any oxygen at my home at all. I've been coughing for the past 5 days since I came into this hospital 5 days ago (12/23/2024), but nothing came up in terms of mucous or phlegm. Today, I can feel that it's getting loose in my throat, so maybe I will be able to cough something up tomorrow. No sore throat. No fevers or chills. No chest pain when I breathe in or out." Etiology of dyspnea on exertion is most probably due to: 1. Acute exacerbation of chronic systolic (and diastolic) CHF with now reduced LVEF 25% and mildly reduced RV systolic function (as noted on 12/24/2024, 2:48pm TTE, CARDS Dr. Mekhi Campos), which in turn, is due to acute type I NSTEMI, which in turn, is due to acute blood loss anemia. 2. Acute fluid overload due to patient having received 2 units packed RBC transfusion (12/23/2024, 7:40pm; 12/24/2024, 2:16am: volume 310 mL x 2 bags) to treat admission Hb 6.7 g/dL (12/23/2024, 6:46pm). 3. Paroxysmal atrial fibrillation with RVR (12/25/2024, 3:30am). Hence, patient continues to receive lasix 20mg IV bid x 2 doses thus far (12/27/2024, 4:17pm; 12/28/2024, 9:21am), followed by lasix 20mg IV x 2 dose (12/28/2024, 2:54am) to treat #1 and #2 above. (4) Mitral regurgitation: Plan: Mitral regurgitation is not reported on 12/24/2024, 2:48pm TTE, but was present on 11/09/2024, 7:03am TTE, as shown below: cf., TTE (12/24/2024, 2:48pm): 1. LVEF 25%. Mild concentric LVH. Multiple wall motion abnormalities of varying severity. 2. Borderline RV enlargement. RV systolic function mildly reduced. 3. LA/RA sizes normal. 4. Calcified aortic valve. AV opens well. 5. Calcified mitral apparatus. MV leaflets appear thickened, but open well. 6. Calcified tricuspid valve, but open well. (as per CARDS Dr. Mekhi Campos). cf., TTE (11/09/2024, 7:03am): 1. LVEF 50-55%. Mild concentric LVH. Grade III diastolic dysfunction. Regional wall motion abnormalities; qqw-kz-ikcesz inferior and apical hypokinesis. 2. RV normal size and normal systolic function. 3. Borderline LA enlargement. RA size normal. 4. No significant or AR. 5. PV not well seen, but grossly normal. Trace AK. 6. Moderate-severe MR. No MS. 7. Mild TR. RVSP 50-60 mm Hg. 8. Aortic root normal size. Normal IVC diameter and respiratory variation suggests normal CVP. 9. No pericardial effusion. (as per CARDS Dr. Db Garg). (5) Aortic stenosis: Plan: Aortic stenosis is NOT reported on either 12/24/2024, 2:48pm TTE or 11/09/2024, 7:03am TTE, as shown below: cf., TTE (12/24/2024, 2:48pm): 1. LVEF 25%. Mild concentric LVH. Multiple wall motion abnormalities of varying severity. 2. Borderline RV enlargement. RV systolic function mildly reduced. 3. LA/RA sizes normal. 4. Calcified aortic valve. AV opens well. 5. Calcified mitral apparatus. MV leaflets appear thickened, but open well. 6. Calcified tricuspid valve, but open well. (as per CARDS Dr. Mekhi Campos). cf., TTE (11/09/2024, 7:03am): 1. LVEF 50-55%. Mild concentric LVH. Grade III diastolic dysfunction. Regional wall motion abnormalities; hak-un-mzhicy inferior and apical hypokinesis. 2. RV normal size and normal systolic function. 3. Borderline LA enlargement. RA size normal. 4. No significant or AR. 5. PV not well seen, but grossly normal. Trace AK. 6. Moderate-severe MR. No MS. 7. Mild TR. RVSP 50-60 mm Hg. 8. Aortic root normal size. Normal IVC diameter and respiratory variation suggests normal CVP. 9. No pericardial effusion. (as per CARDS Dr. Db Garg). (6) Elevated troponin: Plan: See bullets #1, #2, and #3 above. (7) Atrial fibrillation with RVR: Plan: See bullets #1, #2, and #3 above. (8) Non-ST elevation ID (NSTEMI): Plan: See bullets #1, #2, and #3 above. (9) GERD (gastroesophageal reflux disease): Plan: Asymptomatic on protonix 40mg IV bid (start date/time, 12/27/2024, 9:08pm). (10) Dyslipidemia: Plan: Not on lipid lowering agent(s), for unclear reason(s). (11) Hypertension: Plan: Normotensive with BP 107/67 (12/28/2024, 4:06pm) not on any anti-HTN agents, except lasix 20mg IV bid x 2 doses thus far (12/27/2024, 4:17pm; 12/28/2024, 9:21am), followed by lasix 20mg IV x 2 dose (12/28/2024, 2:54am) to treat: 1. Acute exacerbation of chronic systolic (and diastolic) CHF with now reduced LVEF 25% and mildly reduced RV systolic function (as noted on 12/24/2024, 2:48pm TTE, CARDS Dr. Mekhi Campos), which in turn, is due to acute type I NSTEMI, which in turn, is due to acute blood loss anemia. 2. Acute fluid overload due to patient having received 2 units packed RBC transfusion (12/23/2024, 7:40pm; 12/24/2024, 2:16am: volume 310 mL x 2 bags) to treat admission Hb 6.7 g/dL (12/23/2024, 6:46pm). Plan #upper GI bleed #blood loss anemia - subacute, progressive, on Eliquis and aspirin for coronary disease as below. Recent NSTEMI - vitally stable at this time, Protonix loading dose given in the ER, 2 units packed red blood cells with type and screen ordered - hold aspirin and Plavix, reviewed with cardiology no indication for heparin at this time given increased risk - continue to trend hemoglobin this evening and then likely tomorrow morning after endoscopy - appreciate gastroenterology recommendations, Hemoglobin has stabilized, defer EGD at this time given stability of the bleed. Underlying cardiac risks. - stable hemoglobin levels, Stable, no evidence of rebleed. continue with daily checks for the short-term #atrial fibrillation with RVR #clinical decompensation/hypoxemia #Colume overload state - fairly abrupt onset last night, responding well to amiodarone with rate control. Chest x-ray this morning does show persistent right lower lobe atelectasis versus consolidation. No indication of pneumonia at this time. Suspect volume overload secondary to transfusions and IV product administration - metoprolol has been on hold. Will resume as she diuresis a bit. - will review with cardiology, initiate Lasix twice daily 17, remove a couple of liters hopefully this helps her reserve - Start lasix 20mg IV BIDD, strict i/o encinas if needed, may benefit from Bipap over the short term. See cardiology consult/notes, appreciate recs #NSTEMI #underlying coronary disease #elevated troponin - hold aspirin and Plavix as above, aspirin likely to be in her system several days - supportive measures with transfusion, target transfusion greater than 9/10 - marked increase in troponin this morning continues to trend upward. No signs of angina. See cardiology notes, appreciate recommendation and additional management. Ongoing medical management, target transfusion to minimize symptoms - troponin troponin trending downward, moderate persistent symptoms likely related to her underlying cardiac status/cardiomyopathy/ACS. continued conservative management. Daily weights and strict APPLE, clinically euvolemic may benefit from some additional diuresis as above #high output Failure # HFpEF/ischemic cardiomyopathy #history of aortic scleosis/mitral regurg - Lasix as needed, at this time no outward signs of failure, elevated BNP in the setting of bleed as above - minimal edema at this time, Lasix after transfusion on an as-needed basis - monitor telemetry, daily weight and closer I&O monitoring, diuresis as above #hypertension - borderline blood pressures, holding antihypertensives at this time, resume as vitals allow - Stable, okay to resume blood pressure medications as needed #CKD 4 - stable at this time, BMP in the morning, monitor during diuresis #prediabetes/ elevated blood sugar - we will continue to monitor, not on any antihyperglycemic #GERD - Protonix load and post load drip as above #FEN - n.p.o. at this time, LR at 80 cc/h after the transfusion is complete #CODE STATUS - DNR/DNI per her wishes at this time discussed with patient and family at the bedside at time of admission Admission and Anticipated Discharge Date Admission Date: December 23, 2024 Subjective "I still feel weak and still short of breath today (12/29/2024). No better, no worse than yesterday (12/28/2024). Review of Systems Constitutional: Negative for antecedent/coincident fevers, chills, diaphoresis, wheeze, sore throat, hemoptysis, chest pains, palpitations, pleurisy, nausea, vomiting, diarrhea, abdominal pain, pelvic pain, hematemesis, hematochezia, melena, hematuria, dysuria, frequency, urgency, flank pain, headaches, dizziness, lightheadedness, visual changes, hearing changes, weakness, falls, syncope, trauma, travel history, sick contacts, or food/drug ingestions novel or new. All other review of systems are reported as negative by the patient on 12/29/2024. Physical Exam Constitutional: General: Uncomfortable with slight dyspnea at rest and intermittent dry coughing while utilizing oxymask with O2 saturation of 95% (12/28/2024, 7:20am), yet very cooperative and coherent. Wide awake and alert. Not confused, lethargic, or obtunded. Patient speaks in complete, fluent, and articulate sentences, pausing intermittently to clear her throat or cough without mucous production. General: Uncomfortable with slight dyspnea at rest and intermittent dry coughing while utilizing 7 liters/minute O2 via nasal cannula with O2 saturation of 93% (12/29/2024, 7:41am), yet very cooperative and coherent. Wide awake and alert. Not confused, lethargic, or obtunded. Patient speaks in complete, fluent, and articulate sentences, pausing intermittently to clear her throat or cough without mucous production. HEENT: NC/AT. EOMI. PERRL. No nystagmus, gaze paresis, anisocoria, miosis, mydriasis, chemosis, hyphema, scleral injection, conjunctivitis, or pterygium. No otorrhea. No rhinorrhea. Neck: Supple, no stridor, bruit, or goiter. Jugular venous pressure 5cm above the sternal angle of Indra, which is typically 5 cm above the right atrium. Lymph: No anterior/posterior cervical lymphadenopathy, supraclavicular/infraclavicular lymphadenopathy, axilla/epitrochlear/inguinal lymphadenopathy. Chest: Symmetric rise and fall with respirations. Non-tender to palpation. Heart: RRR, S1 and S2. No S3 or S4 summation gallop. No tripartite friction rub. No murmur. Lungs: Clear to auscultation and percussion. No audible expiratory wheeze, egophony, pectoriloquy, increase in tactile fremitus, or flatness/dullness to percussion at the bases. Abd: Soft, non-tender, non-distended. Bowel sounds auscultated in all 4 quadrants. No rebound, guarding, Saxena's sign, or organomegaly. Ext: No clubbing, cyanosis, or edema. 2+ pedal pulses bilaterally. Skin: No decubitus ulcer or enanthem or exanthem. Neuro: No tremors, tics, or myoclonus. DTR+. Urology: + encinas catheter with 80 cc of clear yellow urine on 12/28/2024. No urethral discharge. Results & Data Results & Data Vital Signs (Past 12 Hours) Vital Signs Temp Pulse Pulse Resp BP Pulse Ox Pulse Ox 12/29/24 15:33 36.7 C 78 32 H 124/75 91 12/29/24 14:51 85 12/29/24 14:41 92 12/29/24 11:44 36.7 C 84 26 H 129/67 94 O2 Del Method O2 Flow Rate O2 Flow Rate 12/29/24 15:33 Nasal Cannula 7.0 12/29/24 14:51 12/29/24 14:41 6 12/29/24 11:44 Nasal Cannula 6.0 Laboratory Results WBC 10.82, N82 M12 M5, Hb 7.0, MCV 96.1, MCHC 31.4, platelet 390 (12/23/2024, 11:25am). Hb 6.7 (12/23/2024, 6:46pm), followed by 2 units packed RBC transfusion (12/23/2024, 7:40pm; 12/24/2024, 2:16am: volume 310 mL x 2 bags) Hb 7.8 (12/24/2024, 12:21am). Hb 8.7 (12/24/2024, 6:36am). Hb 9.0 (12/24/2024, 12:18pm). Hb 9.3 (12/24/2024, 6:27pm). WBC 10.32, N86 L7 M5 E1, Hb 9.0, MCV 91.7, MCHC 32.7, platelet 329 (12/25/2024, 6:28am). WBC 10.65, Hb 9.5, MCV 91.2, MCHC 33.9, platelet 354 (12/25/2024, 9:45am). Hb 9.6 (12/25/2024, 4:44pm). WBC 8.98, N81 L9 M8 E2, Hb 9.1, MCV 92.2, MCHC 31.9, platelet 327 (12/26/2024, 5:45am). WBC 9.45, N84 L7 M7 E1, Hb 9.4, MCV 91.9, MCHC 31.9, platelet 359 (12/27/2024, 8:39am). Fe 16 ug/dL, ferritin 13.2 ng/mL (12/23/2024, 3:15pm). Na 133, K 4.7, glucose 131, CO2 15, anion gap 12, BUN 71, creatinine 2.40, GFR 18.83, Ca 9.8, AST 24, ALT 16, ALK PHOS 47, total bili 0.4 (12/23/2024, 11:25am). Na 136, K 4.0, glucose 117, CO2 16, anion gap 13, BUN 65, creatinine 2.19, GFR 21.02, Ca 9.7, AST 21, ALT 15, ALK PHOS 43, total bili 1.0 (12/24/2024, 8:06am). Na 135, K 3.8, glucose 169, CO2 14, anion gap 14, BUN 52, creatinine 1.91, GFR 24.77, Ca 9.6, Mg 2.3, AST 21, ALT 17, ALK PHOS 46, total bili 0.9 (12/25/2024, 6:28am). Na 134, K 3.7, glucose 163, CO2 16, anion gap 12, BUN 43, creatinine 1.82, GFR 26.25, Ca 9.6, Mg 2.1, AST 18, ALT 15, ALK PHOS 46, total bili 0.5 (12/26/2024, 5:45am). Na 133, K 3.7, glucose 139, CO2 16, anion gap 12, BUN 41, creatinine 1.84, GFR 25.91, Ca 9.7, Mg 2.0 (12/27/2024, 8:39am). Troponin-I #1 375.7 pg/mL (12/23/2024, 11:25am). Troponin-I #2 456.3 pg/mL (12/23/2024, 9:41pm). Troponin-I #3 358.6 pg/mL (12/23/2024, time ?) Troponin-I #4 1,830.7 pg/mL (12/24/2024, 6:36am). Troponin-I #5 2,351.3 pg/mL (12/24/2024, 10:42am). Troponin-I #6 1,266.5 pg/mL (12/25/2024, 6:28am). Troponin-I #7 1,161.2 pg/mL (12/25/2024, 11:10am). Troponin-I #1 1,510.2 pg/mL (12/25/2024, 4:44pm). Troponin-I #2 1,243.3 pg/mL (12/26/2024, 5:45am). BNP 482 pg/mL (07/03/2024, 6:58pm). BNP 1,186 pg/mL (11/08/2024, 2:02pm). BNP 1,964 pg/mL (12/23/2024, 11:25am). BNP > 4,700 pg/mL (12/27/2024, 8:39am). CRP #1 1.31 mg/dL (12/25/2024, 6:28am). CRP #2 2.87 mg/dL (12/26/2024, 5:45am). CRP #3 6.34 mg/dL (12/27/2024, 8:39am). Procalcitonin #1 0.07 ng/mL (12/26/2024, 5:45am). Diagnostic Findings Portable CXR (12/23/2024, 11:39am): 1. CHF. 2. Mild hazy opacity in the lung bases could represent atelectasis, early pneumonia, or small pleural effusions. Portable CXR (12/25/2024, 9:34am): 1. CHF. 2. Mild lung base opacity could represent atelectasis, consolidation, or small pleural effusions. ECG Additional Comments: EKG #1 (12/23/2024, 11:23am): NSR @ 77, AK 180, QTC 407, TWI in II, III, aVF, V6, no acute ST depressions/elevations (by my review). EKG #2 (12/24/2024, 3:50pm): NSR @ 69, AK 164, QTC 398, TWI in III, aVF, V6, no acute ST depressions/elevations (by my review). EKG #3 (12/25/2024, 3:35am): AFIB @ 120, QTC 370, TWI in II, III, aVF, V6, no acute ST depressions/elevations (by my review). EKG old (11/11/2024, 8:00am): NSR @ 63, AK 162, QTC 446, TWI in II, III, aVF, V6, no acute ST depressions/elevations (by my review). TTE (12/24/2024, 2:48pm): 1. LVEF 25%. Mild concentric LVH. Multiple wall motion abnormalities of varying severity. 2. Borderline RV enlargement. RV systolic function mildly reduced. 3. LA/RA sizes normal. 4. Calcified aortic valve. AV opens well. 5. Calcified mitral apparatus. MV leaflets appear thickened, but open well. 6. Calcified tricuspid valve, but open well. (as per CARDS Dr. Mekhi Campos). TTE (11/09/2024, 7:03am): 1. LVEF 50-55%. Mild concentric LVH. Grade III diastolic dysfunction. Regional wall motion abnormalities; uzq-ks-zgidvr inferior and apical hypoki nesis. 2. RV normal size and normal systolic function. 3. Borderline LA enlargement. RA size normal. 4. No significant or AR. 5. PV not well seen, but grossly normal. Trace AK. 6. Moderate-severe MR. No MS. 7. Mild TR. RVSP 50-60 mm Hg. 8. Aortic root normal size. Normal IVC diameter and respiratory variation suggests normal CVP. 9. No pericardial effusion. (as per CARDS Dr. Db Garg). PG Care Time/CCT Total # of Minutes Spent Total Time Spent with Patient: Total time spent is greater than 50% in coordination of care (as documented) at patient's floor/unit and/or counseling patient: Coding Level of Care Code 27375 SUB INP/OBS CARE 3/50MIN Diagnoses Upper GI bleed K92.2 Dyspnea on exertion R06.09 Chronic congestive heart failure, unspecified heart failure type I50.9 Heart failure chronicity: chronic Heart failure type: unspecified Mitral regurgitation I34.0 Aortic valve stenosis, etiology of cardiac valve disease unspecified I35.0 Cardiac valve disease etiology: etiology unspecified Elevated troponin R79.89 Atrial fibrillation with RVR I48.91 Non-ST elevation ID (NSTEMI) I21.4 GERD (gastroesophageal reflux disease) K21.9 Esophagitis presence: esophagitis presence not specified Dyslipidemia E78.5 Essential hypertension I10 Hypertension type: essential hypertension (3) CHF (congestive heart failure) Heart failure chronicity: chronic Heart failure type: unspecified Qualified Code(s): I50.9 - Heart failure, unspecified (5) Aortic stenosis Cardiac valve disease etiology: etiology unspecified Qualified Code(s): I35.0 - Nonrheumatic aortic (valve) stenosis (9) GERD (gastroesophageal reflux disease) Esophagitis presence: esophagitis presence not specified Qualified Code(s): K21.9 - Gastro-esophageal reflux disease without esophagitis (11) Hypertension Hypertension type: essential hypertension Qualified Code(s): I10 - Essential (primary) hypertension
[2024-12-30] MEDS: ONDANSETRON 4 MG OD TAB PO PRN (08:18)
[2024-12-30] MEDS ORDERED: ONDANSETRON INJ 2 MG/ML 2 ML VIAL IV PRN (08:21)
[2024-12-30] MEDS ORDERED: ACETAMINOPHEN 1,000 MG/100 ML VIAL IV PRN (08:21)
--- NOTE | 2024-12-30 13:35 | Palliative Care Progress Note ---
Date of Service December 30, 2024 Assessment & Plan (1) Dyspnea and respiratory abnormalities: Plan: Dyspnea improved but still burdensome, therefore will escalate interventions and add trial of TDF 12mcg and continue prn morphine IV (2) Need for comfort care: Plan: [address] [place] [address] is coming this afternoon to meet with jayson and nhung for possible GIP (3) Advanced care planning/counseling discussion: Plan: Met with son/dtr in law, dtr from [place], granddaughter Yanna, pt brother and sister in law face to face at bedside x 20 min then in meeting space without patient/brother/sister in law for another 20min face to face. Total ACp time = 40min face to face We discussed Yokasta is breathing MUCH more comfortably today and the Robinul is really helping with that gurgly cough. She feels more comfortable today. We discussed adding a trial of transdermal fentanyl patch (low dose of 12mcg/hr every 72 hrs) and she agreed, so I just sent that order. I encouraged her to stay on morphine IV as needed. She did ask a few times about getting back home, and she was aware she would not be getting "better" but she hoped to be stable enough to return home and spend her remaining days where she most wants to be. When i spoke about this with the family who was here, there was some confusion - they were hoping she could stay here (I don't have any control over this - insurance rules are that if a patient is stable for transition to a lower, appropriate level of care such as home with hospice or jail etc., then that is what has to happen.) The family who were here said they did not feel they would have enough family members to help provider support to the patient - and those who expressed no worries for caregiver support yesterday "are not the ones who have been doing the majority of caregiving." I advised the care she will need is very much TLC driven, mostly in the bed and very much focused on comfort with an anticipated duration of days to a week or two. I believe this can be done safely at home but she will need caregivers with her to help with all needs. Hospice will help with a lot of things well but they are there 1-2 hr a day. Her symptom burden of terminal dyspnea remains hgh and today I am escalating medication to improve and optimize relief. Hospice is coming to see her/meet with family./eval for GIP and home hospice. I am hopeful they will accept her for GIP given the persistent symptom burden and need for escalation of interventions to relieve dyspnea. (4) Palliative care by specialist: Plan as above Thank you for allowing us to participate in the ongoing care of this patient. Please page with any additional concerns. Sarika Hicks DNP Director, Palliative Medicine Admission and Anticipated Discharge Date Admission Date: December 23, 2024 Subjective Mrs Margot remains on comfort care Results & Data Vital Signs (Past 12 Hours) Vital Signs O2 Del Method O2 Flow Rate 12/30/24 08:00 Nasal Cannula 6 PG Care Time/CCT Total # of Minutes Spent Total Time Spent with Patient: Total time spent is greater than 50% in coordination of care (as documented) at patient's floor/unit and/or counseling patient: I spent 95 minutes overall addressing this case: 10 min in medical data review/discussion with referring provider(s) and/or preparation for the visit 15 min in direct interaction with the patient/exam 40 min in Advance Care Planning/Goals of Care discussions as detailed above in note (must be >16min) 15 min in subsequent review and synthesis of assessment and plan 15 min communicating with other providers regarding the patient's case: Advanced Care Planning 36077 Advanced Care Planning Additional 30 Min [place] [address] SUB INP/OBS CARE 3/50MIN (25 - SIGNIFICANT, SEPARATELY IDENTIFIABLE ) Patient Type Established Medical Decision Making High Complexity Diagnoses Dyspnea and respiratory abnormalities R06.00; R06.89 Need for comfort care Advanced care planning/counseling discussion Z71.89 Palliative care by specialist Z51.5 Additional Codes Advanced Care Planning - 60512 Advanced Care Planning Additional 30 Min: 78263 Advanced Care Planning Additional 30 Min ([id number]) Comment [id number], [id number]
--- NOTE | 2024-12-30 18:54 | Hospitalist Progress Note ---
Date of Service December 30, 2024 Assessment & Plan (1) Comfort measures only status: Plan: Patient's code status was subsequently revised from DNR/DNI @ home to DNR/DNI/comfort measures only/inpatient hospice @ [facility] on 12/29/2024 after family meeting with Palliative Care Service of Dr. Sully Hicks, and all pharmacologic interventions to treat patient's medical issues were discontinued and replaced with comfort measures only on 12/29/2024. Patient awaits arrival of her daughter and son-in-law from [place], [place], in the next 1-2 days (01/01/2024 or 01/01/2025), after which, patient hopes to be discharged back to her home with home hospice services. (2) Upper GI bleed: Plan: Acute blood loss anemia is attributed to an acute upper GI bleed of unclear etiology as patient has not undergone EGD, and who prefers to avoid EGD or any other procedure (including cardiac catheterization) at this time, given her advanced age of 89 years, and given her acute exacerbation of chronic systolic (and diastolic) CHF with now reduced LVEF 25% and mildly reduced RV systolic function (as noted on 12/24/2024, 2:48pm TTE, CARDS Dr. Mekhi Campos), which in turn, is due to acute type I NSTEMI, which in turn, is due to acute blood loss anemia. Patient reports to me that while she has no mucosal bleeding (e.g., hematemesis, hematochezia, melena, hemoptysis, epistaxis, hematuria) on 12/28/2024, and that her Hb levels are holding steady, as shown below, that "I feel only 10% better in terms of still feeling weak and still feeling short of breath today (12/28/2024) than when I came into this hospital on 12/23/2024. Even so, I would like to go back to my own home, and to have the Case Manger arrange for a physical therapist and [place] occupational [place]. I do not want to go to a shelter or a rehab place. No." cf., Hb 7.0, MCV 96.1, MCHC 31.4 (12/23/2024, 11:25am). cf., Hb 6.7 (12/23/2024, 6:46pm), followed by 2 units packed RBC transfusion (12/23/2024, 7:40pm; 12/24/2024, 2:16am: volume 310 mL x 2 bags) cf., Hb 7.8 (12/24/2024, 12:21am). cf., Hb 8.7 (12/24/2024, 6:36am). cf., Hb 9.0 (12/24/2024, 12:18pm). cf., Hb 9.3 (12/24/2024, 6:27pm). cf., Hb 9.0, MCV 91.7, MCHC 32.7 (12/25/2024, 6:28am). cf., Hb 9.5, MCV 91.2, MCHC 33.9 (12/25/2024, 9:45am). cf., Hb 9.6 (12/25/2024, 4:44pm). cf., Hb 9.1, MCV 92.2, MCHC 31.9 (12/26/2024, 5:45am). cf., Hb 9.4, MCV 91.9, MCHC 31.9 (12/27/2024, 8:39am). Subsequently, patient received protonix 40mg IV bid (start date/time, 12/27/2024, 9:08pm). Patient's code status was subsequently revised from DNR/DNI @ home to DNR/DNI/comfort measures only/inpatient hospice @ [facility] on 12/29/2024 after family meeting with Palliative Care Service of Dr. Sully Hicks, and all pharmacologic interventions to treat patient's medical issues were discontinued and replaced with comfort measures only on 12/29/2024. Patient awaits arrival of her daughter and son-in-law from [place], [place], in the next 1-2 days (01/01/2024 or 01/01/2025), after which, patient hopes to be discharged back to her home with home hospice services. (3) Dyspnea on exertion: Plan: Etiology of dyspnea on exertion is most probably due to: 1. Acute exacerbation of chronic systolic (and diastolic) CHF with now reduced LVEF 25% and mildly reduced RV systolic function (as noted on 12/24/2024, 2:48pm TTE, CARDS Dr. Mekhi Campos), which in turn, is due to acute type I NSTEMI, which in turn, is due to acute blood loss anemia. 2. Acute fluid overload due to patient having received 2 units packed RBC transfusion (12/23/2024, 7:40pm; 12/24/2024, 2:16am: volume 310 mL x 2 bags) to treat admission Hb 6.7 g/dL (12/23/2024, 6:46pm). 3. Paroxysmal atrial fibrillation with RVR (12/25/2024, 3:30am). Hence, patient continues to receive lasix 20mg IV bid x 2 doses thus far (12/27/2024, 4:17pm; 12/28/2024, 9:21am), followed by lasix 20mg IV x 2 dose (12/28/2024, 2:54am) to treat #1 and #2 above. Hence, patient received amiodarone 150mg IV x 1 dose (12/25/2024, 5:54am), followed by amiodarone infusion @ 1mg/min (12/25/2024, 6:09am) with conversion to NSR (12/25/2024, 8:30am), followed by amiodarone infusion @ 0.5mg/min (12/25/2024, 11:24am to 12/28/2024, 9:36am, and ongoing as of 12/28/2024, 5:08pm), along with amiodarone 200mg PO bid x 5 doses (12/27/2024, 11:27am, 4:16pm; 12/28/2024 9:21am, 5:16pm; 12/29/2024, 8:13am, 8:04pm; 12/30/2024, 10:08am) to treat #3 above. Patient's code status was subsequently revised from DNR/DNI @ home to DNR/DNI/comfort measures only/inpatient hospice @ [facility] on 12/29/2024 after family meeting with Palliative Care Service of Dr. Sully Hicks, and all pharmacologic interventions to treat patient's medical issues were discontinued and replaced with comfort measures only on 12/29/2024. Patient awaits arrival of her daughter and son-in-law from [place], [place], in the next 1-2 days (01/01/2024 or 01/01/2025), after which, patient hopes to be discharged back to her home with home hospice services. (4) CHF (congestive heart failure): Plan: Acute exacerbation of chronic systolic (and diastolic) CHF with now reduced LVEF 25% and mildly reduced RV systolic function (as noted on 12/24/2024, 2:48pm TTE, CARDS Dr. Mekhi Campos), which in turn, is due to acute type I NSTEMI, which in turn, is due to acute blood loss anemia. cf., TTE (12/24/2024, 2:48pm): 1. LVEF 25%. Mild concentric LVH. Multiple wall motion abnormalities of varying severity. 2. Borderline RV enlargement. RV systolic function mildly reduced. 3. LA/RA sizes normal. 4. Calcified aortic valve. AV opens well. 5. Calcified mitral apparatus. MV leaflets appear thickened, but open well. 6. Calcified tricuspid valve, but open well. (as per CARDS Dr. Mekhi Campos). cf., TTE (11/09/2024, 7:03am): 1. LVEF 50-55%. Mild concentric LVH. Grade III diastolic dysfunction. Regional wall motion abnormalities; [id number] inferior and apical hypokinesis. 2. RV normal size and normal systolic function. 3. Borderline LA enlargement. RA size normal. 4. No significant or AR. 5. PV not well seen, but grossly normal. Trace CA. 6. Moderate-severe MR. No MS. 7. Mild TR. RVSP 50-60 mm Hg. 8. Aortic root normal size. Normal IVC diameter and respiratory variation suggests normal CVP. 9. No pericardial effusion. (as per CARDS Dr. Db Garg). Given the significant interval decline in biventricular systolic function (and diastolic function) as noted in the two TTE reports above, the risk of sudden from ventricular tachycardia degenerating into ventricular fibrillation remains very high in this 89 years old patient. Patient concedes this point and states that she would like to be discharged back to her home with home PT/OT Services as soon as her shortness of breath at rest and dyspnea on exertion improve a little bit more, as patient reports: "I still feel weak and a little less short of breath today (12/28/2024) than yesterday (12/27/2024). The doc gave me a water pill yesterday, and I feel about 10% better today (12/28/2024) in terms of breathing, but I am still on oxygen today (12/28/2024). Normally, I don't use any oxygen at my home at all. I've been coughing for the past 5 days since I came into this hospital 5 days ago (12/23/2024), but nothing came up in terms of mucous or phlegm. Today, I can feel that it's getting loose in my throat, so maybe I will be able to cough something up tomorrow. No sore throat. No fevers or chills. No chest pain when I breathe in or out." Etiology of dyspnea on exertion is most probably due to: 1. Acute exacerbation of chronic systolic (and diastolic) CHF with now reduced LVEF 25% and mildly reduced RV systolic function (as noted on 12/24/2024, 2:48pm TTE, CARDS Dr. Mekhi Campos), which in turn, is due to acute type I NSTEMI, which in turn, is due to acute blood loss anemia. 2. Acute fluid overload due to patient having received 2 units packed RBC transfusion (12/23/2024, 7:40pm; 12/24/2024, 2:16am: volume 310 mL x 2 bags) to treat admission Hb 6.7 g/dL (12/23/2024, 6:46pm). 3. Paroxysmal atrial fibrillation with RVR (12/25/2024, 3:30am). Subsequently, patient received 20mg IV bid x 7 doses (12/27/2024, 4:17pm; 12/28/2024, 9:21am, 5:16pm; 12/29/2024, 8:10am, 4:53pm; 12/30/2024, 9:58am, 4:37pm), along with lasix 20mg IV x 1 time dose (12/28/2024, 2:54am) to treat #1 and #2 above. Patient's code status was subsequently revised from DNR/DNI @ home to DNR/DNI/comfort measures only/inpatient hospice @ [facility] on 12/29/2024 after family meeting with Palliative Care Service of Dr. Sully Hicks, and all pharmacologic interventions to treat patient's medical issues were discontinued and replaced with comfort measures only on 12/29/2024. Patient awaits arrival of her daughter and son-in-law from [place], [place], in the next 1-2 days (01/01/2024 or 01/01/2025), after which, patient hopes to be discharged back to her home with home hospice services. (5) Mitral regurgitation: Plan: Mitral regurgitation is not reported on 12/24/2024, 2:48pm TTE, but was present on 11/09/2024, 7:03am TTE, as shown below: cf., TTE (12/24/2024, 2:48pm): 1. LVEF 25%. Mild concentric LVH. Multiple wall motion abnormalities of varying severity. 2. Borderline RV enlargement. RV systolic function mildly reduced. 3. LA/RA sizes normal. 4. Calcified aortic valve. AV opens well. 5. Calcified mitral apparatus. MV leaflets appear thickened, but open well. 6. Calcified tricuspid valve, but open well. (as per CARDS Dr. Mekhi Campos). cf., TTE (11/09/2024, 7:03am): 1. LVEF 50-55%. Mild concentric LVH. Grade III diastolic dysfunction. Reg ional wall motion abnormalities; [id number] inferior and apical hypokinesis. 2. RV normal size and normal systolic function. 3. Borderline LA enlargement. RA size normal. 4. No significant or AR. 5. PV not well seen, but grossly normal. Trace CA. 6. Moderate-severe MR. No MS. 7. Mild TR. RVSP 50-60 mm Hg. 8. Aortic root normal size. Normal IVC diameter and respiratory variation suggests normal CVP. 9. No pericardial effusion. (as per CARDS Dr. Db Garg). (6) Aortic stenosis: Plan: Aortic stenosis is NOT reported on either 12/24/2024, 2:48pm TTE or 11/09/2024, 7:03am TTE, as shown below: cf., TTE (12/24/2024, 2:48pm): 1. LVEF 25%. Mild concentric LVH. Multiple wall motion abnormalities of varying severity. 2. Borderline RV enlargement. RV systolic function mildly reduced. 3. LA/RA sizes normal. 4. Calcified aortic valve. AV opens well. 5. Calcified mitral apparatus. MV leaflets appear thickened, but open well. 6. Calcified tricuspid valve, but open well. (as per CARDS Dr. Mekhi Campos). cf., TTE (11/09/2024, 7:03am): 1. LVEF 50-55%. Mild concentric LVH. Grade III diastolic dysfunction. Regional wall motion abnormalities; [id number] inferior and apical hypokinesis. 2. RV normal size and normal systolic function. 3. Borderline LA enlargement. RA size normal. 4. No significant or AR. 5. PV not well seen, but grossly normal. Trace CA. 6. Moderate-severe MR. No MS. 7. Mild TR. RVSP 50-60 mm Hg. 8. Aortic root normal size. Normal IVC diameter and respiratory variation suggests normal CVP. 9. No pericardial effusion. (as per CARDS Dr. Db Garg). (7) Elevated troponin: Plan: See bullets #1, #2, and #3 above. (8) Atrial fibrillation with RVR: Plan: See bullets #1, #2, and #3 above. (9) Non-ST elevation MS (NSTEMI): Plan: See bullets #1, #2, and #3 above. (10) GERD (gastroesophageal reflux disease): Plan: Asymptomatic on protonix 40mg IV bid (start date/time, 12/27/2024, 9:08pm). (11) Dyslipidemia: Plan: Not on lipid lowering agent(s), for unclear reason(s). (12) Hypertension: Plan: Normotensive with BP 107/67 (12/28/2024, 4:06pm) not on any anti-HTN agents, except lasix 20mg IV bid x 2 doses thus far (12/27/2024, 4:17pm; 12/28/2024, 9:21am), followed by lasix 20mg IV x 2 dose (12/28/2024, 2:54am) to treat: 1. Acute exacerbation of chronic systolic (and diastolic) CHF with now reduced LVEF 25% and mildly reduced RV systolic function (as noted on 12/24/2024, 2:48pm TTE, CARDS Dr. Mekhi Campos), which in turn, is due to acute type I NSTEMI, which in turn, is due to acute blood loss anemia. 2. Acute fluid overload due to patient having received 2 units packed RBC transfusion (12/23/2024, 7:40pm; 12/24/2024, 2:16am: volume 310 mL x 2 bags) to treat admission Hb 6.7 g/dL (12/23/2024, 6:46pm). Plan #upper GI bleed #blood loss anemia - subacute, progressive, on Eliquis and aspirin for coronary disease as below. Recent NSTEMI - vitally stable at this time, Protonix loading dose given in the ER, 2 units packed red blood cells with type and screen ordered - hold aspirin and Plavix, reviewed with cardiology no indication for heparin at this time given increased risk - continue to trend hemoglobin this evening and then likely tomorrow morning after endoscopy - appreciate gastroenterology recommendations, Hemoglobin has stabilized, defer EGD at this time given stability of the bleed. Underlying cardiac risks. - stable hemoglobin levels, Stable, no evidence of rebleed. continue with daily checks for the short-term #atrial fibrillation with RVR #clinical decompensation/hypoxemia #Colume overload state - fairly abrupt onset last night, responding well to amiodarone with rate control. Chest x-ray this morning does show persistent right lower lobe atelectasis versus consolidation. No indication of pneumonia at this time. Suspect volume overload secondary to transfusions and IV product administration - metoprolol has been on hold. Will resume as she diuresis a bit. - will review with cardiology, initiate Lasix twice daily 17, remove a couple of liters hopefully this helps her reserve - Start lasix 20mg IV BIDD, strict i/o encinas if needed, may benefit from Bipap over the short term. See cardiology consult/notes, appreciate recs #NSTEMI #underlying coronary disease #elevated troponin - hold aspirin and Plavix as above, aspirin likely to be in her system several days - supportive measures with transfusion, target transfusion greater than 9/10 - marked increase in troponin this morning continues to trend upward. No signs of angina. See cardiology notes, appreciate recommendation and additional management. Ongoing medical management, target transfusion to minimize symptoms - troponin troponin trending downward, moderate persistent symptoms likely related to her underlying cardiac status/cardiomyopathy/ACS. continued conservative management. Daily weights and strict APPLE, clinically euvolemic may benefit from some additional diuresis as above #high output Failure # HFpEF/ischemic cardiomyopathy #history of aortic scleosis/mitral regurg - Lasix as needed, at this time no outward signs of failure, elevated BNP in the setting of bleed as above - minimal edema at this time, Lasix after transfusion on an as-needed basis - monitor telemetry, daily weight and closer I&O monitoring, diuresis as above #hypertension - borderline blood pressures, holding antihypertensives at this time, resume as vitals allow - Stable, okay to resume blood pressure medications as needed #CKD 4 - stable at this time, BMP in the morning, monitor during diuresis #prediabetes/ elevated blood sugar - we will continue to monitor, not on any antihyperglycemic #GERD - Protonix load and post load drip as above #FEN - n.p.o. at this time, LR at 80 cc/h after the transfusion is complete #CODE STATUS - DNR/DNI per her wishes at this time discussed with patient and family at the bedside at time of admission Admission and Anticipated Discharge Date Admission Date: December 23, 2024 Subjective "I feel and breathe a little better today, doc. My family is all here with me. I feel good about that. I'm waiting for my daughter to come up from [place] with her ; they are visiting [employer] in [place], [place], for a vacation in their RV, but they heard I am sick, so they are on their way. It's just under 500 miles away. They will arrive here @ [facility] I reckon in 2 days to see me. I'm hanging on for them and for my family here in this room, but I miss my a lot. He's been gone and I want to be with him again." Review of Systems Constitutional: Negative for antecedent/coincident fevers, chills, diaphoresis, wheeze, sore throat, hemoptysis, chest pains, palpitations, pleurisy, nausea, vomiting, diarrhea, abdominal pain, pelvic pain, hematemesis, hematochezia, melena, hematuria, dysuria, frequency, urgency, flank pain, headaches, dizziness, lightheadedness, visual changes, hearing changes, weakness, falls, syncope, trauma, travel history, sick contacts, or food/drug ingestions novel or new. All other review of systems are reported as negative by the patient on 12/30/2024. Physical Exam Constitutional: General: Uncomfortable with slight dyspnea at rest and intermittent dry coughing while utilizing oxymask with O2 saturation of 95% (12/28/2024, 7:20am), yet very cooperative and coherent. Wide awake and alert. Not confused, lethargic, or obtunded. Patient speaks in complete, fluent, and articulate sentences, pausing intermittently to clear her throat or cough without mucous production. General: Uncomfortable with slight dyspnea at rest and intermittent dry coughing while utilizing 7 liters/minute O2 via nasal cannula with O2 saturation of 93% (12/29/2024, 7:41am), yet very cooperative and coherent. Wide awake and alert. Not confused, lethargic, or obtunded. Patient speaks in complete, fluent, and articulate sentences, pausing intermittently to clear her throat or cough without mucous production. General: Comfortable with slight dyspnea at rest and intermittent dry coughing while utilizing 6 liters/minute O2 via nasal cannula with O2 saturation of 91% (12/30/2024, 8:00am), yet very cooperative and coherent. Wide awake and alert. Not confused, lethargic, or obtunded. Patient speaks in complete, fluent, and articulate sentences, pausing intermittently to clear her throat or cough without mucous production. HEENT: NC/AT. EOMI. PERRL. No nystagmus, gaze paresis, anisocoria, miosis, mydriasis, chemosis, hyphema, scleral injection, conjunctivitis, or pterygium. No otorrhea. No rhinorrhea. Neck: Supple, no stridor, bruit, or goiter. Jugular venous pressure 5cm above the sternal angle of Indra, which is typically 5 cm above the right atrium. Lymph: No anterior/posterior cervical lymphadenopathy, supraclavicular/infraclavicular lymphadenopathy, axilla/epitrochlear/inguinal lymphadenopathy. Chest: Symmetric rise and fall with respirations. Non-tender to palpation. Heart: RRR, S1 and S2. No S3 or S4 summation gallop. No tripartite friction rub. No murmur. Lungs: Clear to auscultation and percussion. No audible expiratory wheeze, egophony, pectoriloquy, increase in tactile fremitus, or flatness/dullness to percussion at the bases. Abd: Soft, non-tender, non-distended. Bowel sounds auscultated in all 4 quadrants. No rebound, guarding, Saxena's sign, or organomegaly. Ext: No clubbing, cyanosis, or edema. 2+ pedal pulses bilaterally. Skin: No decubitus ulcer or enanthem or exanthem. Neuro: No tremors, tics, or myoclonus. DTR+. Urology: + encinas catheter with 80 cc of clear yellow urine on 12/28/2024. No urethral discharge. Urology: + encinas catheter with 100 cc of clear yellow urine on 12/29/2024. No urethral discharge. Urology: + encinas catheter with 100 cc of clear yellow urine on 12/30/2024. No urethral discharge. Results & Data Results & Data Vital Signs (Past 12 Hours) Vital Signs O2 Del Method O2 Flow Rate 12/30/24 08:00 Nasal Cannula 6 Laboratory Results WBC 10.82, N82 M12 M5, Hb 7.0, MCV 96.1, MCHC 31.4, platelet 390 (12/23/2024, 11:25am). Hb 6.7 (12/23/2024, 6:46pm), followed by 2 units packed RBC transfusion (12/23/2024, 7:40pm; 12/24/2024, 2:16am: volume 310 mL x 2 bags) Hb 7.8 (12/24/2024, 12:21am). Hb 8.7 (12/24/2024, 6:36am). Hb 9.0 (12/24/2024, 12:18pm). Hb 9.3 (12/24/2024, 6:27pm). WBC 10.32, N86 L7 M5 E1, Hb 9.0, MCV 91.7, MCHC 32.7, platelet 329 (12/25/2024, 6:28am). WBC 10.65, Hb 9.5, MCV 91.2, MCHC 33.9, platelet 354 (12/25/2024, 9:45am). Hb 9.6 (12/25/2024, 4:44pm). WBC 8.98, N81 L9 M8 E2, Hb 9.1, MCV 92.2, MCHC 31.9, platelet 327 (12/26/2024, 5:45am). WBC 9.45, N84 L7 M7 E1, Hb 9.4, MCV 91.9, MCHC 31.9, platelet 359 (12/27/2024, 8:39am). WBC 10.41, no differential, Hb 9.9, MCV 92.0, MCHC 31.9, platelet 393 (12/29/2024, 6:40am). NO MORE labs starting on 12/30/2024 as patient's code status was revised from DNR/DNI @ home to DNR/DNI/comfort measures only/inpatient hospice @ [facility]. Fe 16 ug/dL, ferritin 13.2 ng/mL (12/23/2024, 3:15pm). Na 133, K 4.7, glucose 131, CO2 15, anion gap 12, BUN 71, creatinine 2.40, GFR 18.83, Ca 9.8, AST 24, ALT 16, ALK PHOS 47, total bili 0.4 (12/23/2024, 11:25am). Na 136, K 4.0, glucose 117, CO2 16, anion gap 13, BUN 65, creatinine 2.19, GFR 21.02, Ca 9.7, AST 21, ALT 15, ALK PHOS 43, total bili 1.0 (12/24/2024, 8:06am). Na 135, K 3.8, glucose 169, CO2 14, anion gap 14, BUN 52, creatinine 1.91, GFR 24.77, Ca 9.6, Mg 2.3, AST 21, ALT 17, ALK PHOS 46, total bili 0.9 (12/25/2024, 6:28am). Na 134, K 3.7, glucose 163, CO2 16, anion gap 12, BUN 43, creatinine 1.82, GFR 26.25, Ca 9.6, Mg 2.1, AST 18, ALT 15, ALK PHOS 46, total bili 0.5 (12/26/2024, 5:45am). Na 133, K 3.7, glucose 139, CO2 16, anion gap 12, BUN 41, creatinine 1.84, GFR 25.91, Ca 9.7, Mg 2.0 (12/27/2024, 8:39am). Na 132, K 4.2, glucose 124, CO2 15, anion gap 14, BUN 47, creatinine 2.55, GFR 17.51, Ca 9.7 (12/29/2024, 6:40am). NO MORE labs starting on 12/30/2024 as patient's code status was revised from DNR/DNI @ home to DNR/DNI/comfort measures only/inpatient hospice @ [facility]. Troponin-I #1 375.7 pg/mL (12/23/2024, 11:25am). Troponin-I #2 456.3 pg/mL (12/23/2024, 9:41pm). Troponin-I #3 358.6 pg/mL (12/23/2024, time ?) Troponin-I #4 1,830.7 pg/mL (12/24/2024, 6:36am). Troponin-I #5 2,351.3 pg/mL (12/24/2024, 10:42am). Troponin-I #6 1,266.5 pg/mL (12/25/2024, 6:28am). Troponin-I #7 1,161.2 pg/mL (12/25/2024, 11:10am). Troponin-I #1 1,510.2 pg/mL (12/25/2024, 4:44pm). Troponin-I #2 1,243.3 pg/mL (12/26/2024, 5:45am). BNP 482 pg/mL (07/03/2024, 6:58pm). BNP 1,186 pg/mL (11/08/2024, 2:02pm). BNP 1,964 pg/mL (12/23/2024, 11:25am). BNP > 4,700 pg/mL (12/27/2024, 8:39am). CRP #1 1.31 mg/dL (12/25/2024, 6:28am). CRP #2 2.87 mg/dL (12/26/2024, 5:45am). CRP #3 6.34 mg/dL (12/27/2024, 8:39am). Procalcitonin #1 0.07 ng/mL (12/26/2024, 5:45am). Diagnostic Findings Portable CXR (12/23/2024, 11:39am): 1. CHF. 2. Mild hazy opacity in the lung bases could represent atelectasis, early pneumonia, or small pleural effusions. Portable CXR (12/25/2024, 9:34am): 1. CHF. 2. Mild lung base opacity could represent atelectasis, consolidation, or small pleural effusions. Additional tests include: EKG #1 (12/23/2024, 11:23am): NSR @ 77, CA 180, QTC 407, TWI in II, III, aVF, V6, no acute ST depressions/elevations (by my review). EKG #2 (12/24/2024, 3:50pm): NSR @ 69, CA 164, QTC 398, TWI in III, aVF, V6, no acute ST depressions/elevations (by my review). EKG #3 (12/25/2024, 3:35am): AFIB @ 120, QTC 370, TWI in II, III, aVF, V6, no acute ST depressions/elevations (by my review). EKG old (11/11/2024, 8:00am): NSR @ 63, CA 162, QTC 446, TWI in II, III, aVF, V6, no acute ST depressions/elevations (by my review). TTE (12/24/2024, 2:48pm): 1. LVEF 25%. Mild concentric LVH. Multiple wall motion abnormalities of varying severity. 2. Borderline RV enlargement. RV systolic function mildly reduced. 3. LA/RA sizes normal. 4. Calcified aortic valve. AV opens well. 5. Calcified mitral apparatus. MV leaflets appear thickened, but open well. 6. Calcified tricuspid valve, but open well. (as per CARDS Dr. Mekhi Campos). TTE (11/09/2024, 7:03am): 1. LVEF 50-55%. Mild concentric LVH. Grade III diastolic dysfunction. Regional wall motion abnormalities; [id number] inferior and apical hypokinesis. 2. RV normal size and normal systolic function. 3. Borderline LA enlargement. RA size normal. 4. No significant or AR. 5. PV not well seen, but grossly normal. Trace CA. 6. Moderate-severe MR. No MS. 7. Mild TR. RVSP 50-60 mm Hg. 8. Aortic root normal size. Normal IVC diameter and respiratory variation suggests normal CVP. 9. No pericardial effusion. (as per CARDS Dr. Db Garg). PG Care Time/CCT Total # of Minutes Spent Total Time Spent with Patient: Total time spent is greater than 50% in coordination of care (as documented) at patient's floor/unit and/or counseling patient: Coding Level of Care Code 74440 SUB INP/OBS CARE 235MIN Diagnoses Comfort measures only status Z51.5 Upper GI bleed K92.2 Dyspnea on exertion R06.09 Chronic congestive heart failure, unspecified heart failure type I50.9 Heart failure type: unspecified Heart failure chronicity: chronic Nonrheumatic mitral valve regurgitation I34.0 Cardiac valve disease etiology: nonrheumatic Aortic valve stenosis, etiology of cardiac valve disease unspecified I35.0 Cardiac valve disease etiology: etiology unspecified Elevated troponin R79.89 Atrial fibrillation with RVR I48.91 Non-ST elevation MS (NSTEMI) I21.4 GERD (gastroesophageal reflux disease) K21.9 Esophagitis presence: esophagitis presence not specified Dyslipidemia E78.5 Essential hypertension I10 Hypertension type: essential hypertension (4) CHF (congestive heart failure) Heart failure type: unspecified Heart failure chronicity: chronic Qualified Code(s): I50.9 - Heart failure, unspecified (5) Mitral regurgitation Cardiac valve disease etiology: nonrheumatic Qualified Code(s): I34.0 - Nonrheumatic mitral (valve) insufficiency (6) Aortic stenosis Cardiac valve disease etiology: etiology unspecified Qualified Code(s): I35.0 - Nonrheumatic aortic (valve) stenosis (10) GERD (gastroesophageal reflux disease) Esophagitis presence: esophagitis presence not specified Qualified Code(s): K21.9 - Gastro-esophageal reflux disease without esophagitis (12) Hypertension Hypertension type: essential hypertension Qualified Code(s): I10 - Essential (primary) hypertension
[2024-12-30] MEDS: GLYCOPYRROLATE 0.2 MG/ML VIAL IV PRN (19:50)
--- NOTE | 2024-12-31 13:44 | Palliative Care Progress Note ---
Date of Service December 31, 2024 Assessment & Plan (1) Dyspnea and respiratory abnormalities: Plan: Pt shared breathing easier, denies pain. family at bedside. Anticipatory guidance offered. Discussed changes pt may move through in the dying process including but not limited to sleeping more, disorientation when awake, restlessness, diminished senses/inability to respond to stimulus although ability to be aware of them remains intact longer, and changes in body temperatures, skin changes/mottling/cyanosis, respiratory pattern changes, and oral secretions. Family verbalized understanding. The goal is to assure a peaceful . (2) Comfort measures only status: Plan: pt transitioned to [facility] on 12/30/24 (3) Need for comfort care: Plan: Comfort plan of care parameters: 1. Patient/Family want hospice added to their care. 2. NO rehab/PT/OT 3. Strictly End of Life care only 4. NO escalation of care: do not increase oxygen, escalate therapies, etc. The focus is on comfort through end of life, assure this is accomplished with aggressive symptom management (i.e. relief of dyspnea, pain, etc.) 5. NO return to hospital 6. NO labs, imaging, surgery 7. Oral intake as desired for comfort and pleasure: NO dietary restriction, Allow permissive aspiration, do not withhold food or drink for concern of aspiration and allow PO for pleasure and comfort. 8. If difficulty urinating/commode/bedpan, ok to place Ceballos catheter for comfort/hygiene/skin protection AND/OR Continue Ceballos catheter for comfort/hyg iene/skin protection 9. NO: calorie counts, artificial nutrition, feeding tubes or IV fluids EOL Symptom manamgement: Continue per primary Pain/dyspnea/tachypnea morphine 2mg IVP PRN [id number] Consider titratable morphine drip if pt requires >3 PRN doses in under two consecutive hours. Nausea/vomitting zofran 4mg IVP q4h PRN Agitation ativan 0.5mg IVP q4h PRN Hyperactive delirium haldol 5mg IVP q6h PRN Secretions - if repositioning not effective robinul 0.4mg IV q4h PRN atropine SL 3 drops Q1h PRN Nursing care: Discontinue all medications not directed towards comfort. Detether pt from IV tubing, monitor cables, and check vitals once per shift. Please continue HFNC and titrate down as able for patient comfort. Use medications above PRN for dyspnea/tachypnea and do not increase oxygen once titrated down. Assess q1h for pain/dyspnea and treat accordingly. (4) Palliative care by specialist: Plan: Palliative care will continue to follow for ongoing EOL pt care and family support. Plan as above Admission and Anticipated Discharge Date Admission Date: December 23, 2024 Subjective Assessed pt at bedside, she was transitioned to [facility] on 12/30/24. Pt is awake and alert, appears comfortable, and denies discomfort. She has had frequent need for PRN medications for dyspnea overniht and her respiratory effort is slightly increased, rate 20/min with notable oral secretions. Large family presence at bedside. Review of Systems Review of Systems: All systems reviewed & are unremarkable except as noted in Subjective Physical Exam Constitutional: + acute distress, + ill appearing, + fra il appearing, cooperative and + underweight Eyes: PERRL, conjunctivae normal, anicteric sclerae ENMT: external ear and nose normal, oropharynx normal Neck: trachea midline, no thyromegaly Respiratory: + respiratory distress, + labored breath ing, + uses accessory muscles, + cough (gurgling cough), + tachypneic and symmetric chest movement Auscultation: + diminished lung sounds, + crackles and + rhonchi Cardiovascular: Rate/Rhythm: + tachycardic (Apical impulse +forceful/bounding) Gastrointestinal (Abdomen): Inspection/Auscultation: normal bowel sounds Percussion/Palpation: abdomen soft Musculoskeletal: Head/Neck/Chest: head atraumatic gen weakness Skin: + turgor decreased and + pallor Neurologic: awake Psychiatric: Orientation: alert and oriented x 3 Eye Contact: good eye contact Results & Data Vital Signs (Past 12 Hours) Vital Signs Temp 36.7 C 12/29/24 15:33 Pulse 78 12/29/24 15:33 Resp 32 H 12/29/24 15:33 BP 124/75 12/29/24 15:33 Pulse Ox 91 12/29/24 15:33 O2 Del Method Nasal Cannula 12/30/24 20:00 O2 Flow Rate 6 12/30/24 20:00 FiO2 35 12/29/24 05:12 Intake & Output 12/30/24 12/31/24 12/31/24 18:59 06:59 18:59 Intake Total 55.666 / 55.666 Output Total 50 / 50 Balance 5.666 / 5.666 Intake: IV 55.666 / 55.666 Amiodarone / D5w 360 mg In 200 55.666 / 55.666 ml @ 0.5 MG/MIN 16.667 mls/hr IV .Q12H [facility] Rx#:[id number] Output: Urine Amount (Catheter) 50 / 50 Ceballos/Indwelling 50 / 50 Laboratory Results No further labs or diagnostics in concert with comfort directed care. Diagnostic Findings No further labs or diagnostics in concert with comfort directed care. Medications Administered Current Inpatient Medications Fentanyl (Fentanyl 12 Mcg/Hr Tdsy) 1 patch TD Q3D PAT Stop: 01/13/25 13:29 Last Admin: 12/30/24 14:35 Dose: 1 patch Furosemide (Furosemide Inj 20 Mg/2 Ml Vial) 20 mg IV [id number] PAT Stop: 01/26/25 16:59 Last Admin: 12/31/24 09:09 Dose: 20 mg Glycopyrrolate (Glycopyrrolate 0.2 Mg/Ml Vial) 0.4 mg IV Q3H PRN PRN Reason: Rattling Secretions or Pulm Congestion Stop: 01/28/25 16:04 Last Admin: 12/31/24 12:25 Dose: 0.4 mg Lorazepam 0.5 mg/ Syringe 0.5 mls @ 2 mls/min IV Q4H PRN PRN Reason: Anxiety,nausea,insomnia Stop: 01/28/25 16:04 Acetaminophen (Ofirmev) 1,000 mg in 100 mls @ 400 mls/hr IV Q8H PRN PRN Reason: headache or pain Stop: 01/02/25 08:20 Miscellaneous (Fentanyl Patch Remove & Waste) 1 each N/A Q3D PAT Stop: 01/29/25 13:29 Last Admin: 12/30/24 14:36 Dose: Not Given Miscellaneous (Check Fentanyl Patch Placement) 1 each N/A QS PAT Stop: 01/29/25 15:59 Last Admin: 12/31/24 09:01 Dose: 1 each Miscellaneous (Check Scopolamine Patch Placement) 1 each N/A QS PAT Stop: 01/30/25 15:59 Miscellaneous (Remove Transderm-Scop Patch) 1 each N/A Q72H PAT Stop: 02/02/25 13:44 Morphine Sulfate (Morphine Sulfate 4 Mg/Ml 1 Ml Carp\Vial) 2 mg IV Q1H PRN PRN Reason: Pain or Respiratory Distress Stop: 01/12/25 16:04 Last Admin: 12/31/24 12:24 Dose: 2 mg Ondansetron HCl (Ondansetron Inj 2 Mg/Ml 2 Ml Vial) 4 mg IV Q4H PRN PRN Reason: Nausea Stop: 01/29/25 08:20 Scopolamine (Scopolamine 1 Mg/72 Hr Tdsy Patch) 1 patch TD Q72H PAT Stop: 01/30/25 13:44 Last Admin: 12/31/24 14:59 Dose: 1 patch PG Care Time/CCT Total # of Minutes Spent Total Time Spent with Patient: Total time spent is greater than 50% in coordination of care (as documented) at patient's floor/unit and/or counseling patient: Coding [place] [address] SUB INP/OBS CARE 2/35MIN Patient Type Established History Expanded Problem Focused Exam Expanded Problem Focused Medical Decision Making Moderate Complexity Diagnoses Dyspnea and respiratory abnormalities R06.00; R06.89 Comfort measures only status Z51.5 Need for comfort care Palliative care by specialist Z51.5
[2024-12-31] MEDS: SCOPOLAMINE 1 MG/72 HR TDSY PATCH TD SCH (14:59)
[2024-12-31] MEDS: CHECK SCOPOLAMINE PATCH PLACEMENT SCH (16:12)
[2024-12-31] MEDS: LORazepam Inj 0.5 MG in SYRINGE 0.25 ML IV PRN (17:23)
--- NOTE | 2024-12-31 20:41 | Hospitalist Progress Note ---
Date of Service December 31, 2024 Assessment & Plan (1) Comfort measures only status: Plan: Patient's code status was subsequently revised from DNR/DNI @ home to DNR/DNI/comfort measures only/inpatient hospice @ [facility] on 12/29/2024 after family meeting with Palliative Care Service of Dr. Sully Hicks, and all pharmacologic interventions to treat patient's medical issues were discontinued and replaced with comfort measures only on 12/29/2024. Patient met her daughter and son-in-law from [place], [place], earlier today (12/31/2024), and awaits arrival of some other family members from [place] and from [place], after which, patient hopes to be discharged back to her home with home hospice services. (2) Upper GI bleed: Plan: Acute blood loss anemia is attributed to an acute upper GI bleed of unclear etiology as patient has not undergone EGD, and who prefers to avoid EGD or any other procedure (including cardiac catheterization) at this time, given her advanced age of 89 years, and given her acute exacerbation of chronic systolic (and diastolic) CHF with now reduced LVEF 25% and mildly reduced RV systolic function (as noted on 12/24/2024, 2:48pm TTE, CARDS Dr. Mekhi Campos), which in turn, is due to acute type I NSTEMI, which in turn, is due to acute blood loss anemia. Patient reports to me that while she has no mucosal bleeding (e.g., hematemesis, hematochezia, melena, hemoptysis, epistaxis, hematuria) on 12/28/2024, and that her Hb levels are holding steady, as shown below, that "I feel only 10% better in terms of still feeling weak and still feeling short of breath today (12/28/2024) than when I came into this hospital on 12/23/2024. Even so, I would like to go back to my own home, and to have the Case Manger arrange for a physical therapist and an occupational [place]. I do not want to go to a intermediate or a rehab place. No." cf., Hb 7.0, MCV 96.1, MCHC 31.4 (12/23/2024, 11:25am). cf., Hb 6.7 (12/23/2024, 6:46pm), followed by 2 units packed RBC transfusion (12/23/2024, 7:40pm; 12/24/2024, 2:16am: volume 310 mL x 2 bags) cf., Hb 7.8 (12/24/2024, 12:21am). cf., Hb 8.7 (12/24/2024, 6:36am). cf., Hb 9.0 (12/24/2024, 12:18pm). cf., Hb 9.3 (12/24/2024, 6:27pm). cf., Hb 9.0, MCV 91.7, MCHC 32.7 (12/25/2024, 6:28am). cf., Hb 9.5, MCV 91.2, MCHC 33.9 (12/25/2024, 9:45am). cf., Hb 9.6 (12/25/2024, 4:44pm). cf., Hb 9.1, MCV 92.2, MCHC 31.9 (12/26/2024, 5:45am). cf., Hb 9.4, MCV 91.9, MCHC 31.9 (12/27/2024, 8:39am). Subsequently, patient received protonix 40mg IV bid (start date/time, 12/27/2024, 9:08pm). Patient's code status was subsequently revised from DNR/DNI @ home to DNR/DN I/comfort measures only/inpatient hospice @ [facility] on 12/29/2024 after family meeting with Palliative Care Service of Dr. Sully Hicks, and all pharmacologic interventions to treat patient's medical issues were discontinued and replaced with comfort measures only on 12/29/2024. Patient awaits arrival of her daughter and son-in-law from [place], [place], in the next 1-2 days (01/01/2024 or 01/01/2025), after which, patient hopes to be discharged back to her home with home hospice services. (3) Dyspnea on exertion: Plan: Etiology of dyspnea on exertion is most probably due to: 1. Acute exacerbation of chronic systolic (and diastolic) CHF with now reduced LVEF 25% and mildly reduced RV systolic function (as noted on 12/24/2024, 2:48pm TTE, CARDS Dr. Mekhi Campos), which in turn, is due to acute type I NSTEMI, which in turn, is due to acute blood loss anemia. 2. Acute fluid overload due to patient having received 2 units packed RBC transfusion (12/23/2024, 7:40pm; 12/24/2024, 2:16am: volume 310 mL x 2 bags) to treat admission Hb 6.7 g/dL (12/23/2024, 6:46pm). 3. Paroxysmal atrial fibrillation with RVR (12/25/2024, 3:30am). Hence, patient continues to receive lasix 20mg IV bid x 2 doses thus far (12/27/2024, 4:17pm; 12/28/2024, 9:21am), followed by lasix 20mg IV x 2 dose (12/28/2024, 2:54am) to treat #1 and #2 above. Hence, patient received amiodarone 150mg IV x 1 dose (12/25/2024, 5:54am), followed by amiodarone infusion @ 1mg/min (12/25/2024, 6:09am) with conversion to NSR (12/25/2024, 8:30am), followed by amiodarone infusion @ 0.5mg/min (12/25/2024, 11:24am to 12/28/2024, 9:36am, and ongoing as of 12/28/2024, 5:08pm), along with amiodarone 200mg PO bid x 5 doses (12/27/2024, 11:27am, 4:16pm; 12/28/2024 9:21am, 5:16pm; 12/29/2024, 8:13am, 8:04pm; 12/30/2024, 10:08am) to treat #3 above. Patient's code status was subsequently revised from DNR/DNI @ home to DNR/DNI/comfort measures only/inpatient hospice @ [facility] on 12/29/2024 after family meeting with Palliative Care Service of Dr. Sully Hicks, and all pharmacologic interventions to treat patient's medical issues were discontinued and replaced with comfort measures only on 12/29/2024. Patient awaits arrival of her daughter and son-in-law from [place], [place], in the next 1-2 days (01/01/2024 or 01/01/2025), after which, patient hopes to be discharged back to her home with home hospice services. (4) CHF (congestive heart failure): Plan: Acute exacerbation of chronic systolic (and diastolic) CHF with now reduced LVEF 25% and mildly reduced RV systolic function (as noted on 12/24/2024, 2:48pm TTE, CARDS Dr. Mekhi Campos), which in turn, is due to acute type I NSTEMI, which in turn, is due to acute blood loss anemia. cf., TTE (12/24/2024, 2:48pm): 1. LVEF 25%. Mild concentric LVH. Multiple wall motion abnormalities of varying severity. 2. Borderline RV enlargement. RV systolic function mildly reduced. 3. LA/RA sizes normal. 4. Calcified aortic valve. AV opens well. 5. Calcified mitral apparatus. MV leaflets appear thickened, but open well. 6. Calcified tricuspid valve, but open well. (as per CARDS Dr. Mekhi Campos). cf., TTE (11/09/2024, 7:03am): 1. LVEF 50-55%. Mild concentric LVH. Grade III diastolic dysfunction. Regional wall motion abnormalities; [id number] inferior and apical hypokinesis. 2. RV normal size and normal systolic function. 3. Borderline LA enlargement. RA size normal. 4. No significant or AR. 5. PV not well seen, but grossly normal. Trace NM. 6. Moderate-severe MR. No MS. 7. Mild TR. RVSP 50-60 mm Hg. 8. Aortic root normal size. Normal IVC diameter and respiratory variation suggests normal CVP. 9. No pericardial effusion. (as per CARDS Dr. Db Garg). Given the significant interval decline in biventricular systolic function (and diastolic function) as noted in the two TTE reports above, the risk of sudden from ventricular tachycardia degenerating into ventricular fibrillation remains very high in this 89 years old patient. Patient concedes this point and states that she would like to be discharged back to her home with home PT/OT Services as soon as her shortness of breath at rest and dyspnea on exertion improve a little bit more, as patient reports: "I still feel weak and a little less short of breath today (12/28/2024) than yesterday (12/27/2024). The doc gave me a water pill yesterday, and I feel about 10% better today (12/28/2024) in terms of breathing, but I am still on oxygen today (12/28/2024). Normally, I don't use any oxygen at my home at all. I've been coughing for the past 5 days since I came into this hospital 5 days ago (12/23/2024), but nothing came up in terms of mucous or phlegm. Today, I can feel that it's getting loose in my throat, so maybe I will be able to cough something up tomorrow. No sore throat. No fevers or chills. No chest pain when I breathe in or out." Etiology of dyspnea on exertion is most probably due to: 1. Acute exacerbation of chronic systolic (and diastolic) CHF with now reduced LVEF 25% and mildly reduced RV systolic function (as noted on 12/24/2024, 2:48pm TTE, CARDS Dr. Mekhi Campos), which in turn, is due to acute type I NSTEMI, which in turn, is due to acute blood loss anemia. 2. Acute fluid overload due to patient having received 2 units packed RBC transfusion (12/23/2024, 7:40pm; 12/24/2024, 2:16am: volume 310 mL x 2 bags) to treat admission Hb 6.7 g/dL (12/23/2024, 6:46pm). 3. Paroxysmal atrial fibrillation with RVR (12/25/2024, 3:30am). Subsequently, patient received 20mg IV bid x 7 doses (12/27/2024, 4:17pm; 12/28/2024, 9:21am, 5:16pm; 12/29/2024, 8:10am, 4:53pm; 12/30/2024, 9:58am, 4:37pm), along with lasix 20mg IV x 1 time dose (12/28/2024, 2:54am) to treat #1 and #2 above. Patient's code status was subsequently revised from DNR/DNI @ home to DNR/DNI/comfort measures only/inpatient hospice @ [facility] on 12/29/2024 after family meeting with Palliative Care Service of Dr. Sully Hicks, and all pharmacologic interventions to treat patient's medical issues were discontinued and replaced with comfort measures only on 12/29/2024. Patient awaits arrival of her daughter and son-in-law from [place], [place], in the next 1-2 days (01/01/2024 or 01/01/2025), after which, patient hopes to be discharged back to her home with home hospice services. (5) Mitral regurgitation: Plan: Mitral regurgitation is not reported on 12/24/2024, 2:48pm TTE, but was present on 11/09/2024, 7:03am TTE, as shown below: cf., TTE (12/24/2024, 2:48pm): 1. LVEF 25%. Mild concentric LVH. Multiple wall motion abnormalities of varying severity. 2. Borderline RV enlargement. RV systolic function mildly reduced. 3. LA/RA sizes normal. 4. Calcified aortic valve. AV opens well. 5. Calcified mitral apparatus. MV leaflets appear thickened, but open well. 6. Calcified tricuspid valve, but open well. (as per CARDS Dr. Mekhi Campos). cf., TTE (11/09/2024, 7:03am): 1. LVEF 50-55%. Mild concentric LVH. Grade III diastolic dysfunction. Regional wall motion abnormalities; [id number] inferior and apical hypokinesis. 2. RV normal size and normal systolic function. 3. Borderline LA enlargement. RA size normal. 4. No significant or AR. 5. PV not well seen, but grossly normal. Trace NM. 6. Moderate-severe MR. No MS. 7. Mild TR. RVSP 50-60 mm Hg. 8. Aortic root normal size. Normal IVC diameter and respiratory variation suggests normal CVP. 9. No pericardial effusion. (as per CARDS Dr. Db Garg). (6) Aortic stenosis: Plan: Aortic stenosis is NOT reported on either 12/24/2024, 2:48pm TTE or 11/09/2024, 7:03am TTE, as shown below: cf., TTE (12/24/2024, 2:48pm): 1. LVEF 25%. Mild concentric LVH. Multiple wall motion abnormalities of varying severity. 2. Borderline RV enlargement. RV systolic function mildly reduced. 3. LA/RA sizes normal. 4. Calcified aortic valve. AV opens well. 5. Calcified mitral apparatus. MV leaflets appear thickened, but open well. 6. Calcified tricuspid valve, but open well. (as per CARDS Dr. Mekhi Campos). cf., TTE (11/09/2024, 7:03am): 1. LVEF 50-55%. Mild concentric LVH. Grade III diastolic dysfunction. Regional wall motion abnormalities; [id number] inferior and apical hypokinesi s. 2. RV normal size and normal systolic function. 3. Borderline LA enlargement. RA size normal. 4. No significant or AR. 5. PV not well seen, but grossly normal. Trace NM. 6. Moderate-severe MR. No MS. 7. Mild TR. RVSP 50-60 mm Hg. 8. Aortic root normal size. Normal IVC diameter and respiratory variation suggests normal CVP. 9. No pericardial effusion. (as per CARDS Dr. Db Garg). (7) Elevated troponin: Plan: See bullets #1, #2, and #3 above. (8) Atrial fibrillation with RVR: Plan: See bullets #1, #2, and #3 above. (9) Non-ST elevation CT (NSTEMI): Plan: See bullets #1, #2, and #3 above. (10) GERD (gastroesophageal reflux disease): Plan: Asymptomatic on protonix 40mg IV bid (start date/time, 12/27/2024, 9:08pm). (11) Dyslipidemia: Plan: Not on lipid lowering agent(s), for unclear reason(s). (12) Hypertension: Plan: Normotensive with BP 107/67 (12/28/2024, 4:06pm) not on any anti-HTN agents, except lasix 20mg IV bid x 2 doses thus far (12/27/2024, 4:17pm; 12/28/2024, 9:21am), followed by lasix 20mg IV x 2 dose (12/28/2024, 2:54am) to treat: 1. Acute exacerbation of chronic systolic (and diastolic) CHF with now reduced LVEF 25% and mildly reduced RV systolic function (as noted on 12/24/2024, 2:48pm TTE, CARDS Dr. Mekhi Campos), which in turn, is due to acute type I NSTEMI, which in turn, is due to acute blood loss anemia. 2. Acute fluid overload due to patient having received 2 units packed RBC transfusion (12/23/2024, 7:40pm; 12/24/2024, 2:16am: volume 310 mL x 2 bags) to treat admission Hb 6.7 g/dL (12/23/2024, 6:46pm). Plan #upper GI bleed #blood loss anemia - subacute, progressive, on Eliquis and aspirin for coronary disease as below. Recent NSTEMI - vitally stable at this time, Protonix loading dose given in the ER, 2 units packed red blood cells with type and screen ordered - hold aspirin and Plavix, reviewed with cardiology no indication for heparin at this time given increased risk - continue to trend hemoglobin this evening and then likely tomorrow morning after endoscopy - appreciate gastroenterology recommendations, Hemoglobin has stabilized, defer EGD at this time given stability of the bleed. Underlying cardiac risks. - stable hemoglobin levels, Stable, no evidence of rebleed. continue with daily checks for the short-term #atrial fibrillation with RVR #clinical decompensation/hypoxemia #Colume overload state - fairly abrupt onset last night, responding well to amiodarone with rate control. Chest x-ray this morning does show persistent right lower lobe atelectasis versus consolidation. No indication of pneumonia at this time. Suspect volume overload secondary to transfusions and IV product administration - metoprolol has been on hold. Will resume as she diuresis a bit. - will review with cardiology, initiate Lasix twice daily 17, remove a couple of liters hopefully this helps her reserve - Start lasix 20mg IV BIDD, strict i/o encinas if needed, may benefit from Bipap over the short term. See cardiology consult/notes, appreciate recs #NSTEMI #underlying coronary disease #elevated troponin - hold aspirin and Plavix as above, aspirin likely to be in her system several days - supportive measures with transfusion, target transfusion greater than 9/10 - marked increase in troponin this morning continues to trend upward. No signs of angina. See cardiology notes, appreciate recommendation and additional management. Ongoing medical management, target transfusion to minimize symptoms - troponin troponin trending downward, moderate persistent symptoms likely related to her underlying cardiac status/cardiomyopathy/ACS. continued cons ervative management. Daily weights and strict APPLE, clinically euvolemic may benefit from some additional diuresis as above #high output Failure # HFpEF/ischemic cardiomyopathy #history of aortic scleosis/mitral regurg - Lasix as needed, at this time no outward signs of failure, elevated BNP in the setting of bleed as above - minimal edema at this time, Lasix after transfusion on an as-needed basis - monitor telemetry, daily weight and closer I&O monitoring, diuresis as above #hypertension - borderline blood pressures, holding antihypertensives at this time, resume as vitals allow - Stable, okay to resume blood pressure medications as needed #CKD 4 - stable at this time, BMP in the morning, monitor during diuresis #prediabetes/ elevated blood sugar - we will continue to monitor, not on any antihyperglycemic #GERD - Protonix load and post load drip as above #FEN - n.p.o. at this time, LR at 80 cc/h after the transfusion is complete #CODE STATUS - DNR/DNI per her wishes at this time discussed with patient and family at the bedside at time of admission Admission and Anticipated Discharge Date Admission Date: December 23, 2024 Subjective "I am ok. Coughing a lot. My family is all here. I am happy. A few more family members are coming tomorrow to see me. My daughters are here. I'm ready to go, doc." Review of Systems Constitutional: Negative for antecedent/coincident fevers, chills, diaphoresis, wheeze, sore throat, hemoptysis, chest pains, palpitations, pleurisy, nausea, vomiting, diarrhea, abdominal pain, pelvic pain, hematemesis, hematochezia, melena, hematuria, dysuria, frequency, urgency, flank pain, headaches, dizziness, lightheadedness, visual changes, hearing changes, weakness, falls, syncope, trauma, travel history, sick contacts, or food/drug ingestions novel or new. All other review of systems are reported as negative by the patient on 12/31/2024. Physical Exam Constitutional: General: Uncomfortable with slight dyspnea at rest and intermittent dry coughing while utilizing oxymask with O2 saturation of 95% (12/28/2024, 7:20am), yet very cooperative and coherent. Wide awake and alert. Not confused, lethargic, or obtunded. Patient speaks in complete, fluent, and articulate sentences, pausing intermittently to clear her throat or cough without mucous production. General: Uncomfortable with slight dyspnea at rest and intermittent dry coughing while utilizing 7 liters/minute O2 via nasal cannula with O2 saturation of 93% (12/29/2024, 7:41am), yet very cooperative and coherent. Wide awake and alert. Not confused, lethargic, or obtunded. Patient speaks in complete, fluent, and articulate sentences, pausing intermittently to clear her throat or cough without mucous production. General: Comfortable with slight dyspnea at rest and intermittent dry coughing while utilizing 6 liters/minute O2 via nasal cannula with O2 saturation of 91% (12/30/2024, 8:00am), yet very cooperative and coherent. Wide awake and alert. Not confused, lethargic, or obtunded. Patient speaks in complete, fluent, and articulate sentences, pausing intermittently to clear her throat or cough without mucous production. General: Comfortable with slight dyspnea at rest and intermittent dry coughing while utilizing 6 liters/minute O2 via nasal cannula with O2 saturation of 91% (12/31/2024, 8:00am), yet very cooperative and coherent. Wide awake and alert. Not confused, lethargic, or obtunded. Patient speaks in complete, fluent, and articulate sentences, pausing intermittently to clear her throat or cough without mucous production. HEENT: NC/AT. EOMI. PERRL. No nystagmus, gaze paresis, anisocoria, miosis, mydriasis, chemosis, hyphema, scleral injection, conjunctivitis, or pterygium. No otorrhea. No rhinorrhea. Neck: Supple, no stridor, bruit, or goiter. Jugular venous pressure 5cm above the sternal angle of Indra, which is typically 5 cm above the right atrium. Lymph: No anterior/posterior cervical lymphadenopathy, supraclavicular/infraclavicular lymphadenopathy, axilla/epitrochlear/inguinal lymphadenopathy. Chest: Symmetric rise and fall with respirations. Non-tender to palpation. Heart: RRR, S1 and S2. No S3 or S4 summation gallop. No tripartite friction rub. No murmur. Lungs: Clear to auscultation and percussion. No audible expiratory wheeze, egophony, pectoriloquy, increase in tactile fremitus, or flatness/dullness to percussion at the bases. Abd: Soft, non-tender, non-distended. Bowel sounds auscultated in all 4 quadrants. No rebound, guarding, Saxena's sign, or organomegaly. Ext: No clubbing, cyanosis, or edema. 2+ pedal pulses bilaterally. Skin: No decubitus ulcer or enanthem or exanthem. Neuro: No tremors, tics, or myoclonus. DTR+. Urology: + encinas catheter with 80 cc of clear yellow urine on 12/28/2024. No urethral discharge. Urology: + encinas catheter with 100 cc of clear yellow urine on 12/29/2024. No urethral discharge. Urology: + encinas catheter with 100 cc of clear yellow urine on 12/30/2024. No urethral discharge. Urology: + encinas catheter with 0 cc of clear yellow urine on 12/31/2024. No urethral discharge. Results & Data Results & Data Laboratory Results WBC 10.82, N82 M12 M5, Hb 7.0, MCV 96.1, MCHC 31.4, platelet 390 (12/23/2024, 11:25am). Hb 6.7 (12/23/2024, 6:46pm), followed by 2 units packed RBC transfusion (12/23/2024, 7:40pm; 12/24/2024, 2:16am: volume 310 mL x 2 bags) Hb 7.8 (12/24/2024, 12:21am). Hb 8.7 (12/24/2024, 6:36am). Hb 9.0 (12/24/2024, 12:18pm). Hb 9.3 (12/24/2024, 6:27pm). WBC 10.32, N86 L7 M5 E1, Hb 9.0, MCV 91.7, MCHC 32.7, platelet 329 (12/25/2024, 6:28am). WBC 10.65, Hb 9.5, MCV 91.2, MCHC 33.9, platelet 354 (12/25/2024, 9:45am). Hb 9.6 (12/25/2024, 4:44pm). WBC 8.98, N81 L9 M8 E2, Hb 9.1, MCV 92.2, MCHC 31.9, platelet 327 (12/26/2024, 5:45am). WBC 9.45, N84 L7 M7 E1, Hb 9.4, MCV 91.9, MCHC 31.9, platelet 359 (12/27/2024, 8:39am). WBC 10.41, no differential, Hb 9.9, MCV 92.0, MCHC 31.9, platelet 393 (12/29/2024, 6:40am). NO MORE labs starting on 12/30/2024 as patient's code status was revised from DNR/DNI @ home to DNR/DNI/comfort measures only/inpatient hospice @ [facility]. Fe 16 ug/dL, ferritin 13.2 ng/mL (12/23/2024, 3:15pm). Na 133, K 4.7, glucose 131, CO2 15, anion gap 12, BUN 71, creatinine 2.40, GFR 18.83, Ca 9.8, AST 24, ALT 16, ALK PHOS 47, total bili 0.4 (12/23/2024, 11:25am). Na 136, K 4.0, glucose 117, CO2 16, anion gap 13, BUN 65, creatinine 2.19, GFR 21.02, Ca 9.7, AST 21, ALT 15, ALK PHOS 43, total bili 1.0 (12/24/2024, 8:06am). Na 135, K 3.8, glucose 169, CO2 14, anion gap 14, BUN 52, creatinine 1.91, GFR 24.77, Ca 9.6, Mg 2.3, AST 21, ALT 17, ALK PHOS 46, total bili 0.9 (12/25/2024, 6:28am). Na 134, K 3.7, glucose 163, CO2 16, anion gap 12, BUN 43, creatinine 1.82, GFR 26.25, Ca 9.6, Mg 2.1, AST 18, ALT 15, ALK PHOS 46, total bili 0.5 (12/26/2024, 5:45am). Na 133, K 3.7, glucose 139, CO2 16, anion gap 12, BUN 41, creatinine 1.84, GFR 25.91, Ca 9.7, Mg 2.0 (12/27/2024, 8:39am). Na 132, K 4.2, glucose 124, CO2 15, anion gap 14, BUN 47, creatinine 2.55, GFR 17.51, Ca 9.7 (12/29/2024, 6:40am). --------- NO MORE labs starting on 12/30/2024 as patient's code status was revised from DNR/DNI @ home to DNR/DNI/comfort measures only/inpatient hospice @ [facility]. Troponin-I #1 375.7 pg/mL (12/23/2024, 11:25am). Troponin-I #2 456.3 pg/mL (12/23/2024, 9:41pm). Troponin-I #3 358.6 pg/mL (12/23/2024, time ?) Troponin-I #4 1,830.7 pg/mL (12/24/2024, 6:36am). Troponin-I #5 2,351.3 pg/mL (12/24/2024, 10:42am). Troponin-I #6 1,266.5 pg/mL (12/25/2024, 6:28am). Troponin-I #7 1,161.2 pg/mL (12/25/2024, 11:10am). Troponin-I #1 1,510.2 pg/mL (12/25/2024, 4:44pm). Troponin-I #2 1,243.3 pg/mL (12/26/2024, 5:45am). BNP 482 pg/mL (07/03/2024, 6:58pm). BNP 1,186 pg/mL (11/08/2024, 2:02pm). BNP 1,964 pg/mL (12/23/2024, 11:25am). BNP > 4,700 pg/mL (12/27/2024, 8:39am). CRP #1 1.31 mg/dL (12/25/2024, 6:28am). CRP #2 2.87 mg/dL (12/26/2024, 5:45am). CRP #3 6.34 mg/dL (12/27/2024, 8:39am). Procalcitonin #1 0.07 ng/mL (12/26/2024, 5:45am). Diagnostic Findings Portable CXR (12/23/2024, 11:39am): 1. CHF. 2. Mild hazy opacity in the lung bases could represent atelectasis, early pneumonia, or small pleural effusions. Portable CXR (12/25/2024, 9:34am): 1. CHF. 2. Mild lung base opacity could represent atelectasis, consolidation, or small pleural effusions. Additional tests include: EKG #1 (12/23/2024, 11:23am): NSR @ 77, NM 180, QTC 407, TWI in II, III, aVF, V6, no acute ST depressions/elevations (by my review). EKG #2 (12/24/2024, 3:50pm): NSR @ 69, NM 164, QTC 398, TWI in III, aVF, V6, no acute ST depressions/elevations (by my review). EKG #3 (12/25/2024, 3:35am): AFIB @ 120, QTC 370, TWI in II, III, aVF, V6, no acute ST depressions/elevations (by my review). EKG old (11/11/2024, 8:00am): NSR @ 63, NM 162, QTC 446, TWI in II, III, aVF, V6, no acute ST depressions/elevations (by my review). TTE (12/24/2024, 2:48pm): 1. LVEF 25%. Mild concentric LVH. Multiple wall motion abnormalities of varying severity. 2. Borderline RV enlargement. RV systolic function mildly reduced. 3. LA/RA sizes normal. 4. Calcified aortic valve. AV opens well. 5. Calcified mitral apparatus. MV leaflets appear thickened, but open well. 6. Calcified tricuspid valve, but open well. (as per CARDS Dr. Mekhi Campos). TTE (11/09/2024, 7:03am): 1. LVEF 50-55%. Mild concentric LVH. Grade III diastolic dysfunction. Regional wall motion abnormalities; [id number] inferior and apical hypokinesis. 2. RV normal size and normal systolic function. 3. Borderline LA enlargement. RA size normal. 4. No significant or AR. 5. PV not well seen, but grossly normal. Trace NM. 6. Moderate-severe MR. No MS. 7. Mild TR. RVSP 50-60 mm Hg. 8. Aortic root normal size. Normal IVC diameter and respiratory variation suggests normal CVP. 9. No pericardial effusion. (as per CARDS Dr. Db Garg). PG Care Time/CCT Total # of Minutes Spent Total Time Spent with Patient: Total time spent is greater than 50% in coordination of care (as documented) at patient's floor/unit and/or counseling patient: Coding Level of Care Code 67272 SUB INP/OBS CARE 2/35MIN Diagnoses Comfort measures only status Z51.5 Upper GI bleed K92.2 Dyspnea on exertion R06.09 Chronic congestive heart failure, unspecified heart failure type I50.9 Heart failure type: unspecified Heart failure chronicity: chronic Nonrheumatic mitral valve regurgitation I34.0 Cardiac valve disease etiology: nonrheumatic Aortic valve stenosis, etiology of cardiac valve disease unspecified I35.0 Cardiac valve disease etiology: etiology unspecified Elevated troponin R79.89 Atrial fibrillation with RVR I48.91 Non-ST elevation CT (NSTEMI) I21.4 GERD (gastroesophageal reflux disease) K21.9 Esophagitis presence: esophagitis presence not specified Dyslipidemia E78.5 Essential hypertension I10 Hypertension type: essential hypertension (4) CHF (congestive heart failure) Heart failure type: unspecified Heart failure chronicity: chronic Qualified Code(s): I50.9 - Heart failure, unspecified (5) Mitral regurgitation Cardiac valve disease etiology: nonrheumatic Qualified Code(s): I34.0 - Nonrheumatic mitral (valve) insufficiency (6) Aortic stenosis Cardiac valve disease etiology: etiology unspecified Qualified Code(s): I35.0 - Nonrheumatic aortic (valve) stenosis (10) GERD (gastroesophageal reflux disease) Esophagitis presence: esophagitis presence not specified Qualified Code(s): K21.9 - Gastro-esophageal reflux disease without esophagitis (12) Hypertension Hypertension type: essential hypertension Qualified Code(s): I10 - Essential (primary) hypertension
--- NOTE | 2025-01-01 01:17 | Death Pronouncement Note ---
Date of Service January 01, 2025 Pronouncement Note Admission Date Admission Date: December 23, 2024 Date and Time of Date of : 01/01/25 Time of : 01:01 Contributing Factors (1) Comfort measures only status: (2) Upper GI bleed: (3) Dyspnea on exertion: (4) CHF (congestive heart failure): (5) Mitral regurgitation: (6) Aortic stenosis: (7) Elevated troponin: (8) Atrial fibrillation with RVR: (9) Non-ST elevation CA (NSTEMI): (10) GERD (gastroesophageal reflux disease): (11) Dyslipidemia: (12) Hypertension: Summary Additional details: I was called to pronounce the of A Yokasta Margot ( 1935) by Alena Mendoza on 01/01/2025 Upon entering the room, patient was found to be in a terminal state. They were unresponsive to, and did not withdrawal from, verbal or tactile stimuli. They were unresponsive to corneal, pupillary, and oculocephalic reflexes. On cardiopulmonary exam, they were found to be without detectable carotid pulses, and without spontaneous heart tones or respirations. Time of was pronounced by me on 01/01/2025 at 0101. Attending physician was notified. Next of kin, patient's daughters, present at bedside. . Signed: Carrillo Woodard DO Additional Data Attending physician: Gerard Koch MD, PhD Resident Activity Tracking Resident Involvement: Resident Care Provided Care Provided: Adult Hospital Medicine
[2025-01-03] MEDS ORDERED: REMOVE TRANSDERM-SCOP PATCH SCH (13:45)
== END 2025-01-01 02:00 | disposition expired | DRG 377 ==
LOC: ED 11:08 → 2S 16:16 → SUATTDRO 16:16 → 2S 17:36 → 3W 12-30 18:02